=== PATIENT | male | born 1950 | race Caucasian/White ===

== ENCOUNTER → 2016-10-17 | Outpatient (CLI) | payer MEDICARE ==
--- NOTE | 2016-10-17 17:51 | MR ---
EXAMINATION TYPE: MR lumbar spine wo con DATE OF EXAM: 10/17/2016 2:03 PM COMPARISON: NONE HISTORY: Back pain CONTRAST: 0 mL intravenous MultiHance. TECHNIQUE: Multiplanar, multisequence images of the lumbar spine were acquired. FINDINGS: L5-S1: No significant disc bulge or disc herniation. No spinal canal stenosis. No foraminal stenosi s. Disc space narrowing is present. Marked facet hypertrophy is present without effect on spinal can al.. L4-L5: No significant disc bulge or disc herniation. No spinal canal stenosis. No foraminal stenosi s. There is loss of disc height. Some residual disc bulge is present. This has extension into the le ft paracentral canal and left lateral canal. Correlate with left L5 radicular symptoms. Postcontrast imaging may be useful for confirmation. Laminectomy defect on the left may be present L3-L4: Central disc herniation extending inferiorly is present. Some left paracentral disc herniation extending inferiorly is also present. Correlate with radicular symptoms. No AP spinal canal stenosis is present. No spinal canal stenosis. No foraminal stenosis. . L2-L3: No significant disc bulge or disc herniation. No spinal canal stenosis. No foraminal stenosi s. . L1-L2: No significant disc bulge or disc herniation. No spinal canal stenosis. No foraminal stenosi s. . T12-L1: No significant disc bulge or disc herniation. No spinal canal stenosis. No foraminal stenos is. . IMPRESSION: 1. 1. Central and left paracentral disc herniations at L3-4. 2. Loss of disc height with residual disc bulging greater in the left paracentral canal. Herniation m ay extend to the left lateral canal. Correlate for left L5 radicular symptoms. Given the patient's cruz rgical history, postcontrast imaging may be useful for differentiating granulation tissue from recurr ent disc herniation.
== END | disposition home or self-care (01) ==
LOC: RADMRIMAIN 13:31
PROVIDERS: ATTEND Orthopaedic Surgery Orthopaedic Surgery of the Spine
DX: M51.26 Other intervertebral disc displacement, lumbar region (principal)
CPT/HCPCS: 72148

== ENCOUNTER 2016-10-30 19:44 | Emergency (ER) | payer MEDICARE ==
[2016-10-30] MEDS ORDERED: SODIUM CHLORIDE 0.9% 1,000 ML IV STA (20:23)
[2016-10-30] MEDS ORDERED: ACETAMINOPHEN IV (For NPO) 1,000 MG in EMPTY BAG 1 BAG IVPB ONE (20:23)
[2016-10-30 20:46] LABS: Aty Lym Flag Slight; CH 30.1; HCT 47.6 % (39.0-53.0); HDW 2.85; HGB 16.2 gm/dL (13.0-17.5); MCH 29.5 pg (25.0-35.0); MCHC 34.1 g/dL (31.0-37.0); MCV 86.5 fL (80.0-100.0); Mean Platelet Volume 8.4; RDW 14.1 % (11.5-15.5); WBC 5.7 k/uL (3.8-10.6); WBC (Perox) 5.89
[2016-10-30 20:55] LABS: Calcium 9.2 mg/dL (8.4-10.2); Potassium 3.8 mmol/L (3.5-5.1); Total Bilirubin 0.6 mg/dL (0.2-1.3); Total Protein 7.8 g/dL (6.3-8.2)
--- NOTE | 2016-10-30 20:55 | ED ---
General Adult HPI - General Chief complaint: Headache Stated complaint: headache x 2 days, vomiting Time Seen by Provider: 10/30/16 20:16 Source: patient, RN notes reviewed Mode of arrival: ambulatory Limitations: no limitations - History of Present Illness Initial comments: 66-year-old male presents to the emergency Department chief complaint of cough cold runny nose like symptoms associated with headache and fever and facial pain. Patient states he's been sick for about to 3 days. Patient states has tried [id number] cold remedies he's tried Tylenol with no improvement. Patient states that he just feels ill and he is not getting any better. Patient states that he has no neck pain or stiffness with this. Patient states he has had some vomiting with this. Patient states she's been sick for about 3 days now.Patient denies any recent shortness of breath, chest pain, back pain, abdominal pain, numbness or tingling, dysuria or hematuria, constipation or diarrhea, visual changes, or any other current symptoms. - Related Data Home Medications Medication Instructions Recorded Confirmed Lansoprazole [Prevacid] 30 mg PO DAILY 05/29/14 10/30/16 Lovastatin [Mevacor] 40 mg PO DAILY 05/29/14 10/30/16 Tamsulosin HCl [Flomax] 0.4 mg PO DAILY 05/29/14 10/30/16 Triamterene-Hctz 37.5-25Mg 1 cap PO DAILY 05/29/14 10/30/16 [Dyazide 37.5-25 Capsule] Previous Rx's Medication Instructions Recorded Amoxicillin/Potassium Clav 1 tab PO Q12HR #20 tab 10/30/16 [Augmentin 875-125 Tablet] Allergies Allergy/AdvReac Type Severity Reaction Status Date / Time No Known Allergies Allergy Verified 10/30/16 20:53 Review of Systems ROS Statement: Those systems with pertinent positive or pertinent negative responses have been documented in the HPI. ROS Other: All systems not noted in ROS Statement are negative. Past Medical History Past Medical History: GERD/Reflux, Hyperlipidemia, Hypertension Additional Past Medical History / Comment(s): kidney stones, History of Any Multi-Drug Resistant Organisms: None Reported Past Surgical History: Adenoidectomy, Back Surgery, Orthopedic Surgery, Tonsillectomy Past Psychological History: No Psychological Hx Reported Smoking Status: Never smoker Past Alcohol Use History: Occasional Past Drug Use History: None Reported General Exam - General Exam Comments Initial Comments: General: The patient is awake and alert, in no distress, and does not appear acutely ill. Head: Patient IS tender over sinuses. Eye: Pupils are equal, round and reactive to light, extra-ocular movements are intact; there is normal conjunctiva bilaterally. No signs of icterus. Ears, nose, mouth and throat: There are moist mucous membranes and no oral lesions. Neck: The neck is supple, there is no tenderness. Cardiovascular: There is a regular rate and rhythm. No murmur, rub or gallop is appreciated. Respiratory: Lungs are clear to auscultation, respirations are non-labored, breath sounds are equal. No wheezes, stridor, rales, or rhonchi. Gastrointestinal: Soft, non-distended, non-tender abdomen without masses or organomegaly noted. There is no rebound or guarding present. No CVA tenderness. Bowel sounds are unremarkable. Back: There is no tenderness to palpation in the midline. There is no obvious deformity. No rashes noted. Musculoskeletal: Normal ROM, no tenderness, There is no pedal edema. There is no calf tenderness or swelling. Sensation intact. Pulses equal bilaterally 2+. Neurological: CN II-XII intact, There are no obvious motor or sensory deficits. Coordination appears grossly intact. Speech is normal. Skin: Skin is warm and dry and no rashes or lesions are noted. Psychiatric: Cooperative, appropriate mood & affect, normal judgment. Limitations: no limitations Course Vital Signs 10/30/16 20:04 Temperature 98.9 F Pulse Rate 117 H Respiratory 20 Rate Blood Pressure 120/74 O2 Sat by Pulse 93 L Oximetry Medical Decision Making - Medical Decision Making 66-year-old male presents with cough cold runny nose like symptoms. At this time the patient is positive for influenza and CT does show sinusitis. At this time we discussed doubling of her treatment Tamiflu but we will start him on antibiotics for sinusitis. We discussed return parameters and follow-up. Patient family stated he understood all questions have been answered. - Lab Data Result diagrams: 10/30/16 20:38 10/30/16 20:38 Lab Results 10/30/16 10/30/16 10/30/16 Range/Units 20:38 20:38 20:38 WBC 5.7 (3.8-10.6) k/uL RBC 5.50 (4.30-5.90) m/uL Hgb 16.2 (13.0-17.5) gm/dL Hct 47.6 (39.0-53.0) % MCV 86.5 (80.0-100.0) fL MCH 29.5 (25.0-35.0) pg MCHC 34.1 (31.0-37.0) g/dL RDW 14.1 (11.5-15.5) % Plt Count 140 L (150-450) k/uL Sodium 138 (137-145) mmol/L Potassium 3.8 (3.5-5.1) mmol/L Chloride 100 (98-107) mmol/L Carbon Dioxide 25 (22-30) mmol/L Anion Gap 13 mmol/L BUN 19 (9-20) mg/dL Creatinine 1.65 H (0.66-1.25) mg/dL Est GFR (MDRD) Af Amer 51 (>60 ml/min/1.73 sqM) Est GFR (MDRD) Non-Af 42 (>60 ml/min/1.73 sqM) Glucose 164 H (74-99) mg/dL Calcium 9.2 (8.4-10.2) mg/dL Total Bilirubin 0.6 (0.2-1.3) mg/dL AST 75 H (17-59) U/L ALT 81 H (21-72) U/L Alkaline Phosphatase 66 (38-126) U/L Total Protein 7.8 (6.3-8.2) g/dL Albumin 4.5 (3.5-5.0) g/dL Influenza Type A RNA Detected A (Not Detectd) Influenza Type B (PCR) Not Detected (Not Detectd) - Radiology Data Radiology results: report reviewed, image reviewed Disposition Clinical Impression: Influenza A, Acute sinusitis Disposition: HOME SELF-CARE Condition: Stable Instructions: Influenza (ED), Sinusitis (ED) Additional Instructions: Please use medication as discussed. Please follow up with family doctor if symptoms have not improved over the next two days. Please return to the emergency room if your symptoms increase or worsen or for any other concerns. Prescriptions: Amoxicillin/Potassium Clav [Augmentin 875-125 Tablet] 1 tab PO Q12HR #20 tab Referrals: Nohemi Dennis MD [Primary Care Provider] - 1-2 days Time of Disposition: 21:32
[2016-10-30 21:41] VITALS: BP 128/69; PULSE 86; RESP 18; TEMP 98.4
[2016-10-30 22:13] LABS: Add Differential Manual Differential
--- NOTE | 2016-10-30 22:23 | XR ---
EXAMINATION TYPE: XR chest 2V DATE OF EXAM: 10/30/2016 8:47 PM COMPARISON: NONE HISTORY: Cough and cold symptoms. TECHNIQUE: Frontal and lateral views of the chest are obtained. FINDINGS: There is no focal air space opacity, pleural effusion, or pneumothorax seen. Linear plate like left basilar atelectasis is noted. The cardiac silhouette size is within normal limits. The os seous structures are intact. IMPRESSION: Linear platelike left basilar atelectasis with no focal consolidation.
--- NOTE | 2016-10-30 22:23 | CT ---
EXAMINATION TYPE: CT brain wo con DATE OF EXAM: 10/30/2016 9:08 PM COMPARISON: NONE HISTORY: Pt states of MATUTE x2 days CT DLP: 1118.0 mGycm. Automated Exposure Control for Dose Reduction was Utilized. TECHNIQUE: CT scan of the head is performed without contrast. FINDINGS: There is no acute intracranial hemorrhage, mass effect, or midline shift identified. The ventricles and sulci are within normal limits in size. The globes are intact. Moderate mucosal thic kening is seen within the ethmoid sinuses and mild mucosal thickening/mucosal polyps within the right maxillary sinus. Scattered mucosal thickening is seen within the frontal sinus and sphenoid sinuses. Mastoid air cells are well aerated. IMPRESSION: 1. No acute intracranial hemorrhage, mass effect, or midline shift is seen. 2. Moderate paranasal sinus disease, which may contribute to the patient's headaches.
[2016-10-30 22:25] LABS: Nucleated Red Blood Cells 0 /100 WBC (0-0); Total Cells Counted 100
[2016-10-30 22:29] LABS: Large Platelets Present; Manual Review Performed
== END 2016-10-30 21:42 | disposition home or self-care (01) ==
LOC: EC 19:44
DX: J01.90 Acute sinusitis, unspecified (principal); J09.X2 Influenza due to identified novel influenza A virus with other respiratory manifestations; E78.5 Hyperlipidemia, unspecified; K21.9 Gastro-esophageal reflux disease without esophagitis; Z79.899 Other long term (current) drug therapy
CPT/HCPCS: 36415; 80053; 85025; 87502; 71020; 70450; 99284; 96374; 96361; J0131

== ENCOUNTER → 2017-05-14 | Outpatient (CLI) | payer MEDICARE ==
--- NOTE | 2017-05-14 10:29 | US ---
EXAMINATION TYPE: US abdomen complete DATE OF EXAM: 05/14/2017 COMPARISON: CT Abdomen 2013 CLINICAL HISTORY: K21.0 Gastro-esophageal reflux disease with esopha; family HX of pancreatic cancer; lower abdominal pain; renal stones with multiple lithotripsies per patient EXAM MEASUREMENTS: Liver Length: 15.7 cm Gallbladder Wall: 0.1 cm CBD: 0.4 cm Spleen: 10.4 cm Right Kidney: 12.3 x 5.5 x 4.7 cm Left Kidney: 11.9 x 4.7 x 5.2 cm Pancreas: The pancreatic tail and head are nonvisualized. No ductal dilatation is seen in the visuali zed portions. Liver: Moderate coarsened heterogenous echotexture of the hepatic parenchyma. Gallbladder: wnl Evidence for sonographic Munoz's sign: No CBD: wnl Spleen: wnl Right Kidney: wnl Left Kidney: lower pole renal cyst = 2.0 x 1.2 x 1.6cm; lower pole hyperechoic focus = 0.5 x 0.3 x 0 .1cm with shadowing representing a nonobstructing calculus. Upper IVC: wnl Abd Aorta: intimal wall thickening noted mid aorta. The liver is homogenous. The intrahepatic portion of the IVC and proximal abdominal aorta are within normal limits. There is no evidence of cholelithiasis. Common bile duct is unremarkable. The visu alized portions of the pancreas are homogenous. The spleen is unremarkable. Kidneys are symmetric a nd free of hydronephrosis. No renal lesions are seen. IMPRESSION: 1. Moderate coarsened heterogenous echotexture of the hepatic parenchyma, which most commonly corresp onds to hepatic steatosis and limits evaluation for underlying hepatic masses. 2. Left renal cyst and nonobstructing 5 mm left renal calculus. 3. Incomplete visualization of the pancreas, however there is no evidence of ductal dilatation within the visualized portions.
== END | disposition home or self-care (01) ==
LOC: RADUSWWP 09:06
PROVIDERS: ATTEND Internal Medicine Gastroenterology
DX: N20.0 Calculus of kidney (principal); N28.1 Cyst of kidney, acquired; Z85.89 Personal history of malignant neoplasm of other organs and systems
CPT/HCPCS: 76700

== ENCOUNTER → 2017-08-22 | Outpatient (CLI) | payer MEDICARE ==
--- NOTE | 2017-08-22 12:49 | XR ---
Bilateral feet HISTORY: Hammertoe, pain 3 views of each foot submitted. Degenerative changes are present at the first metatarsophalangeal joint of the left foot and intertar ana rosa joints, right first digit shows post op change. Alignment and bone mineralization are maintained. Vascular calcifications noted incidentally. No fracture or dislocation. Digits are slightly flexed. There are plantar calcaneal spurs. IMPRESSION: degenerative changes, additional findings above
== END | disposition home or self-care (01) ==
LOC: RADXRMAIN 10:41
PROVIDERS: ATTEND Podiatrist
DX: M25.872 Other specified joint disorders, left ankle and foot (principal); M25.871 Other specified joint disorders, right ankle and foot; R52 Pain, unspecified; M20.40 Other hammer toe(s) (acquired), unspecified foot

== ENCOUNTER 2018-01-29 06:18 | Emergency (ER) | payer MEDICARE ==
[2018-01-29] MEDS ORDERED: ONDANSETRON 4 MG/2 ML VIAL IVP STA (06:27)
[2018-01-29] MEDS ORDERED: SODIUM CHLORIDE 0.9% 1,000 ML IV ONE (06:27)
[2018-01-29] MEDS ORDERED: MORPHINE SULFATE 4 MG/ML SYRINGE IVP STA ×4 (06:32→09:01)
--- NOTE | 2018-01-29 06:37 | ED ---
Abdominal Pain HPI - General Source: patient Mode of arrival: wheelchair Limitations: physical limitation <Maxi North - Last Filed: 01/29/18 06:53> <Angel Welch - Last Filed: 01/29/18 08:23> - General Chief Complaint: Abdominal Pain Stated Complaint: Back and Abdominal Pain Time Seen by Provider: 01/29/18 06:22 - History of Present Illness Initial Comments: 67 years old male comes in with the right flank pain, pain is radiating towards the right groin area he does have a history of kidney stones he stating he feels like his regular kidney stones is nauseous is in severe pain. He denies any headaches no neck stiffness no chest pain does have a right sided flank pain of system is otherwise unremarkable (Maxi North) - Related Data Home Medications Medication Instructions Recorded Confirmed Lansoprazole [Prevacid] 30 mg PO DAILY 05/29/14 01/29/18 Tamsulosin HCl [Flomax] 0.4 mg PO DAILY 05/29/14 01/29/18 Atorvastatin Calcium [Lipitor] 40 mg PO HS 01/29/18 01/29/18 Cyclobenzaprine HCl 10 mg PO QAM 01/29/18 01/29/18 Lisinopril-Hctz 20-25 mg 1 tab PO DAILY 01/29/18 01/29/18 [Zestoretic 20-25] Naproxen [Naproxen] 500 mg PO BID PRN 01/29/18 01/29/18 Oxybutynin Chloride [Ditropan] 5 mg PO DAILY 01/29/18 01/29/18 Previous Rx's Medication Instructions Recorded Hydrocodone/Acetaminophen [Silver[place] 1 each PO Q4HR PRN #15 tab 01/29/18 5-325] Ketorolac [Toradol] 10 mg PO Q6HR #15 tab 01/29/18 Tamsulosin HCl [Flomax] 0.4 mg PO DAILY #10 cap 01/29/18 Allergies Allergy/AdvReac Type Severity Reaction Status Date / Time No Known Allergies Allergy Verified 01/29/18 07:28 Review of Systems ROS Other: All systems not noted in ROS Statement are negative. <Maxi North - Last Filed: 01/29/18 06:53> ROS Other: All systems not noted in ROS Statement are negative. <Angel Welch - Last Filed: 01/29/18 08:23> ROS Statement: Those systems with pertinent positive or pertinent negative responses have been documented in the HPI. Past Medical History Past Medical History: GERD/Reflux, Hyperlipidemia, Hypertension Additional Past Medical History / Comment(s): kidney stones, History of Any Multi-Drug Resistant Organisms: None Reported Past Surgical History: Adenoidectomy, Back Surgery, Orthopedic Surgery, Tonsillectomy Past Psychological History: No Psychological Hx Reported Smoking Status: Never smoker Past Alcohol Use History: Occasional Past Drug Use History: None Reported <Maxi North - Last Filed: 01/29/18 06:53> General Exam Limitations: physical limitation <Maxi North - Last Filed: 01/29/18 06:53> <Angel Welch - Last Filed: 01/29/18 08:23> - General Exam Comments Initial Comments: General: The patient is awake and in severe distress Skin: Skin is warm and dry and no rashes or lesions are noted. Eye: Pupils are equal, round and reactive to light, extra-ocular movements are intact; there is normal conjunctiva bilaterally. Ears, nose, mouth and throat: There are moist mucous membranes and no oral lesions. Neck: The neck is supple, there is no tenderness or JVD. Cardiovascular: There is a regular rate and rhythm. No murmur, rub or gallop is appreciated. Respiratory: To auscultation bilateral, no wheezing no rhonchi no distress respiratory simon noticed Gastrointestinal: Soft, non-distended, non-tender abdomen without masses or organomegaly noted. There is no rebound or guarding present. Bowel sounds are unremarkable. Back: There is no tenderness to palpation in the midline. There is no obvious deformity. Musculoskeletal: Normal ROM, no tenderness, There is no pedal edema. There is no calf tenderness or swelling. No cords were appreciated. Neurological: CN II-XII intact, Cranial nerves III through XII are intact. There are no obvious motor or sensory deficits. Coordination appears grossly intact. Speech is normal. Psychiatric: Cooperative, appropriate mood & affect, normal judgment. (Maxi North) Course <Maxi North - Last Filed: 01/29/18 06:53> <Angel Welch - Last Filed: 01/29/18 08:23> Vital Signs 01/29/18 01/29/18 06:19 07:44 Temperature 97.7 F 97.1 F L Pulse Rate 80 71 Respiratory 20 18 Rate Blood Pressure 194/97 135/80 O2 Sat by Pulse 96 94 L Oximetry Patient will be endorsed to Dr. Welch for further evaluation and management, at this point compress metabolic panel and a urinalysis is available that was reviewed, CT renal colic is pending, I suspect obstructing stone in the right ureter (Maxi North) Medical Decision Making - Lab Data Result diagrams: 01/29/18 06:20 <Maxi North - Last Filed: 01/29/18 06:53> - Lab Data Result diagrams: 01/29/18 06:20 01/29/18 06:20 <Angel Welch - Last Filed: 01/29/18 08:23> - Medical Decision Making Patient's CAT scan showed 3 mm right kidney stone. Patient was still in pain second 4 more morphine. I sent the patient home with all hydrocodone and Flomax. (Angel Welch) - Lab Data Lab Results 01/29/18 01/29/18 01/29/18 Range/Units 06:20 06:20 06:25 WBC 7.2 (3.8-10.6) k/uL RBC 5.42 (4.30-5.90) m/uL Hgb 15.7 (13.0-17.5) gm/dL Hct 45.4 (39.0-53.0) % MCV 83.7 (80.0-100.0) fL MCH 29.0 (25.0-35.0) pg MCHC 34.7 (31.0-37.0) g/dL RDW 13.7 (11.5-15.5) % Plt Count 177 (150-450) k/uL Neutrophils % (Manual) 56 % Lymphocytes % (Manual) 27 % Monocytes % (Manual) 15 % Eosinophils % (Manual) 2 % Neutrophils # (Manual) 4.03 (1.3-7.7) k/uL Lymphocytes # (Manual) 1.94 (1.0-4.8) k/uL Monocytes # (Manual) 1.08 H (0-1.0) k/uL Eosinophils # (Manual) 0.14 (0-0.7) k/uL Nucleated RBCs 0 (0-0) /100 WBC Manual Slide Review Performed Large Platelets Present Sodium 146 H (137-145) mmol/L Potassium 3.8 (3.5-5.1) mmol/L Chloride 106 (98-107) mmol/L Carbon Dioxide 24 (22-30) mmol/L Anion Gap 16 mmol/L BUN 30 H (9-20) mg/dL Creatinine 1.53 H (0.66-1.25) mg/dL Est GFR (CKD-EPI)AfAm 54 (>60 ml/min/1.73 sqM) Est GFR (CKD-EPI)NonAf 46 (>60 ml/min/1.73 sqM) Glucose 128 H (74-99) mg/dL Calcium 9.4 (8.4-10.2) mg/dL Total Bilirubin 0.8 (0.2-1.3) mg/dL AST 46 (17-59) U/L ALT 41 (21-72) U/L Alkaline Phosphatase 89 (38-126) U/L Total Protein 7.8 (6.3-8.2) g/dL Albumin 4.6 (3.5-5.0) g/dL Urine Color Yellow Urine Appearance Cloudy (Clear) Urine pH 5.0 (5.0-8.0) Ur Specific [place] 1.019 (1.001-1.035) Urine Protein 1+ H (Negative) Urine Glucose (UA) Negative (Negative) Urine Ketones Negative (Negative) Urine Blood Large H (Negative) Urine Nitrite Negative (Negative) Urine Bilirubin Negative (Negative) Urine Urobilinogen <2.0 (<2.0) mg/dL Ur Leukocyte Esterase Negative (Negative) Urine RBC >182 H (0-5) /hpf Ur Squamous Epith Cells <1 (0-4) /hpf Urine Mucus Rare H (None) /hpf Disposition <Maxi North - Last Filed: 01/29/18 06:53> Is patient prescribed a controlled substance at d/c from ED?: Yes When asked, does pt state using other controlled substances?: No Time of Disposition: 08:18 <Angel Welch - Last Filed: 01/29/18 08:23> Clinical Impression: Kidney stone on right side Disposition: HOME SELF-CARE Instructions: Kidney Stones (ED) Prescriptions: Hydrocodone/Acetaminophen [[place] 5-325] 1 each PO Q4HR PRN #15 tab PRN Reason: Pain Ketorolac [Toradol] 10 mg PO Q6HR #15 tab Tamsulosin HCl [Flomax] 0.4 mg PO DAILY #10 cap Referrals: Nohemi Dennis MD [Primary Care Provider] - 1-2 days
[2018-01-29 06:42] LABS: Albumin 4.6 g/dL (3.5-5.0); Calcium 9.4 mg/dL (8.4-10.2); Potassium 3.8 mmol/L (3.5-5.1); Total Bilirubin 0.8 mg/dL (0.2-1.3); Total Protein 7.8 g/dL (6.3-8.2)
[2018-01-29] MEDS ORDERED: KETOROLAC 30 MG/ML 1 ML VIAL IVP STA (06:44)
[2018-01-29 06:50] LABS: HCT 45.4 % (39.0-53.0); HGB 15.7 gm/dL (13.0-17.5); MCHC 34.7 g/dL (31.0-37.0); MCV 83.7 fL (80.0-100.0); Mean Platelet Volume 9.9; Platelet Count 177 k/uL (150-450); RBC 5.42 m/uL (4.30-5.90); RDW 13.7 % (11.5-15.5); WBC 7.2 k/uL (3.8-10.6)
[2018-01-29 06:51] LABS: Appearance,Urine Cloudy (Clear); Bilirubin,Urine Negative (Negative); Blood,Urine Large (Negative); Color,Urine Yellow; Glucose,Urine (UA) Negative (Negative); Ketones,Urine Negative (Negative); Leukocyte Esterase,Urine Negative (Negative); Mucus,Urine Rare /hpf; Nitrite,Urine Negative (Negative); Protein,Urine 1+ (Negative); RBC,Urine >182 /hpf (0-5); Specific Gravity,Urine 1.019 (1.001-1.035); Squamous Epithelial Cell,Urine <1 /hpf (0-4); Urobilinogen,Urine <2.0 mg/dL (<2.0)
[2018-01-29 07:07] LABS: Eosinophils # (M) 0.14 k/uL (0-0.7); Lymphocytes # (M) 1.94 k/uL (1.0-4.8); Monocytes # (M) 1.08 k/uL (0-1.0); Neutrophils # (M) 4.03 k/uL (1.3-7.7); Neutrophils % (M) 56 %; Nucleated Red Blood Cells 0 /100 WBC (0-0); Total Cells Counted 100
[2018-01-29 07:08] LABS: Large Platelets Present
--- NOTE | 2018-01-29 07:37 | CT ---
EXAMINATION TYPE: CT abdomen pelvis wo con DATE OF EXAM: 01/29/2018 HISTORY: Rt flank pain CT DLP: 1216 mGycm. Automated Exposure Control for Dose Reduction was Utilized. TECHNIQUE: CT scan of the abdomen and pelvis is performed without oral or IV contrast. COMPARISON: CT abdomen and pelvis August 10, 2014 FINDINGS: Within the limitations of a non-contrast study, the following observations are made. Lung bases: There is persistent left basilar linear scarring and/or atelectasis. LIVER/GB: Liver is heterogeneously hypodense particularly right hepatic lobe suggesting mild diffuse fatty infiltration, Hounsfield units average 39 at this level. PANCREAS: No significant abnormality is seen. SPLEEN: Somewhat tortuous splenic artery is redemonstrated, cannot exclude small aneurysm on axial im age 38. No significant change from prior. ADRENALS: No significant abnormality is seen. KIDNEYS: No left-sided renal calculi or hydronephrosis on current study. No intraluminal calculi are seen in poorly distended bladder. Scattered pelvic phleboliths are seen. There is 3 mm calculus proximal right ureter on axial image 84 and coronal image 51 causing mild righ t-sided pyelocaliectasis and proximal hydroureter and mild to moderate right-sided ill-defined perine phric fluid and fat stranding. There is additional 1 mm calculus suspected mid pole level right kidne y axial image 62. BOWEL: Small to moderate-sized hiatal hernia is redemonstrated. Normal-appearing appendix is seen fro m base of cecum. There is no suspicious small or large bowel dilatation. A few diverticula in left co tab are redemonstrated. GENITAL ORGANS: Prostate gland is enlarged in size bulging on bladder base consistent with underlying BPH. LYMPH NODES: No greater than 1cm abdominal or pelvic lymph nodes are appreciated. OSSEOUS STRUCTURES: Spine is straightened on sagittal images. There is moderate disc space narrowing L4-L5 level. There is multilevel spurring in the thoracolumbar spine. There is mild to moderate joint space loss in both hips. OTHER: No significant additional abnormality is seen. IMPRESSION: There is new 3 mm proximal right ureter calculus causing mild right-sided hydronephrosis.
[2018-01-29 07:46] VITALS: RESP 18
[2018-01-29 09:01] VITALS: BP 155/83; PULSE 70; TEMP 97
== END 2018-01-29 09:08 | disposition home or self-care (01) ==
LOC: EC 06:18
DX: N20.0 Calculus of kidney (principal); E78.5 Hyperlipidemia, unspecified; I10 Essential (primary) hypertension; K21.9 Gastro-esophageal reflux disease without esophagitis; Z79.899 Other long term (current) drug therapy; Z98.890 Other specified postprocedural states
CPT/HCPCS: 36415; 80053; 85025; 81001; 74176; 99284; 96374; 96375 ×2; 96376 ×2; 96361 ×2; J2270; J2405; J1885

== ENCOUNTER → 2018-05-24 | Outpatient (CLI) | payer MEDICARE ==
--- NOTE | 2018-05-24 15:03 | US ---
EXAMINATION TYPE: US kidneys/renal and bladder DATE OF EXAM: 05/24/2018 COMPARISON: CT CLINICAL HISTORY: N28.9 Disorder of kidney and ureter.... Multiple cystoscopes for renal stone retrie vinay per patient; left flank pain radiating to left pelvis EXAM MEASUREMENTS: Right Kidney: 11.5 x 5.2 x 4.8 cm Left Kidney: 11.9 x 5.2 x 6.1 cm Post Void Residual Volume: 65.0 mL Right Kidney: very small hyperechoic focus noted in lower pole = 0.3 x 0.2 x 0.2cm Left Kidney: lower pole cluster of cysts = 1.8 x .3 x 1.6cm Bladder: wnl; prominent prostate noted posteriorly Bilateral Jets seen: yes Normal Post Void Residual: no, as is greater than 50.0ml. IMPRESSION: 1. Nonobstructing calculus right kidney. 2. Renal cystic changes left kidney without suspicious lesion.
== END | disposition home or self-care (01) ==
LOC: RADUSWWP 13:53
PROVIDERS: ATTEND Family Medicine
DX: N20.0 Calculus of kidney (principal); N28.1 Cyst of kidney, acquired
CPT/HCPCS: 76770

== ENCOUNTER 2018-08-01 12:01 | Emergency (ER) | payer MEDICARE ==
[2018-08-01 12:05] VITALS: RESP 18
--- NOTE | 2018-08-01 13:25 | XR ---
EXAMINATION TYPE: XR hand complete RT DATE OF EXAM: 08/01/2018 COMPARISON: NONE HISTORY: Pain TECHNIQUE: Three views are submitted. FINDINGS: Joint spaces are preserved. There is a questionable deformity involving the scaphoid on the oblique v iew. IMPRESSION: 1. Question a deformity of the scaphoid on the oblique view. Recommend a dedicated wrist series with scaphoid view
--- NOTE | 2018-08-01 14:13 | XR ---
EXAMINATION TYPE: XR wrist complete RT DATE OF EXAM: 08/01/2018 COMPARISON: NONE HISTORY: Pain TECHNIQUE: Four views submitted. FINDINGS: There is a subtle deformity of the scaphoid which may be chronic. Remaining osseous structures appear intact. No definite acute fracture. IMPRESSION: 1. No definite acute fracture. There is a subtle deformity scaphoid which likely is chronic. If there is point tenderness then correlate with CT scan for confirmation in the chronicity of the deformity to exclude acute injury..
--- NOTE | 2018-08-01 14:49 | ED ---
General Adult HPI - General Chief complaint: Extremity Injury, Upper Stated complaint: hand and wrist pain Source: patient Mode of arrival: ambulatory Limitations: no limitations - History of Present Illness Initial comments: 68 y/o male presents to ED w/ pain in his right thumb. Pt states that with extension of his R thumb he has pain in his distal radius. This pain has been ongoing for approx 2 weeks. Pt states that he has had no acute injury over the last month. 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 Pt takes a daily NSAID of naproxen for his osteoarthritis of hands and other chronic pain. Pt denies other complaints. Systemic: Pt denies fatigue, myalgia, fever/chills, rash. Pt denies weakness, night sweats, weight loss. Neuro: Pt denies headache, visual disturbances, syncope or pre-syncope. HEENT: Pt denies ocular discharge or irritation, otalgia, rhinorrhea, pharyngitis or notable lymphadenopathy. Cardiopulmonary: Pt denies chest pain, SOB, heart palpitations, dyspnea on exertion. Abdominal/GI: Pt denies abdominal pain, n/v/d. : Pt denies dysuria, burning w/ urination, frequency/urgency. Denies new onset urinary or bowel incontinence. MSK: Pt denies myalgia, loss of strength or function in extremities. - Related Data Home Medications Medication Instructions Recorded Confirmed Lansoprazole [Prevacid] 30 mg PO DAILY 05/29/14 01/29/18 Tamsulosin HCl [Flomax] 0.4 mg PO DAILY 05/29/14 01/29/18 Atorvastatin Calcium [Lipitor] 40 mg PO HS 01/29/18 01/29/18 Cyclobenzaprine HCl 10 mg PO QAM 01/29/18 01/29/18 Lisinopril-Hctz 20-25 mg 1 tab PO DAILY 01/29/18 01/29/18 [Zestoretic 20-25] Naproxen 500 mg PO BID PRN 01/29/18 01/29/18 Oxybutynin Chloride [Ditropan] 5 mg PO DAILY 01/29/18 01/29/18 Previous Rx's Medication Instructions Recorded Hydrocodone/Acetaminophen [Gaffney 1 each PO Q4HR PRN #15 tab 01/29/18 5-325] Ketorolac [Toradol] 10 mg PO Q6HR #15 tab 01/29/18 Tamsulosin HCl [Flomax] 0.4 mg PO DAILY #10 cap 01/29/18 Allergies Allergy/AdvReac Type Severity Reaction Status Date / Time No Known Allergies Allergy Verified 08/01/18 12:05 Review of Systems ROS Statement: Those systems with pertinent positive or pertinent negative responses have been documented in the HPI. ROS Other: All systems not noted in ROS Statement are negative. Past Medical History Past Medical History: GERD/Reflux, Hyperlipidemia, Hypertension Additional Past Medical History / Comment(s): kidney stones, History of Any Multi-Drug Resistant Organisms: None Reported Past Surgical History: Adenoidectomy, Back Surgery, Orthopedic Surgery, Tonsillectomy Past Psychological History: No Psychological Hx Reported Smoking Status: Never smoker Past Alcohol Use History: Occasional Past Drug Use History: None Reported General Exam - General Exam Comments Initial Comments: Constitutional: NAD, AOX3, Pt has pleasant affect. HEENT: NC/AT, trachea midline, neck supple, no lymphadenopathy. Posterior pharynx non erythematous, without exudates. External ears appear normal, without discharge. Mucous membranes moist. Eyes PERRLA, EOM intact. There is no scleral icterus. No pallor noted. Cardiopulmonary: RRR, no murmurs, rubs or gallops, no JVD noted. Lungs CTAB in anterior and posterior rivera. No peripheral edema. Abdominal exam: Abdomen soft and non-distended. Abdomen non-tender to palpation in all 4 quadrants. Bowel sounds active in LLQ. No hepatosplenomegaly. Neuro: CN II-XII grossly intact. MSK: R hand and wrist nontender to palpation. No erythema, edema or signs of infection. Pain with flexion/extension of R thumb. No pain with palpation of flexor/extensor tendon. Full active ROM in all digits of R hand and R wrist. No pain with palpation or decreased active ROM in other extremities. Limitations: no limitations Course Vital Signs 08/01/18 12:02 Temperature 98.4 F Pulse Rate 83 Respiratory 18 Rate Blood Pressure 143/87 O2 Sat by Pulse 96 Oximetry Medical Decision Making - Medical Decision Making 60-year-old male who presented with right thumb pain with extension. Physical exam did not display any acute abnormalities or worrisome signs/symptoms of infection. Physical exam of right hand was nontender to palpation, non- erythematous or edematous. Patient has subjective pain with extension of right thumb. Patient does have a past medical history of bilateral osteoarthritis in both hands. Investigations were conducted including a plain film of patient's right hand, and right wrist. These plain films displayed a deformity in the patient's scaphoid, likely chronic in nature, patient has no scaphoid tenderness. Patient takes a 500mg daily naproxen, the dose will be doubled for 1 week to treat this pain/inflammation. This case with discussed at length with Dr. Welch. Patient to follow up with PCP and ortho in 1-2 days. Pt to return if symptoms worsen, redness or discharge develops. Disposition Clinical Impression: Osteoarthritis, hand Disposition: HOME SELF-CARE Condition: Good Instructions: Osteoarthritis (ED) Additional Instructions: Patient to adhere to previously discussed treatment plan and will take medication as directed. Patient to follow up with PCP in 1-2 days. Patient to return to ED if symptoms do not improve. Is patient prescribed a controlled substance at d/c from ED?: No Referrals: Nohemi Dennis MD [Primary Care Provider] - 1-2 days Davidson Jovel MD [Medical Doctor] - 1-2 days Time of Disposition: 14:50
[2018-08-01 15:15] VITALS: BP 118/83; PULSE 77; TEMP 98.1
== END 2018-08-01 15:14 | disposition home or self-care (01) ==
LOC: EC 12:01
DX: M19.041 Primary osteoarthritis, right hand (principal); M19.042 Primary osteoarthritis, left hand; E78.5 Hyperlipidemia, unspecified; I10 Essential (primary) hypertension; K21.9 Gastro-esophageal reflux disease without esophagitis; G89.29 Other chronic pain; Z79.1 Long term (current) use of non-steroidal anti-inflammatories (NSAID); Z79.899 Other long term (current) drug therapy
CPT/HCPCS: 99283

== ENCOUNTER 2019-08-08 20:13 | Observation (INO) | payer MEDICARE ==
[2019-08-08] MEDS ORDERED: SODIUM CHLORIDE 0.9% 500 ML 500 ML IV STA (20:21)
[2019-08-08 20:25] LABS: Glucose,Whole Blood 113 mg/dL (75-99)
--- NOTE | 2019-08-08 20:45 | ED ---
General Adult HPI - General Chief complaint: Chest Pain Stated complaint: Chest Pain Time Seen by Provider: 08/08/19 20:19 Source: patient, family Mode of arrival: wheelchair Limitations: no limitations - History of Present Illness Initial comments: Dictation was produced using [employer] dictation software. please excuse any grammatical, word or spelling errors. Chief Complaint: 69-year-old male past medical history diabetes, dyslipidemia and hypertension presents with left sided chest pain since yesterday. History of Present Illness: 69-year-old male who presents with left-sided chest pain since yesterday. Patient states that the pain as sharp. He states that initially the pain started in the left scapular area and today upon waking up his pain moved to his left anterior chest. States that the pain as sharp and stabbing in nature. Symptoms aren't exacerbated with deep inspiration. States that the pain is constant and sharp. No associated diaphoresis. No numbness, paresthesias to the extremities. She denies any shortness of breath. Patient denies any history of heart attacks. The ROS documented in this emergency department record has been reviewed and confirmed by me. Those systems with pertinent positive or negative responses have been documented in the HPI. All other systems are other negative and/or noncontributory. PHYSICAL EXAM: General Impression: Alert and oriented x3, mild distress secondary to pain HEENT: Normocephalic atraumatic, extra-ocular movements intact, pupils equal and reactive to light bilaterally, mucous membranes moist. Cardiovascular: Heart regular rate and rhythm, S1&S2 audible, no murmurs, rubs or gallops Chest: Lungs clear to auscultation bilaterally, no rhonchi, no wheeze, no rales Abdomen: Bowel sounds present, abdomen soft, non-tender, non-distended, no o rganomegaly Musculoskeletal: Pulses present and equal in all extremities, no peripheral edema Motor: no focal deficits noted Neurological: CN II-XII grossly intact, no focal motor or sensory deficits noted Skin: Intact with no visualized rashes Psych: Normal affect and mood ED course: 69-year-old male presents with chief complaint of left sided chest pain. Upon arrival are within acceptable limits. His blood pressure is however elevated at 180/105. Patient is mostly well-appearing with mild distress. Clinical presentation is consistent with atypical chest pain with typical features. EKG shows right bundle branch block. No signs of infarction or ischemia at this time.Repeat EKG shows no dynamic changes. EKG shows ventricular rate of 66, normal sinus rhythm,. Interval 172, care is 134, QTc 434. Laboratory evaluation obtained. CBC, coag panel unremarkable. D-dimer shows 0.69 level. Metabolic panel is unremarkable. Troponin is slightly bumped at 0.017 however still within normal range. Urinalysis negative. Chest x-rays obtained. Showing no acute processes. CT angios the chest was obtained given that patient elevated d-dimer. No signs of PE or aortic dissection. Images were reviewed with Dr. Massey. Patient given nitroglycerin. He started on heparin because he is continued to have pain. Patient given nitro paste. Discussed patient case with Dr. Cornelius who is aware of patient and is willing to accept patient care. She presented aspirin. Started on heparin for concerns of unstable angina. Nitro paste applied. EKG interpretation: Ventricular rate 84, normal sinus rhythm,. 150, Q is 1:30, QTc 451. No SD prolongation, no QTC prolongation, no ST or T-wave changes noted. No old EKG for comparison. Overall, this EKG is unremarkable - Related Data Home Medications Medication Instructions Recorded Confirmed Lansoprazole [Prevacid] 30 mg PO BID 05/29/14 08/08/19 Atorvastatin Calcium [Lipitor] 40 mg PO HS 01/29/18 08/08/19 Cyclobenzaprine HCl 10 mg PO QAM 01/29/18 08/08/19 Lisinopril-Hctz 20-25 mg 1 tab PO DAILY 01/29/18 08/08/19 [Zestoretic 20-25] Naproxen 500 mg PO BID PRN 01/29/18 08/08/19 Oxybutynin Chloride [Ditropan] 5 mg PO HS 01/29/18 08/08/19 Sucralfate [Carafate] 1 gm PO ACHS 08/08/19 08/08/19 metFORMIN HCL [Glucophage Xr] 500 mg PO DAILY 08/08/19 08/08/19 Previous Rx's Medication Instructions Recorded Tamsulosin HCl [Flomax] 0.4 mg PO DAILY #10 cap 01/29/18 Allergies Allergy/AdvReac Type Severity Reaction Status Date / Time No Known Allergies Allergy Verified 08/08/19 22:02 Review of Systems ROS Statement: Those systems with pertinent positive or pertinent negative responses have been documented in the HPI. ROS Other: All systems not noted in ROS Statement are negative. Past Medical History Past Medical History: Diabetes Mellitus, GERD/Reflux, Hyperlipidemia, Hypertension Additional Past Medical History / Comment(s): kidney stones, History of Any Multi-Drug Resistant Organisms: None Reported Past Surgical History: Adenoidectomy, Back Surgery, Orthopedic Surgery, Tonsillectomy Past Psychological History: No Psychological Hx Reported Smoking Status: Never smoker Past Alcohol Use History: Occasional Past Drug Use History: None Reported General Exam Limitations: no limitations Course Vital Signs 08/08/19 08/08/19 08/08/19 20:15 22:16 23:00 Temperature 99.8 F H Pulse Rate 91 77 75 Respiratory 20 18 13 Rate Blood Pressure 180/105 172/88 160/85 O2 Sat by Pulse 94 L 95 94 L Oximetry 08/08/19 08/09/19 23:30 00:00 Temperature Pulse Rate 74 76 Respiratory 14 12 Rate Blood Pressure 144/79 O2 Sat by Pulse 94 L 94 L Oximetry Medical Decision Making - Lab Data Result diagrams: 08/08/19 20:41 08/08/19 20:41 Lab Results 08/08/19 08/08/19 08/08/19 Range/Units 20:24 20:41 20:41 WBC 7.0 (3.8-10.6) k/uL RBC 5.62 (4.30-5.90) m/uL Hgb 15.9 (13.0-17.5) gm/dL Hct 48.6 (39.0-53.0) % MCV 86.5 (80.0-100.0) fL MCH 28.4 (25.0-35.0) pg MCHC 32.8 (31.0-37.0) g/dL RDW 13.6 (11.5-15.5) % Plt Count 177 (150-450) k/uL Neutrophils % 57 % Lymphocytes % 26 % Monocytes % 9 % Eosinophils % 4 % Basophils % 1 % Neutrophils # 4.0 (1.3-7.7) k/uL Lymphocytes # 1.8 (1.0-4.8) k/uL Monocytes # 0.6 (0-1.0) k/uL Eosinophils # 0.3 (0-0.7) k/uL Basophils # 0.1 (0-0.2) k/uL PT (9.0-12.0) sec INR (<1.2) APTT (22.0-30.0) sec D-Dimer (<0.60) mg/L FEU Sodium 142 (137-145) mmol/L Potassium 4.0 (3.5-5.1) mmol/L Chloride 105 (98-107) mmol/L Carbon Dioxide 27 (22-30) mmol/L Anion Gap 10 mmol/L BUN 18 (9-20) mg/dL Creatinine 1.28 H (0.66-1.25) mg/dL Est GFR (CKD-EPI)AfAm 66 (>60 ml/min/1.73 sqM) Est GFR (CKD-EPI)NonAf 57 (>60 ml/min/1.73 sqM) Glucose 121 H (74-99) mg/dL POC Glucose (mg/dL) 113 H (75-99) mg/dL POC 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 Jomar Ross Calcium 9.5 (8.4-10.2) mg/dL Magnesium 1.9 (1.6-2.3) mg/dL Total Bilirubin 0.5 (0.2-1.3) mg/dL AST 38 (17-59) U/L ALT 38 (21-72) U/L Alkaline Phosphatase 69 (38-126) U/L Troponin I (0.000-0.034) ng/mL Total Protein 7.8 (6.3-8.2) g/dL Albumin 4.6 (3.5-5.0) g/dL Urine Color Urine Appearance (Clear) Urine pH (5.0-8.0) Ur Specific [place] (1.001-1.035) Urine Protein (Negative) Urine Glucose (UA) (Negative) Urine Ketones (Negative) Urine Blood (Negative) Urine Nitrite (Negative) Urine Bilirubin (Negative) Urine Urobilinogen (<2.0) mg/dL Ur Leukocyte Esterase (Negative) 08/08/19 08/08/19 08/08/19 Range/Units 20:41 20:41 22:15 WBC (3.8-10.6) k/uL RBC (4.30-5.90) m/uL Hgb (13.0-17.5) gm/dL Hct (39.0-53.0) % MCV (80.0-100.0) fL MCH (25.0-35.0) pg MCHC (31.0-37.0) g/dL RDW (11.5-15.5) % Plt Count (150-450) k/uL Neutrophils % % Lymphocytes % % Monocytes % % Eosinophils % % Basophils % % Neutrophils # (1.3-7.7) k/uL Lymphocytes # (1.0-4.8) k/uL Monocytes # (0-1.0) k/uL Eosinophils # (0-0.7) k/uL Basophils # (0-0.2) k/uL PT 10.0 (9.0-12.0) sec INR 0.9 (<1.2) APTT 23.6 (22.0-30.0) sec D-Dimer 0.69 H (<0.60) mg/L FEU Sodium (137-145) mmol/L Potassium (3.5-5.1) mmol/L Chloride (98-107) mmol/L Carbon Dioxide (22-30) mmol/L Anion Gap mmol/L BUN (9-20) mg/dL Creatinine (0.66-1.25) mg/dL Est GFR (CKD-EPI)AfAm (>60 ml/min/1.73 sqM) Est GFR (CKD-EPI)NonAf (>60 ml/min/1.73 sqM) Glucose (74-99) mg/dL POC Glucose (mg/dL) (75-99) mg/dL 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 Calcium (8.4-10.2) mg/dL Magnesium (1.6-2.3) mg/dL Total Bilirubin (0.2-1.3) mg/dL AST (17-59) U/L ALT (21-72) U/L Alkaline Phosphatase (38-126) U/L Troponin I 0.017 (0.000-0.034) ng/mL Total Protein (6.3-8.2) g/dL Albumin (3.5-5.0) g/dL Urine Color Yellow Urine Appearance Clear (Clear) Urine pH 5.0 (5.0-8.0) Ur Specific [place] 1.016 (1.001-1.035) Urine Protein Negative (Negative) Urine Glucose (UA) Negative (Negative) Urine Ketones Negative (Negative) Urine Blood Negative (Negative) Urine Nitrite Negative (Negative) Urine Bilirubin Negative (Negative) Urine Urobilinogen <2.0 (<2.0) mg/dL Ur Leukocyte Esterase Negative (Negative) Disposition Clinical Impression: Chest pain Disposition: ADMITTED IP TO THIS HOSP Condition: Fair Referrals: Nohemi Dennis MD [Primary Care Provider] - 1-2 days Decision Time: 00:23
--- NOTE | 2019-08-08 21:11 | XR ---
EXAMINATION TYPE: XR chest 2V DATE OF EXAM: 08/08/2019 COMPARISON: 10/30/2016 HISTORY: Increasing chest pain since last night TECHNIQUE: Frontal and lateral views of the chest are obtained. FINDINGS: There is no focal air space opacity, pleural effusion, or pneumothorax seen. Chronic paren chymal scarring or chronic atelectasis of the left lung base is subsegmental. The cardiac silhouette size is within normal limits. The osseous structures are intact. Mild multilevel degenerative garcia ges of the spine. IMPRESSION: No acute cardiopulmonary process. Chronic scarring or chronic atelectasis of the left leanne ng base.
[2019-08-08 22:16] LABS: Basophils # (A) 0.1 k/uL (0-0.2); Basophils % (A) 1 %; Eosinophils # (A) 0.3 k/uL (0-0.7); Eosinophils % (A) 4 %; HCT 48.6 % (39.0-53.0); HGB 15.9 gm/dL (13.0-17.5); Lymphocytes # (A) 1.8 k/uL (1.0-4.8); Lymphocytes % (A) 26 %; MCH 28.4 pg (25.0-35.0); MCHC 32.8 g/dL (31.0-37.0); MCV 86.5 fL (80.0-100.0); Mean Platelet Volume 8.6; Monocytes # (A) 0.6 k/uL (0-1.0); Monocytes % (A) 9 %; Neutrophils % (A) 57 %; Platelet Count 177 k/uL (150-450); RBC 5.62 m/uL (4.30-5.90); RDW 13.6 % (11.5-15.5)
[2019-08-08 22:22] LABS: Appearance,Urine Clear (Clear); Bilirubin,Urine Negative (Negative); Blood,Urine Negative (Negative); Color,Urine Yellow; Glucose,Urine (UA) Negative (Negative); Ketones,Urine Negative (Negative); Leukocyte Esterase,Urine Negative (Negative); Nitrite,Urine Negative (Negative); Protein,Urine Negative (Negative); Specific Gravity,Urine 1.016 (1.001-1.035); Urobilinogen,Urine <2.0 mg/dL (<2.0)
[2019-08-08 22:29] LABS: INR 0.9 (<1.2); Partial Thromboplastin Time 23.6 sec (22.0-30.0)
[2019-08-08 22:31] LABS: Albumin 4.6 g/dL (3.5-5.0); Calcium 9.5 mg/dL (8.4-10.2); Magnesium 1.9 mg/dL (1.6-2.3); Total Bilirubin 0.5 mg/dL (0.2-1.3); Total Protein 7.8 g/dL (6.3-8.2)
[2019-08-08 22:53] LABS: D-Dimer 0.69 mg/L FEU (<0.60)
--- NOTE | 2019-08-09 00:03 | CT ---
EXAMINATION TYPE: CT angio chest DATE OF EXAM: 08/08/2019 11:32 PM COMPARISON: HISTORY: pain CT DLP: 545.70 mGycm Automated exposure control for dose reduction was used. CONTRAST: CTA scan of the thorax is performed with IV Contrast, patient injected with 100 mL of Isovue 370, pul monary embolism protocol. There are 3-D post processed images.. FINDINGS: There is mild subsegmental atelectasis at the lung bases. There is no mediastinal adenopathy. Thoraci c aorta is intact. There are no hilar masses. There is normal contrast opacification of the pulmonary arteries. There are no filling defects. Ascending aorta measures 3.8 cm. There is mild hiatal hernia . There is no evidence of a pulmonary mass. There is no pleural effusion. The bony thorax is intact. Th ere is no compression fracture. IMPRESSION: NO EVIDENCE OF PULMONARY EMBOLISM. SMALL HIATAL HERNIA. MILD SCARRING OR SUBSEGMENTAL ATELECTASIS LEFT LUNG BASE.
[2019-08-09] MEDS ORDERED: HEPARIN SODIUM,PORCINE 5,000 UNIT/ML 1 ML VIAL IV ONE (00:17)
[2019-08-09] MEDS ORDERED: HEPARIN SODIUM,PORCINE 5,000 UNIT/ML 1 ML VIAL IV PRN (00:17)
[2019-08-09] MEDS ORDERED: HYDROcodone/APAP 5-325MG 1 EACH TAB PO STA (00:23)
[2019-08-09] MEDS: NITROGLYCERIN OINT 1 INCH/GM PACKET TOPICAL SCH ×2 (00:29→06:24)
[2019-08-09] MEDS: NITROGLYCERIN SL TABS 0.4 MG TAB SUBLINGUAL PRN ×4 (00:29→04:23)
[2019-08-09] MEDS ORDERED: HEPARIN SOD,PORK IN 0.45% NACL 25,000 UNIT in 0.45% NACL 1 250ML.BAG IV SCH (00:30)
[2019-08-09 06:15] LABS: Glucose,Whole Blood 146 mg/dL (75-99)
[2019-08-09] MEDS: INSULIN ASPART (NovoLOG) 100 UNIT/ML VIAL SQ SCH ×4 (06:24→21:48)
[2019-08-09] MEDS ORDERED: IBUPROFEN 400 MG TAB PO STA (08:35)
[2019-08-09] MEDS ORDERED: LISINOPRIL-HCTZ 20-25 MG 1 EACH TAB PO SCH (09:00)
[2019-08-09] MEDS ORDERED: ALPRAZolam 0.5 MG TAB PO PRN (10:23)
[2019-08-09] MEDS ORDERED: SODIUM CHLORIDE 0.9% 1,000 ML in EMPTY BAG 1 BAG IV ONE (10:23)
[2019-08-09] MEDS ORDERED: ALPRAZolam 0.25 MG TAB PO PRN (10:23)
--- NOTE | 2019-08-09 10:27 | P.CRDCN ---
History of Present Illness History of present illness: HISTORY OF PRESENTING ILLNESS This is a pleasant 69-year-old male past medical history significant for hypertension, dyslipidemia, diabetes mellitus and gastroesophageal reflux disease. He presented with chest pain. He does not follow in the office with a analysis intern. We have been asked to see him in consultation for chest pain. He is seen and examined sitting up in bed. He states yesterday after raking and blowing his leaves in the yard he developed pain in the left scapular area that radiated through to the midsternal region. The pain is described as a sharp di scomfort that radiates through to his back intermittently. This is not associated with shortness of breath, dizziness, nausea, vomiting or diaphoresis. The discomfort has been ongoing and intermittent through the night with no specific aggravating or alleviating factors. DIAGNOSTICS EKG reveals sinus mechanism heart rate of 84 with a right bundle branch block. Chest xray negative for any acute cardiopulmonary process. CTA negative for pulmonary embolism. Laboratory reviewed, CBC unremarkable, d-dimer 0.69, sodium 142, potassium 4.0, creatinine 1.28 with a GFR 57, cardiac enzymes negative 3. Current cardiac medications include lisinopril/HCTZ 20/25 mg daily, atorvastatin 40 mg daily. REVIEW OF SYSTEMS At the time of my exam: CONSTITUTIONAL: Denies fever or chills. CARDIOVASCULAR: Complains of intermittent chest discomfort. Denies shortness of breath, orthopnea, PND or palpitations. RESPIRATORY: Denies cough. GASTROINTESTINAL: Denies abdominal pain, diarrhea, constipation, nausea or vomiting. MUSCULOSKELETAL: Denies myalgias. NEUROLOGIC: Denies numbness, tingling or weakness. ENDOCRINE: Denies fatigue, weight change, polydipsia or polyurina. GENITOURINARY: Denies burning, hematuria or urgency with micturation. HEMATOLOGIC: Denies history of anemia or bleeding. PHYSICAL EXAMINATION Blood pressure 145/85 heart rate 74 afebrile and maintaining oxygen saturaiton on room air. CONSTITUTIONAL: No apparent distress. HEENT: Head is normocephalic. Pupils are equal, round. Sclerae anicteric. Mucous membranes of the mouth are moist. No JVD. No carotid bruit. CHEST EXAMINATION: Lungs are clear to auscultation. No chest wall tenderness is noted on palpation or with deep breathing. HEART EXAMINATION: Regular rate and rhythm. S1, S2 heard. No murmurs, gallops or rub. ABDOMEN: Soft, nontender. Positive bowel sounds. EXTREMITIES: 2+ peripheral pulses, no lower extremity edema and no calf tenderness. NEUROLOGIC EXAMINATION: Patient is awake, alert and oriented x3. ASSESSMENT Precordial chest pain suggestive of unstable angina. An acute coronary event has been ruled out. Hypertension Dyslipidemia Diabetes mellitus Chronic kidney disease, GFR 57 PLAN Obtain 2-D echocardiogram and Doppler study to assess cardiac structure and function. Continue heparin infusion. Initiated on aspirin 81 mg daily. Continue lisinopril and atorvastatin as previously ordered. Discontinue hydrochlorothiazide. Hydrate the patient and repeat renal function in the morning. Recommend proceeding with cardiac catheterization to assess for underlying coronary artery disease. I have discussed the risks, benefits and alternative therapies for the above-mentioned procedure and for both sedation/analgesia as well as necessary blood product administration, if indicated, as they pertain to this patient. The patient has indicated understanding and acceptance of the risks and procedures discussed. Further recommendations to follow. Thank you kindly for this consultation. Nurse Practitioner note has been reviewed, I agree with a documented findings and plan of care. Patient was seen and examined. Past Medical History Past Medical History: Diabetes Mellitus, GERD/Reflux, Hyperlipidemia, Hypertension Additional Past Medical History / Comment(s): kidney stones, History of Any Multi-Drug Resistant Organisms: None Reported Past Surgical History: Adenoidectomy, Back Surgery, Orthopedic Surgery, Tonsillectomy Past Psychological History: No Psychological Hx Reported Smoking Status: Never smoker Past Alcohol Use History: Occasional Past Drug Use History: None Reported Medications and Allergies Home Medications Medication Instructions Recorded Confirmed Type Lansoprazole [Prevacid] 30 mg PO BID 05/29/14 08/08/19 History Atorvastatin Calcium [Lipitor] 40 mg PO HS 01/29/18 08/08/19 History Cyclobenzaprine HCl 10 mg PO QAM 01/29/18 08/08/19 History Lisinopril-Hctz 20-25 mg 1 tab PO DAILY 01/29/18 08/08/19 History [Zestoretic 20-25] Naproxen 500 mg PO BID PRN 01/29/18 08/08/19 History Oxybutynin Chloride [Ditropan] 5 mg PO HS 01/29/18 08/08/19 History Tamsulosin HCl [Flomax] 0.4 mg PO DAILY #10 cap 01/29/18 08/08/19 Rx Sucralfate [Carafate] 1 gm PO ACHS 08/08/19 08/08/19 History metFORMIN HCL [Glucophage Xr] 500 mg PO DAILY 08/08/19 08/08/19 History Allergies Allergy/AdvReac Type Severity Reaction Status Date / Time No Known Allergies Allergy Verified 08/08/19 22:02 Physical Exam Vitals: Vital Signs Temp Pulse Pulse Resp BP BP Pulse Ox 08/09/19 08:20 97.7 F 74 16 145/85 97 08/09/19 04:00 97.8 F 78 18 143/83 96 08/09/19 01:06 98.9 F 79 18 160/86 94 L 08/09/19 00:38 98.3 F 80 18 139/85 95 08/09/19 00:00 76 12 94 L 08/08/19 23:30 74 14 144/79 94 L 08/08/19 23:00 75 13 160/85 94 L 08/08/19 22:16 77 18 172/88 95 08/08/19 20:15 99.8 F H 91 20 180/105 94 L Intake and Output 08/08/19 08/09/19 08/09/19 22:59 06:59 14:59 Output Total 301 Balance -301 Output: Urine 301 Other: Voiding Method Toilet # Voids 1 Weight 99.79 kg 99 kg Results 08/08/19 20:41 08/08/19 20:41 Cardiac Enzymes 08/08/19 08/08/19 08/09/19 Range/Units 20:41 20:41 02:51 AST 38 (17-59) U/L Troponin I 0.017 0.017 (0.000-0.034) ng/mL 08/09/19 Range/Units 06:14 AST (17-59) U/L Troponin I 0.014 (0.000-0.034) ng/mL Coagulation 08/08/19 08/09/19 Range/Units 20:41 06:14 PT 10.0 (9.0-12.0) sec APTT 23.6 50.3 H (22.0-30.0) sec CBC 08/08/19 Range/Units 20:41 WBC 7.0 (3.8-10.6) k/uL RBC 5.62 (4.30-5.90) m/uL Hgb 15.9 (13.0-17.5) gm/dL Hct 48.6 (39.0-53.0) % Plt Count 177 (150-450) k/uL Comprehensive Metabolic Panel 08/08/19 Range/Units 20:41 Sodium 142 (137-145) mmol/L Potassium 4.0 (3.5-5.1) mmol/L Chloride 105 (98-107) mmol/L Carbon Dioxide 27 (22-30) mmol/L BUN 18 (9-20) mg/dL Creatinine 1.28 H (0.66-1.25) mg/dL Glucose 121 H (74-99) mg/dL Calcium 9.5 (8.4-10.2) mg/dL AST 38 (17-59) U/L ALT 38 (21-72) U/L Alkaline Phosphatase 69 (38-126) U/L Total Protein 7.8 (6.3-8.2) g/dL Albumin 4.6 (3.5-5.0) g/dL Current Medications Generic Name Dose Route Start Last Admin Trade Name Freq PRN Reason Stop Dose Admin Aspirin 325 mg 08/10/19 09:00 Aspirin PO DAILY [facility] Atorvastatin Calcium 40 mg 08/09/19 21:00 Lipitor PO HS [facility] Heparin Sodium (Porcine) 0 unit 08/09/19 00:17 Heparin IV PER PROTOCOL PRN Low PTT Protocol Heparin Sodium/Sodium Chloride 250 mls @ 9.979 mls/hr 08/09/19 00:30 08/09/19 00:34 25,000 unit/ Sodium Chloride IV 10 units/kg/hr .Q24H [id number] 9.979 mls/hr Administration Protocol 10 UNITS/KG/HR Insulin Aspart 0 unit 08/09/19 07:30 08/09/19 06:24 Novolog SQ 1 unit ACHS [facility] Administration Protocol Nitroglycerin 0.4 mg 08/09/19 00:18 08/09/19 04:23 Nitrostat SUBLINGUAL 0.4 mg Q5M PRN Administration Chest Pain Nitroglycerin 1 inch 08/09/19 00:30 08/09/19 06:24 Nitro-Bid Oint TOPICAL 1 inch Q6HR [facility] Administration Intake and Output 08/08/19 08/09/19 08/09/19 22:59 06:59 14:59 Output Total 301 Balance -301 Output: Urine 301 Other: Voiding Method Toilet # Voids 1 Weight 99.79 kg 99 kg 08/08/19 20:41 08/08/19 20:41
[2019-08-09 12:04] LABS: Glucose,Whole Blood 178 mg/dL (75-99)
[2019-08-09] MEDS: HEPARIN SOD,PORK IN 0.45% NACL 25,000 UNIT in 0.45% NACL 1 250ML.BAG IV SCH (12:39)
[2019-08-09] MEDS: LISINOPRIL 20 MG TAB PO SCH (12:56)
--- NOTE | 2019-08-09 13:26 | P.HPIM ---
History of Present Illness H&P Date: 08/09/19 Jones Cherry, is 69-year-old male patient of Dr. Dennis who presented to [facility] emergency room with a chief complaint of chest pain patient describes a pressure sensation in the middle of his chest that moved to the left side of the chest and then he started having severe stabbing pain in the left side of his chest and he decided to come to emergency room, patient denies any previous history of myocardial infarction or congestive heart failure, he states that he had a stress test many years ago that was within normal limits, he denies ever having cardiac catheterization. In the emergency room patient was evaluated by Dr. Reddy, his EKG revealed normal sinus rhythm with right bundle branch block, troponin level showed minimal elevation at 0.017. D-dimer was elevated at 0.[address] angiogram of the chest that was negative. He was admitted to telemetry floor and cardiology consultation was requested. Patient has a known history of hypertension, well-controlled on medications, he has known history of hyperlipidemia, and he was recently diagnosed with diabetes mellitus and was started on metformin. Patient also has evidence of mild renal insufficiency with elevated creatinine of 1.28, patient is not aware of any history of kidney disease. 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 On review of systems: Patient is still complaining of some pressure in the left side of his chest, he stated that the strong stabbing pain has resolved, there is no fever or chills no headache or dizziness no shortness of breath no cough no nausea or vomiting no abdominal pain no diarrhea no burning was urination no frequency or urgency no hematuria Past Medical History Past Medical History: Diabetes Mellitus, GERD/Reflux, Hyperlipidemia, Hypertension Additional Past Medical History / Comment(s): kidney stones, History of Any Multi-Drug Resistant Organisms: None Reported Past Surgical History: Adenoidectomy, Back Surgery, Orthopedic Surgery, Tonsillectomy Past Psychological History: No Psychological Hx Reported Smoking Status: Never smoker Past Alcohol Use History: Occasional Past Drug Use History: None Reported Medications and Allergies Home Medications Medication Instructions Recorded Confirmed Type Lansoprazole [Prevacid] 30 mg PO BID 05/29/14 08/08/19 History Atorvastatin Calcium [Lipitor] 40 mg PO HS 01/29/18 08/08/19 History Cyclobenzaprine HCl 10 mg PO QAM 01/29/18 08/08/19 History Lisinopril-Hctz 20-25 mg 1 tab PO DAILY 01/29/18 08/08/19 History [Zestoretic 20-25] Naproxen 500 mg PO BID PRN 01/29/18 08/08/19 History Oxybutynin Chloride [Ditropan] 5 mg PO HS 01/29/18 08/08/19 History Tamsulosin HCl [Flomax] 0.4 mg PO DAILY #10 cap 01/29/18 08/08/19 Rx Sucralfate [Carafate] 1 gm PO ACHS 08/08/19 08/08/19 History metFORMIN HCL [Glucophage Xr] 500 mg PO DAILY 08/08/19 08/08/19 History Allergies Allergy/AdvReac Type Severity Reaction Status Date / Time No Known Allergies Allergy Verified 08/08/19 22:02 Physical Exam Vitals: Vital Signs Temp Pulse Pulse Resp BP BP Pulse Ox 08/09/19 11:00 80 16 153/86 95 08/09/19 08:20 97.7 F 74 16 145/85 97 08/09/19 04:00 97.8 F 78 18 143/83 96 08/09/19 01:06 98.9 F 79 18 160/86 94 L 08/09/19 00:38 98.3 F 80 18 139/85 95 08/09/19 00:00 76 12 94 L 08/08/19 23:30 74 14 144/79 94 L 08/08/19 23:00 75 13 160/85 94 L 08/08/19 22:16 77 18 172/88 95 08/08/19 20:15 99.8 F H 91 20 180/105 94 L Intake and Output 08/08/19 08/09/19 08/09/19 22:59 06:59 14:59 Output Total 301 Balance -301 Output: Urine 301 Other: Voiding Method Toilet Toilet # Voids 1 Weight 99.79 kg 99 kg In general patient is alert and oriented 3 in no apparent distress HEENT head normocephalic and atraumatic Neck is supple no JVD no goiter no lymphadenopathy Chest exam reveals a few scattered crackles no wheezing Cardiac exam reveals regular heart sounds S1 and S2 no gallops no murmurs Abdomen is soft nontender no organomegaly with normal bowel sounds Extremity exam reveals no edema no cyanosis or clubbing Neurological examination reveals no gross focal deficits Results CBC & Chem 7: 08/08/19 20:41 08/08/19 20:41 Labs: Abnormal Lab Results - Last 24 Hours (Table) 08/08/19 08/08/19 08/08/19 Range/Units 20:24 20:41 20:41 APTT (22.0-30.0) sec D-Dimer 0.69 H (<0.60) mg/L FEU Creatinine 1.28 H (0.66-1.25) mg/dL Glucose 121 H (74-99) mg/dL POC Glucose (mg/dL) 113 H (75-99) mg/dL 08/09/19 08/09/19 08/09/19 Range/Units 06:12 06:14 12:03 APTT 50.3 H (22.0-30.0) sec D-Dimer (<0.60) mg/L FEU Creatinine (0.66-1.25) mg/dL Glucose (74-99) mg/dL POC Glucose (mg/dL) 146 H 178 H (75-99) mg/dL Thrombosis Risk Factor Assmnt - Choose All That Apply Each Factor Represents 1 point: Obesity (BMI >25) Each Risk Factor Represents 2 Points: Age 61-74 years Thrombosis Risk Factor Assessment Total Risk Factor Score: 3 Thrombosis Risk Factor Assessment Level: Moderate Risk Assessment and Plan Plan: #1 chest pain, without any evidence of EKG changes and only slight elevation in troponin level that may not be clinically significant. Patient is admitted to telemetry floor, he is maintained on IV heparin cardiology consultation requested. #2 underlying history of hypertension at this time hydrochlorothiazide was discontinued due to elevated creatinine, will monitor kidney function closely and monitor blood pressure control. #3 underlying history of hyperlipidemia maintained on Lipitor #4 underlying history of diabetes mellitus recently diagnosed patient was started on metformin recently, at this time we are holding metformin due to the use of contrast material, will cover was insulin sliding scale if needed. #5 slight elevation in d-dimer was negative CT angiogram of the chest. At this time will continue with current medications Cardiology consult requested possible cardiac catheterization in the next 1-2 days
[2019-08-09] MEDS ORDERED: LACTULOSE 20 GM/30 ML CUP PO PRN (13:59)
[2019-08-09] MEDS ORDERED: ONDANSETRON 4 MG/2 ML VIAL IVP PRN (13:59)
[2019-08-09] MEDS: TAMSULOSIN 0.4 MG CAP.ER.24H PO SCH (14:12)
[2019-08-09] MEDS: ACETAMINOPHEN TAB 500 MG TAB PO PRN (14:12)
[2019-08-09] MEDS: CYCLOBENZAPRINE 10 MG TAB PO SCH (14:12)
--- NOTE | 2019-08-09 14:42 | ECHOF ---
Referral Reason:cp MEASUREMENTS -------- HEIGHT: 180.3 cm WEIGHT: 98.9 kg BP: RVIDd: 3.4 cm (< 3.3) IVSd: 1.3 cm (0.6 - 1.1) LVIDd: 4.1 cm (3.9 - 5.3) LVPWd: 1.5 cm (0.6 - 1.1) IVSs: 1.9 cm LVIDs: 1.8 cm LVPWs: 1.8 cm LAESV Index (A-L): 25.50 ml/m Ao Diam: 3.4 cm (2.0 - 3.7) AV Cusp: 2.2 cm (1.5 - 2.6) LA Diam: 3.4 cm (2.7 - 3.8) MV EXCURSION: 11.453 mm (> 18.000) MV EF SLOPE: 69 mm/s (70 - 150) EPSS: 0.9 cm MV E Kimani: 0.67 m/s MV DecT: 241 ms MV A Kimani: 0.83 m/s MV E/A Ratio: 0.81 RAP: 5.00 mmHg RVSP: 15.73 mmHg FINDINGS -------- Sinus rhythm. This was a technically adequate study. The left ventricular size is normal. There is moderate concentric left ventricular hypertrophy. O verall left ventricular systolic function is normal with, an EF between 55 - 60 %. The diastolic fi lling pattern is normal for the age of the patient 7.78. The right ventricle is normal in size. , and the LA measures 3.4cm. The right atrial size is normal. The aortic valve is trileaflet and appears structurally normal. The mitral valve is normal. There is trace mitral regurgitation. The tricuspid valve appears structurally normal. Trace tricuspid regurgitation present. Right roya tricular systolic pressure is normal at < 35 mmHg. There is no pulmonic regurgitation present. The aortic root size is normal. Normal inferior vena cava with normal inspiratory collapse consistent with estimated right atrial pre ssure of 5 mmHg. There is no pericardial effusion. CONCLUSIONS -------- 1. Sinus rhythm. 2. This was a technically adequate study. 3. The left ventricular size is normal. 4. There is moderate concentric left ventricular hypertrophy. 5. Overall left ventricular systolic function is normal with, an EF between 55 - 60 %. 6. The diastolic filling pattern is normal for the age of the patient 7.78 7. The right ventricle is normal in size. 8. , and the LA measures 3.4cm. 9. The right atrial size is normal. 10. The aortic valve is trileaflet and appears structurally normal. 11. The mitral valve is normal. 12. There is trace mitral regurgitation. 13. The tricuspid valve appears structurally normal. 14. Trace tricuspid regurgitation present. 15. Right ventricular systolic pressure is normal at < 35 mmHg. 16. There is no pulmonic regurgitation present. 17. The aortic root size is normal. 18. Normal inferior vena cava with normal inspiratory collapse consistent with estimated right atrial pressure of 5 mmHg. 19. There is no pericardial effusion. FISH TENDER: Ange Headley RDCS
[2019-08-09 17:01] LABS: Glucose,Whole Blood 164 mg/dL (75-99)
[2019-08-09] MEDS: PANTOPRAZOLE 40 MG TABLET PO SCH (17:49)
[2019-08-09] MEDS: SUCRALFATE 1 GM TAB PO SCH ×2 (17:49→21:53)
[2019-08-09 20:31] LABS: Glucose,Whole Blood 88 mg/dL (75-99)
[2019-08-09] MEDS: MORPHINE SULFATE 2 MG/ML SYRINGE IVP PRN (21:54)
[2019-08-09] MEDS: ATORVASTATIN 40 MG TAB PO SCH (21:54)
[2019-08-09] MEDS: OXYBUTYNIN CHLORIDE 5 MG TAB PO SCH (21:54)
[2019-08-10] MEDS: ASPIRIN 81 MG PO SCH (05:16)
[2019-08-10 05:17] LABS: Glucose,Whole Blood 126 mg/dL (75-99)
[2019-08-10] MEDS: PANTOPRAZOLE 40 MG TABLET PO SCH ×2 (05:17→16:34)
[2019-08-10] MEDS: LISINOPRIL 20 MG TAB PO SCH (05:17)
[2019-08-10] MEDS: CYCLOBENZAPRINE 10 MG TAB PO SCH (05:17)
[2019-08-10] MEDS: MORPHINE SULFATE 2 MG/ML SYRINGE IVP PRN (05:17)
[2019-08-10] MEDS: SUCRALFATE 1 GM TAB PO SCH ×4 (05:17→20:37)
[2019-08-10] MEDS: INSULIN ASPART (NovoLOG) 100 UNIT/ML VIAL SQ SCH ×4 (05:24→20:37)
[2019-08-10] MEDS ORDERED: ASPIRIN 81 MG PO ONE (06:00)
[2019-08-10 06:34] LABS: Basophils % (A) 1 %; Eosinophils # (A) 0.2 k/uL (0-0.7); Eosinophils % (A) 5 %; HCT 41.5 % (39.0-53.0); HGB 14.1 gm/dL (13.0-17.5); Lymphocytes # (A) 1.5 k/uL (1.0-4.8); Lymphocytes % (A) 29 %; MCH 29.5 pg (25.0-35.0); MCV 86.8 fL (80.0-100.0); Mean Platelet Volume 7.5; Monocytes # (A) 0.5 k/uL (0-1.0); Monocytes % (A) 9 %; Neutrophils # (A) 2.7 k/uL (1.3-7.7); Neutrophils % (A) 53 %; Platelet Count 137 k/uL (150-450); RBC 4.78 m/uL (4.30-5.90); RDW 13.5 % (11.5-15.5); WBC 5.2 k/uL (3.8-10.6)
[2019-08-10 06:37] LABS: Albumin 3.9 g/dL (3.5-5.0); Calcium 9.1 mg/dL (8.4-10.2); Potassium 4.2 mmol/L (3.5-5.1); Total Bilirubin 0.4 mg/dL (0.2-1.3); Total Protein 6.7 g/dL (6.3-8.2)
[2019-08-10] MEDS ORDERED: ASPIRIN 325 MG TAB PO SCH (09:00)
[2019-08-10] MEDS: HEPARIN SOD,PORK IN 0.45% NACL 25,000 UNIT in 0.45% NACL 1 250ML.BAG IV SCH (10:32)
[2019-08-10 11:44] LABS: Glucose,Whole Blood 97 mg/dL (75-99)
[2019-08-10] MEDS ORDERED: IV FLUID CONTINUATION 1,000 ML IV ONE (13:20)
[2019-08-10] MEDS ORDERED: LIDOCAINE 1% INJ 10MG/ML (20 ML MDV) ONE (13:33)
[2019-08-10] MEDS ORDERED: fentaNYL (PF) 50 MCG/ML 2 ML AMP ONE (13:34)
[2019-08-10] MEDS: TAMSULOSIN 0.4 MG CAP.ER.24H PO SCH (13:41)
[2019-08-10] MEDS ORDERED: MIDAZOLAM 2 MG/2 ML VIAL IV ONE ×2 (13:47)
[2019-08-10] MEDS ORDERED: fentaNYL (PF) 50 MCG/ML 2 ML AMP IV ONE (13:47)
[2019-08-10] MEDS ORDERED: LIDOCAINE 1% INJ 10MG/ML (20 ML MDV) SQ ONE (13:49)
[2019-08-10] MEDS ORDERED: IOPAMIDOL-370 125ML BTL INJ ONE (14:02)
[2019-08-10] MEDS ORDERED: RX INFO: IV CONTRAST WAS GIVEN 1 EACH MISC MISCELLANE PRN (14:07)
--- NOTE | 2019-08-10 14:44 | P.PN ---
Subjective Progress Note Date: 08/10/19 Jones Cherry, is 69-year-old male patient of Dr. Dennis who presented to [facility] emergency room with a chief complaint of chest pain patient describes a pressure sensation in the middle of his chest that moved to the left side of the chest and then he started having severe stabbing pain in the left side of his chest and he decided to come to emergency room, patient denies any previous history of myocardial infarction or congestive heart failure, he states that he had a stress test many years ago that was within normal limits, he denies ever having cardiac catheterization. In the emergency room patient was evaluated by Dr. Reddy, his EKG revealed normal sinus rhythm with right bundle branch block, troponin level showed minimal elevation at 0.017. D-dimer was elevated at 0.[address] angiogram of the chest that was negative. He was admitted to telemetry floor and cardiology consultation was requested. On 08/10/2019 patient was seen and examined on the telemetry floor he is alert and oriented 3 in no apparent distress he underwent cardiac catheterization today with Dr. Silverio, there was no significant coronary artery disease per oral report. Patient has abnormal kidney function with elevated creatinine which is 1.32 today up from 1.28 yesterday and that was before cardiac catheterization. At this time will continue to monitor on IV fluid Will recheck kidney function in a.m. tomorrow. Objective - Vital Signs Vital signs: Vital Signs Temp 97.8 F 08/10/19 07:45 Pulse 67 08/10/19 14:25 Resp 16 08/10/19 14:25 BP 145/73 08/10/19 14:25 Pulse Ox 93 L 08/10/19 14:25 Intake & Output 08/09/19 08/10/19 08/10/19 18:59 06:59 18:59 Intake Total 722.648 200 Output Total 900 Balance -177.352 200 Weight 98.5 kg Intake: IV 200 Intake, IV Titration 182.648 Amount Heparin Sod,Pork in 0.45% 182.648 NaCl 25,000 unit In 0.45 % NaCl 1 250ml.bag @ 10.1 UNITS/KG/HR 9.999 mls/hr IV .Q24H KATIUSKA Rx#: [id number] Oral 540 Output: Urine 900 Other: Voiding Method Toilet Toilet Toilet # Voids 2 1 1 - Exam In general patient is alert and oriented 3 in no apparent distress HEENT head normocephalic and atraumatic Neck is supple no JVD no goiter no lymphadenopathy Chest exam reveals a few scattered crackles no wheezing Cardiac exam reveals regular heart sounds S1 and S2 no gallops no murmurs Abdomen is soft nontender no organomegaly with normal bowel sounds Extremity exam reveals no edema no cyanosis or clubbing Neurological examination reveals no gross focal deficits - Labs CBC & Chem 7: 08/10/19 05:49 08/10/19 05:49 Labs: Abnormal Lab Results - Last 24 Hours (Table) 08/09/19 08/10/19 08/10/19 Range/Units 17:00 05:16 05:49 Plt Count (150-450) k/uL Creatinine 1.32 H (0.66-1.25) mg/dL Glucose 133 H (74-99) mg/dL POC Glucose (mg/dL) 164 H 126 H (75-99) mg/dL HDL Cholesterol 32 L (40-60) mg/dL 08/10/19 Range/Units 05:49 Plt Count 137 L (150-450) k/uL Creatinine (0.66-1.25) mg/dL Glucose (74-99) mg/dL POC Glucose (mg/dL) (75-99) mg/dL HDL Cholesterol (40-60) mg/dL Assessment and Plan Plan: #1 chest pain, without any evidence of EKG changes and only slight elevation in troponin level that may not be clinically significant. Patient is admitted to telemetry floor, he is maintained on IV heparin cardiology consultation requested. Patient underwent cardiac catheterization today oral report indicate normal coronary arteries. #2 underlying history of hypertension at this time hydrochlorothiazide was discontinued due to elevated creatinine, will monitor kidney function closely and monitor blood pressure control. #3 underlying history of hyperlipidemia maintained on Lipitor #4 underlying history of diabetes mellitus recently diagnosed patient was started on metformin recently, at this time we are holding metformin due to the use of contrast material, will cover was insulin sliding scale if needed. #5 slight elevation in d-dimer was negative CT angiogram of the chest. #6 CKD creatinine elevated today more than yesterday even before cardiac catheterization was done will continue patient on IV hydration will recheck kidney function in a.m. At this time will continue with current medications Possible discharge to home tomorrow if kidney function is stable
--- NOTE | 2019-08-10 15:15 | CC ---
CARDIAC CATHETERIZATION REPORT INDICATION: Unstable angina. PROCEDURE NOTE: After obtaining informed consent, left heart catheterization, coronary angiogram are performed via the right femoral artery using standard Daniela catheters. Patient tolerated the procedure well without any obvious immediate complications. A femoral angiogram was performed and Angio-Seal was deployed for hemostasis. Patient received moderate conscious sedation. Total sedation time was 18 minutes. FINDINGS: HEMODYNAMICS: Left ventricular end-diastolic pressure is 14-16 mm. There is no significant gradient across the aortic valve. LEFT VENTRICULOGRAM: Left ventriculogram is not performed. ANGIOGRAPHIC DATA: LEFT MAIN CORONARY ARTERY: Left main coronary artery is a normal-sized vessel and is free of stenosis. Divides into left anterior descending coronary artery and circumflex coronary artery. LEFT ANTERIOR DESCENDING CORONARY ARTERY: LAD and its branches, circumflex coronary artery and its branches are free of significant stenosis. RIGHT CORONARY ARTERY: Right coronary artery is a large dominant vessel that shows some mild atherosclerotic plaque in the proximal part. CONCLUSIONS: Mild nonobstructive coronary artery disease. PLAN: I reviewed angiographic data with the patient and told him that his chest discomfort is probably noncardiac in origin and his management is going to be in the form of risk factor modification and optimal medical therapy. His creatinine is 1.3 and we will hydrate him post catheterization. MMODL / IJN: [id number] /
--- NOTE | 2019-08-10 15:15 | LTR ---
DATE OF SERVICE: 08/10/2019 Dear Venita: I performed cardiac catheterization on Jones Cherry and a detailed catheterization note is enclosed for your records. In brief, the cardiac catheterization revealed mild nonobstructive coronary artery disease involving the right coronary artery and the long- term management is going to be in the form of risk factor modification, optimal medical therapy. Thank you for giving us the privilege to participate in the care of this pleasant lady. Sincerely, MMMIRA / BRYANN: [id number] /
[2019-08-10] MEDS: SODIUM CHLORIDE 0.9% 1,000 ML IV SCH (16:21)
[2019-08-10 16:25] LABS: Glucose,Whole Blood 127 mg/dL (75-99)
[2019-08-10 20:30] LABS: Glucose,Whole Blood 140 mg/dL (75-99)
[2019-08-10] MEDS: OXYBUTYNIN CHLORIDE 5 MG TAB PO SCH (20:37)
[2019-08-10] MEDS: ATORVASTATIN 40 MG TAB PO SCH (20:37)
[2019-08-10] MEDS: ACETAMINOPHEN TAB 500 MG TAB PO PRN (20:37)
[2019-08-11 01:37] VITALS: RESP 18
[2019-08-11] MEDS: ACETAMINOPHEN TAB 500 MG TAB PO PRN (04:05)
[2019-08-11] MEDS: SODIUM CHLORIDE 0.9% 1,000 ML IV SCH (04:07)
[2019-08-11] MEDS: MORPHINE SULFATE 2 MG/ML SYRINGE IVP PRN (05:46)
[2019-08-11 06:33] LABS: Glucose,Whole Blood 113 mg/dL (75-99)
[2019-08-11] MEDS: INSULIN ASPART (NovoLOG) 100 UNIT/ML VIAL SQ SCH ×2 (06:33→12:45)
[2019-08-11 06:39] LABS: Basophils % (A) 1 %; Eosinophils # (A) 0.3 k/uL (0-0.7); Eosinophils % (A) 5 %; HCT 42.7 % (39.0-53.0); HGB 14.3 gm/dL (13.0-17.5); Lymphocytes # (A) 1.3 k/uL (1.0-4.8); Lymphocytes % (A) 25 %; MCH 29.4 pg (25.0-35.0); MCHC 33.4 g/dL (31.0-37.0); Mean Platelet Volume 7.9; Monocytes # (A) 0.4 k/uL (0-1.0); Monocytes % (A) 7 %; Neutrophils # (A) 3.1 k/uL (1.3-7.7); Neutrophils % (A) 59 %; Platelet Count 147 k/uL (150-450); RBC 4.86 m/uL (4.30-5.90); RDW 13.5 % (11.5-15.5); WBC 5.3 k/uL (3.8-10.6)
[2019-08-11] MEDS: SUCRALFATE 1 GM TAB PO SCH ×2 (06:40→12:44)
[2019-08-11] MEDS: PANTOPRAZOLE 40 MG TABLET PO SCH (06:40)
[2019-08-11 06:48] LABS: Albumin 3.8 g/dL (3.5-5.0); Calcium 8.9 mg/dL (8.4-10.2); Potassium 4.1 mmol/L (3.5-5.1); Total Bilirubin 0.5 mg/dL (0.2-1.3); Total Protein 6.7 g/dL (6.3-8.2)
[2019-08-11 09:38] LABS: Hemoglobin A1C 6.3 % (4.0-6.0)
[2019-08-11] MEDS: LISINOPRIL 20 MG TAB PO SCH (10:26)
[2019-08-11] MEDS: ASPIRIN 81 MG PO SCH (10:26)
[2019-08-11] MEDS: CYCLOBENZAPRINE 10 MG TAB PO SCH (10:26)
[2019-08-11] MEDS: TAMSULOSIN 0.4 MG CAP.ER.24H PO SCH (10:26)
--- NOTE | 2019-08-11 11:06 | CDI ---
Documentation Clarification Form Date: 08/12/2019 10:48:36 AM From: Krista Gross RN CCDS Admit Date: 08/09/2019 12:20:00 AM Patient Name: Jones Cherry Visit Number: [id number] Discharge Date: ATTENTION: The Clinical Documentation Specialists (CDI) and [facility] Coding Staff appreciate your assistance in clarifying documentation. Please respond to the clarification below the line at the bottom and electronically sign. The CDI & [facility] Coding staff will review the response and follow-up if needed. Please note: Queries are made part of the Legal Health Record. If you have any questions, please contact the author of this message via ITS. Dr. Laurel Alexandra CKD creatinine elevated today more than yesterday even before cardiac catheterization was done Is documented in your progress note 08/10/2019 History/Risk Factors: 69-year-old male presents to the ED with left sided chest pain since the day before coming into the ED. Medical history DM; HTN, CKD Clinical Indicators: Current 08/08/19 BUN 18 CR 1.28 GFR: 66 08/10/19 Bun 16 CR 1.32 GFR 64 08/11/19 BUN 16 CR 1.122 GFR 70 Baseline BUN CR GFR unknown Treatment: 08/08 0.9ns ivfl bolus 500cc; 08/09 0.9ns 75cchr In order to capture the severity of condition, please clarify if the condition signifies: * CIRILO on CKD Stage * CKD Stage 1 (GFR > 90) * CKD Stage 2 (GFR 60-89) * CKD Stage 3 (GFR 30-59) * CKD Stage 4 (GFR 15-29) * CKD Stage 5 (GFR <15) * Other, please specify * Unable to determine (Last Revision: December 2017) Acute on chronic Kidney disease stage 2 MTDD
[2019-08-11 11:51] LABS: Glucose,Whole Blood 115 mg/dL (75-99)
--- NOTE | 2019-08-11 11:56 | P.PN ---
Subjective Progress Note Date: 08/11/19 Principal diagnosis: Chest pain This is a pleasant 69-year-old gentleman with diabetes, hypertension, and dyslipidemia who presented to the hospital with chest discomfort concerning for unstable angina. Because of that heart catheterization was advised. It did reveal mild nonobstructive coronary artery disease. The procedure was performed from the right groin. The echo showed normal LV function with mild valvular abnormalities. On follow-up with the patient today, he continues to have back pain but no chest pain. No shortness of breath. No dizziness or lightheadedness. He would like to be discharged home. The right groin is soft and nontender was very small hematoma less than 1 cm. Objective - Vital Signs Vital signs: Vital Signs Temp 97.7 F 08/11/19 04:00 Pulse 71 08/11/19 04:00 Resp 18 08/11/19 04:00 BP 178/100 08/11/19 04:00 Pulse Ox 97 08/11/19 04:00 Intake & Output 08/10/19 08/11/19 08/11/19 18:59 06:59 18:59 Intake Total 700 240 676 Output Total 400 Balance 700 -160 676 Weight 99.8 kg Intake: IV 200 Oral 500 240 676 Output: Urine 400 Other: Voiding Method Toilet Toilet # Voids 1 2 - Constitutional General appearance: Present: no acute distress - Respiratory Respiratory: bilateral: CTA - Cardiovascular Rhythm: regular Heart sounds: normal: S1, S2 - Labs CBC & Chem 7: 08/11/19 05:49 08/11/19 05:49 Labs: Abnormal Lab Results - Last 24 Hours (Table) 08/10/19 08/10/19 08/10/19 Range/Units 05:49 16:24 20:28 Plt Count (150-450) k/uL Glucose (74-99) mg/dL POC Glucose (mg/dL) 127 H 140 H (75-99) mg/dL Hemoglobin A1c 6.3 H (4.0-6.0) % 08/11/19 08/11/19 08/11/19 Range/Units 05:49 05:49 06:22 Plt Count 147 L (150-450) k/uL Glucose 114 H (74-99) mg/dL POC Glucose (mg/dL) 113 H (75-99) mg/dL Hemoglobin A1c (4.0-6.0) % 08/11/19 Range/Units 11:50 Plt Count (150-450) k/uL Glucose (74-99) mg/dL POC Glucose (mg/dL) 115 H (75-99) mg/dL Hemoglobin A1c (4.0-6.0) % Assessment and Plan Assessment: Assessment #1 chest discomfort which has improved #2 mild CAD based on recent heart catheterization #3 multiple comorbid conditions Plan #1 continue the current medical regimen #2 the patient can be discharged home
[2019-08-11 12:59] VITALS: TEMP 97.9
[2019-08-11 13:03] VITALS: BP 157/84; PULSE 80
--- NOTE | 2019-08-11 13:36 | P.DS ---
<Chio Nguyễn P - Last Filed: 08/11/19 13:31> Providers Expected date of discharge: 08/11/19 Hospital Course: Discharge diagnosis #1 chest pain, without any evidence of EKG changes and only slight elevation in troponin level that may not be clinically significant. Patient is admitted to telemetry floor, he is maintained on IV heparin cardiology consultation requested. Status post cardiac catheterization showing mild nonobstructive coronary artery disease. Patient has been cleared for discharge from cardiology standpoint #2 underlying history of hypertension at this time hydrochlorothiazide was discontinued due to elevated creatinine, will monitor kidney function closely and monitor blood pressure control. Will resume home dose of medication. Bun and creatinine now within normal limits #3 underlying history of hyperlipidemia maintained on Lipitor #4 underlying history of diabetes mellitus recently diagnosed patient was started on metformin recently, at this time we are holding metformin due to the use of contrast material, will cover was insulin sliding scale if needed. Patient to hold metformin until is 08/13/2019 #5 slight elevation in d-dimer was negative CT angiogram of the chest. #6 CKD creatinine elevated today more than yesterday even before cardiac catheterization was done will continue patient on IV hydration will recheck kidney function in a.m. creatinine 1.22 and bun 16 Hospital course Jones Cherry, is 69-year-old male patient of Dr. Dennis who presented to [facility] emergency room with a chief complaint of chest pain patient describes a pressure sensation in the middle of his chest that moved to the left side of the chest and then he started having severe stabbing pain in the left side of his chest and he decided to come to emergency room, patient denies any previous history of myocardial infarction or congestive heart failure, he states that he had a stress test many years ago that was within normal limits, he denies ever having cardiac catheterization. In the emergency room patient was evaluated by Dr. Reddy, his EKG revealed normal sinus rhythm with right bundle branch block, troponin level showed minimal elevation at 0.017. D-dimer was elevated at 0.[address] angiogram of the chest that was negative. He was admitted to telemetry floor and cardiology consultation was requested. On 08/10/2019 patient was seen and examined on the telemetry floor he is alert and oriented 3 in no apparent distress he underwent cardiac catheterization today with Dr. Jean Claude, there was no significant coronary artery disease per oral report. Patient has abnormal kidney function with elevated creatinine which is 1.32 today up from 1.28 yesterday and that was before cardiac catheterization. At this time will continue to monitor on IV fluid Will recheck kidney function in a.m. tomorrow. On 08/11/2019 patient's alert and oriented times 3. Patient still having some mild chest discomfort patient thinks this is could be related to his back pain. Patient underwent cardiac catheterization showing mild nonobstructing coronary artery disease cardiology has cleared patient for discharge. Patient's creatinine in about have normalized. Patient will be resumed on home blood pressure medication. Metformin to be held until 08/13/2019. Patient denies shortness of breath. Patient denies nausea vomiting or diarrhea. Patient denies any urinary burning or frequency. I performed an examination of the patient and discussed their management with the Nurse Practitioner. I have reviewed the Nurse Practitioner's notes and agree with the documented findings and plan of care Patient Condition at Discharge: Stable Plan - Discharge Summary Discharge Rx Participant: No New Discharge Prescriptions: New Aspirin 81 mg PO DAILY 30 Days #30 chew Continue Lansoprazole [Prevacid] 30 mg PO BID Lisinopril-Hctz 20-25 mg [Zestoretic 20-25] 1 tab PO DAILY Oxybutynin Chloride [Ditropan] 5 mg PO HS Cyclobenzaprine HCl 10 mg PO QAM Atorvastatin Calcium [Lipitor] 40 mg PO HS Tamsulosin HCl [Flomax] 0.4 mg PO DAILY #10 cap Sucralfate [Carafate] 1 gm PO ACHS metFORMIN HCL [Glucophage Xr] 500 mg PO DAILY #0 Discontinued Naproxen 500 mg PO BID PRN PRN Reason: Pain Discharge Medication List Lansoprazole [Prevacid] 30 mg PO BID 05/29/14 [History] Atorvastatin Calcium [Lipitor] 40 mg PO HS 01/29/18 [History] Cyclobenzaprine HCl 10 mg PO QAM 01/29/18 [History] Lisinopril-Hctz 20-25 mg [Zestoretic 20-25] 1 tab PO DAILY 01/29/18 [History] Oxybutynin Chloride [Ditropan] 5 mg PO HS 01/29/18 [History] Tamsulosin HCl [Flomax] 0.4 mg PO DAILY #10 cap 01/29/18 [Rx] Sucralfate [Carafate] 1 gm PO ACHS 08/08/19 [History] Aspirin 81 mg PO DAILY 30 Days #30 chew 08/11/19 [Rx] metFORMIN HCL [Glucophage Xr] 500 mg PO DAILY #0 08/11/19 [Rx] Follow up Appointment(s)/Referral(s): Cate Roach NPC [Nurse Practitioner] - 08/18/19 1:30 pm (Sunday) Peter Styles MD [STAFF PHYSICIAN] - 08/21/19 2:30 pm () Patient Instructions/Handouts: *Surgery [facility] - After Heart Catheterization - Press Operator Instructions, Heart Healthy Diet (DC) Activity/Diet/Wound Care/Special Instructions: Activity as tolerated Diet heart healthy Patient to hold metformin until 08/13/2019 Discharge Disposition: HOME SELF-CARE <Laurel Alexandra - Last Filed: 08/14/19 09:57> Providers Date of admission: 08/09/19 00:20 Attending physician: Laurel Alexandra Consults: 08/09/19 00:18 Consult Physician Urgent Consulting Provider: Peter Styles Consult Reason/Comments: nstemi Do you want consulting provider notified?: Yes Primary care physician: Nohemi Dennis [place] [facility] Course: Kidney enzymes have improved, patient cleared for d/c per cardiology
== END 2019-08-11 15:09 | disposition home or self-care (01) ==
LOC: EC 20:13 → INTOOBSV 08-09 00:20 → 3SCARD 08-09 00:20 → UNDODISIN 08-11 15:09
PROVIDERS: ADMIT Internal Medicine; ATTEND Internal Medicine
DX: R07.9 Chest pain, unspecified (principal); N17.9 Acute kidney failure, unspecified; E11.22 Type 2 diabetes mellitus with diabetic chronic kidney disease; E78.5 Hyperlipidemia, unspecified; I12.9 Hypertensive chronic kidney disease with stage 1 through stage 4 chronic kidney disease, or unspecified chronic kidney disease; I45.10 Unspecified right bundle-branch block; N18.2 Chronic kidney disease, stage 2 (mild); Z79.84 Long term (current) use of oral hypoglycemic drugs; Z79.899 Other long term (current) drug therapy; Z87.442 Personal history of urinary calculi; R79.89 Other specified abnormal findings of blood chemistry
CPT/HCPCS: 96376; 96361; 96365; 99285; 36415; 93005; 93306; 93458; 85379; 80061; 80053 ×3; 83735; 84484 ×2; 85025 ×3; 85610; 85730 ×3; 81003; 83036; 71046; 71275; G0378 ×3; C1760; C1894; C1769; J2250; J1644 ×3; J2405; J2001; J3010; J2270 ×3; Q9967 ×2

== ENCOUNTER 2020-04-23 01:51 | Emergency (ER) | payer MEDICARE ==
[2020-04-23 01:55] VITALS: RESP 18; TEMP 97.8
[2020-04-23] MEDS ORDERED: MORPHINE SULFATE 4 MG/ML SYRINGE IV STA (02:35)
--- NOTE | 2020-04-23 02:41 | ED ---
Abdominal Pain HPI - General Chief Complaint: Abdominal Pain Stated Complaint: Abd pain Time Seen by Provider: 04/23/20 02:09 Source: patient Mode of arrival: ambulatory Limitations: no limitations - History of Present Illness Initial Comments: This patient is 70-year-old man presenting to be evaluated for lower abdominal pain. The patient states that he has had this for 3 out of the past 5 nights. Symptoms started on Sunday night with bilateral lower abdominal pains. He states the pain was moderate to severe, cramping, and lasted for probably about 5 hours. He had multiple episodes of loose bowel movements associated. The symptoms resolved and he was feeling better but he did have a recurrence on Sunday night and then again tonight. Patient has not noted fever or chills. No nausea or vomiting. No change in urination. He has not had any chest symptoms nor does the pain go distal there is no scrotal or testicular swelling or pain. No leg symptoms. MD Complaint: abdominal pain -: days(s) Location: LLQ, RLQ Radiation: none Migration to: no migration Severity: severe Quality: cramping, burning Consistency: intermittent Improves With: nothing Worsens With: nothing Associated Symptoms: diarrhea - Related Data Home Medications Medication Instructions Recorded Confirmed Lansoprazole [Prevacid] 30 mg PO BID 05/29/14 08/08/19 Atorvastatin Calcium [Lipitor] 40 mg PO HS 01/29/18 08/08/19 Cyclobenzaprine HCl 10 mg PO QAM 01/29/18 08/08/19 Lisinopril-Hctz 20-25 mg 1 tab PO DAILY 01/29/18 08/08/19 [Zestoretic 20-25] Oxybutynin Chloride [Ditropan] 5 mg PO HS 01/29/18 08/08/19 Sucralfate [Carafate] 1 gm PO ACHS 08/08/19 08/08/19 Previous Rx's Medication Instructions Recorded Tamsulosin HCl [Flomax] 0.4 mg PO DAILY #10 cap 01/29/18 Aspirin 81 mg PO DAILY 30 Days #30 chew 08/11/19 metFORMIN HCL [Glucophage Xr] 500 mg PO DAILY #0 08/11/19 Ciprofloxacin HCl [Cipro] 500 mg PO Q12HR #14 tablet 04/23/20 Dicyclomine [Bentyl] 20 mg PO QID #15 tablet 04/23/20 Ondansetron Odt [Zofran ODT] 4 mg PO Q8HR PRN #10 tab 04/23/20 Allergies Allergy/AdvReac Type Severity Reaction Status Date / Time No Known Allergies Allergy Verified 04/23/20 01:55 Review of Systems ROS Statement: Those systems with pertinent positive or pertinent negative responses have been documented in the HPI. ROS Other: All systems not noted in ROS Statement are negative. Constitutional: Denies: fever, chills Respiratory: Denies: cough, dyspnea Cardiovascular: Denies: chest pain, palpitations, edema, syncope Gastrointestinal: Reports: abdominal pain, diarrhea. Denies: nausea, vomiting, constipation, melena, hematochezia Genitourinary: Denies: dysuria, hematuria Musculoskeletal: Denies: back pain Skin: Denies: rash Neurological: Denies: headache, weakness, numbness Past Medical History Past Medical History: Diabetes Mellitus, GERD/Reflux, Hyperlipidemia, Hypertension Additional Past Medical History / Comment(s): kidney stones, History of Any Multi-Drug Resistant Organisms: None Reported Past Surgical History: Adenoidectomy, Back Surgery, Orthopedic Surgery, To nsillectomy Past Psychological History: No Psychological Hx Reported Past Alcohol Use History: Occasional Past Drug Use History: None Reported General Exam Limitations: no limitations General appearance: alert, in no apparent distress Head exam: Present: atraumatic Eye exam: Present: normal appearance. Absent: scleral icterus, conjunctival injection Neck exam: Present: normal inspection Respiratory exam: Present: normal lung sounds bilaterally. Absent: respiratory distress, wheezes, rales, rhonchi, stridor Cardiovascular Exam: Present: regular rate, normal rhythm, normal heart sounds. Absent: systolic murmur, diastolic murmur, rubs, gallop GI/Abdominal exam: Present: soft, normal bowel sounds. Absent: distended, tenderness, guarding, rebound, rigid, mass, pulsatile mass, hernia Extremities exam: Present: normal inspection, normal capillary refill. Absent: pedal edema, calf tenderness Back exam: Present: normal inspection. Absent: CVA tenderness (R), CVA tenderness (L) Neurological exam: Present: alert Skin exam: Present: warm, dry, intact, normal color. Absent: rash Course Vital Signs 04/23/20 04/23/20 04/23/20 01:51 03:53 05:50 Temperature 97.8 F Pulse Rate 81 62 71 Respiratory 18 18 18 Rate Blood Pressure 191/112 132/90 145/88 O2 Sat by Pulse 94 L 96 96 Oximetry Medical Decision Making - Medical Decision Making This patient is a 70-year-old man presenting with lower abdominal pain and diarrhea which started approximate 5 days ago. The patient is feeling much better and would like to go home. Workup is not revealing the exact etiology and I did discuss the importance of follow-up and further care to ensure that this started something more serious. The patient also agrees to return should his symptoms recur or if there is worsening in anyway. Patient is prescribed symptomatic medication as well as ciprofloxacin which she should start if he s hould start having any blood - Lab Data Result diagrams: 04/23/20 02:42 04/23/20 02:42 Lab Results 04/23/20 04/23/20 04/23/20 Range/Units 02:42 02:42 02:47 WBC 7.9 (3.8-10.6) k/uL RBC 5.25 (4.30-5.90) m/uL Hgb 15.9 (13.0-17.5) gm/dL Hct 46.9 (39.0-53.0) % MCV 89.3 (80.0-100.0) fL MCH 30.3 (25.0-35.0) pg MCHC 33.9 (31.0-37.0) g/dL RDW 13.9 (11.5-15.5) % Plt Count 151 (150-450) k/uL Neutrophils % 59 % Lymphocytes % 28 % Monocytes % 6 % Eosinophils % 3 % Basophils % 1 % Neutrophils # 4.6 (1.3-7.7) k/uL Lymphocytes # 2.2 (1.0-4.8) k/uL Monocytes # 0.5 (0-1.0) k/uL Eosinophils # 0.3 (0-0.7) k/uL Basophils # 0.0 (0-0.2) k/uL Sodium 138 (137-145) mmol/L Potassium 3.8 (3.5-5.1) mmol/L Chloride 105 (98-107) mmol/L Carbon Dioxide 23 (22-30) mmol/L Anion Gap 10 mmol/L BUN 25 H (9-20) mg/dL Creatinine 1.34 H (0.66-1.25) mg/dL Est GFR (CKD-EPI)AfAm 62 (>60 ml/min/1.73 sqM) Est GFR (CKD-EPI)NonAf 54 (>60 ml/min/1.73 sqM) Glucose 111 H (74-99) mg/dL Calcium 9.0 (8.4-10.2) mg/dL Total Bilirubin 0.5 (0.2-1.3) mg/dL AST 32 (17-59) U/L ALT 24 (4-49) U/L Alkaline Phosphatase 66 (38-126) U/L Total Protein 7.1 (6.3-8.2) g/dL Albumin 4.3 (3.5-5.0) g/dL Amylase 48 (30-110) U/L Lipase 667 H (23-300) U/L Urine Color Yellow Urine Appearance Clear (Clear) Urine pH 5.0 (5.0-8.0) Ur Specific [place] 1.028 (1.001-1.035) Urine Protein Trace H (Negative) Urine Glucose (UA) Negative (Negative) Urine Ketones Negative (Negative) Urine Blood Negative (Negative) Urine Nitrite Negative (Negative) Urine Bilirubin Negative (Negative) Urine Urobilinogen <2.0 (<2.0) mg/dL Ur Leukocyte Esterase Negative (Negative) Disposition Clinical Impression: Abdominal pain, Diarrhea Disposition: HOME SELF-CARE Condition: Good Instructions (If sedation given, give patient instructions): Abdominal Pain (ED) Prescriptions: Dicyclomine [Bentyl] 20 mg PO QID #15 tablet Ciprofloxacin HCl [Cipro] 500 mg PO Q12HR #14 tablet Ondansetron Odt [Zofran ODT] 4 mg PO Q8HR PRN #10 tab PRN Reason: Nausea Is patient prescribed a controlled substance at d/c from ED?: No Referrals: Nohemi Dennis MD [Primary Care Provider] - 1-2 days
[2020-04-23 03:03] LABS: Appearance,Urine Clear (Clear); Bilirubin,Urine Negative (Negative); Blood,Urine Negative (Negative); Color,Urine Yellow; Glucose,Urine (UA) Negative (Negative); Ketones,Urine Negative (Negative); Leukocyte Esterase,Urine Negative (Negative); Nitrite,Urine Negative (Negative); Protein,Urine Trace (Negative); Specific Gravity,Urine 1.028 (1.001-1.035); Urobilinogen,Urine <2.0 mg/dL (<2.0)
[2020-04-23 03:11] LABS: Albumin 4.3 g/dL (3.5-5.0); Potassium 3.8 mmol/L (3.5-5.1); Total Bilirubin 0.5 mg/dL (0.2-1.3); Total Protein 7.1 g/dL (6.3-8.2)
[2020-04-23 03:14] LABS: Basophils % (A) 1 %; Eosinophils # (A) 0.3 k/uL (0-0.7); Eosinophils % (A) 3 %; HCT 46.9 % (39.0-53.0); HGB 15.9 gm/dL (13.0-17.5); Lymphocytes # (A) 2.2 k/uL (1.0-4.8); Lymphocytes % (A) 28 %; MCH 30.3 pg (25.0-35.0); MCHC 33.9 g/dL (31.0-37.0); MCV 89.3 fL (80.0-100.0); Mean Platelet Volume 9.9; Monocytes # (A) 0.5 k/uL (0-1.0); Monocytes % (A) 6 %; Neutrophils # (A) 4.6 k/uL (1.3-7.7); Neutrophils % (A) 59 %; Platelet Count 151 k/uL (150-450); RBC 5.25 m/uL (4.30-5.90); RDW 13.9 % (11.5-15.5); WBC 7.9 k/uL (3.8-10.6)
--- NOTE | 2020-04-23 03:15 | CT ---
EXAMINATION TYPE: CT abdomen pelvis wo con DATE OF EXAM: 04/23/2020 COMPARISON: 01/29/2018 HISTORY: Lower abdominal pain Right flank pain CT DLP: 940.8 mGycm Automated exposure control for dose reduction was used. Lung bases are clear of consolidation. There is mild subsegmental atelectasis at the lung bases poste riorly. There is no pleural effusion. Heart size is normal. There is mild hiatal hernia. Liver spleen pancreas gallbladder appear intact. Bile ducts are not dila tenzin. There is no adrenal mass. There is 2 cm cortical cyst lateral left kidney. There is no hydronephrosis . Ureters are not dilated. There is no retroperitoneal adenopathy. There is no evidence of ureteral c alculus. Bladder distends smoothly. There is enlarged prostate that measures 5.7 cm. There is no ingu inal hernia. This possible 1 mm calcifications in the right kidney. Appendix appears normal. There is no mesenteric edema. There are a few sigmoid diverticula. There is no sign of diverticulitis. There is no evidence of bowel obstruction. There is no ascites or free air . There are spondylotic changes in the lower lumbar spine. The bony pelvis appears intact. Hip joints are intact. There is L4-5 disc space narrowing. There is no compression fracture. IMPRESSION: There is some scarring and atelectasis at the posterior lung bases not significantly different than o ld exam. Possible nonobstructing 1 mm right renal calculi. Normal appendix. Hiatal hernia unchanged. Left mitali l cyst unchanged.
[2020-04-23] MEDS ORDERED: ONDANSETRON 4 MG/2 ML VIAL IVP STA (05:44)
[2020-04-23 05:54] VITALS: BP 145/88; PULSE 71
== END 2020-04-23 06:43 | disposition home or self-care (01) ==
LOC: EC 01:51
DX: R10.31 Right lower quadrant pain (principal); R10.32 Left lower quadrant pain; R19.7 Diarrhea, unspecified; K21.9 Gastro-esophageal reflux disease without esophagitis; E78.5 Hyperlipidemia, unspecified; I10 Essential (primary) hypertension; Z87.442 Personal history of urinary calculi; Z79.899 Other long term (current) drug therapy
CPT/HCPCS: 36415; 80053; 82150; 83690; 85025; 81003; 74176; 99284; 96374; 96375; J2270; J2405

== ENCOUNTER → 2020-05-18 | Outpatient (CLI) | payer MEDICARE | END | disposition home or self-care (01) | LOC: LABWHC1 09:12 | PROVIDERS: ATTEND Internal Medicine Gastroenterology | DX: K57.30 Diverticulosis of large intestine without perforation or abscess without bleeding (principal) | CPT/HCPCS: 36415; 83690 ==

== ENCOUNTER → 2020-11-19 | Outpatient (CLI) | payer MEDICARE ==
--- NOTE | 2020-11-19 16:03 | US ---
EXAMINATION TYPE: US kidneys/renal and bladder DATE OF EXAM: 11/19/2020 COMPARISON: CLINICAL HISTORY: N28.9 DISORDER OF KIDNEYS. Left flank pain EXAM MEASUREMENTS: Right Kidney: 12.0 x 4.5 x 4.8 cm Left Kidney: 11.4 x 5.0 x 5.1 cm Right Kidney: No hydronephrosis or masses seen Left Kidney: lateral mid simple appearing cystic lesion = 1.9 x 2.0 x 2.1 cm Bladder: distended, anechoic Bilateral Jets not seen IMPRESSION: 1. Left renal cyst
== END | disposition home or self-care (01) ==
LOC: RADUSWWP 15:19
PROVIDERS: ATTEND Family Medicine
DX: N28.1 Cyst of kidney, acquired (principal)
CPT/HCPCS: 76770

== ENCOUNTER → 2020-11-19 | Outpatient (CLI) | payer MEDICARE ==
[2020-11-19 14:36] LABS: Appearance,Urine Clear (Clear); Bacteria,Urine Rare /hpf; Bilirubin,Urine Negative (Negative); Blood,Urine Trace (Negative); Color,Urine Yellow; Glucose,Urine (UA) Negative (Negative); Ketones,Urine Negative (Negative); Leukocyte Esterase,Urine Negative (Negative); Mucus,Urine Rare /hpf; Nitrite,Urine Negative (Negative); Protein,Urine Negative (Negative); RBC,Urine <1 /hpf (0-5); Specific Gravity,Urine 1.021 (1.001-1.035); Urobilinogen,Urine <2.0 mg/dL (<2.0); WBC,Urine <1 /hpf (0-5)
[2020-11-19 19:28] LABS: HCT 43.8 % (39.6-50.0); HGB 14.7 g/dL (13.0-17.0); MCH 30.1 pg (27.0-32.0); MCHC 33.6 g/dL (32.0-37.0); MCV 89.8 fL (80.0-97.0); Mean Platelet Volume 12.5 fL (9.5-12.2); Platelet Count 185 X 10*3/uL (140-440); RBC 4.88 X 10*6/uL (4.40-5.60); RDW 13.7 % (11.5-14.5); WBC 6.15 X 10*3/uL (4.50-10.00)
[2020-11-19 20:04] LABS: African American GFR (CKD) 53.9 (60.0-200.0); Albumin 4.7 g/dL (3.80-4.90); Albumin/Globulin Ratio 2.35 (1.60-3.17); Anion Gap 10.4 mmol/L (4.00-12.00); BUN/Creat Ratio 21.33 Ratio (12.00-20.00); Calcium 9.3 mg/dL (8.7-10.3); Carbon Dioxide 24.6 mmol/L (21.6-31.8); Non-African American GFR(CKD) 46.5 (60.0-200.0); Phosphorus 2.7 mg/dL (2.4-5.1); Total Bilirubin 0.4 mg/dL (0.2-1.2); Total Protein 6.7 g/dL (6.2-8.2)
[2020-11-19 21:24] LABS: Total Volume 24 Hour,Urine 1350 mL
== END | disposition home or self-care (01) ==
LOC: LABWHC1 13:43
PROVIDERS: ATTEND Nurse Practitioner
DX: N28.9 Disorder of kidney and ureter, unspecified (principal); E11.9 Type 2 diabetes mellitus without complications
CPT/HCPCS: 36415; 80053; 81001; 81050; 84100; 84156; 85027

== ENCOUNTER 2020-12-08 20:38 | Emergency (ER) | payer MEDICARE ==
[2020-12-08 20:51] VITALS: BP 154/88; PULSE 97; RESP 18; TEMP 98.7
--- NOTE | 2020-12-08 21:56 | XR ---
EXAMINATION TYPE: XR chest 2V DATE OF EXAM: 12/08/2020 COMPARISON: NONE HISTORY: TECHNIQUE: Frontal and lateral views of the chest are obtained. FINDINGS: There is no focal air space opacity, pleural effusion, or pneumothorax seen. The cardiac silhouette size is within normal limits. The osseous structures are intact. IMPRESSION: No acute cardiopulmonary process.
[2020-12-08] MEDS ORDERED: cefTRIAXone 1,000 MG VIAL (IM USE) IM STA (22:10)
--- NOTE | 2020-12-08 22:13 | ED ---
URI HPI - General Chief Complaint: Upper Respiratory Infection Stated Complaint: Cough Time Seen by Provider: 12/08/20 21:12 Source: patient, RN notes reviewed Mode of arrival: ambulatory Limitations: no limitations - History of Present Illness Initial Comments: 70-year-old male presents emergency Department with chief complaint of cough congestion. Patient states started last couple days. Patient denies any fevers or chills no chest painshortness of breath. Patient states he has mild runny nose. Patient denies any prior cardiac disease. Patient has no abdominal pain no sick contacts no leg pain. Patient states he just has a slight rattle in his chest and he was worried. - Related Data Home Medications Medication Instructions Recorded Confirmed Lansoprazole [Prevacid] 30 mg PO BID 05/29/14 08/08/19 Atorvastatin Calcium [Lipitor] 40 mg PO HS 01/29/18 08/08/19 Cyclobenzaprine HCl 10 mg PO QAM 01/29/18 08/08/19 Lisinopril-Hctz 20-25 mg 1 tab PO DAILY 01/29/18 08/08/19 [Zestoretic 20-25] Oxybutynin Chloride [Ditropan] 5 mg PO HS 01/29/18 08/08/19 Sucralfate [Carafate] 1 gm PO ACHS 08/08/19 08/08/19 Previous Rx's Medication Instructions Recorded Tamsulosin HCl [Flomax] 0.4 mg PO DAILY #10 cap 01/29/18 Aspirin 81 mg PO DAILY 30 Days #30 chew 08/11/19 metFORMIN HCL [Glucophage Xr] 500 mg PO DAILY #0 08/11/19 Ciprofloxacin HCl [Cipro] 500 mg PO Q12HR #14 tablet 04/23/20 Dicyclomine [Bentyl] 20 mg PO QID #15 tablet 04/23/20 Ondansetron Odt [Zofran ODT] 4 mg PO Q8HR PRN #10 tab 04/23/20 Azithromycin [Zithromax Z-pack (6 0 mg PO DIRECTED #1 pack 12/08/20 tabs)] Allergies Allergy/AdvReac Type Severity Reaction Status Date / Time No Known Allergies Allergy Verified 12/08/20 20:51 Review of Systems ROS Statement: Those systems with pertinent positive or pertinent negative responses have been documented in the HPI. ROS Other: All systems not noted in ROS Statement are negative. Past Medical History Past Medical History: Diabetes Mellitus, GERD/Reflux, Hyperlipidemia, Hypertension Additional Past Medical History / Comment(s): kidney stones, History of Any Multi-Drug Resistant Organisms: None Reported Past Surgical History: Adenoidectomy, Back Surgery, Orthopedic Surgery, Tonsillectomy Past Psychological History: No Psychological Hx Reported Past Alcohol Use History: Occasional Past Drug Use History: None Reported General Exam Limitations: no limitations General appearance: alert, in no apparent distress Head exam: Present: atraumatic, normocephalic, normal inspection Eye exam: Present: normal appearance, PERRL, EOMI. Absent: scleral icterus, conjunctival injection, periorbital swelling ENT exam: Present: normal exam, normal oropharynx, mucous membranes moist Neck exam: Present: normal inspection, full ROM. Absent: tenderness, meningismus, lymphadenopathy Respiratory exam: Present: rhonchi (faint). Absent: respiratory distress, wheezes, rales, stridor Cardiovascular Exam: Present: regular rate, normal rhythm, normal heart sounds. Absent: systolic murmur, diastolic murmur, rubs, gallop, clicks Course Vital Signs 12/08/20 20:48 Temperature 98.7 F Pulse Rate 97 Respiratory 18 Rate Blood Pressure 154/88 O2 Sat by Pulse 93 L Oximetry Medical Decision Making - Medical Decision Making 70-year-old male presented for cough congestion patient has no current shortness of breath no exertional symptoms no chest pain. Patient states that he history of pneumonia x-ray does not show any significant findings Covid is negative. Patient discharged with antiemetics return parameters were discussed. - Lab Data Lab Results 12/08/20 Range/Units 21:33 Coronavirus (PCR) Not Detected (Not Detectd) Disposition Clinical Impression: Acute upper respiratory infection Disposition: HOME SELF-CARE Condition: Stable Instructions (If sedation given, give patient instructions): Upper Respiratory Infection (ED) Additional Instructions: Please return to the Emergency Department if symptoms worsen or any other concerns. Prescriptions: Azithromycin [Zithromax Z-pack (6 tabs)] 0 mg PO DIRECTED #1 pack Is patient prescribed a controlled substance at d/c from ED?: No Referrals: Nohemi Dennis MD [Primary Care Provider] - 1-2 days Time of Disposition: 22:12
== END 2020-12-08 22:26 | disposition home or self-care (01) ==
LOC: EC 20:38
DX: J06.9 Acute upper respiratory infection, unspecified (principal); Z79.899 Other long term (current) drug therapy; E11.9 Type 2 diabetes mellitus without complications; K21.9 Gastro-esophageal reflux disease without esophagitis; E78.5 Hyperlipidemia, unspecified; I10 Essential (primary) hypertension; Z87.442 Personal history of urinary calculi; Z90.49 Acquired absence of other specified parts of digestive tract; Z87.01 Personal history of pneumonia (recurrent); Z20.822 Contact with and (suspected) exposure to COVID-19
CPT/HCPCS: 87635; 71046; J0696; 96372; 99283

== ENCOUNTER 2021-12-22 16:48 | Emergency (ER) | payer MEDICARE ==
[2021-12-22 17:52] VITALS: TEMP 97.9
[2021-12-22 18:14] LABS: Partial Thromboplastin Time 22.9 sec (22.0-30.0); Prothrombin Time 10.9 sec (9.0-12.0)
[2021-12-22 18:17] LABS: Albumin 4.1 g/dL (3.5-5.0); Calcium 8.8 mg/dL (8.4-10.2); Potassium 3.5 mmol/L (3.5-5.1); Total Bilirubin 0.6 mg/dL (0.2-1.3); Total Protein 7.1 g/dL (6.3-8.2)
--- NOTE | 2021-12-22 18:20 | ED ---
General Adult HPI - General Chief complaint: Neuro Symptoms/Deficit Stated complaint: L arm numbness,Dizziness Time Seen by Provider: 12/22/21 17:03 Source: patient, RN notes reviewed, old records reviewed Mode of arrival: wheelchair Limitations: no limitations - History of Present Illness Initial comments: 71-year-old male presenting for evaluation of left arm numbness and tingling. No associated weakness. Patient also states he had some dizziness. The symptoms began at approximately 11 AM today. He states that he has had some intermittent left arm numbness and tingling over the past one week or so but this has not been constant. He denies headache. Denies chest pain. Denies lower extremity symptoms. - Related Data Home Medications Medication Instructions Recorded Confirmed Lansoprazole [Prevacid] 30 mg PO DAILY 05/29/14 12/22/21 Atorvastatin Calcium [Lipitor] 40 mg PO DAILY 01/29/18 12/22/21 Oxybutynin Chloride [Ditropan] 5 mg PO BID 01/29/18 12/22/21 Acetaminophen [Tylenol] 500 mg PO Q4-6H PRN 12/22/21 12/22/21 Lisinopril [Zestril] 10 mg PO DAILY 12/22/21 12/22/21 glipiZIDE [Glucotrol] 5 mg PO BID 12/22/21 12/22/21 traMADol HCL 50 mg PO Q6H PRN 12/22/21 12/22/21 Previous Rx's Medication Instructions Recorded Tamsulosin HCl [Flomax] 0.4 mg PO DAILY #10 cap 01/29/18 Allergies Allergy/AdvReac Type Severity Reaction Status Date / Time No Known Allergies Allergy Verified 12/22/21 18:37 Review of Systems ROS Statement: Those systems with pertinent positive or pertinent negative responses have been documented in the HPI. ROS Other: All systems not noted in ROS Statement are negative. Past Medical History Past Medical History: Diabetes Mellitus, GERD/Reflux, Hyperlipidemia, Hypertension Additional Past Medical History / Comment(s): kidney stones, History of Any Multi-Drug Resistant Organisms: None Reported Past Surgical History: Adenoidectomy, Back Surgery, Orthopedic Surgery, Tonsillectomy Past Psychological History: No Psychological Hx Reported Smoking Status: Never smoker Past Alcohol Use History: Occasional Past Drug Use History: None Reported General Exam Limitations: no limitations General appearance: alert, in no apparent distress Head exam: Present: atraumatic, normocephalic Eye exam: Present: normal appearance, PERRL ENT exam: Present: normal exam Neck exam: Present: normal inspection Respiratory exam: Present: normal lung sounds bilaterally. Absent: respiratory distress, wheezes Cardiovascular Exam: Present: regular rate, normal rhythm GI/Abdominal exam: Present: soft. Absent: distended, tenderness, guarding Extremities exam: Present: normal inspection, normal capillary refill. Absent: pedal edema Neurological exam: Present: alert, oriented X3, CN II-XII intact, motor sensory deficit (Numbness and tingling to the left upper extremity, normal strength, no ataxia) Psychiatric exam: Present: normal affect, normal mood Skin exam: Present: warm, dry, intact. Absent: cyanosis, diaphoretic Course Vital Signs 12/22/21 12/22/21 12/22/21 16:57 17:19 17:50 Temperature 99.1 F 98.3 F 97.9 F Pulse Rate 98 129 H 92 Respiratory 20 12 12 Rate Blood Pressure 147/65 125/82 136/99 O2 Sat by Pulse 92 L 98 94 L Oximetry EKG Findings - EKG Comments: EKG Findings:: EKG: Sinus tachycardia, slightly widened QRS axis suspicious for intraventricular conduction delay, no ST segment elevation rate of 101, RI interval 156, QRS duration 155, QTC 421 Medical Decision Making - Medical Decision Making 71-year-old male with left upper arm paresthesia. There is no weakness no ataxia, no other focal findings. Patient had MRI of the cervical spine is currently awaiting evaluation with orthopedic spine which is in 3 days. I suspect this is radicular in nature. He has no other stroke features. Head CT and cervical spine are negative for any acute findings. He has a normal CBC, normal CMP. He is given the option of admission for further evaluation versus home with strict return parameters. Patient agrees to discharge home with very specific return parameters including any weakness of the limbs, severe headache, any speech abnormalities. Patient will return immediately to the emergency department. Otherwise she will follow-up with spinal surgery Dr. Parrish on Sunday which is 3 days from now. - Lab Data Result diagrams: 12/22/21 17:48 12/22/21 17:48 Lab Results 03/24/22 03/24/22 03/24/22 Range/Units 17:48 17:48 17:48 WBC 9.5 (3.8-10.6) k/uL RBC 5.31 (4.30-5.90) m/uL Hgb 15.3 (13.0-17.5) gm/dL Hct 47.1 (39.0-53.0) % MCV 88.8 (80.0-100.0) fL MCH 28.8 (25.0-35.0) pg MCHC 32.4 (31.0-37.0) g/dL RDW 13.2 (11.5-15.5) % Plt Count 157 (150-450) k/uL MPV 9.4 Neutrophils % 63 % Lymphocytes % 25 % Monocytes % 8 % Eosinophils % 1 % Basophils % 1 % Neutrophils # 6.0 (1.3-7.7) k/uL Lymphocytes # 2.3 (1.0-4.8) k/uL Monocytes # 0.8 (0-1.0) k/uL Eosinophils # 0.1 (0-0.7) k/uL Basophils # 0.1 (0-0.2) k/uL PT 10.9 (9.0-12.0) sec INR 1.0 (<1.2) APTT 22.9 (22.0-30.0) sec Sodium 138 (137-145) mmol/L Potassium 3.5 (3.5-5.1) mmol/L Chloride 105 (98-107) mmol/L Carbon Dioxide 23 (22-30) mmol/L Anion Gap 10 mmol/L BUN 24 H (9-20) mg/dL Creatinine 1.33 H (0.66-1.25) mg/dL Est GFR (CKD-EPI)AfAm 62 (>60 ml/min/1.73 sqM) Est GFR (CKD-EPI)NonAf 54 (>60 ml/min/1.73 sqM) Glucose 115 H (74-99) mg/dL Calcium 8.8 (8.4-10.2) mg/dL Total Bilirubin 0.6 (0.2-1.3) mg/dL AST 31 (17-59) U/L ALT 27 (4-49) U/L Alkaline Phosphatase 60 (38-126) U/L Troponin I (0.000-0.034) ng/mL Total Protein 7.1 (6.3-8.2) g/dL Albumin 4.1 (3.5-5.0) g/dL 12/22/21 Range/Units 17:48 WBC (3.8-10.6) k/uL RBC (4.30-5.90) m/uL Hgb (13.0-17.5) gm/dL Hct (39.0-53.0) % MCV (80.0-100.0) fL MCH (25.0-35.0) pg MCHC (31.0-37.0) g/dL RDW (11.5-15.5) % Plt Count (150-450) k/uL MPV Neutrophils % % Lymphocytes % % Monocytes % % Eosinophils % % Basophils % % Neutrophils # (1.3-7.7) k/uL Lymphocytes # (1.0-4.8) k/uL Monocytes # (0-1.0) k/uL Eosinophils # (0-0.7) k/uL Basophils # (0-0.2) k/uL PT (9.0-12.0) sec INR (<1.2) APTT (22.0-30.0) sec Sodium (137-145) mmol/L Potassium (3.5-5.1) mmol/L Chloride (98-107) mmol/L Carbon Dioxide (22-30) mmol/L Anion Gap mmol/L BUN (9-20) mg/dL Creatinine (0.66-1.25) mg/dL Est GFR (CKD-EPI)AfAm (>60 ml/min/1.73 sqM) Est GFR (CKD-EPI)NonAf (>60 ml/min/1.73 sqM) Glucose (74-99) mg/dL Calcium (8.4-10.2) mg/dL Total Bilirubin (0.2-1.3) mg/dL AST (17-59) U/L ALT (4-49) U/L Alkaline Phosphatase (38-126) U/L Troponin I 0.017 (0.000-0.034) ng/mL Total Protein (6.3-8.2) g/dL Albumin (3.5-5.0) g/dL Disposition Clinical Impression: Paresthesia Disposition: HOME SELF-CARE Condition: Good Instructions (If sedation given, give patient instructions): Paresthesia (ED) Is patient prescribed a controlled substance at d/c from ED?: No Referrals: Nohemi Dennis MD [Primary Care Provider] - 1-2 days Jerel Parrish DO [Doctor of Osteopathic Medicine] - 1-2 days Time of Disposition: 19:54
[2021-12-22 18:22] LABS: Basophils # (A) 0.1 k/uL (0-0.2); Basophils % (A) 1 %; Eosinophils # (A) 0.1 k/uL (0-0.7); Eosinophils % (A) 1 %; HCT 47.1 % (39.0-53.0); HGB 15.3 gm/dL (13.0-17.5); Lymphocytes # (A) 2.3 k/uL (1.0-4.8); Lymphocytes % (A) 25 %; MCH 28.8 pg (25.0-35.0); MCHC 32.4 g/dL (31.0-37.0); MCV 88.8 fL (80.0-100.0); Mean Platelet Volume 9.4; Monocytes # (A) 0.8 k/uL (0-1.0); Monocytes % (A) 8 %; Neutrophils % (A) 63 %; Platelet Count 157 k/uL (150-450); RBC 5.31 m/uL (4.30-5.90); RDW 13.2 % (11.5-15.5); WBC 9.5 k/uL (3.8-10.6)
--- NOTE | 2021-12-22 19:04 | CT ---
EXAMINATION TYPE: CT brain cspine wo con DATE OF EXAM: 12/22/2021 COMPARISON: 10/30/16 HISTORY: Left arm numbness. CT DLP: 1657 mGycm. Automated Exposure Control for Dose Reduction was Utilized. TECHNIQUE: CT scan of the head and cervical spine are performed without contrast. FINDINGS: There is no acute intracranial hemorrhage, mass effect, or midline shift identified. The ventricles and sulci are within normal limits in size. The globes are intact and the visualized sin uses are clear. Cervical spine is visualized in its entirety from C1 through upper thoracic levels and demonstrates s atisfactory alignment without evidence of acute fracture or dislocation. Prevertebral soft tissue ap pears within normal limits. Advanced cervical spondylosis changes. The C1-C2 articulation is unremar kable. IMPRESSION: 1. There is no acute fracture or dislocation evident in the cervical spine. 2. No acute intracranial hemorrhage, mass effect, or midline shift is seen.
[2021-12-22 20:19] VITALS: BP 136/88; PULSE 81; RESP 16
== END 2021-12-22 20:27 | disposition home or self-care (01) ==
LOC: EC 16:48
DX: R20.2 Paresthesia of skin (principal); R42 Dizziness and giddiness; E11.9 Type 2 diabetes mellitus without complications; I10 Essential (primary) hypertension; K21.9 Gastro-esophageal reflux disease without esophagitis; E78.5 Hyperlipidemia, unspecified; Z79.899 Other long term (current) drug therapy; Z79.84 Long term (current) use of oral hypoglycemic drugs
CPT/HCPCS: 36415; 70450; 72125; 80053; 84484; 85025; 85610; 85730; 93005; 99284

== ENCOUNTER → 2022-01-11 | Outpatient (CLI) | payer MEDICARE ==
--- NOTE | 2022-01-11 14:45 | P.CON ---
Consult Note - . Consult date: 01/11/22 Assessment/Plan:: HISTORY OF PRESENT ILLNESS: 71 yr old male as a referral from Dr. Parrish presents today with chronic and severe cervical pain secondary to disc bulges, DDD and facet arthropathy for evaluation. Pt states he has been having cervical pain for 1 year, 4/10 in intensity, base of the neck/ shoulders with radiation of pain to the posterior shoulders with LUE tingling/ numbness. Pain is provoked with extension and lifting. Pain is relieved with medications (Tramadol & Tylenol from Dr Parrish), topicals, injections in the past, ice, heat, physical therapy though he had to stop due to mounting medical bills making it unaffordable, chiropractic treatments once a week to once every 3 months currently, home exercise regimen, massage therapy 4-5 yrs ago, repositioning and rest. Past Medical History: Diabetes Mellitus, GERD/Reflux, Hyperlipidemia, Hypertension, BPH Past Surgical History: Adenoidectomy, Back Surgery, Orthopedic Surgery, Tonsillectomy, Nephrolithiasis Social History: Occasional ETOH use. No tobacco use. No illicit drug use. Family History: Non contributory All: NKDA Meds: See list REVIEW OF ORGAN SYSTEMS: CONSTITUTIONAL: No fevers or chills. No recent weight loss. HEENT: No visual acuity loss, eye pain, difficulties with hearing. No nosebleeds. No difficulty swallowing. RESPIRATORY: Denies any troubles with breathing or dyspnea on exertion. CARDIOVASCULAR: Denies any chest pain, palpitations, or recent heart attacks. GASTROINTESTINAL: Denies fatty food intolerance. Has change in bowel habits and gas bloat. GENITOURINARY: Denies any blood in urine. Has increased urinary frequency. NEUROLOGICAL: + numbness and tingling along the distal extremities. No seizure disorders or headaches. MUSCULOSKELETAL: + back pain SKIN: No skin cancer. No rash. PSYCHIATRIC: Denies current depression or suicidal thoughts. ENDOCRINE: Denies current thyroid disorders. Denies any blood sugar glucose intolerance. HEME/LYMPHATIC: Denies any lumps and bumps around the neck. History of deep venous thrombosis. ALLERGY/IMMUNOLOGY: No immunoglobulin therapy. No immune deficiencies. BREAST: Denies current breast lumps, pain or nipple discharge. Physical Examinations : Constitutional : Cooperative , not in acute distress . HEENT: Neck supple. No Lymphadenopathy. Normal thyroid size . Eyes no ptosis , no icterus, no photophobia . Hearing intact. Normal oropharynx. No Thrush. Respiratory : Chest clear to auscultations bilaterally. No wheezing. No rhonchi. Cardiovascular : Regular rate and rhythm , S1 / S2. No S3 . No S4. Gastrointestinal : Abdomen soft. No tenderness. Bowel sounds x 4. No organomegaly . Genitourinary : Deferred. Neurologic : Cranial nerve II to XII intact. No focal neurological deficits. Psychiatric : alert & oriented x 3. Matching mood & appropriate affect. Judgment & insight intact. Lymphatic No Lymphadenopathy. Musculoskeletal : Cervical Spine Motor strength in the deltoid and biceps: Normal right side. Normal Left side Motor strength biceps and the wrist extensors: Normal right side . Normal left side Motor strength in the triceps muscle: Normal right side. Normal left side Deep tendon reflexes: Normal at the biceps. Normal at Brachioradialis. Normal at triceps Vertebral body tenderness to palpation over C4, C5 Cervical facet loading test: positive bilaterally Spurling test: positive bilaterally Neck distraction test: positive bilaterally Mai sign: positive bilaterally Lumbar spine Motor strength lower extremities ,thigh and legs 5/5 Right side , 5/5 Left side Deep tendon reflexes : Normal Knee Jerk. Normal Ankle Jerk Vertebral body tenderness over Lumbar facet Loading Test: positive Right / positive Left Range of motion of the lumbar spine Flexion 30 degrees, extension 10 degrees Straight Leg Raise test: Left/ Right positive at degree Fang test: positive right / positive left. Severe tenderness over the Sacroiliac joint on the Right / Left sides Gaenslen test: positive bilaterally Seated flexion test: positive bilaterally. Imaging: CT scan without contrast of cervical spine from 12/22/21 reviewed. MRI without contrast of the cervical spine from 12/18/21 reviewed. Assessment/ Plan : Cervical spondylosis, DH, DDD, spinal stenosis and facet arthropathy Recommendation of ZELDA C4-C5. May need a series of injections, up to 3 within a 6 mo period, to obtain optimal pain relief. Risks, benefits of procedure discussed and patient verbalized understanding. Denies aspirin or anti- coagulant use. Admits to medical history of diabetes. Protocol on discontinuation/ continuation of medications marilyn procedure discussed. All questions answered. Filled medication of [place] 5/325mg 1 tab PO Q6h prn pain #10 (ten) for approximately 3 days. No refills. I have spent greater than 50 minutes on patient care today. Dr Mai was available by phone for the evaluation of this patient. The time was used to review the medical records including relevant urine studies and Prescription history (MAPs), review of the available imaging, evaluation and examination of the patient, coordination of care with the medical staff and if applicable ref erring physicians, as well as creation of the medical record PQRS Measure Charge Sheet PQRS Narrative: Smoking Status Never smoker Pain Intensity [Lower Back] 3 Scale Used Numeric (1 - 10) Hx Alcohol Use (MH) Yes Home Medications: Ambulatory Orders Lansoprazole [Prevacid] 30 mg PO DAILY 05/29/14 Atorvastatin Calcium [Lipitor] 40 mg PO DAILY 01/29/18 Oxybutynin Chloride [Ditropan] 5 mg PO BID 01/29/18 Tamsulosin HCl [Flomax] 0.4 mg PO DAILY #10 cap 01/29/18 Acetaminophen [Tylenol] 500 mg PO Q4-6H PRN 12/22/21 Lisinopril [Zestril] 10 mg PO DAILY 12/22/21 glipiZIDE [Glucotrol] 5 mg PO BID 12/22/21 traMADol HCL 50 mg PO Q6H PRN 12/22/21
[2022-01-11 15:03] VITALS: BP 176/95; PULSE 99; RESP 18; TEMP 98.5
== END | disposition home or self-care (01) ==
LOC: PNWHC3 14:04
PROVIDERS: ATTEND Specialist
DX: M47.892 Other spondylosis, cervical region (principal); M50.30 Other cervical disc degeneration, unspecified cervical region
CPT/HCPCS: 99211

== ENCOUNTER 2022-02-16 07:57 | Day surgery (SDC) | payer MEDICARE ==
[2022-02-14 16:15] VITALS: BMI 29.8
[2022-02-16] MEDS ORDERED: LACTATED RINGERS 1,000 ML IV SCH (08:11)
[2022-02-16] MEDS ORDERED: LIDOCAINE 1% (10MG/ML) FOR IV START INTRADERMA PRN (08:11)
[2022-02-16 08:23] VITALS: TEMP 97.6
[2022-02-16] MEDS ORDERED: LACTATED RINGERS 1,000 ML IV ONE ×2 (08:25)
[2022-02-16 08:26] LABS: Glucose,Whole Blood 131 mg/dL (75-99)
[2022-02-16] MEDS ORDERED: fentaNYL (PF) 50 MCG/ML 2 ML AMP ONE (08:52)
[2022-02-16] MEDS ORDERED: IOPAMIDOL M200 10 ML VIAL ONE (08:52)
[2022-02-16] MEDS ORDERED: MIDAZOLAM 2 MG/2 ML VIAL ONE (08:52)
[2022-02-16] MEDS ORDERED: DEXAMETHASONE SOD PHOSPHATE 10 MG/ML 1 ML VIAL ONE (08:52)
--- NOTE | 2022-02-16 09:16 | P.PCN ---
Date of Procedure: 02/16/22 Procedure(s) Performed: . PROCEDURE 1. Cervical epidural steroid injection under fluoroscopic guidance, C4-5 (fluoroscopy images available in the radiology department ) 2. Cervical epidurogram. PREOPERATIVE DIAGNOSIS: 1- Cervical herniated Disc Diseases 2- Cervical radiculopathy., 3-cervical spondylosis with cervical Facet arthropathy without myelopathy POSTOPERATIVE DIAGNOSIS: : 1- Cervical herniated Disc Diseases , 2- Cervical radiculopathy. 3-,cervical spondylosis with cervical Facet arthropathy without myelopathy ANESTHESIA: Local anesthesia with lidocaine 1 % , and moderate sedation, with Versed 2 mg and Fentanyl 100 mcg. EBL 0 PROCEDURE INDICATION: The patient with neck pain and radiculitis unresponsive to conservative treatment consents for procedure. PROCEDURE DESCRIPTION / TECHNIQUE: The patient was seen and identified in the preoperative area. Risks, benefits, complications, including but not limited to infections ,bleeding , allergic reactions to the medications ,and not complete pain releife, and alternatives were discussed with the patient, the patient ag roshni to proceed with the procedure and signed the consent. Patient was taken to the OR and time out was completed. The patient was placed in the prone position on the procedure table. A pillow was placed under the patients chest to increase the cervical interlaminar space. The cervical area was prepped and draped in the usual sterile fashion. Vital signs were closely monitored during the procedure. Conscious sedation was used during the procedure to decrease patients anxiety. Using anterior-posterior fluoroscopy, the C4-5 interlaminar space was identified and the skin over this site was marked and then infiltrated with 1% lidocaine subcutaneously. Subsequently, a 18-gauge 3-1/2-inch Tuohy epidural needle was inserted and advanced toward the epidural space by means of the ``hanging-drop technique and guided by AP and lateral fluoroscopy. The correct needle position in the epidural space was verified with the injection of 2 mL of the water soluble contrast dye [id number]-200 and observing an excellent epidurogram with the epidural spread of the dye, after negative aspiration for blood and CSF and in the absence of paresthesias. then, mixture containing 15 mg Dexamethasone and 2 ml of preservative-free normal saline injected and a washout of epidurogram was seen. Needle was withdrawn intact, skin was cleansed, and bandages were applied. Complications= none. Disposition= patient was placed in supine position and transferred to the recovery room area in stable condition and there was no evidence of upper or lower extremity motor or sensory deficit after the procedure patient was discharged from recovery room after discharge criteria met and home discharge instructions was given by the staff and patient will follow with the pain clinic in 2-4 weeks
[2022-02-16] MEDS ORDERED: IV FLUID CONTINUATION 600 ML IV ONE (09:21)
[2022-02-16 09:25] VITALS: RESP 20
--- NOTE | 2022-02-16 09:26 | FL ---
EXAMINATION TYPE: FL guided pain mgmt statistic DATE OF EXAM: 02/16/2022 HISTORY: Fluoroscopy time 13 seconds of fluoroscopy provided. IMPRESSION: 1. Fluoroscopy time.
[2022-02-16 09:36] VITALS: BP 138/76; PULSE 79
== END 2022-02-16 09:48 | disposition home or self-care (01) ==
LOC: ORPAIN 07:57
PROVIDERS: ATTEND Specialist
DX: M47.22 Other spondylosis with radiculopathy, cervical region (principal); M50.10 Cervical disc disorder with radiculopathy, unspecified cervical region
CPT/HCPCS: 62321; J2250; J1100; J3010; Q9966; 99152

== ENCOUNTER → 2022-03-08 | Outpatient (CLI) | payer MEDICARE ==
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
[2022-03-08 12:19] VITALS: BP 178/91; PULSE 90; RESP 18; TEMP 98.2
== END | disposition home or self-care (01) ==
LOC: PNWHC3 11:20
PROVIDERS: ATTEND Specialist
DX: M50.30 Other cervical disc degeneration, unspecified cervical region (principal); M47.892 Other spondylosis, cervical region; M46.92 Unspecified inflammatory spondylopathy, cervical region
CPT/HCPCS: 99211

== ENCOUNTER 2022-04-11 07:50 | Day surgery (SDC) | payer MEDICARE ==
[2022-04-07 08:45] VITALS: BMI 29.8
[~2022-04-11 07:50] MED LIST: LACTATED RINGERS 1,000 ML IV SCH
[2022-04-11 08:16] VITALS: TEMP 97.1
[2022-04-11 08:22] LABS: Glucose,Whole Blood 107 mg/dL (70-110)
[2022-04-11] MEDS ORDERED: fentaNYL (PF) 50 MCG/ML 2 ML AMP ONE (08:27)
[2022-04-11] MEDS ORDERED: MIDAZOLAM 2 MG/2 ML VIAL ONE (08:27)
[2022-04-11] MEDS ORDERED: IOPAMIDOL M200 10 ML VIAL ONE (08:27)
[2022-04-11] MEDS ORDERED: DEXAMETHASONE SOD PHOSPHATE 10 MG/ML 1 ML VIAL ONE (08:27)
--- NOTE | 2022-04-11 08:36 | P.PCN ---
Date of Procedure: 04/11/22 Surgeon: Mauricio Monterroso Pathology: none sent Condition: stable Disposition: PACU Description of Procedure: PROCEDURE 1. Cervical epidural steroid injection under fluoroscopic guidance, C7-T1 level in the left paramedian approach. 2. Cervical epidurogram. : PREOPERATIVE DIAGNOSIS: Cervical radiculopathy, cervical spondylosis without myelopathy POSTOPERATIVE DIAGNOSIS: : Same as above ANESTHESIA: Local anesthesia with 1% lidocaine and IV moderate conscious sedation with Versed and Fentanyl . EBL 0 PROCEDURE INDICATION: The patient with neck pain and radiculopathy unresponsive to conservative treatment consents for procedure. PROCEDURE DESCRIPTION / TECHNIQUE: The patient was seen and identified in the preoperative area. Risks, benefits, complications, including but not limited to infections ,bleeding , allergic reactions to the medications ,and not complete pain relief, and alternatives were discussed with the patient, the patient agreed to proceed with the procedure and signed the consent. Patient was taken to the OR and time out was completed. The patient was placed in the prone position on the procedure table. A pillow was placed under the patients chest to increase the flexion of the cervical spine . The cervical area was prepped and draped in the usual sterile fashion. Vital signs were closely monitored during the procedure. Conscious sedation was used during the procedure to decrease patients anxiety. Using anterior-posterior fluoroscopy, the C7-T1 interlaminar space was identified and the skin over this site was marked and then infiltrated with 1% lidocaine subcutaneously. Subsequently, a 20-gauge 3-1/2-inch Tuohy epidural needle was inserted and advanced toward the epidural space by means of loss of resistance to air technique and guided by AP and lateral fluoroscopy. The needle tip contacted the lamina of T1 vertebra first, then it was walked off bone and into the epidural space using the loss of to air and fluoroscopic guidance to identify the epidural space. The correct needle position in the epidural space was verified with the injection of 1 mL of the water soluble contrast dye Isovue and observing an excellent epidurogram with the epidural spread of the dye, after negative aspiration for blood and CSF and in the absence of paresthesias. Again after negative aspiration, a 2 ml mixture containing 10 mg of Decadron and 1 ml of preservative free Normal Saline solution was injected and a washout of epidurogram was seen. Needle was withdrawn intact, skin was cleansed, and bandages were applied. A copy of the needle placement picture was saved to the fluoroscopy machine.
[2022-04-11] MEDS ORDERED: IV FLUID CONTINUATION 850 ML IV ONE (08:41)
[2022-04-11 08:48] VITALS: PULSE 72
[2022-04-11 08:55] VITALS: BP 152/87; RESP 20
--- NOTE | 2022-04-11 09:27 | FL ---
Fluoroscopy HISTORY: Pain 5 seconds fluoroscopy time supplied to the referring clinician. 1 intraoperative C-arm images docume nt the procedure. See dictated report from anesthesia.
== END 2022-04-11 09:12 | disposition home or self-care (01) ==
LOC: ORPAIN 07:50
PROVIDERS: ATTEND Anesthesiology
DX: M47.22 Other spondylosis with radiculopathy, cervical region (principal); I10 Essential (primary) hypertension; E11.9 Type 2 diabetes mellitus without complications
CPT/HCPCS: 62321; J2250; J1100; J3010; Q9966

== ENCOUNTER → 2022-05-03 | Outpatient (CLI) | payer MEDICARE ==
[2022-05-03 11:52] VITALS: BP 167/97; PULSE 80; RESP 18; TEMP 98.5
--- NOTE | 2022-05-03 13:36 | P.PAINPG ---
PQRS Measure Charge Sheet Comment: A 72 yr old male with a history of severe and chronic neck and low back pain secondary to cervical & lumbar degenerative disc diseases, lumbar retrolisthesis, lumbar spondylosis, lumbar disc bulges, lumbar spinal stenosis with facet arthropathy presents today for evaluation of ZELDA C4-C5 and evaluation of LBP. Pt states he experienced 90% pain relief x 3 weeks s/p procedure. Pain level is 6/10 in intensity, localized in lower lumbar spine, constant, sore achy in character, R>L, without radiation of pain. Pain is provoked by bending. Pain is alleviated with PT in 2019, chiropractic treatments monthly, heat, ice, medications (Tylenol, [place]), topicals, home stretches, use of a massage gun, laying supine w LEs elevated, repositioning and rest. Interventional pain procedures completed include CESIs x 2 Patient is currently on [place] prn, Tylenol Patient denies any side effects of the medication(s), denies excessive drowsiness or sleepiness, denies suicidal ideation and reports that the current pain medication is helping to control the pain and improve activities of daily living. Patient denies any motor or sensory deficits. Patient denies any fever or night sweats, denies any change in the bowel movements or urination. Physical Examination: -Constitutional: Cooperative. Not in acute distress . - Neurologic: Cranial nerve II to XII intact. No focal neurological deficits. - Psychatric: Alert & oriented x 3. Matching mood & appropriate affect. Judgment and insight intact. - Musculoskeletal: Cervical spine: Muscle bulk/ tone/ strength in the bilateral upper extremities normal Vertebral body tenderness to palpation over Spurling test positive Distraction test positive Facet loading test positive Thoracic spine Muscle bulk / tone/ strength in the bilateral paraspinal muscles normal Vertebral body tender to palpation over Facet loading test positive Lumbar spine: Motor bulk/ tone/ strength lower extremities , thigh and legs : 5/5 Deep tendon reflexes : Normal Knee Jerk. Normal Ankle Jerk . Vertebral body tenderness to palpation over L4, L5 Lumbar Facet Loading Test positive Straight Leg Raise: positive at 30 degrees right side/ left side Gaenslen's Test positive Sacral spine : Severe tenderness over the Sacroiliac joint: right side / left side Range of motion: Flexion of the lumbar spine <60 degrees Range of motion: Extension of the lumbar spine <20 degrees Gaenslen's Test positive Yaya's Test positive Fang test: positive right side / left side Thigh Thrust Test Sacral Thrust Test Imaging: MRI of the lumbar spine from 01/05/22 reviewed Assessment and plan: Chronic low back pain secondary to lumbar degenerative disc disease , lumbar spondylosis with facet arthropathy without myelopathy Recommendation of BREANNAI L4-L5. May need a series of injections for optimal pain relief. He has received 2 ESIs in 2021. Risks, benefits of procedure discussed and pt verbalized understanding. Denies anticoagulant use or medical history of diabetes. All patient questions answered MAPS reviewed and it was appropriate. I have spent less than 30 minutes on patient care today. Dr Mai was available by phone for the evaluation of this patient. The time was used to review the medical records including relevant urine studies and Prescription history (MAPs), review of the available imaging, evaluation and examination of the patient, coordination of care with the medical staff and if applicable referring physicians, as well as creation of the medical record PQRS Narrative: Smoking Status Never smoker Hx Alcohol Use (MH) Yes Home Medications: Ambulatory Orders Lansoprazole [Prevacid] 30 mg PO DAILY 05/29/14 Atorvastatin Calcium [Lipitor] 40 mg PO DAILY 01/29/18 Oxybutynin Chloride [Ditropan] 5 mg PO BID 01/29/18 Tamsulosin HCl [Flomax] 0.4 mg PO DAILY #10 cap 01/29/18 Acetaminophen [Tylenol] 500 mg PO Q4-6H PRN 12/22/21 glipiZIDE [Glucotrol] 5 mg PO BID 12/22/21 lisinopriL [Zestril] 10 mg PO DAILY 12/22/21 traMADol HCL 50 mg PO Q6H PRN 12/22/21 HYDROcodone/APAP 5-325MG [[place] 5-325] 1 tab PO Q6HR PRN 3 Days #10 tab 01/11/22 Controlled Substance Measures - Controlled Substance Measures Is patient prescribed a controlled substance at discharge?: No
== END ==
LOC: PNWHC3 11:21
PROVIDERS: ATTEND Specialist
DX: M51.36 Other intervertebral disc degeneration, lumbar region (principal); M47.816 Spondylosis without myelopathy or radiculopathy, lumbar region; G89.29 Other chronic pain
CPT/HCPCS: 99211

== ENCOUNTER → 2022-06-06 | Day surgery (SDC) | payer MEDICARE ==
[~2022-06-06] MED LIST changes: +IOPAMIDOL M200 10 ML VIAL ONE; +LACTATED RINGERS 1,000 ML IV ONE; +MIDAZOLAM 2 MG/2 ML VIAL ONE; +fentaNYL (PF) 50 MCG/ML 2 ML AMP ONE; +methylPREDNISolone ACETATE 40 MG/ML 1 ML VIAL ONE
[2022-06-06 12:06] VITALS: BP 154/84; PULSE 83; RESP 16; TEMP 97.3
[2022-06-06 12:16] LABS: Glucose,Whole Blood 103 mg/dL (70-110)
--- NOTE | 2022-06-06 22:46 | P.PCN ---
Date of Procedure: 06/06/22 Description of Procedure: Procedure: 1 L4-L5 Epidural steroid injection under fluoroscopic guidance , 2. Lumbar epidurogram PREOPERATIVE DIAGNOSIS: Lumbar degenerative disc disease, and Lumbar radiculopathy. POSTOPERATIVE DIAGNOSIS: Lumbar degenerative disc disease, and Lumbar rad iculopathy. SURGEON: Husam Shah ANESTHESIA: Local with 1% lidocaine, and IV sedation: Versed 1 mg and fentanyl 50 mcg. Sedation supervision start time: 1345 Sedation supervision end time: 1354 EBL: None. Specimen removed: None Fluoroscopic image: saved to electronic medical records PROCEDURE INDICATION: The patient had history of Lumbar degenerative disc dise ase and Lumbar radiculopathy. Failed to conservative therapy. Presented for epidural steroid injection. PROCEDURE DESCRIPTION: The patient was seen and identified in the preoperative area. Risks, benefits, complications, and alternatives were discussed with the patient. The patient agreed to proceed with the procedure and signed the consent. IV was started, and vital signs were stable. Patient was taken to the procedure area, and time out was completed. The patient was placed in the prone position on procedure table and a pillow was placed under the abdomen to reduce lumbar lordosis. The lumbosacral area was prepped and draped in the usual sterile fashion. Critical pause was taken. Vital signs were closely monitored during the procedure. Using anterior-posterior fluoroscopy, the L4-L5 interlaminar space was identified, and skin and deeper tissues were localized with 1% lidocaine. Using anterior-posterior fluoroscopy, lateral fluoroscopy, and [id number] technique, a 20 gauge 3.5 Tuohy epidural needle entered the epidural space. After negative aspiration of CSF and blood with no paresthesias, 2 ml of [id number] contrast dye was injected and an excellent epidurogram was seen. Again after negative aspiration of CSF and blood with no paresthesias, 6mL of block solution was injected into the epidural space. Block solution contained 10 mg of dexamethasone, and 5 mL of preservative-free normal saline. Needle was withdrawn intact, skin was cleansed, and bandages were applied. COMPLICATIONS: None. DISPOSITION / PLANS: The patient was placed in a supine position and transferred to the recovery area in a stable condition for observation. Patient was discharged from the recovery room after meeting discharge criteria. Home discharge instructions given to the patient by the staff. The patient was reexamined prior to discharge. The patient will schedule a follow up in the clinic in 4 weeks.
--- NOTE | 2022-06-08 13:03 | FL ---
Fluoroscopy HISTORY: Pain 5 seconds fluoroscopy time supplied to the referring clinician. 4 intraoperative C-arm images docume nt the procedure. See dictated report from anesthesia.
== END ==
LOC: ORPAIN 11:40
DX: M51.16 Intervertebral disc disorders with radiculopathy, lumbar region (principal); N40.0 Benign prostatic hyperplasia without lower urinary tract symptoms; E11.9 Type 2 diabetes mellitus without complications; I10 Essential (primary) hypertension; E78.00 Pure hypercholesterolemia, unspecified; K21.9 Gastro-esophageal reflux disease without esophagitis
CPT/HCPCS: 62323; J2250; J1030; J3010; Q9966; 99152

== ENCOUNTER → 2022-06-29 | Outpatient (CLI) | payer MEDICARE ==
[2022-06-29 11:23] VITALS: BP 163/99; PULSE 80; RESP 18; TEMP 98.1
--- NOTE | 2022-06-29 13:40 | P.PAINPG ---
PQRS Measure Charge Sheet Comment: A 72 yr old male with a history of severe and chronic low back pain secondary to lumbar degenerative disc diseases and lumbar spondylosis with facet arthropathy without myelopathy presents today for evaluation s/p ALVARO L4-L5. Pt states he experienced 70% pain relief x 3 wks s/p procedure. Pain level is curre ntly at 7/10 in intensity, constant, localized in lower umbar spine, achy/ sore in character w shooting towards the BLEs. Pain is provoked by bending/twisting/lifting. Pain is alleviated with PT "a few years ago", use of massage gun, massage therapy once/twice a month, heat, ice, medications ([place] prn, Tylenol OTC), topicals, repositioning and rest. Interventional pain procedures completed include ALVARO L4-L5 x1 Patient is currently on [place] prn, Tylenol OTC Patient denies any side effects of the medication(s), denies excessive drowsiness or sleepiness, denies suicidal ideation and reports that the current pain medication is helping to control the pain and improve activities of daily living. Patient denies any motor or sensory deficits. Patient denies any fever or night sweats, denies any change in the bowel movements or urination. Physical Examination: -Constitutional: Cooperative. Not in acute distress . - Neurologic: Cranial nerve II to XII intact. No focal neurological deficits. - Psychatric: Alert & oriented x 3. Matching mood & appropriate affect. Judgment and insight intact. - Musculoskeletal: Cervical spine: Muscle bulk/ tone/ strength in the bilateral upper extremities normal Vertebral body tenderness to palpation over Spurling test positive Distraction test positive Facet loading test positive Thoracic spine Muscle bulk / tone/ strength in the bilateral paraspinal muscles normal Vertebral body tender to palpation over Facet loading test positive Lumbar spine: Motor bulk/ tone/ strength lower extremities , thigh and legs : 5/5 Deep tendon reflexes : Normal Knee Jerk. Normal Ankle Jerk . Vertebral body tenderness to palpation over BL Paraspinal TTP over L2-S1 Lumbar Facet Loading Test positive Straight Leg Raise: positive at 30 degrees right side/ left side Gaenslen's Test positive Sacral spine : Severe tenderness over the Sacroiliac joint: right side / left side Range of motion: Flexion of the lumbar spine <60 degrees Range of motion: Extension of the lumbar spine <20 degrees Gaenslen's Test positive Yaya's Test positive Fang test: positive right side / left side Thigh Thrust Test Sacral Thrust Test Assessment and plan: Chronic low back pain secondary to lumbar degenerative disc disease , lumbar spondylosis with facet arthropathy without myelopathy Recommendation of BL TPIs of L2-S1. May need a series of injections, up to every 2-3 mo, for optimal relief. Risks, benefits of procedure discussed and pt verbalized understanding. Denies anticoagulant use or medical history of diabetes. Chronic and current use of high-risk medication (Opioids). The patient was counseled about risk of opioid use, psychological risk associated with opioids and was orally counseled to not overuse , divert or sell medications. Pt is to store medication in a safe location. The patient is counseled against driving while using narcotic medications and also not to use alcohol or any illicit recreational drugs. Patient verbalized understanding that the lack of compliance will result in failure to renew narcotic prescription(s) as well as possible discharge from the clinic Diagnoses, prognosis and treatment options including but not limited to physical therapy, surgical interventions, interventional therapies and medication management including narcotics and adjuvant medication were discussed. All patient questions answered MAPS reviewed and it was appropriate. Prescription refill for [place] 5/325mg #15 NR I have spent less than 30 minutes on patient care today. Dr Mai was available by phone for the evaluation of this patient. The time was used to review the medical records including relevant urine studies and Prescription history (MAPs), review of the available imaging, evaluation and examination of the patient, coordination of care with the medical staff and if applicable referring physicians, as well as creation of the medical record - Pain Location Bilateral Lower Back Non-Pharmacological Interventions: Heat, Ice, Position/Reposition Pharmacological Interventions: Epidural, Medication, PRN Medication, Scheduled Medication, Topical Medication PQRS Narrative: Smoking Status Never smoker Hx Alcohol Use (MH) Yes Home Medications: Ambulatory Orders Lansoprazole [Prevacid] 30 mg PO DAILY 05/29/14 Atorvastatin Calcium [Lipitor] 40 mg PO DAILY 01/29/18 Oxybutynin Chloride [Ditropan] 5 mg PO BID 01/29/18 Tamsulosin HCl [Flomax] 0.4 mg PO DAILY #10 cap 01/29/18 Acetaminophen [Tylenol] 500 mg PO Q4-6H PRN 12/22/21 glipiZIDE [Glucotrol] 5 mg PO BID 12/22/21 lisinopriL [Zestril] 10 mg PO DAILY 12/22/21 traMADol HCL 50 mg PO Q6H PRN 12/22/21 HYDROcodone/APAP 5-325MG [[place] 5-325] 1 tab PO Q6HR PRN 3 Days #10 tab 01/11/22 Controlled Substance Measures - Controlled Substance Measures Is patient prescribed a controlled substance at discharge?: Yes When asked, does pt state using other controlled substances?: No If Rx opioid, was Start Talking consent form obtained?: Yes If opioid is for acute pain is fill amount 7 days or less?: Yes Was information provided regarding opioid addiction?: Yes
== END ==
LOC: PNWHC3 10:55
PROVIDERS: ATTEND Specialist
DX: M47.816 Spondylosis without myelopathy or radiculopathy, lumbar region (principal); M51.36 Other intervertebral disc degeneration, lumbar region; G89.29 Other chronic pain; Z79.891 Long term (current) use of opiate analgesic
CPT/HCPCS: 99211

== ENCOUNTER 2022-08-03 09:54 | Day surgery (SDC) | payer MEDICARE ==
[2022-08-02 08:34] VITALS: BMI 31.1
[~2022-08-03 09:54] MED LIST changes: -IOPAMIDOL M200 10 ML VIAL ONE; -LACTATED RINGERS 1,000 ML IV ONE; +LIDOCAINE 1% (10MG/ML) FOR IV START INTRADERMA PRN; -MIDAZOLAM 2 MG/2 ML VIAL ONE; -fentaNYL (PF) 50 MCG/ML 2 ML AMP ONE; -methylPREDNISolone ACETATE 40 MG/ML 1 ML VIAL ONE
[2022-08-03] MEDS ORDERED: LACTATED RINGERS 1,000 ML IV ONE ×2 (10:23→11:12)
[2022-08-03 10:35] VITALS: TEMP 97.3
[2022-08-03 10:38] LABS: Glucose,Whole Blood 123 mg/dL (70-110)
--- NOTE | 2022-08-03 11:10 | P.PCN ---
Date of Procedure: 08/03/22 Procedure(s) Performed: Procedure= trigger point injection lumbar paraspinal muscles, 4 on the left side lumbar paraspinal muscles ,and 3 on the right side lumbar paraspinal muscles Preoperative diagnosis= 1-myofascial pain syndrome lumbar area 2-lumbar degenerative disc disease 3-lumbar facet arthropathy Postoperative diagnosis=Same as preop Diagnosis . Complication = none Condition= stable Anesthesia= moderate sedation with intravenous Versed 2 mg . Sedation start time: 11:03 Sedation end time : 11:07 Indication for the procedure= patient complaining of low back pain , examination was positive for multiple trigger point in the lumbar paraspinal muscles bilaterally and patient diagnosed with myofascial pain syndrome and he trigger point injections injection. Description of the procedure= procedure risk and benefits discussed with the patient, including but not limited, risk of infection and bleeding, and ALLERGIC reaction to the medication and not complete pain relief and patient agreed with the preceding patient taken to the operating room, placed in prone position or standard monitors applied to the patient then after induction of anesthesia back prepped with chlorhexidine 3 times , then after that each of the trigger point that was identified in the preop holding area ,4 on the left side lumbar paraspinal muscles from L2 to S1, and 3 on the right side lumbar paraspinal muscles, each one of them injected with the 2 mL of the neck shows of ropivacaine 0.5% and 40 mg of Depo-Medrol, 14 mL of the mixture was used ,2 ml of the mixture used ,at each trigger point ,using 25-gauge needle, injections done after negative aspiration ,there was no paresthesia during the injection, patient tolerated the procedure well without any complications.
[2022-08-03] MEDS ORDERED: IV FLUID CONTINUATION 800 ML IV ONE (11:12)
[2022-08-03 11:14] VITALS: RESP 18
[2022-08-03 11:38] VITALS: BP 145/73; PULSE 78
== END 2022-08-03 11:45 | disposition home or self-care (01) ==
LOC: ORPAIN 09:54
PROVIDERS: ATTEND Specialist
DX: M79.18 Myalgia, other site (principal); M47.817 Spondylosis without myelopathy or radiculopathy, lumbosacral region; M51.36 Other intervertebral disc degeneration, lumbar region
CPT/HCPCS: 20553

== ENCOUNTER → 2022-08-23 | Outpatient (CLI) | payer MEDICARE ==
[2022-08-23 11:31] VITALS: BP 149/88; PULSE 95; RESP 16; TEMP 98
--- NOTE | 2022-08-23 11:50 | P.PN ---
Subjective Progress Note Date: 08/23/22 A 72 yr old male with a history of severe and chronic low back pain secondary to lumbar degenerative disc diseases and lumbar spondylosis with facet arthropathy without myelopathy , recently we have done trigger point injections lumbar paraspinal area , patient gets excellent pain relief for a few days and he reported that his Pain came back , previously we have done ALVARO L4-L5. Pain level is currently at 7/10 in intensity, constant, localized in lower umbar spine, achy/ sore in character w shooting towards the BLEs. Pain is provoked by bending/twisting/lifting. Pain is alleviated with PT "a few years ago", use of massage gun, massage therapy once/twice a month, heat, ice, medications ([place] prn, Tylenol OTC), topicals, repositioning and rest. Interventional pain procedures completed include ALVARO L4-L5 x1, trigger point injections lumbar paraspinal muscles Patient is currently on [place] prn, Tylenol OTC Patient denies any side effects of the medication(s), denies excessive drowsiness or sleepiness, denies suicidal ideation and reports that the current pain medication is helping to control the pain and improve activities of daily living. Patient denies any motor or sensory deficits. Patient denies any fever or night sweats, denies any change in the bowel movements or urination. Physical Examination: -Constitutional: Cooperative. Not in acute distress . - Neurologic: Cranial nerve II to XII intact. No focal neurological deficits. - Psychatric: Alert & oriented x 3. Matching mood & appropriate affect. Judgment and insight intact. - Musculoskeletal: Cervical spine: Muscle bulk/ tone/ strength in the bilateral upper extremities normal Vertebral body tenderness to palpation over Spurling test positive Distraction test positive Facet loading test positive Thoracic spine Muscle bulk / tone/ strength in the bilateral paraspinal muscles normal Vertebral body tender to palpation over Facet loading test positive Lumbar spine: Motor bulk/ tone/ strength lower extremities , thigh and legs : 5/5 Deep tendon reflexes : Normal Knee Jerk. Normal Ankle Jerk . Vertebral body tenderness to palpation over BL Paraspinal TTP over L2-S1 Lumbar Facet Loading Test positive Straight Leg Raise: positive at 30 degrees right side/ left side Gaenslen's Test positive Sacral spine : Severe tenderness over the Sacroiliac joint: right side / left side Range of motion: Flexion of the lumbar spine <60 degrees Range of motion: Extension of the lumbar spine <20 degrees Gaenslen's Test positive Yaya's Test positive Fang test: positive right side / left side Thigh Thrust Test Sacral Thrust Test Assessment and plan: Chronic low back pain secondary to lumbar degenerative disc disease , lumbar spondylosis with facet arthropathy without myelopathy Myofascial pain syndrome lumbar paraspinal muscles he benefit from muscle relaxant Zanaflex 2 mg every 8 hours when necessary dispense 60 Patient will follow up in the pain clinic in 4 weeks Controlled Substance Measures - Controlled Substance Measures Is patient prescribed a controlled substance at discharge?: no When asked, does pt state using other controlled substances?: No Objective - Vital Signs Vital signs: Vital Signs Temp 98 F 08/23/22 11:26 Pulse 95 08/23/22 11:26 Resp 16 08/23/22 11:26 BP 149/88 08/23/22 11:26 Pulse Ox 92 L 08/23/22 11:26 FiO2 Intake & Output 08/22/22 08/23/22 08/23/22 18:59 06:59 18:59 Weight 102.058 kg
== END | disposition home or self-care (01) ==
LOC: PNWHC3 11:14
PROVIDERS: ATTEND Specialist
DX: M51.36 Other intervertebral disc degeneration, lumbar region (principal); M47.896 Other spondylosis, lumbar region; M46.96 Unspecified inflammatory spondylopathy, lumbar region
CPT/HCPCS: 99211

== ENCOUNTER 2023-04-04 07:42 | Emergency (ER) | payer MEDICARE ==
[2023-04-04] MEDS ORDERED: SODIUM CHLORIDE 0.9% 1,000 ML IV STA (07:52)
--- NOTE | 2023-04-04 07:59 | ED ---
General Adult HPI - General Stated complaint: Nausea Time Seen by Provider: 04/04/23 07:43 Source: patient, EMS, RN notes reviewed Mode of arrival: EMS Limitations: no limitations - History of Present Illness Initial comments: Patient is a 73 year old male presenting to the ER via EMS with a chief complaint of dizziness. Patient states he woke up this morning feeling very dizzy like the room was spinning. He walked to the bathroom and states he was running into the zelaya due to his dizziness. Patient states he has had diarrhea the past couple of days. Denies and nausea or vomiting. Patient received Zofran via EMS which has helped his nausea. Patient denies headache, chest pain, shortness of breath, abdominal pain, or peripheral edema. Patient reports he last took his medications last night. - Related Data Home Medications Medication Instructions Recorded Confirmed Lansoprazole [Prevacid] 30 mg PO DAILY 05/29/14 08/23/22 Atorvastatin Calcium [Lipitor] 40 mg PO DAILY 01/29/18 08/23/22 oxyBUTYnin chloride [Ditropan] 5 mg PO BID 01/29/18 08/23/22 Acetaminophen [Tylenol] 500 mg PO Q4-6H PRN 12/22/21 08/23/22 glipiZIDE [Glucotrol] 5 mg PO BID 12/22/21 08/23/22 lisinopriL [Zestril] 10 mg PO DAILY 12/22/21 08/23/22 traMADol HCL 50 mg PO Q6H PRN 12/22/21 08/23/22 Previous Rx's Medication Instructions Recorded Tamsulosin HCl [Flomax] 0.4 mg PO DAILY #10 cap 01/29/18 HYDROcodone/APAP 5-325MG [[place] 1 tab PO Q4HR PRN 3 Days #15 tab 06/29/22 5-325] tiZANidine [Zanaflex] 2 mg PO Q8HR PRN 30 Days #60 tablet 08/23/22 Meclizine [Antivert] 25 mg PO TID PRN #15 tab 04/04/23 Allergies Allergy/AdvReac Type Severity Reaction Status Date / Time No Known Allergies Allergy Verified 08/23/22 11:31 Review of Systems ROS Statement: Those systems with pertinent positive or pertinent negative responses have been documented in the HPI. ROS Other: All systems not noted in ROS Statement are negative. Past Medical History Past Medical History: Diabetes Mellitus, GERD/Reflux, Hyperlipidemia, Hypertension, Osteoarthritis (OA) Additional Past Medical History / Comment(s): Hx kidney stones. Chronic lower back and neck pain. Numbness in left arm X2-3 months. History of Any Multi-Drug Resistant Organisms: None Reported Past Surgical History: Adenoidectomy, Back Surgery, Orthopedic Surgery, Tonsillectomy Additional Past Surgical History / Comment(s): Back Surgery X4, bilateral shoulder surgery, pain clinic procedure. Past Anesthesia/Blood Transfusion Reactions: No Reported Reaction, Motion Sickness Past Psychological History: No Psychological Hx Reported Smoking Status: Never smoker Past Alcohol Use History: Rare Past Drug Use History: None Reported - Past Family History Father Family Medical History: Cancer General Exam Limitations: no limitations General appearance: alert, in no apparent distress Respiratory exam: Present: normal lung sounds bilaterally. Absent: respiratory distress, wheezes, rales, rhonchi, stridor Cardiovascular Exam: Present: regular rate, normal rhythm, normal heart sounds. Absent: systolic murmur, diastolic murmur, rubs, gallop, clicks GI/Abdominal exam: Present: soft, normal bowel sounds. Absent: distended, tenderness, guarding, rebound, rigid Neurological exam: Present: alert, oriented X3, CN II-XII intact Psychiatric exam: Present: normal affect, normal mood Skin exam: Present: warm, dry, intact, normal color. Absent: rash Course Vital Signs 04/04/23 04/04/23 04/04/23 07:44 07:55 08:00 Temperature 96.8 F L Pulse Rate 75 Pulse Rate [ 77 68 Pulse Oximetery ] Respiratory 18 Rate Blood Pressure 138/109 Blood Pressure 146/87 [Sitting] Blood Pressure [Standing] Blood Pressure 161/88 [Supine] O2 Sat by Pulse 94 L Oximetry 04/04/23 04/04/23 08:05 10:20 Temperature Pulse Rate 70 Pulse Rate [ 80 Pulse Oximetery ] Respiratory 18 Rate Blood Pressure 152/86 Blood Pressure [Sitting] Blood Pressure 155/83 [Standing] Blood Pressure [Supine] O2 Sat by Pulse 95 Oximetry EKG Findings - EKG Comments: EKG Findings:: EKG performed at 8:11 sinus rhythm rate of 67. pr175 QRS 146 QT/QTC 434/449 - EKG Results: EKG: interpreted by [facility] Medical Decision Making - Medical Decision Making Was pt. sent in by a medical professional or institution (, PA, SETTLEMENT AGENT, urgent c are, hospital, or half-way...) When possible be specific @ -No Did you speak to anyone other than the patient for history (EMS, parent, family, police, friend...)? What history was obtained from this source @ -No Did you review nursing and triage notes (agree or disagree)? Why? @ -I reviewed and agree with nursing and triage notes Were old charts reviewed (outside hosp., previous admission, EMS record, old EKG, old radiological studies, urgent care reports/EKG's, half-way records)? Report findings @ -No old charts were reviewed Differential Diagnosis (chest pain, altered mental status, abdominal pain women, abdominal pain men, vaginal bleeding, weakness, fever, dyspnea, syncope, headache, dizziness, GI bleed, back pain, seizure, CVA, palpatations, mental health, musculoskeletal)? @ -Differential Dizziness: Benign paroxysmal positional Vertigo, Menieres disease, otitis media, acoustic neuroma, vertebrobasilar insufficiency, cerebellar stroke, encephalitis, hypovolemic, arrhythmia, coronary artery syndrome, anemia, this is not meant to be an all-inclusive list EKG interpreted by me (3pts min.). @ -As above X-rays interpreted by me (1pt min.). @ -None done CT interpreted by me (1pt min.). @ -None done U/S interpreted by me (1pt. min.). @ -None done What testing was considered but not performed or refused? (CT, X-rays, U/S, la bs)? Why? @ -None What meds were considered but not given or refused? Why? @ -None Did you discuss the management of the patient with other professionals (professionals i.e. , PA, SETTLEMENT AGENT, lab, RT, psych nurse, hospice social worker, rubber boots and shoes repairer, teacher, restoration officer, shoe parts caser)? Give summary @ -No Was smoking cessation discussed for >3mins.? @ -No Was critical care preformed (if so, how long)? @ -No Were there social determinants of health that impacted care today? How? (Homelessness, low income, unemployed, alcoholism, drug addiction, transportation, low edu. Level, literacy, decrease access to med. care, group home, rehab)? @ -No Was there de-escalation of care discussed even if they declined (Discuss DNR or withdrawal of care, Hospice)? DNR status @ -No What co-morbidities impacted this encounter? (DM, HTN, Smoking, COPD, CAD, Cancer, CVA, ARF, Chemo, Hep., AIDS, mental health diagnosis, sleep apnea, morbid obesity)? @ -None Was patient admitted / discharged? Hospital course, mention meds given and route, prescriptions, significant lab abnormalities, going to OR and other pertinent info. @ -Discharge patient was improved upon arrival in Zofran. Patient did have. Labs, troponin time to negative. Patient did have mild return of dizziness was given 2 Zofran, Antivert we discharged on Antivert and close follow-up. Patient has no logical deficits. Undiagnosed new problem with uncertain prognosis? @ -No Drug Therapy requiring intensive monitoring for toxicity (Heparin, Nitro, Insulin, Cardizem)? @ -No Were any procedures done? @ -No Diagnosis/symptom? @ -Vertigo, Acute, or Chronic, or Acute on Chronic? @ -Acute Uncomplicated (without systemic symptoms) or Complicated (systemic symptoms)? @ -Uncomplicated Side effects of treatment? @ -No Exacerbation, Progression, or Severe Exacerbation? @ -No Poses a threat to life or bodily function? How? (Chest pain, [place], [place], pneumonia, PE, COPD, DKA, ARF, appy, cholecystitis, CVA, Diverticulitis, Homicidal, Suicidal, threat to staff... and all critical care pts) @ -No Diabetes, hypertension, hyperlipidemia - Lab Data Result diagrams: 04/04/23 07:58 04/04/23 07:58 Lab Results 04/04/23 04/04/23 04/04/23 Range/Units 07:58 07:58 07:58 WBC 5.3 (3.8-10.6) k/uL RBC 4.88 (4.30-5.90) m/uL Hgb 14.1 (13.0-17.5) gm/dL Hct 42.9 (39.0-53.0) % MCV 87.8 (80.0-100.0) fL MCH 28.9 (25.0-35.0) pg MCHC 32.9 (31.0-37.0) g/dL RDW 14.0 (11.5-15.5) % Plt Count 131 L (150-450) k/uL MPV 9.5 Neutrophils % 62 % Lymphocytes % 23 % Monocytes % 8 % Eosinophils % 3 % Basophils % 0 % Neutrophils # 3.3 (1.3-7.7) k/uL Lymphocytes # 1.2 (1.0-4.8) k/uL Monocytes # 0.4 (0-1.0) k/uL Eosinophils # 0.2 (0-0.7) k/uL Basophils # 0.0 (0-0.2) k/uL Sodium 141 (137-145) mmol/L Potassium 3.9 (3.5-5.1) mmol/L Chloride 110 H (98-107) mmol/L Carbon Dioxide 24 (22-30) mmol/L Anion Gap 7 mmol/L BUN 21 H (9-20) mg/dL Creatinine 1.21 (0.66-1.25) mg/dL Est GFR (CKD-EPI)AfAm 69 (>60 ml/min/1.73 sqM) Est GFR (CKD-EPI)NonAf 59 (>60 ml/min/1.73 sqM) Glucose 142 H (74-99) mg/dL Plasma Lactic Acid Joshua 1.0 (0.7-2.0) mmol/L Calcium 8.4 (8.4-10.2) mg/dL Total Bilirubin 0.5 (0.2-1.3) mg/dL AST 38 (17-59) U/L ALT 27 (4-49) U/L Alkaline Phosphatase 72 (38-126) U/L Troponin I (0.000-0.034) ng/mL Total Protein 6.4 (6.3-8.2) g/dL Albumin 3.7 (3.5-5.0) g/dL Urine Color Urine Appearance (Clear) Urine pH (5.0-8.0) Ur Specific [place] (1.001-1.035) Urine Protein (Negative) Urine Glucose (UA) (Negative) Urine Ketones (Negative) Urine Blood (Negative) Urine Nitrite (Negative) Urine Bilirubin (Negative) Urine Urobilinogen (<2.0) mg/dL Ur Leukocyte Esterase (Negative) 04/04/23 04/04/23 04/04/23 Range/Units 07:58 07:58 10:03 WBC (3.8-10.6) k/uL RBC (4.30-5.90) m/uL Hgb (13.0-17.5) gm/dL Hct (39.0-53.0) % MCV (80.0-100.0) fL MCH (25.0-35.0) pg MCHC (31.0-37.0) g/dL RDW (11.5-15.5) % Plt Count (150-450) k/uL MPV Neutrophils % % Lymphocytes % % Monocytes % % Eosinophils % % Basophils % % Neutrophils # (1.3-7.7) k/uL Lymphocytes # (1.0-4.8) k/uL Monocytes # (0-1.0) k/uL Eosinophils # (0-0.7) k/uL Basophils # (0-0.2) k/uL Sodium (137-145) mmol/L Potassium (3.5-5.1) mmol/L Chloride (98-107) mmol/L Carbon Dioxide (22-30) mmol/L Anion Gap mmol/L BUN (9-20) mg/dL Creatinine (0.66-1.25) mg/dL Est GFR (CKD-EPI)AfAm (>60 ml/min/1.73 sqM) Est GFR (CKD-EPI)NonAf (>60 ml/min/1.73 sqM) Glucose (74-99) mg/dL Plasma Lactic Acid Joshua (0.7-2.0) mmol/L Calcium (8.4-10.2) mg/dL Total Bilirubin (0.2-1.3) mg/dL AST (17-59) U/L ALT (4-49) U/L Alkaline Phosphatase (38-126) U/L Troponin I 0.028 0.025 (0.000-0.034) ng/mL Total Protein (6.3-8.2) g/dL Albumin (3.5-5.0) g/dL Urine Color Light Yellow Urine Appearance Clear (Clear) Urine pH 6.0 (5.0-8.0) Ur Specific [place] 1.014 (1.001-1.035) Urine Protein Negative (Negative) Urine Glucose (UA) Negative (Negative) Urine Ketones Negative (Negative) Urine Blood Negative (Negative) Urine Nitrite Negative (Negative) Urine Bilirubin Negative (Negative) Urine Urobilinogen <2.0 (<2.0) mg/dL Ur Leukocyte Esterase Negative (Negative) Disposition Clinical Impression: Vertigo Disposition: HOME SELF-CARE Condition: Stable Instructions (If sedation given, give patient instructions): Dizziness (ED) Additional Instructions: Please return to the Emergency Department if symptoms worsen or any other concerns. Prescriptions: Meclizine [Antivert] 25 mg PO TID PRN #15 tab PRN Reason: Vertigo Is patient prescribed a controlled substance at d/c from ED?: No Referrals: Nohemi Dennis MD [Primary Care Provider] - 1-2 days Time of Disposition: 10:53
[2023-04-04 08:24] LABS: Basophils % (A) 0 %; Eosinophils # (A) 0.2 k/uL (0-0.7); Eosinophils % (A) 3 %; HCT 42.9 % (39.0-53.0); HGB 14.1 gm/dL (13.0-17.5); Lymphocytes # (A) 1.2 k/uL (1.0-4.8); Lymphocytes % (A) 23 %; MCH 28.9 pg (25.0-35.0); MCHC 32.9 g/dL (31.0-37.0); MCV 87.8 fL (80.0-100.0); Mean Platelet Volume 9.5; Monocytes # (A) 0.4 k/uL (0-1.0); Monocytes % (A) 8 %; Neutrophils # (A) 3.3 k/uL (1.3-7.7); Neutrophils % (A) 62 %; Platelet Count 131 k/uL (150-450); RBC 4.88 m/uL (4.30-5.90); WBC 5.3 k/uL (3.8-10.6)
[2023-04-04 08:30] LABS: ALT 27 U/L (4-49); AST 38 U/L (17-59); African American GFR (CKD) 69 (>60 ml/min/1.73 sqM); Albumin 3.7 g/dL (3.5-5.0); Alkaline Phosphatase 72 U/L (38-126); Anion Gap 7 mmol/L; Blood Urea Nitrogen 21 mg/dL (9-20); Calcium 8.4 mg/dL (8.4-10.2); Carbon Dioxide 24 mmol/L (22-30); Chloride 110 mmol/L (98-107); Glucose 142 mg/dL (74-99); Non-African American GFR(CKD) 59 (>60 ml/min/1.73 sqM); Potassium 3.9 mmol/L (3.5-5.1); Sodium 141 mmol/L (137-145); Total Bilirubin 0.5 mg/dL (0.2-1.3); Total Protein 6.4 g/dL (6.3-8.2)
[2023-04-04 09:11] LABS: Appearance,Urine Clear (Clear); Bilirubin,Urine Negative (Negative); Blood,Urine Negative (Negative); Color,Urine Light Yellow; Glucose,Urine (UA) Negative (Negative); Ketones,Urine Negative (Negative); Leukocyte Esterase,Urine Negative (Negative); Nitrite,Urine Negative (Negative); Protein,Urine Negative (Negative); Specific Gravity,Urine 1.014 (1.001-1.035); Urobilinogen,Urine <2.0 mg/dL (<2.0)
[2023-04-04] MEDS ORDERED: MECLIZINE 12.5 MG TAB PO STA (10:48)
[2023-04-04] MEDS ORDERED: ONDANSETRON 4 MG/2 ML VIAL IVP STA (10:48)
[2023-04-04 11:29] VITALS: RESP 18
[2023-04-04 12:05] VITALS: BP 150/85; PULSE 60; TEMP 97.2
== END 2023-04-04 12:01 | disposition home or self-care (01) ==
LOC: EC 07:42
DX: R42 Dizziness and giddiness (principal); E11.9 Type 2 diabetes mellitus without complications; E78.5 Hyperlipidemia, unspecified; I10 Essential (primary) hypertension; K21.9 Gastro-esophageal reflux disease without esophagitis; M19.90 Unspecified osteoarthritis, unspecified site; Z79.84 Long term (current) use of oral hypoglycemic drugs; Z79.899 Other long term (current) drug therapy
CPT/HCPCS: 36415; 93005; 80053; 83605; 84484; 85025; 81003; 99284; 96374; 96361; J2405

== ENCOUNTER 2023-05-08 18:20 | Emergency (ER) | payer MEDICARE ==
--- NOTE | 2023-05-08 19:20 | ED ---
General Adult HPI - General Chief complaint: Fall Stated complaint: Fall,4-5Feet,No Thinners Time Seen by Provider: 05/08/23 18:42 Source: patient Mode of arrival: ambulatory Limitations: no limitations - History of Present Illness Initial comments: Dictation was produced using [employer] dictation software. please excuse any grammatical, word or spelling errors. Chief Complaint: 73-year-old male presents with right lower extremity pain neck pain after fall yesterday History of Present Illness: 73-year-old male he fell approximate 4-5 feet. He had some floors none to his mobile home. When he walked into the house he tripped and fell into a ditch for the floor was missing. Patient reports that the incident occurred yesterday afternoon. Complains of some neck tightness posteriorly. Patient has no difficulty ambulating. has a abrasion to his right knee and right foot. He has history of surgery to the right foot The ROS documented in this emergency department record has been reviewed and confirmed by me. Those systems with pertinent positive or negative responses have been documented in the HPI. All other systems are other negative and/or noncontributory. - Related Data Home Medications Medication Instructions Recorded Confirmed Lansoprazole [Prevacid] 30 mg PO DAILY 05/29/14 04/04/23 Atorvastatin Calcium [Lipitor] 40 mg PO HS 01/29/18 04/04/23 oxyBUTYnin chloride [Ditropan] 5 mg PO BID 01/29/18 04/04/23 glipiZIDE [Glucotrol] 5 mg PO BID 12/22/21 04/04/23 Fluticasone Propionate [Flonase 1 - 2 spray EA NOSTRIL DAILY PRN 04/04/23 04/04/23 Allergy Relief] Magnesium Oxide [Magnesium] 500 mg PO DAILY 04/04/23 04/04/23 Tamsulosin HCl [Flomax] 0.8 mg PO HS 04/04/23 04/04/23 lisinopriL [Zestril] 20 mg PO DAILY 04/04/23 04/04/23 tiZANidine [Zanaflex] 2 mg PO Q8HR PRN 04/04/23 04/04/23 Previous Rx's Medication Instructions Recorded Meclizine [Antivert] 25 mg PO TID PRN #15 tab 04/04/23 Allergies Allergy/AdvReac Type Severity Reaction Status Date / Time No Known Allergies Allergy Verified 05/08/23 18:27 Review of Systems ROS Statement: Those systems with pertinent positive or pertinent negative responses have been documented in the HPI. ROS Other: All systems not noted in ROS Statement are negative. Past Medical History Past Medical History: Diabetes Mellitus, GERD/Reflux, Hyperlipidemia, Hypertension, Osteoarthritis (OA) Additional Past Medical History / Comment(s): Hx kidney stones. Chronic lower back and neck pain. Numbness in left arm X2-3 months. History of Any Multi-Drug Resistant Organisms: None Reported Past Surgical History: Adenoidectomy, Back Surgery, Orthopedic Surgery, Tonsillectomy Additional Past Surgical History / Comment(s): Back Surgery X4, bilateral shoulder surgery, pain clinic procedure. Past Anesthesia/Blood Transfusion Reactions: No Reported Reaction, Motion Sickness Past Psychological History: No Psychological Hx Reported Smoking Status: Never smoker Past Alcohol Use History: Rare Past Drug Use History: None Reported - Past Family History Father Family Medical History: Cancer General Exam - General Exam Comments Initial Comments: PHYSICAL EXAM: General Impression: Alert and oriented x3, not in acute distress HEENT: Normocephalic atraumatic, extra-ocular movements intact, pupils equal and reactive to light bilaterally, mucous membranes moist. Cardiovascular: Heart regular rate and rhythm Chest: Able to complete full sentences, no retractions, no tachypnea Abdomen: abdomen soft, non-tender, non-distended, no organomegaly Musculoskeletal: Pulses present and equal in all extremities, no peripheral edema Motor: no focal deficits noted Neurological: CN II-XII grossly intact, no focal motor or sensory deficits noted Skin: Abrasion to the anterior right knee Psych: Normal affect and mood Limitations: no limitations Course Vital Signs 05/08/23 18:22 Temperature 98.7 F Pulse Rate 95 Respiratory 18 Rate Blood Pressure 157/82 O2 Sat by Pulse 94 L Oximetry Medical Decision Making - Medical Decision Making Was pt. sent in by a medical professional or institution (, PA, HADOOP ENGINEER, urgent care, hospital, or custodial...) When possible be specific @ -No Did you speak to anyone other than the patient for history (EMS, parent, family, police, friend...)? What history was obtained from this source @ -No Did you review nursing and triage notes (agree or disagree)? Why? @ -I reviewed and agree with nursing and triage notes Were old charts reviewed (outside hosp., previous admission, EMS record, old EKG, old radiological studies, urgent care reports/EKG's, custodial records)? Report findings @ -No old charts were reviewed Differential Diagnosis (chest pain, altered mental status, abdominal pain women, abdominal pain men, vaginal bleeding, musculoskeletal, weakness, fever, dyspnea, syncope, headache, dizziness, GI bleed, back pain, seizure, CVA, palpatations, mental health)? @ -not applicable EKG interpreted by me (3pts min.). @ -None done X-rays interpreted by me (1pt min.). @ -Foot and knee x-ray shows no acute processes. There does appear to be osteoporotic changes on x-ray of the knee. CT interpreted by me (1pt min.). @ -Computed tomography scan of head and C-spine shows no acute processes. U/S interpreted by me (1pt. min.). @ -None done What testing was considered but not performed or refused? (CT, X-rays, U/S, labs)? Why? @ -None What meds were considered but not given or refused? Why? @ -None Did you discuss the management of the patient with other professionals (professionals i.e. , PA, HADOOP ENGINEER, lab, RT, psych nurse, social worker psychiatric, pot annealer, teacher, money position officer, family independence case manager)? Give summary @ -No Was smoking cessation discussed for >3mins.? @ -No Was critical care preformed (if so, how long)? @ -No Were there social determinants of health that impacted care today? How? (Homelessness, low income, unemployed, alcoholism, drug addiction, transportation, low edu. Level, literacy, decrease access to med. care, custodial, rehab)? @ -No Was there de-escalation of care discussed even if they declined (Discuss DNR or withdrawal of care, Hospice)? DNR status @ -No What co-morbidities impacted this encounter? (DM, HTN, Smoking, COPD, CAD, C ancer, CVA, ARF, Chemo, Hep., AIDS, mental health diagnosis, sleep apnea, morbid obesity)? @ -None Was patient admitted / discharged? Hospital course, mention meds given and route, prescriptions, significant lab abnormalities, going to OR and other pertinent info. @ -73-year-old male presents emergency Department with knee pain and neck pain after fall. Vital signs stable. Physical examination is benign. Imaging studies negative. Patient discharged. Undiagnosed new problem with uncertain prognosis? @ -No Drug Therapy requiring intensive monitoring for toxicity (Heparin, Nitro, Insulin, Cardizem)? @ -No Were any procedures done? @ -No Diagnosis/symptom? Acute, or Chronic, or Acute on Chronic? Uncomplicated (without systemic symptoms) or Complicated (systemic symptoms)? @ -1. cervial strain, 2. Knee and foot strain Side effects of treatment? @ -No Exacerbation, Progression, or Severe Exacerbation? @ -No Poses a threat to life or bodily function? How? (Chest pain, [place], [place], pneumonia, PE, COPD, DKA, ARF, appy, cholecystitis, CVA, Diverticulitis, Homicidal, Suicidal, threat to staff... and all critical care pts) @ -No Disposition Clinical Impression: Neck strain, Knee strain, Right foot strain Disposition: HOME SELF-CARE Condition: Good Instructions (If sedation given, give patient instructions): Fall Prevention for Older Adults (ED) Is patient prescribed a controlled substance at d/c from ED?: No Referrals: Nohemi Dennis MD [Primary Care Provider] - 1-2 days Time of Disposition: 19:56
--- NOTE | 2023-05-08 19:49 | CT ---
EXAMINATION TYPE: CT brain cspine wo con CT DLP: 1543.5 mGycm, Automated exposure control for dose reduction was used. DATE OF EXAM: 05/08/2023 7:24 PM COMPARISON: None. CLINICAL INDICATION:Male, 73 years old with history of fall; PAIN AFTER FALL YESTERDAY TECHNIQUE: Brain: Multiple axial CT images of the brain were obtained without IV contrast. Cspine: Axial CT images from the skull base to the inferior aspect of T2 we obtained without intraven ous contrast. Coronal and sagittal reformatted images were also reviewed. FINDINGS: Brain: Extra-axial spaces: No abnormal extra-axial fluid collections. Ventricular system: Dilatation in proportion to cerebral atrophy. Cerebral parenchyma: Cerebral atrophy. No acute intraparenchymal hemorrhage or mass effect. The dutton -white junction is well differentiated. Scattered hypoattenuating areas are seen within the white mat ter. Cerebellum: Unremarkable. Mass effect: No evidence of midline shift. Intracranial vasculature: Atherosclerotic calcifications of the intracranial vessels. Soft tissues: Normal. Calvarium/osseous structures: No depressed skull fracture. Paranasal sinuses and mastoid air cells: Mild scattered mucosal thickening and or secretions. Visualized orbits: Orbital contents are intact. Cervical spine: Fracture: None. Osseous structures: Multilevel degenerative disc disease changes with endplate spurring and disc oste ophyte complex's. Vertebral alignment: Within normal limits. Spinal canal/Neural Foramina: Disc osteophyte complexes at C4-C7 with at least mild spinal canal sten osis. No evidence for significant neural foraminal stenosis. Neck soft tissues: Prevertebral soft tissues are within normal limits. Other: The airway is patent. The lung apices are clear. Bilateral subluxed temporomandibular joints. Calcification of the nuchal ligament. IMPRESSION: 1. No acute intracranial process. 2. Nonspecific white matter changes, likely secondary to chronic small vessel ischemic disease. 3. No evidence of cervical spine fracture. 4. Moderate multilevel degenerative disc disease.
--- NOTE | 2023-05-08 19:50 | XR ---
EXAMINATION TYPE: XR foot complete RT DATE OF EXAM: 05/08/2023 7:24 PM INDICATION: Patient age:Male; 73 years old; Reason for study: fall; [facility]. COMPARISON: None TECHNIQUE: The right foot was examined in the AP, oblique, and lateral projections. FINDINGS: Postsurgical changes at the first digit metatarsophalangeal joint. Hardware appears intact. No evidence for osseous erosion or evidence for loosening. No evidence of any acute osseous pathology. No evidence of soft tissue swelling. Remainder of the ravin int spaces are preserved. Atherosclerosis of the arterial vasculature. Accessory ossicle near the cub oid. Calcaneal plantar spurring. IMPRESSION: 1. No evidence of acute fracture. 2. Postsurgical changes with hardware intact.
--- NOTE | 2023-05-08 19:51 | XR ---
EXAMINATION TYPE: XR knee complete RT DATE OF EXAM: 05/08/2023 7:24 PM INDICATION: Patient age:Male; 73 years old; Reason for study: fall; [facility]. COMPARISON: None. TECHNIQUE: The Right knee(s) was examined in Frontal, lateral and oblique projections. FINDINGS: No evidence of any acute osseous pathology, soft tissue swelling, or joint effusion is no tenzin. Calcification of the menisci. Tricompartmental osteophyte formation involving the femoral condyles, tibial plateau and patella. Mi ld joint space narrowing. IMPRESSION: 1. No acute osseous pathology. 2. Mild to moderate tricompartmental osteoarthritic changes. 3. Chondrocalcinosis.
[2023-05-08 20:20] VITALS: BP 158/85; PULSE 70; RESP 16; TEMP 98.4
== END 2023-05-08 20:09 | disposition home or self-care (01) ==
LOC: EC 18:20
DX: S16.1XXA Strain of muscle, fascia and tendon at neck level, initial encounter (principal); S96.911A Strain of unspecified muscle and tendon at ankle and foot level, right foot, initial encounter; S83.91XA Sprain of unspecified site of right knee, initial encounter; I10 Essential (primary) hypertension; E11.9 Type 2 diabetes mellitus without complications; E78.5 Hyperlipidemia, unspecified; K21.9 Gastro-esophageal reflux disease without esophagitis; Z79.84 Long term (current) use of oral hypoglycemic drugs; Z79.899 Other long term (current) drug therapy; W01.0XXA Fall on same level from slipping, tripping and stumbling without subsequent striking against object, initial encounter
CPT/HCPCS: 70450; 72125; 99284

== ENCOUNTER 2023-09-06 19:57 | Inpatient (IN) | payer MEDICARE ==
[2023-09-06 20:28] LABS: Basophils % (A) 1 %; Eosinophils # (A) 0.2 k/uL (0-0.7); Eosinophils % (A) 3 %; HCT 44.8 % (39.0-53.0); HGB 15.3 gm/dL (13.0-17.5); Lymphocytes # (A) 1.5 k/uL (1.0-4.8); Lymphocytes % (A) 28 %; MCH 30.3 pg (25.0-35.0); MCHC 34.2 g/dL (31.0-37.0); MCV 88.7 fL (80.0-100.0); Mean Platelet Volume 8.8; Monocytes # (A) 0.4 k/uL (0-1.0); Monocytes % (A) 7 %; Neutrophils # (A) 3.2 k/uL (1.3-7.7); Neutrophils % (A) 59 %; Platelet Count 146 k/uL (150-450); RBC 5.05 m/uL (4.30-5.90); RDW 13.7 % (11.5-15.5); WBC 5.3 k/uL (3.8-10.6)
--- NOTE | 2023-09-06 20:36 | XR ---
EXAMINATION: XR chest 2V: 09/06/2023 8:19 PM CLINICAL INDICATION: Chest Pain TECHNIQUE: Departmental protocol COMPARISON: 12/08/2020 FINDINGS: The lungs are clear. The pleural spaces are negative. The cardiac silhouette is not enlarged. The remainder of the mediastinal silhouette is unremarkable. The skeletal structures and soft tissues are negative for acute findings. IMPRESSION: No acute radiographic process.
[2023-09-06 20:41] LABS: Partial Thromboplastin Time 24.5 sec (22.0-30.0); Prothrombin Time 10.8 sec (10.0-12.5)
[2023-09-06 20:46] LABS: ALT 26 U/L (4-49); AST 34 U/L (17-59); African American GFR (CKD) 66 (>60 ml/min/1.73 sqM); Albumin 4.2 g/dL (3.5-5.0); Alkaline Phosphatase 70 U/L (38-126); Anion Gap 10 mmol/L; Blood Urea Nitrogen 20 mg/dL (9-20); Calcium 8.9 mg/dL (8.4-10.2); Carbon Dioxide 25 mmol/L (22-30); Chloride 106 mmol/L (98-107); Glucose 159 mg/dL (74-99); Non-African American GFR(CKD) 57 (>60 ml/min/1.73 sqM); Potassium 3.9 mmol/L (3.5-5.1); Sodium 141 mmol/L (137-145); Total Bilirubin 0.5 mg/dL (0.2-1.3); Total Protein 7.2 g/dL (6.3-8.2)
[2023-09-06] MEDS ORDERED: ASPIRIN 81 MG PO STA (22:04)
[2023-09-06] MEDS ORDERED: HEPARIN SODIUM 1,000 UN/ML (10ML VL) IV PRN (22:05)
[2023-09-06] MEDS ORDERED: HEPARIN SODIUM 1,000 UN/ML (10ML VL) IV ONE (22:05)
--- NOTE | 2023-09-06 22:06 | ED ---
Chest Pain HPI - General Chief Complaint: Chest Pain Stated Complaint: Chest Pain Time Seen by Provider: 09/06/23 21:00 Source: patient Mode of arrival: ambulatory Limitations: no limitations - History of Present Illness Initial Comments: 73-year-old male with past history of hypertension, hyperlipidemia, diabetes who presents to the emergency department reporting chest pain. States the chest pain started an hour prior to hospital arrival. States that the pain is worse when he sits up and moves around and is better with rest. He denies history of cardiac disease. No associated shortness of breath. No pleuritic pain. No numbness, tingling or weakness in his extremities. He did not take anything for the pain at home before coming in. Denies any nausea. No lower extremity swelling. No other alleviating, precipitating factors - Related Data Home Medications Medication Instructions Recorded Confirmed Lansoprazole [Prevacid] 30 mg PO HS 05/29/14 09/06/23 Atorvastatin Calcium [Lipitor] 40 mg PO HS 01/29/18 09/06/23 oxyBUTYnin chloride [Ditropan] 5 mg PO BID 01/29/18 09/06/23 glipiZIDE [Glucotrol] 5 mg PO BID 12/22/21 09/06/23 Tamsulosin HCl [Flomax] 0.4 mg PO BID 04/04/23 09/06/23 lisinopriL [Zestril] 20 mg PO HS 04/04/23 09/06/23 Glucosam/Kirill-Msm1/C/Lonnie/Bosw 1 tab PO BID 09/06/23 09/06/23 [Glucosamine-Chondroitin Tablet] traMADol HCL 50 mg PO Q6H PRN 09/06/23 09/06/23 Allergies Allergy/AdvReac Type Severity Reaction Status Date / Time No Known Allergies Allergy Verified 09/06/23 22:43 Review of Systems ROS Statement: Those systems with pertinent positive or pertinent negative responses have been documented in the HPI. ROS Other: All systems not noted in ROS Statement are negative. Past Medical History Past Medical History: Diabetes Mellitus, GERD/Reflux, Hyperlipidemia, Hypertension, Osteoarthritis (OA) Additional Past Medical History / Comment(s): Hx kidney stones. Chronic lower back and neck pain. Numbness in left arm X2-3 months. History of Any Multi-Drug Resistant Organisms: None Reported Past Surgical History: Adenoidectomy, Back Surgery, Orthopedic Surgery, Tonsillectomy Additional Past Surgical History / Comment(s): Back Surgery X4, bilateral shoulder surgery, pain clinic procedure. Past Anesthesia/Blood Transfusion Reactions: No Reported Reaction, Motion Sickness Past Psychological History: No Psychological Hx Reported Smoking Status: Never smoker Past Alcohol Use History: Rare Past Drug Use History: None Reported - Past Family History Father Family Medical History: Cancer General Exam Limitations: no limitations General appearance: alert, in no apparent distress Head exam: Present: atraumatic, normocephalic, normal inspection Eye exam: Present: normal appearance, PERRL, EOMI. Absent: scleral icterus, conjunctival injection, periorbital swelling ENT exam: Present: normal exam, mucous membranes moist Neck exam: Present: normal inspection. Absent: tenderness, meningismus, lymphadenopathy Respiratory exam: Present: normal lung sounds bilaterally. Absent: respiratory distress, wheezes, rales, rhonchi, stridor Cardiovascular Exam: Present: regular rate, normal rhythm, normal heart sounds. Absent: systolic murmur, diastolic murmur, rubs, gallop, clicks GI/Abdominal exam: Present: soft, normal bowel sounds. Absent: distended, tenderness, guarding, rebound, rigid Extremities exam: Present: normal inspection, full ROM, normal capillary refill. Absent: tenderness, pedal edema, joint swelling, calf tenderness Back exam: Present: normal inspection Neurological exam: Present: alert, oriented X3, CN II-XII intact Psychiatric exam: Present: normal affect, normal mood Skin exam: Present: warm, dry, intact, normal color. Absent: rash Course Vital Signs 09/06/23 09/06/23 19:58 22:00 Temperature 98.4 F Pulse Rate 80 69 Respiratory 18 18 Rate Blood Pressure 167/95 174/115 O2 Sat by Pulse 95 98 Oximetry Chest Pain MDM - MDM Was pt. sent in by a medical professional or institution (, PA, SAFETY AND SKILL BASED PAY MANAGER, urgent care, hospital, or senior living...) When possible be specific @ -No Did you speak to anyone other than the patient for history (EMS, parent, family, police, friend...)? What history was obtained from this source @ -No Did you review nursing and triage notes (agree or disagree)? Why? @ -I reviewed and agree with nursing and triage notes Were old charts reviewed (outside hosp., previous admission, EMS record, old EKG, old radiological studies, urgent care reports/EKG's, senior living records)? Report findings @ -I reviewed patient's heart cath from 2019 Differential Diagnosis (chest pain, altered mental status, abdominal pain women, abdominal pain men, vaginal bleeding, weakness, fever, dyspnea, syncope, headache, dizziness, GI bleed, back pain, seizure, CVA, palpatations, mental health, musculoskeletal)? @ -Differential Chest Pain: Stable Angina, Unstable Angina, STEMI, NSTEMI Aortic Dissection, Pneumothorax, Musculoskeletal, Esophageal Spasm GERD, Cholecystitis, Pancreatitis, Zoster, this is not meant to be an all-inclusive list. EKG interpreted by me (3pts min.). @ -Yes and demonstrates sinus rhythm with a rate of 73. PA of 168. QRS 152. QTC of 432. Right bundle branch block. No acute ST segment elevations X-rays interpreted by me (1pt min.). @ -Yes and demonstrates no acute process CT interpreted by me (1pt min.). @ -None done U/S interpreted by me (1pt. min.). @ -None done What testing was considered but not performed or refused? (CT, X-rays, U/S, labs)? Why? @ -None What meds were considered but not given or refused? Why? @ -None Did you discuss the management of the patient with other professionals (professionals i.e. , PA, SAFETY AND SKILL BASED PAY MANAGER, lab, RT, psych nurse, director social service, crystal calibrator, teacher, information officer, child support case officer)? Give summary @ -Spoke with Dr. Alexandra who agreed to admit the patient Was smoking cessation discussed for >3mins.? @ -No Was critical care preformed (if so, how long)? @ -Yes, 35 minutes for management of heparin drip Were there social determinants of health that impacted care today? How? (Homelessness, low income, unemployed, alcoholism, drug addiction, transportation, low edu. Level, literacy, decrease access to med. care, custodial, rehab)? @ -No Was there de-escalation of care discussed even if they declined (Discuss DNR or withdrawal of care, Hospice)? DNR status @ -No What co-morbidities impacted this encounter? (DM, HTN, Smoking, COPD, CAD, Cancer, CVA, ARF, Chemo, Hep., AIDS, mental health diagnosis, sleep apnea, morbid obesity)? @ -Hypertension, hyperlipidemia, diabetes Was patient admitted / discharged? Hospital course, mention meds given and route, prescriptions, significant lab abnormalities, going to OR and other pertinent info. @ -Admitted. Upon arrival patient was placed in room 3. through history and physical exam is performed. IV was established. Laboratory studies are conducted. 12-lead EKG was obtained. Laboratory studies are reviewed. Patient does have an elevated troponin. He is given an aspirin and started on a heparin drip as he has tried medications. spoke with dr. alexandra who will admit the patient. we will trend his troponins and consult cardiology. patient remained in stable condition awaiting a bed on the floor Undiagnosed new problem with uncertain prognosis? @ -yes Drug Therapy requiring intensive monitoring for toxicity (Heparin, Nitro, Insulin, Cardizem)? @ -No Were any procedures done? @ -No Diagnosis/symptom? @ -Acute chest pain, NSTEMI Acute, or Chronic, or Acute on Chronic? @ -Acute Uncomplicated (without systemic symptoms) or Complicated (systemic symptoms)? @ -Complicated Side effects of treatment? @ -No Exacerbation, Progression, or Severe Exacerbation? @ -No Poses a threat to life or bodily function? How? (Chest pain, USA, CT, pneumonia, PE, COPD, DKA, ARF, appy, cholecystitis, CVA, Diverticulitis, Homicidal, Suicidal, threat to staff... and all critical care pts) @ -yes Patient elevated troponin Disposition Clinical Impression: Chest pain, NSTEMI (non-ST elevated myocardial infarction) Disposition: ADMITTED IP TO THIS HOSP Condition: Stable Is patient prescribed a controlled substance at d/c from ED?: No Time of Disposition: 22:06 Decision to Admit Reason: Admit from EC Decision Date: 09/06/23 Decision Time: 22:07
[2023-09-06] MEDS ORDERED: NALOXONE 0.4 MG/ML 1 ML VIAL IV PRN (22:07)
[2023-09-06] MEDS ORDERED: HEPARIN SOD,PORK IN 0.45% NACL 25,000 UNIT in 0.45% NACL 1 250ML.BAG IV SCH (22:15)
[2023-09-06] MEDS ORDERED: lisinopriL 20 MG TAB PO STA (23:36)
[2023-09-07 04:52] LABS: Basophils # (A) 0.1 k/uL (0-0.2); Basophils % (A) 1 %; Eosinophils # (A) 0.2 k/uL (0-0.7); Eosinophils % (A) 4 %; HCT 44.5 % (39.0-53.0); HGB 14.7 gm/dL (13.0-17.5); Lymphocytes # (A) 1.8 k/uL (1.0-4.8); Lymphocytes % (A) 36 %; MCH 29.4 pg (25.0-35.0); MCV 88.9 fL (80.0-100.0); Mean Platelet Volume 9.1; Monocytes # (A) 0.4 k/uL (0-1.0); Monocytes % (A) 8 %; Neutrophils # (A) 2.5 k/uL (1.3-7.7); Neutrophils % (A) 49 %; Platelet Count 139 k/uL (150-450); RDW 13.9 % (11.5-15.5); WBC 5.1 k/uL (3.8-10.6)
[2023-09-07 05:03] LABS: African American GFR (CKD) 70 (>60 ml/min/1.73 sqM); Anion Gap 10 mmol/L; Blood Urea Nitrogen 18 mg/dL (9-20); Calcium 8.9 mg/dL (8.4-10.2); Carbon Dioxide 23 mmol/L (22-30); Chloride 107 mmol/L (98-107); Glucose 106 mg/dL (74-99); Non-African American GFR(CKD) 60 (>60 ml/min/1.73 sqM); Sodium 140 mmol/L (137-145)
[2023-09-07 05:17] LABS: Partial Thromboplastin Time 43.1 sec (22.0-30.0); Prothrombin Time 11.3 sec (10.0-12.5)
[2023-09-07 09:01] LABS: INR 1.1 (<1.2); Partial Thromboplastin Time 40.8 sec (22.0-30.0); Prothrombin Time 11.5 sec (10.0-12.5)
[2023-09-07] MEDS ORDERED: ATORVASTATIN 80 MG TAB PO STA (09:27)
[2023-09-07] MEDS ORDERED: ALPRAZolam 0.25 MG TAB PO PRN (09:27)
[2023-09-07] MEDS ORDERED: ASPIRIN 325 MG TAB PO STA (09:27)
[2023-09-07] MEDS ORDERED: ALPRAZolam 0.5 MG TAB PO PRN (09:27)
[2023-09-07] MEDS ORDERED: NITROGLYCERIN SL TABS 0.4 MG TAB SUBLINGUAL PRN (09:27)
--- NOTE | 2023-09-07 09:32 | P.CRDCN ---
History of Present Illness Consult date: 09/07/23 History of present illness: History of Present Illness: The patient is a 73-year-old male with known history of hypertension, hyperlipidemia and diabetes who presented with symptoms of chest discomfort occurring at rest and radiating to the left arm that started last night. He came into the emergency room, had no significant EKG changes but had mild troponin elevation. He has no arm discomfort this morning. He has mild chest discomfort. His activity is limited because of his back discomfort but he has no exertional chest discomfort, dyspnea or dizziness. He denies any PND, orthopnea or peripheral edema. He has underwent cardiac catheterization in August 2019 and was found to have mild obstructive disease. Medications: Zestril 20 mg daily, Glucotrol 5 mg twice a day, Lipitor 40 mg daily, Flomax, Prevacid Review of Systems: Respiratory: No history of asthma, bronchitis or recent cough. GI: No nausea or vomiting . No history of peptic ulcer disease. No recent GI bleed. : No hematuria or dysuria. Nervous System: No stroke or seizure. Physical Examination: 73-year-old male, alert oriented no apparent distress,Blood pressure 152/90, Heart rate 80 Head: Normocephalic. Eyes: Sclerae nonicteric. Neck: Good carotid upstroke, no bruit, no jugular venous distention. Lungs: Clear to auscultation. Heart: Regular rate and rhythm, S1-S2, no S3, no rub. No murmur. Abdomen: Soft nontender, positive bowel sounds no organomegaly. Extremities: No edema, intact distal pulses. Labs: Hemoglobin 14.7, BUN 18, creatinine 1.19. Troponin 0.038, 0.044, 0.042. Chest x-ray with no acute infiltrate EKG: Sinus mechanism with right bundle branch block and left axis deviation, the right bundle branch block was noted in the past Impression: 1. Chest discomfort, radiating to the arm with troponin elevation consistent with non-STEMI, he had mild obstructive disease in 2019 2. History of hypertension 3. History of hyperlipidemia 4. History of diabetes Plan: 1. Continue IV heparin 2. Obtain an echocardiogram with Doppler 3. Have recommended to proceed with coronary angiography, risks and the complications were discussed with the patient, he is in full agreement and understanding 4. Depending on the results of the testing further recommendations will be made 5. Thank you for this consult we will follow with you. Past Medical History Past Medical History: Diabetes Mellitus, GERD/Reflux, Hyperlipidemia, Hypertension, Osteoarthritis (OA) Additional Past Medical History / Comment(s): Hx kidney stones. Chronic lower back and neck pain. Numbness in left arm X2-3 months. History of Any Multi-Drug Resistant Organisms: None Reported Past Surgical History: Adenoidectomy, Back Surgery, Orthopedic Surgery, Tonsillectomy Additional Past Surgical History / Comment(s): Back Surgery X4, bilateral shoulder surgery, pain clinic procedure. Past Anesthesia/Blood Transfusion Reactions: No Reported Reaction, Motion Sickness Past Psychological History: No Psychological Hx Reported Smoking Status: Never smoker Past Alcohol Use History: Rare Past Drug Use History: None Reported - Past Family History Father Family Medical History: Cancer Medications and Allergies Home Medications Medication Instructions Recorded Confirmed Type Lansoprazole [Prevacid] 30 mg PO HS 05/29/14 09/06/23 History Atorvastatin Calcium [Lipitor] 40 mg PO HS 01/29/18 09/06/23 History oxyBUTYnin chloride [Ditropan] 5 mg PO BID 01/29/18 09/06/23 History glipiZIDE [Glucotrol] 5 mg PO BID 12/22/21 09/06/23 History Tamsulosin HCl [Flomax] 0.4 mg PO BID 04/04/23 09/06/23 History lisinopriL [Zestril] 20 mg PO HS 04/04/23 09/06/23 History Glucosam/Kirill-Msm1/C/Lonnie/Bosw 1 tab PO BID 09/06/23 09/06/23 History [Glucosamine-Chondroitin Tablet] traMADol HCL 50 mg PO Q6H PRN 09/06/23 09/06/23 History Allergies Allergy/AdvReac Type Severity Reaction Status Date / Time No Known Allergies Allergy Verified 09/06/23 22:43 Physical Exam Vitals: Vital Signs Temp Pulse Resp BP Pulse Ox 09/07/23 07:50 86 20 152/90 98 09/07/23 04:00 64 18 144/86 95 09/07/23 01:00 71 18 160/95 99 09/06/23 22:00 69 18 174/115 98 09/06/23 19:58 98.4 F 80 18 167/95 95 Intake and Output 1209/07/23 09/07/23 22:59 06:59 14:59 Intake Total 108.605 Balance 108.605 Intake: Intake, IV Titration 108.605 Amount Heparin Sod,Pork in 0.45% 108.605 NaCl 25,000 unit In 0.45 % NaCl 1 250ml.bag @ 10 UNITS/KG/HR 9.979 mls/hr IV .Q24H [facility] Rx#: [id number] Other: Weight 99.79 kg Results 09/07/23 04:26 09/07/23 04:26 Cardiac Enzymes 09/06/23 09/06/23 09/07/23 Range/Units 20:02 20:02 01:45 AST 34 (17-59) U/L Troponin I 0.038 H* 0.044 H* (0.000-0.034) ng/mL 09/07/23 Range/Units 04:26 AST (17-59) U/L Troponin I 0.042 H* (0.000-0.034) ng/mL Coagulation 09/06/23 09/07/23 09/07/23 Range/Units 20:02 04:26 08:30 PT 10.8 11.3 11.5 (10.0-12.5) sec APTT 24.5 43.1 H 40.8 H (22.0-30.0) sec CBC 09/06/23 09/07/23 Range/Units 20:02 04:26 WBC 5.3 5.1 (3.8-10.6) k/uL RBC 5.05 5.00 (4.30-5.90) m/uL Hgb 15.3 14.7 (13.0-17.5) gm/dL Hct 44.8 44.5 (39.0-53.0) % Plt Count 146 L 139 L (150-450) k/uL Comprehensive Metabolic Panel 09/06/23 09/07/23 Range/Units 20:02 04:26 Sodium 141 140 (137-145) mmol/L Potassium 3.9 4.0 (3.5-5.1) mmol/L Chloride 106 107 (98-107) mmol/L Carbon Dioxide 25 23 (22-30) mmol/L BUN 20 18 (9-20) mg/dL Creatinine 1.25 1.19 (0.66-1.25) mg/dL Glucose 159 H 106 H (74-99) mg/dL Calcium 8.9 8.9 (8.4-10.2) mg/dL AST 34 (17-59) U/L ALT 26 (4-49) U/L Alkaline Phosphatase 70 (38-126) U/L Total Protein 7.2 (6.3-8.2) g/dL Albumin 4.2 (3.5-5.0) g/dL Current Medications Generic Name Dose Route Start Last Admin Trade Name Freq PRN Reason Stop Dose Admin Atorvastatin Calcium 40 mg 09/07/23 21:00 Atorvastatin 40 Mg Tab PO HS [facility] Glipizide 5 mg 09/07/23 21:00 Glipizide 5 Mg Tab PO BID [facility] Heparin Sodium (Porcine) 0 unit 09/06/23 22:05 09/07/23 09:27 Heparin Sodium 1,000 Un/Ml (10ml Vl) IV 2,494.75 unit PER PROTOCOL PRN Administration Low PTT Protocol Heparin Sodium/Sodium Chloride 250 mls @ 9.979 mls/hr 09/06/23 22:15 09/07/23 09:25 25,000 unit/ Sodium Chloride IV 12 units/kg/hr .Q24H [facility] 11.975 mls/hr Titration Protocol 10 UNITS/KG/HR Lisinopril 20 mg 09/07/23 21:00 Lisinopril 20 Mg Tab PO HS [facility] Naloxone HCl 0.2 mg 09/06/23 22:07 Naloxone 0.4 Mg/Ml 1 Ml Vial IV Q2M PRN Opioid Reversal Intake and Output 09/06/23 09/07/23 09/07/23 22:59 06:59 14:59 Intake Total 108.605 Balance 108.605 Intake: Intake, IV Titration 108.605 Amount Heparin Sod,Pork in 0.45% 108.605 NaCl 25,000 unit In 0.45 % NaCl 1 250ml.bag @ 10 UNITS/KG/HR 9.979 mls/hr IV .Q24H [facility] Rx#: [id number] Other: Weight 99.79 kg 09/07/23 04:26 09/07/23 04:26
[2023-09-07] MEDS ORDERED: DEXTROSE 50% SYRINGE 50 ML IVP PRN ×2 (10:00)
--- NOTE | 2023-09-07 10:01 | P.HPIM ---
History of Present Illness H&P Date: 09/07/23 Chief Complaint: Chest pain This is a 73-year-old male patient of Dr. Dennis who presented with complaints of chest pain. Patient reports he had an episode of sharp chest pain with left arm numbness occurred when he was trying to get up from chair. Patient denies any recent illness. Patient denies associated shortness of breath nausea vomiting or diaphoresis. Patient has past medical history of diabetes mellitus, GERD, hyperlipidemia, hypertension, osteoarthritis and chronic back pain. Completed showing no acute radiographic process. Lab work revealing troponin 0 .038, 0.044 and 0.042. Patient was started on heparin drip. Cardiology services consulted. Current vital signs temp 98.4, heart rate 89, respiratory rate 20, blood pressure 152/90 with a pulse ox 98% on room air. 2-D echo ordered. At this time patient is lying comfortably in bed patient denies chest pain or shortness of breath. Patient denies nausea vomiting or diarrhea. Patient denies any urinary burning or frequency per cardiology cardiac catheterization to be completed today patient remains on heparin drip Review of Systems Please refer to HPI otherwise unremarkable Past Medical History Past Medical History: Diabetes Mellitus, GERD/Reflux, Hyperlipidemia, Hypertension, Osteoarthritis (OA) Additional Past Medical History / Comment(s): Hx kidney stones. Chronic lower back and neck pain. Numbness in left arm X2-3 months. History of Any Multi-Drug Resistant Organisms: None Reported Past Surgical History: Adenoidectomy, Back Surgery, Orthopedic Surgery, Tonsillectomy Additional Past Surgical History / Comment(s): Back Surgery X4, bilateral shoulder surgery, pain clinic procedure. Past Anesthesia/Blood Transfusion Reactions: No Reported Reaction, Motion Sickness Past Psychological History: No Psychological Hx Reported Smoking Status: Never smoker Past Alcohol Use History: Rare Past Drug Use History: None Reported - Past Family History Father Family Medical History: Cancer Medications and Allergies Home Medications Medication Instructions Recorded Confirmed Type Lansoprazole [Prevacid] 30 mg PO HS 05/29/14 09/06/23 History Atorvastatin Calcium [Lipitor] 40 mg PO HS 01/29/18 09/06/23 History oxyBUTYnin chloride [Ditropan] 5 mg PO BID 01/29/18 09/06/23 History glipiZIDE [Glucotrol] 5 mg PO BID 12/22/21 09/06/23 History Tamsulosin HCl [Flomax] 0.4 mg PO BID 04/04/23 09/06/23 History lisinopriL [Zestril] 20 mg PO HS 04/04/23 09/06/23 History Glucosam/Kirill-Msm1/C/Lonnie/Bosw 1 tab PO BID 09/06/23 09/06/23 History [Glucosamine-Chondroitin Tablet] traMADol HCL 50 mg PO Q6H PRN 09/06/23 09/06/23 History Allergies Allergy/AdvReac Type Severity Reaction Status Date / Time No Known Allergies Allergy Verified 09/06/23 22:43 Physical Exam Vitals: Vital Signs Temp Pulse Resp BP Pulse Ox 09/07/23 09:00 89 20 162/90 98 09/07/23 07:50 86 20 152/90 98 09/07/23 04:00 64 18 144/86 95 09/07/23 01:00 71 18 160/95 99 09/06/23 22:00 69 18 174/115 98 09/06/23 19:58 98.4 F 80 18 167/95 95 Intake and Output 09/06/23 09/07/23 09/07/23 22:59 06:59 14:59 Intake Total 108.605 Balance 108.605 Intake: Intake, IV Titration 108.605 Amount Heparin Sod,Pork in 0.45% 108.605 NaCl 25,000 unit In 0.45 % NaCl 1 250ml.bag @ 10 UNITS/KG/HR 9.979 mls/hr IV .Q24H [facility] Rx#: [id number] Other: Weight 99.79 kg Head normocephalic Neck supple Lungs clear to auscultation bilaterally no wheezing or crackles Heart regular rate and rhythm S1-S2, no rub or gallop Abdomen is soft nontender nondistended positive bowel sounds no hep atosplenomegaly Extremities no edema Neuro alert and orientated to 3 Results CBC & Chem 7: 09/07/23 04:26 09/07/23 04:26 Labs: Abnormal Lab Results - Last 24 Hours (Table) 09/06/23 09/06/23 09/06/23 Range/Units 20:02 20:02 20:02 Plt Count 146 L (150-450) k/uL APTT (22.0-30.0) sec Glucose 159 H (74-99) mg/dL Troponin I 0.038 H* (0.000-0.034) ng/mL 09/07/23 09/07/23 09/07/23 Range/Units 01:45 04:26 04:26 Plt Count 139 L (150-450) k/uL APTT 43.1 H (22.0-30.0) sec Glucose (74-99) mg/dL Troponin I 0.044 H* (0.000-0.034) ng/mL 09/07/23 09/07/23 09/07/23 Range/Units 04:26 04:26 08:30 Plt Count (150-450) k/uL APTT 40.8 H (22.0-30.0) sec Glucose 106 H (74-99) mg/dL Troponin I 0.042 H* (0.000-0.034) ng/mL Assessment and Plan Assessment: 1. Chest pain secondary to non-STEMI 2. History of diabetes mellitus 3. History of GERD 4. History of essential hypertension 5. History of hyperlipidemia Patient started on heparin drip Cardiology service is consulted 2-D echo ordered Cardiac catheterization scheduled today 09/07/2023 Home medications resumed repeat labs ordered Time with Patient: Greater than 30 (Greater than 60% of the total time spent in counseling and coordination of care)
[2023-09-07] MEDS: INSULIN ASPART (NovoLOG) 100 UNIT/ML VIAL SQ SCH ×3 (11:36→21:05)
[2023-09-07] MEDS ORDERED: VERAPAMIL 2.5 MG/ML 2 ML AMP ONE (13:48)
[2023-09-07] MEDS ORDERED: IV FLUID CONTINUATION 950 ML IV ONE (14:00)
[2023-09-07] MEDS ORDERED: HEPARIN SODIUM 1,000 UN/ML (10ML VL) ONE (14:03)
[2023-09-07] MEDS ORDERED: fentaNYL (PF) 50 MCG/ML 2 ML AMP ONE (14:03)
[2023-09-07] MEDS ORDERED: fentaNYL (PF) 50 MCG/ML 2 ML AMP IVP ONE (14:10)
[2023-09-07] MEDS ORDERED: LIDOCAINE 2% (PF) 20 MG/ML 5 ML VIAL SQ ONE (14:13)
[2023-09-07] MEDS ORDERED: VERAPAMIL SYRINGE (5 MG/10 ML) INTRAARTER ONE (14:15)
[2023-09-07] MEDS ORDERED: HEPARIN SODIUM 1,000 UN/ML (10ML VL) IVP ONE (14:18)
[2023-09-07] MEDS ORDERED: RX INFO: IV CONTRAST WAS GIVEN 1 EACH MISC MISCELLANE PRN (14:35)
--- NOTE | 2023-09-07 14:41 | P.CARDCATH ---
Date of Procedure: 09/07/23 Description of Procedure: Cardiac Catheterization: The patient is a 73-year-old male with a known history of hypertension, hyperlipidemia and diabetes and mild CAD by cardiac catheterization in 1999 1018 who presented with symptoms of chest discomfort, radiating to the left arm with mild troponin elevation and no EKG changes. Recommendations were made regarding cardiac catheterization, the risks and the complications were discussed with the patient who is in full understanding and agreement. Procedure Description: Patient was brought to labor mediator in fasting semi-sedated state after receiving Fentanyl and Benadryl achieiving moderate conscious sedated state. Using Xylocaine Anesthesia and modified Seldinger technique, a 6-[place] sheath was introduced in the right radial artery . Subsequently, selective coronary angiography was performed using a 5-[place] 3.5 bend Daniela catheter. Multiple views of the coronary artery including hemiaxial views were obtained. The 6-[place] pigtail catheter was used to cross the aortic valve and LVEDP was calculated. Following that, catheter and sheath were re moved. Hemostasis was obtained with deployment of vascular band . There was no immediate complication. Patient was returned to room in stable condition. Of note, the patient received a total of 5000 units of intravenous heparin as well as intra-arterial verapamil. Findings: Left main: This is a large-size vessel bifurcating into left circumflex and LAD, left main has no obstructive disease LAD: This is a large size vessel reaching to the apex with a wrap around the apex segment giving rise to 3 diagonal branch the LAD after the takeoff of the second diagonal has a 10-20% plaque with no high-grade stenosis Left circumflex: This is a large nondominant vessel giving rise to a large obtuse marginal branch. The left circumflex and its branches have no obstructive disease RCA: This is a large dominant vessel bifurcating distally to PDA and PLV. The right coronary artery after the takeoff of the acute marginal branch has a 20- 30% plaque with no evidence of high-grade stenosis Left Ventriculogram: Not performed Hemodynamics: There was no gradient across the aortic valve , LVEDP was 14-16 mmHg Conclusion: 1. Mild obstructive disease in the LAD and RCA with no progression compared to 2019 2. No evidence of obstructive disease in the circumflex 3. Right dominance 4. Normal LVEDP Recommendations: Have recommended to continue medical therapy, the patient may have had vasospast ic disease or ruptured plaque. We'll continue on maximizing medical therapy. The findings and the recommendations were discussed with the patient and the family and they were in full understanding and agreement. Duration of sedation is 14 minutes.
[2023-09-07] MEDS ORDERED: SODIUM CHLORIDE 0.9% 1,000 ML IV SCH (14:45)
[2023-09-07 15:43] LABS: Partial Thromboplastin Time 69.5 sec (22.0-30.0); Prothrombin Time 11.2 sec (10.0-12.5)
[2023-09-07 16:33] LABS: Glucose,Whole Blood 134 mg/dL (70-110)
[2023-09-07] MEDS: glipiZIDE 5 MG TAB PO SCH (16:35)
[2023-09-07] MEDS: ISOSORBIDE MONONITRATE ER 30 MG TAB.ER.24H PO SCH (16:36)
--- NOTE | 2023-09-07 18:15 | CA ---
Transthoracic Echo Report Name: Jones Cherry Age: 73 Gender: M : 1950 Exam Date: 09/07/2023 13:12 Exam Location: [facility] Ht (in): 72 Wt (lb): 220 Ordering Physician: Jesse Martinez MD ([id number]) Attending/Referring Phys: Sexton Helper Nikhil Brewer Procedure CPT: Indications: GA Cardiac Hx: Technical Quality: Technically difficult study Contrast 1: Definity Total Dose (mL): 2 Contrast 2: Total Dose (mL): MEASUREMENTS (Male / Female) Normal Values 2D ECHO LV Diastolic Diameter PLAX 4.3 cm 4.2 - 5.9 / 3.9 - 5.3 cm LV Systolic Diameter PLAX 3.1 cm IVS Diastolic Thickness 1.4 cm 0.6 - 1.0 / 0.6 - 0.9 cm LVPW Diastolic Thickness 1.3 cm 0.6 - 1.0 / 0.6 - 0.9 cm LV Relative Wall Thickness 0.6 RV Internal Dim ED PLAX 3.4 cm LVOT Diameter 2.2 cm Aortic Root Diameter 3.2 cm LV Diastolic Volume MOD BP 57.3 cm??? 67 - 155 / 56 - 104 cm??? LV Systolic Volume MOD BP 32.7 cm??? 22 - 58 / 19 - 49 cm??? LV Ejection Fraction MOD BP 42.9 % >= 55 % LV Cardiac Index MOD BP 680.9 cm???/min???m??? LV Diastolic Volume MOD 4C 67.8 cm??? LV Systolic Volume MOD 4C 38.3 cm??? LV Ejection Fraction MOD 4C 43.6 % LV Cardiac Index MOD 4C 819.4 cm???/min???m??? LV Diastolic Length 4C 7.5 cm LV Systolic Length 4C 6.7 cm LV Diastolic Volume MOD 2C 47.4 cm??? LV Systolic Volume MOD 2C 27.8 cm??? LV Ejection Fraction MOD 2C 41.3 % LV Cardiac Index MOD 2C 542.9 cm???/min???m??? LV Diastolic Length 2C 7.3 cm LV Systolic Length 2C 6.6 cm LA Volume 53.7 cm??? 18 - 58 / 22 - 52 cm??? LA Volume Index 23.6 cm???/m??? 16 - 28 cm???/m??? DOPPLER AV Peak Velocity 109.9 cm/s AV Peak Gradient 4.8 mmHg LVOT Peak Velocity 80.8 cm/s LVOT Peak Gradient 2.6 mmHg LVOT Velocity Time Integral 16.9 cm LVOT Stroke Volume 66.2 cm??? LVOT Stroke Volume Index 29.9 ml/m??? LVOT Cardiac Index 1835.1 cm???/min???m??? AV Area Cont Eq pk 2.9 cm??? MV Peak Velocity 78.0 cm/s MV Peak Gradient 2.4 mmHg MV Mean Velocity 44.3 cm/s MV Mean Gradient 0.9 mmHg MV Velocity Time Integral 29.1 cm MR Peak Velocity 359.2 cm/s MR Peak Gradient 51.6 mmHg Mitral E Point Velocity 62.3 cm/s Mitral A Point Velocity 74.6 cm/s Mitral E to A Ratio 0.8 MV Deceleration Time 272.1 ms TR Peak Velocity 86.1 cm/s TR Peak Gradient 3.0 mmHg Right Ventricular Systolic Press 8.0 mmHg PV Peak Velocity 105.1 cm/s PV Peak Gradient 4.4 mmHg FINDINGS Left Ventricle Mildly increased septal wall thickness. Mildly impaired LV function with EF between 40-45% Right Ventricle Normal right ventricular size. Right Atrium Normal right atrial size. Left Atrium Normal left atrial size. LA volume index= 24ml/m2 Mitral Valve Structurally normal mitral valve. Mild MR. Aortic Valve Aortic valve not well visualized. No aortic regurgitation. No aortic stenosis. Tricuspid Valve Structurally normal tricuspid valve. Trace TR. Pulmonic Valve Pulmonic valve not well visualized. No pulmonic regurgitation. Pericardium Normal pericardium. Aorta Normal size aortic root. CONCLUSIONS Mildly impaired LV function with EF between 40-45% Previewed by: Dr. Derrick Fink MD (Electronically Signed) Final Date: 07 September 2023 18:15
[2023-09-07] MEDS: oxyBUTYnin chloride 5 MG TAB PO SCH (20:09)
[2023-09-07] MEDS: CALCIUM CARBONATE 500 MG CHEWABLE PO PRN (20:09)
[2023-09-07] MEDS: TAMSULOSIN 0.4 MG CAP.ER.24H PO SCH (20:10)
[2023-09-07] MEDS ORDERED: PANTOPRAZOLE 40 MG TABLET PO SCH (21:00)
[2023-09-07] MEDS ORDERED: lisinopriL 20 MG TAB PO SCH (21:00)
[2023-09-07] MEDS ORDERED: MELATONIN 5 MG TABLET PO SCH (21:00)
[2023-09-07] MEDS ORDERED: ATORVASTATIN 40 MG TAB PO SCH (21:00)
[2023-09-07 21:09] LABS: Glucose,Whole Blood 68 mg/dL (70-110)
[2023-09-07 21:21] LABS: Glucose,Whole Blood 69 mg/dL (70-110)
[2023-09-07 22:26] VITALS: RESP 16; TEMP 98.1
[2023-09-08 03:11] LABS: Glucose,Whole Blood 98 mg/dL (70-110)
[2023-09-08] MEDS: CALCIUM CARBONATE 500 MG CHEWABLE PO PRN (03:21)
[2023-09-08 06:12] LABS: Glucose,Whole Blood 101 mg/dL (70-110)
[2023-09-08] MEDS: INSULIN ASPART (NovoLOG) 100 UNIT/ML VIAL SQ SCH ×2 (06:13→12:34)
[2023-09-08] MEDS: glipiZIDE 5 MG TAB PO SCH (06:22)
[2023-09-08] MEDS ORDERED: HEPARIN SODIUM,PORCINE 10,000 UNIT in SODIUM CHLORIDE 0.9% 1,000 ML IRRIGATION PRN (07:00)
[2023-09-08] MEDS ORDERED: HEPARIN SODIUM,PORCINE (1 ML) 2,500 UNIT in SODIUM CHLORIDE 0.9% 250 ML IRRIGATION PRN (07:00)
[2023-09-08] MEDS: TAMSULOSIN 0.4 MG CAP.ER.24H PO SCH (08:38)
[2023-09-08] MEDS: oxyBUTYnin chloride 5 MG TAB PO SCH (08:38)
[2023-09-08] MEDS: ISOSORBIDE MONONITRATE ER 30 MG TAB.ER.24H PO SCH (08:38)
[2023-09-08] MEDS ORDERED: ASPIRIN 81 MG PO SCH (09:00)
[2023-09-08 09:13] LABS: Basophils % (A) 1 %; Eosinophils # (A) 0.2 k/uL (0-0.7); Eosinophils % (A) 4 %; HCT 43.6 % (39.0-53.0); HGB 14.3 gm/dL (13.0-17.5); Lymphocytes # (A) 1.3 k/uL (1.0-4.8); Lymphocytes % (A) 24 %; MCH 29.5 pg (25.0-35.0); MCHC 32.8 g/dL (31.0-37.0); Mean Platelet Volume 9.5; Monocytes # (A) 0.4 k/uL (0-1.0); Monocytes % (A) 8 %; Neutrophils # (A) 3.3 k/uL (1.3-7.7); Neutrophils % (A) 61 %; Platelet Count 151 k/uL (150-450); RBC 4.85 m/uL (4.30-5.90); WBC 5.4 k/uL (3.8-10.6)
[2023-09-08 09:40] LABS: ALT 24 U/L (4-49); AST 28 U/L (17-59); African American GFR (CKD) 63 (>60 ml/min/1.73 sqM); Albumin 3.7 g/dL (3.5-5.0); Alkaline Phosphatase 68 U/L (38-126); Anion Gap 10 mmol/L; Blood Urea Nitrogen 20 mg/dL (9-20); Calcium 8.8 mg/dL (8.4-10.2); Carbon Dioxide 23 mmol/L (22-30); Chloride 106 mmol/L (98-107); Glucose 235 mg/dL (74-99); Non-African American GFR(CKD) 55 (>60 ml/min/1.73 sqM); Sodium 139 mmol/L (137-145); Total Bilirubin 0.6 mg/dL (0.2-1.3); Total Protein 6.3 g/dL (6.3-8.2)
--- NOTE | 2023-09-08 11:00 | P.DS ---
Providers Date of admission: 09/06/23 22:22 Expected date of discharge: 09/08/23 Attending physician: Laurel Alexandra Consults: 09/06/23 22:17 Consult Physician Urgent Consulting Provider: [facility] Consult Reason/Comments: acute chest pain, nstemi Do you want consulting provider notified?: Yes Primary care physician: Nohemi Dennis Hospital Course: Discharge diagnosis 1. Chest pain secondary to non-STEMI 2. History of diabetes mellitus 3. History of GERD 4. History of essential hypertension 5. History of hyperlipidemia Hospital course This is a 73-year-old male patient of Dr. Dennis who presented with complaints of chest pain. Patient reports he had an episode of sharp chest pain with left arm numbness occurred when he was trying to get up from chair. Patient denies any recent illness. Patient denies associated shortness of breath nausea vomiting or diaphoresis. Patient has past medical history of diabetes mellitus, GERD, hyperlipidemia, hypertension, osteoarthritis and chronic back pain. Completed showing no acute radiographic process. Lab work revealing troponin 0.038, 0.044 and 0.042. Patient was started on heparin drip. Cardiology services consulted. Current vital signs temp 98.4, heart rate 89, respiratory rate 20, blood pressure 152/90 with a pulse ox 98% on room air. 2-D echo ordered. At this time patient is lying comfortably in bed patient denies chest pain or shortness of breath. Patient denies nausea vomiting or diarrhea. Patient denies any urinary burning or frequency per cardiology cardiac catheterization to be completed today patient remains on heparin drip On 09/08/2023 patient is alert and oriented 3. Patient underwent cardiac catheterization yesterday showing mild obstructive disease in the LAD and RCA with no progression compared to 2019 for conditions continue medical therapy. 2-D echo completed showing an EF of 40-45%. Patient denies chest pain or shortness breath. Patient denies nausea vomiting or diarrhea. Patient denies any urinary burning or frequency. Patient has been cleared for discharge from cardiology standpoint. Patient Condition at Discharge: Stable Plan - Discharge Summary Discharge Rx Participant: Yes New Discharge Prescriptions: No Action Lansoprazole [Prevacid] 30 mg PO HS oxyBUTYnin chloride [Ditropan] 5 mg PO BID Atorvastatin Calcium [Lipitor] 40 mg PO HS lisinopriL [Zestril] 20 mg PO HS glipiZIDE [Glucotrol] 5 mg PO BID Tamsulosin HCl [Flomax] 0.4 mg PO BID traMADol HCL 50 mg PO Q6H PRN PRN Reason: Pain Glucosam/Kirill-Msm1/C/Lonnie/Bosw [Glucosamine-Chondroitin Tablet] 1 tab PO BID Discharge Medication List Lansoprazole [Prevacid] 30 mg PO HS 05/29/14 [History] Atorvastatin Calcium [Lipitor] 40 mg PO HS 01/29/18 [History] oxyBUTYnin chloride [Ditropan] 5 mg PO BID 01/29/18 [History] glipiZIDE [Glucotrol] 5 mg PO BID 12/22/21 [History] Tamsulosin HCl [Flomax] 0.4 mg PO BID 04/04/23 [History] lisinopriL [Zestril] 20 mg PO HS 04/04/23 [History] Glucosam/Kirill-Msm1/C/Lonnie/Bosw [Glucosamine-Chondroitin Tablet] 1 tab PO BID 09/06/23 [History] traMADol HCL 50 mg PO Q6H PRN 09/06/23 [History] Follow up Appointment(s)/Referral(s): Nohemi Dennis MD [Primary Care Provider] - 1-2 days
--- NOTE | 2023-09-08 11:01 | P.PN ---
Subjective Progress Note Date: 09/08/23 PROGRESS NOTE The patient is a 73-year-old male with a history of hypertension, diabetes and hyperlipidemia and mild CAD who presented with chest discomfort and mild troponin elevation. He underwent cardiac catheterization and was found to have mild obstructive disease no progression. His echocardiogram showed an ejection fraction of 40-45%. He has been ambulating without difficulty. Hemodynamically he is stable. Medications: Aspirin, Lipitor 40 mg daily, glipizide, isosorbide mononitrate 30 mg daily, lisinopril 20 mg daily. PHYSICAL EXAMINATION: Blood pressure 156/90 heart rate 70 LUNGS: Clear to auscultation HEART: Regular rate and rhythm, S1, S2. No S3. Systolic ejection murmur ABDOMEN: Soft, nontender, no organomegaly EXTREMETIES: No edema, right radial pulse intact LAB: BUN 20, creatinine 1.29 IMPRESSION: 1. Non-STEMI with no evidence of significant obstructive disease 2. Mild to moderate cardiomyopathy 3. Hypertension 4. Diabetes PLAN: 1. Add beta skip 2. Increase physical activity 3. Probable discharge home today 4. And follow-up as an outpatient Objective - Vital Signs Vital signs: Vital Signs Temp 98.1 F 09/07/23 20:00 Pulse 74 09/08/23 10:21 Resp 16 09/08/23 10:21 BP 156/91 09/08/23 08:35 Pulse Ox 95 09/08/23 08:35 FiO2 Intake & Output 09/07/23 09/08/23 09/08/23 18:59 06:59 18:59 Intake Total 251.643 9336 Balance 535.525 1790 Weight 99.79 kg Intake: Intake, IV Titration 108.605 Amount Heparin Sod,Pork in 0.45% 108.605 NaCl 25,000 unit In 0.45 % NaCl 1 250ml.bag @ 10 UNITS/KG/HR 9.979 mls/hr IV .Q24H KATIUSKA Rx#: [id number] Oral 118 1080 Other: Voiding Method Toilet Toilet - Labs CBC & Chem 7: 09/08/23 08:31 09/08/23 08:31 Labs: Abnormal Lab Results - Last 24 Hours (Table) 09/07/23 09/07/23 09/07/23 Range/Units 15:18 15:18 16:26 APTT 69.5 H (22.0-30.0) sec Creatinine (0.66-1.25) mg/dL Glucose (74-99) mg/dL POC Glucose (mg/dL) 134 H (70-110) mg/dL Hemoglobin A1c 6.3 H (<=6.0) % 09/07/23 09/07/23 09/08/23 Range/Units 21:04 21:19 08:31 APTT (22.0-30.0) sec Creatinine 1.29 H (0.66-1.25) mg/dL Glucose 235 H (74-99) mg/dL POC Glucose (mg/dL) 68 L 69 L (70-110) mg/dL Hemoglobin A1c (<=6.0) %
[2023-09-08] MEDS ORDERED: METOPROLOL SUCCINATE (ER) 25 MG TAB.ER.24H PO SCH (11:15)
[2023-09-08 11:49] LABS: Glucose,Whole Blood 155 mg/dL (70-110)
[2023-09-08 12:05] VITALS: BP 111/63; PULSE 67
== END 2023-09-08 14:11 | disposition home or self-care (01) | DRG 281 ==
LOC: EC 19:57 → 3SCARD 22:22
PROVIDERS: ADMIT Internal Medicine; ATTEND Internal Medicine
PROC: B2111ZZ Fluoroscopy of Multiple Coronary Arteries using Low Osmolar Contrast (ICD-10-PCS; principal; 2023-09-07 11:00)
PROC: 4A023N7 Measurement of Cardiac Sampling and Pressure, Left Heart, Percutaneous Approach (ICD-10-PCS; principal; 2023-09-07 11:00)
DX: I21.4 Non-ST elevation (NSTEMI) myocardial infarction (principal); I42.9 Cardiomyopathy, unspecified; E78.5 Hyperlipidemia, unspecified; I10 Essential (primary) hypertension; G89.29 Other chronic pain; M54.9 Dorsalgia, unspecified; I25.10 Atherosclerotic heart disease of native coronary artery without angina pectoris; I45.10 Unspecified right bundle-branch block; K21.9 Gastro-esophageal reflux disease without esophagitis; Z79.84 Long term (current) use of oral hypoglycemic drugs; Z79.899 Other long term (current) drug therapy; Z87.442 Personal history of urinary calculi
CPT/HCPCS: 36415; 71046; 80048; 80053; 83036; 83735; 84484; 85025; 85610; 85730; 93005; 93306; 93458; 96365; 96366; 99291

== ENCOUNTER 2023-09-24 11:59 | Emergency (ER) | payer MEDICARE ==
[2023-09-24 12:18] VITALS: TEMP 98
[2023-09-24] MEDS ORDERED: ONDANSETRON 4 MG/2 ML VIAL IVP STA (12:46)
[2023-09-24] MEDS ORDERED: KETOROLAC 15 MG/ML 1 ML VIAL IVP STA (12:46)
[2023-09-24] MEDS ORDERED: SODIUM CHLORIDE 0.9% 500 ML 500 ML IV STA (12:46)
--- NOTE | 2023-09-24 12:59 | ED ---
General Adult HPI - General Chief complaint: Abdominal Pain Stated complaint: LEFT FLANK PAIN Time Seen by Provider: 09/24/23 12:15 Source: patient, RN notes reviewed, old records reviewed Mode of arrival: wheelchair Limitations: no limitations - History of Present Illness Initial comments: This is a 73-year-old male who presents emergency Department complaining of sudden onset of left flank pain. Patient states he has had kidney stones in the past and this does feel somewhat similar. Patient denies any dysuria or hematuria. Patient states the pain is in the left CVA area and around the flank. Patient denies any fevers or chills. Patient states he is nauseated but has not vomited. Patient denies any diarrhea. Patient denies any other symp toms at this time. - Related Data Home Medications Medication Instructions Recorded Confirmed Lansoprazole [Prevacid] 30 mg PO HS 05/29/14 09/06/23 Atorvastatin Calcium [Lipitor] 40 mg PO HS 01/29/18 09/06/23 oxyBUTYnin chloride [Ditropan] 5 mg PO BID 01/29/18 09/06/23 glipiZIDE [Glucotrol] 5 mg PO BID 12/22/21 09/06/23 Tamsulosin HCl [Flomax] 0.4 mg PO BID 04/04/23 09/06/23 lisinopriL [Zestril] 20 mg PO HS 04/04/23 09/06/23 Glucosam/Kirill-Msm1/C/Lonnie/Bosw 1 tab PO BID 09/06/23 09/06/23 [Glucosamine-Chondroitin Tablet] traMADol HCL 50 mg PO Q6H PRN 09/06/23 09/06/23 Previous Rx's Medication Instructions Recorded Aspirin 81 mg PO DAILY 30 Days #30 tab 09/08/23 Isosorbide Mononitrate ER [Imdur] 30 mg PO DAILY 30 Days #30 tab 09/08/23 Metoprolol Succinate (ER) [Toprol 25 mg PO DAILY 30 Days #30 tab 09/08/23 XL] Ketorolac [Toradol] 10 mg PO Q6HR #15 tab 09/24/23 Allergies Allergy/AdvReac Type Severity Reaction Status Date / Time No Known Allergies Allergy Verified 09/24/23 12:14 Review of Systems ROS Statement: Those systems with pertinent positive or pertinent negative responses have been documented in the HPI. ROS Other: All systems not noted in ROS Statement are negative. Past Medical History Past Medical History: Diabetes Mellitus, GERD/Reflux, Hyperlipidemia, Hypertension, Osteoarthritis (OA) Additional Past Medical History / Comment(s): Hx kidney stones. Chronic lower back and neck pain. Numbness in left arm X2-3 months. History of Any Multi-Drug Resistant Organisms: None Reported Past Surgical History: Adenoidectomy, Back Surgery, Orthopedic Surgery, T onsillectomy Additional Past Surgical History / Comment(s): Back Surgery X4, bilateral shoulder surgery, pain clinic procedure. Past Anesthesia/Blood Transfusion Reactions: No Reported Reaction, Motion Sickness Past Psychological History: No Psychological Hx Reported Smoking Status: Never smoker Past Alcohol Use History: Rare Past Drug Use History: None Reported - Past Family History Father Family Medical History: Cancer General Exam - General Exam Comments Initial Comments: GENERAL: Patient is well-developed and well-nourished. Patient is nontoxic and well- hydrated and is in moderate distress. ENT: Neck is soft and supple. No significant lymphadenopathy is noted. Oropharynx is clear. Moist mucous membranes. Neck has full range of motion without eliciting any pain. EYES: The sclera were anicteric and conjunctiva were pink and moist. Extraocular movements were intact and pupils were equal round and reactive to light. Eyelids were unremarkable. PULMONARY: Unlabored respirations. Good breath sounds bilaterally. No audible rales rhonchi or wheezing was noted. CARDIOVASCULAR: There is a regular rate and rhythm without any murmurs gallops or rubs. ABDOMEN: Mild left flank pain. SKIN: Skin is clear with no lesions or rashes and otherwise unremarkable. NEUROLOGIC: Patient is alert and oriented x3. Cranial nerves II through XII are grossly intact. Motor and sensory are also intact. Normal speech, volume and content. Symmetrical smile. MUSCULOSKELETAL: Normal extremities with adequate strength and full range of motion. LYMPHATICS: No significant lymphadenopathy is noted PSYCHIATRIC: Normal psychiatric evaluation. Limitations: no limitations Course Vital Signs 09/24/23 12:12 Temperature 98.0 F Pulse Rate 83 Respiratory 16 Rate Blood Pressure 175/102 O2 Sat by Pulse 95 Oximetry Medical Decision Making - Medical Decision Making Was pt. sent in by a medical professional or institution (, PA, BAND MASTER, urgent care, hospital, or [facility]...) When possible be specific @ -No Did you speak to anyone other than the patient for history (EMS, parent, family, police, friend...)? What history was obtained from this source @ -No Did you review nursing and triage notes (agree or disagree)? Why? @ -I reviewed and agree with nursing and triage notes Were old charts reviewed (outside hosp., previous admission, EMS record, old EKG, old radiological studies, urgent care reports/EKG's, [facility] records)? Report findings @ -Review prior charts and prior labwork on this patient Differential Diagnosis (chest pain, altered mental status, abdominal pain women, abdominal pain men, vaginal bleeding, weakness, fever, dyspnea, syncope, headache, dizziness, GI bleed, back pain, seizure, CVA, palpatations, mental health, musculoskeletal)? @ -Differential Abdominal Pain Men: Appendicitis, cholecystitis, diverticulosis, ischemic bowel, pancreatitis, hepatitis, UTI, gastroenteritis, AAA, incarcerated hernia, bowel obstruction, constipation, inflammatory bowel, hepatitis, peptic ulcer disease, splenic infarction, perforated viscus, testicular torsion, this is not meant to be an all-inclusive list EKG interpreted by me (3pts min.). @ -As above X-rays interpreted by me (1pt min.). @ -None done CT interpreted by me (1pt min.). @ -CT of the abdomen pelvis show a 4 mm stone in the proximal ureter on the left U/S interpreted by me (1pt. min.). @ -None done What testing was considered but not performed or refused? (CT, X-rays, U/S, labs)? Why? @ -None What meds were considered but not given or refused? Why? @ -None Did you discuss the management of the patient with other professionals (pr ofessionals i.e. , PA, BAND MASTER, lab, RT, psych nurse, clinical social worker, building supervisor, teacher, child support case officer, gearcase assembler)? Give summary @ -Back into reevaluate the patient after received some fluids Toradol and Zofran and he was doing considerably better. Patient does have a kidney stone and he'll be discharged on Toradol and given a few Tylenol with codeine to alleviate the pain Was smoking cessation discussed for >3mins.? @ -No Was critical care preformed (if so, how long)? @ -No Were there social determinants of health that impacted care today? How? (Homelessness, low income, unemployed, alcoholism, drug addiction, transportation, low edu. Level, literacy, decrease access to med. care, fpc, rehab)? @ -No Was there de-escalation of care discussed even if they declined (Discuss DNR or withdrawal of care, Hospice)? DNR status @ -No What co-morbidities impacted this encounter? (DM, HTN, Smoking, COPD, CAD, Cancer, CVA, ARF, Chemo, Hep., AIDS, mental health diagnosis, sleep apnea, morbid obesity)? @ -None Was patient admitted / discharged? Hospital course, mention meds given and route, prescriptions, significant lab abnormalities, going to OR and other pertinent info. @ -Patient was given Toradol and Zofran and IV fluids Undiagnosed new problem with uncertain prognosis? @ -No Drug Therapy requiring intensive monitoring for toxicity (Heparin, Nitro, Insulin, Cardizem)? @ -No Were any procedures done? @ -No Diagnosis/symptom? @ -Kidney stone Acute, or Chronic, or Acute on Chronic? @ -Acute Uncomplicated (without systemic symptoms) or Complicated (systemic symptoms)? @ -Uncomplicated Side effects of treatment? @ -No Exacerbation, Progression, or Severe Exacerbation? @ -No Poses a threat to life or bodily function? How? (Chest pain, USA, LA, pneumonia, PE, COPD, DKA, ARF, appy, cholecystitis, CVA, Diverticulitis, Homicidal, Suicidal, threat to staff... and all critical care pts) @ -No - Lab Data Result diagrams: 09/24/23 13:20 09/24/23 13:20 Lab Results 09/24/23 09/24/23 Range/Units 13:20 13:20 WBC 6.8 (3.8-10.6) k/uL RBC 5.01 (4.30-5.90) m/uL Hgb 15.1 (13.0-17.5) gm/dL Hct 44.6 (39.0-53.0) % MCV 89.0 (80.0-100.0) fL MCH 30.2 (25.0-35.0) pg MCHC 33.9 (31.0-37.0) g/dL RDW 13.8 (11.5-15.5) % Plt Count 145 L (150-450) k/uL MPV 9.5 Neutrophils % 75 % Lymphocytes % 15 % Monocytes % 7 % Eosinophils % 1 % Basophils % 1 % Neutrophils # 5.1 (1.3-7.7) k/uL Lymphocytes # 1.0 (1.0-4.8) k/uL Monocytes # 0.5 (0-1.0) k/uL Eosinophils # 0.1 (0-0.7) k/uL Basophils # 0.0 (0-0.2) k/uL Sodium 140 (137-145) mmol/L Potassium 4.6 (3.5-5.1) mmol/L Chloride 108 H (98-107) mmol/L Carbon Dioxide 21 L (22-30) mmol/L Anion Gap 11 mmol/L BUN 19 (9-20) mg/dL Creatinine 1.42 H (0.66-1.25) mg/dL Est GFR (CKD-EPI)AfAm 57 (>60 ml/min/1.73 sqM) Est GFR (CKD-EPI)NonAf 49 (>60 ml/min/1.73 sqM) Glucose 124 H (74-99) mg/dL Calcium 9.1 (8.4-10.2) mg/dL Total Bilirubin 0.6 (0.2-1.3) mg/dL AST 35 (17-59) U/L ALT 24 (4-49) U/L Alkaline Phosphatase 65 (38-126) U/L Total Protein 7.2 (6.3-8.2) g/dL Albumin 4.3 (3.5-5.0) g/dL Amylase 48 (30-110) U/L Lipase 116 (23-300) U/L Disposition Clinical Impression: Kidney stone Disposition: HOME SELF-CARE Condition: Good Instructions (If sedation given, give patient instructions): Kidney Stones (ED) Prescriptions: Ketorolac [Toradol] 10 mg PO Q6HR #15 tab Is patient prescribed a controlled substance at d/c from ED?: No Referrals: Nohemi Dennis MD [Primary Care Provider] - 1-2 days Time of Disposition: 15:25
[2023-09-24 13:44] LABS: Basophils % (A) 1 %; Eosinophils # (A) 0.1 k/uL (0-0.7); Eosinophils % (A) 1 %; HCT 44.6 % (39.0-53.0); HGB 15.1 gm/dL (13.0-17.5); Lymphocytes % (A) 15 %; MCH 30.2 pg (25.0-35.0); MCHC 33.9 g/dL (31.0-37.0); Mean Platelet Volume 9.5; Monocytes # (A) 0.5 k/uL (0-1.0); Monocytes % (A) 7 %; Neutrophils # (A) 5.1 k/uL (1.3-7.7); Neutrophils % (A) 75 %; Platelet Count 145 k/uL (150-450); RBC 5.01 m/uL (4.30-5.90); RDW 13.8 % (11.5-15.5); WBC 6.8 k/uL (3.8-10.6)
[2023-09-24 13:57] LABS: ALT 24 U/L (4-49); AST 35 U/L (17-59); African American GFR (CKD) 57 (>60 ml/min/1.73 sqM); Albumin 4.3 g/dL (3.5-5.0); Alkaline Phosphatase 65 U/L (38-126); Amylase 48 U/L (30-110); Anion Gap 11 mmol/L; Blood Urea Nitrogen 19 mg/dL (9-20); Calcium 9.1 mg/dL (8.4-10.2); Carbon Dioxide 21 mmol/L (22-30); Chloride 108 mmol/L (98-107); Glucose 124 mg/dL (74-99); Lipase 116 U/L (23-300); Non-African American GFR(CKD) 49 (>60 ml/min/1.73 sqM); Potassium 4.6 mmol/L (3.5-5.1); Sodium 140 mmol/L (137-145); Total Bilirubin 0.6 mg/dL (0.2-1.3); Total Protein 7.2 g/dL (6.3-8.2)
--- NOTE | 2023-09-24 14:12 | XR ---
EXAMINATION TYPE: XR KUB DATE OF EXAM: 09/24/2023 Comparison: 11/11/2014 Clinical History: 73-year-old male abdominal pain Findings: Strandy atelectasis left base. Lung bases otherwise clear. No evidence for free intraperitoneal air. No dilated small bowel or air-fluid levels. Mild stool within the right side of the colon. Right-sided pelvic phleboliths. Impression: No evidence for free air or bowel obstruction. Mild stool within the right side of the abdomen.
--- NOTE | 2023-09-24 15:10 | CT ---
EXAMINATION TYPE: CT abdomen pelvis wo con DATE OF EXAM: 09/24/2023 COMPARISON: 04/23/2020 HISTORY: 73-year-old male LT side abdominal pain CT DLP: 847.5 mGycm. Automated exposure control for dose reduction was used. TECHNIQUE: Contiguous axial scanning of the abdomen and pelvis without IV contrast. Coronal and sagit js reconstructions performed. FINDINGS: Heart normal size without pericardial effusion. Strandy atelectasis or scarring at the lower lungs. Moderate-sized hiatal hernia with a third of the stomach in the lower chest. 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 Mild fusiform ectasia infrarenal abdominal aort a 2.6 cm with some crescentic atherosclerotic plaque. Ectatic right common iliac artery at 1.8 cm. Noncontrast appearance of the liver, gallbladder, adrenal glands, spleen, and pancreas within normal limits. Punctate 1 mm nonobstructive right renal calculus. Underlying left renal cortical cysts measuring up to 3.1 cm. There is left-sided perinephric edema an d a punctate 2 mm nonobstructive renal calculus. However, there is also mild to moderate left-sided h ydronephrosis with a small 4 mm stone at the upper left ureter. No dilated small bowel, free fluid, or free air. No mesenteric or retroperitoneal lymphadenopathy. Normal appendix. Mild stool burden. Left-sided colonic diverticulosis without pericolic inflammatory change. Bladder is urine distended. Prostate gland is enlarged measuring 6.6 cm wide. Multiple pelvic phlebol ith. No abnormal fluid collection in the pelvis or pelvic lymphadenopathy. 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 Sedation the lower thoracic spine. IMPRESSION: 1. A 4 mm stone in the upper left ureter with elms-sm-erdkticz obstructive uropathy. The prominent l eft-sided perinephric edema is likely reactive to the obstruction. 2. An additional punctate 1 to 2 mm nonobstructive stone within each kidney. 3. Moderate-sized hiatal hernia and left-sided colonic diverticulosis. 4. Prominent prostatomegaly at 6.6 cm wide. Correlate with PSA values and patient's symptoms.
[2023-09-24] MEDS ORDERED: ACET/COD 300 MG/30 MG STARTER PACK 6 TAB BTL PO STA (15:26)
[2023-09-24 15:33] LABS: Appearance,Urine Clear (Clear); Bilirubin,Urine Negative (Negative); Blood,Urine Large (Negative); Color,Urine Light Yellow; Glucose,Urine (UA) Negative (Negative); Ketones,Urine Negative (Negative); Leukocyte Esterase,Urine Negative (Negative); Mucus,Urine Rare /hpf; Nitrite,Urine Negative (Negative); Protein,Urine Trace (Negative); RBC,Urine >182 /hpf (0-5); Specific Gravity,Urine 1.016 (1.001-1.035); Urobilinogen,Urine <2.0 mg/dL (<2.0); WBC,Urine 1 /hpf (0-5)
[2023-09-24 15:49] VITALS: BP 135/79; PULSE 86; RESP 17
== END 2023-09-24 15:46 | disposition home or self-care (01) ==
LOC: EC 11:59
DX: N13.2 Hydronephrosis with renal and ureteral calculous obstruction (principal); E11.9 Type 2 diabetes mellitus without complications; I10 Essential (primary) hypertension; E78.5 Hyperlipidemia, unspecified; K21.9 Gastro-esophageal reflux disease without esophagitis; Z79.84 Long term (current) use of oral hypoglycemic drugs; Z79.899 Other long term (current) drug therapy
CPT/HCPCS: 36415; 80053; 82150; 83690; 85025; 81001; 74018; 74176; 99285; 96374; 96375; J2405; J1885

== ENCOUNTER 2023-09-24 22:05 | Emergency (ER) | payer MEDICARE ==
[2023-09-24 22:48] VITALS: TEMP 98
--- NOTE | 2023-09-24 23:03 | ED ---
General Adult HPI - General Source: patient, RN notes reviewed Mode of arrival: EMS Limitations: no limitations <Luz Reid - Last Filed: 09/24/23 23:01> - General Source: patient, RN notes reviewed Mode of arrival: EMS Limitations: no limitations <Haily Lazcano - Last Filed: 09/25/23 03:55> - General Chief complaint: Abdominal Pain Stated complaint: kidney stone Time Seen by Provider: 09/24/23 23:00 - History of Present Illness Initial comments: 73 year old male presents to the emergency department for chief complaint of left flank pain. He states that he was evaluated today and was told he has a 4mm kidney stone. He states that he was feeling well hospital and be discharged. He was discharged home with Tylenol 3. He states that he take this at home with no relief. He states that his pain is very severe. He is unable to cigar packer and picker his medication from the pharmacy is here closed today. (Luz Reid) This is a 73-year-old male who presents to the emergency department for left flank pain. Patient was evaluated here earlier today and diagnosed with a 4 mm kidney stone. His symptoms were well controlled in the emergency department and he was discharged home with significant improvement in symptoms. He was given a starter pack for Tylenol #3, however he states that this has not been effective for his pain. He was also given a prescription for Toradol, however the pharmacy is closed due to the holiday and he was unable to pick this up. He was given Toradol by EMS in route, which he states was beneficial. He has had kidney stones in the past, but has been unable to pass them on his own. Denies any urinary symptoms. He does report associated nausea. He is requesting pain medication to get him through the night until he is able to see urology in the morning. He does have a prescription for tramadol for his back pain, but does not take this every day. He has not taken this for the kidney stone, as he was unsure if that was okay to do. (Haily Lazcano) - Related Data Home Medications Medication Instructions Recorded Confirmed Lansoprazole [Prevacid] 30 mg PO HS 05/29/14 09/06/23 Atorvastatin Calcium [Lipitor] 40 mg PO HS 01/29/18 09/06/23 oxyBUTYnin chloride [Ditropan] 5 mg PO BID 01/29/18 09/06/23 glipiZIDE [Glucotrol] 5 mg PO BID 12/22/21 09/06/23 Tamsulosin HCl [Flomax] 0.4 mg PO BID 04/04/23 09/06/23 lisinopriL [Zestril] 20 mg PO HS 04/04/23 09/06/23 Glucosam/Kirill-Msm1/C/Lonnie/Bosw 1 tab PO BID 09/06/23 09/06/23 [Glucosamine-Chondroitin Tablet] traMADol HCL 50 mg PO Q6H PRN 09/06/23 09/06/23 Previous Rx's Medication Instructions Recorded Aspirin 81 mg PO DAILY 30 Days #30 tab 09/08/23 Isosorbide Mononitrate ER [Imdur] 30 mg PO DAILY 30 Days #30 tab 09/08/23 Metoprolol Succinate (ER) [Toprol 25 mg PO DAILY 30 Days #30 tab 09/08/23 XL] Ketorolac [Toradol] 10 mg PO Q6HR #15 tab 09/24/23 Ondansetron Odt [Zofran Odt] 4 mg PO Q8HR PRN #15 tab 09/25/23 Allergies Allergy/AdvReac Type Severity Reaction Status Date / Time No Known Allergies Allergy Verified 09/24/23 12:14 Review of Systems ROS Other: All systems not noted in ROS Statement are negative. <Luz Reid - Last Filed: 09/24/23 23:01> ROS Other: All systems not noted in ROS Statement are negative. <Haily Lazcano - Last Filed: 09/25/23 03:55> ROS Statement: Those systems with pertinent positive or pertinent negative responses have been documented in the HPI. Past Medical History Past Medical History: Diabetes Mellitus, GERD/Reflux, Hyperlipidemia, Hypertension, Osteoarthritis (OA) Additional Past Medical History / Comment(s): Hx kidney stones. Chronic lower back and neck pain. Numbness in left arm X2-3 months. History of Any Multi-Drug Resistant Organisms: None Reported Past Surgical History: Adenoidectomy, Back Surgery, Orthopedic Surgery, Tonsill ectomy Additional Past Surgical History / Comment(s): Back Surgery X4, bilateral shoulder surgery, pain clinic procedure. Past Anesthesia/Blood Transfusion Reactions: No Reported Reaction, Motion Sickness Past Psychological History: No Psychological Hx Reported Smoking Status: Never smoker Past Alcohol Use History: Rare Past Drug Use History: None Reported - Past Family History Father Family Medical History: Cancer <Luz Reid - Last Filed: 09/24/23 23:01> General Exam Limitations: no limitations <Luz Reid - Last Filed: 09/24/23 23:01> Limitations: no limitations General appearance: alert, in no apparent distress Head exam: Present: atraumatic, normocephalic, normal inspection Respiratory exam: Present: normal lung sounds bilaterally. Absent: respiratory distress, wheezes, rales, rhonchi, stridor Cardiovascular Exam: Present: regular rate, normal rhythm, normal heart sounds. Absent: systolic murmur, diastolic murmur, rubs, gallop, clicks Back exam: Present: CVA tenderness (L). Absent: CVA tenderness (R) Neurological exam: Present: alert, oriented X3, CN II-XII intact Psychiatric exam: Present: normal affect, normal mood Skin exam: Present: warm, dry, intact, normal color. Absent: rash <Haily Lazcano - Last Filed: 09/25/23 03:55> - General Exam Comments Initial Comments: Visual Physical Exam Vital signs reviewed General: Well-appearing, nontoxic, no acute distress. Head: Normocephalic, atraumatic Eyes: PERRLA, EOMI ENT: Airway patent Chest: Nonlabored breathing Skin: No visual rash, normal skin tone Neuro: Alert and oriented 3 Musculoskeletal: No gross abnormalities (Luz Reid) Course Vital Signs 09/24/23 09/25/23 22:30 03:24 Temperature 98 F Pulse Rate 76 60 Respiratory 18 16 Rate Blood Pressure 167/94 176/85 O2 Sat by Pulse 93 L 95 Oximetry Medical Decision Making <Luz Reid - Last Filed: 09/24/23 23:01> - Radiology Data Radiology results: report reviewed, image reviewed <Haily Lazcano - Last Filed: 09/25/23 03:55> - Medical Decision Making Quick note preformed by Luz Reid PA-C (Luz Reid) This is a 73-year-old male who presents to the emergency department for left flank pain related to a kidney stone. Was pt. sent in by a medical professional or institution? @ -No Did you speak to anyone other than the patient for history? @ -No Did you review nursing and triage notes? @ -Yes, and I agree, it is accurate with regards to the patient's symptoms. Were old charts reviewed? @ -CT scan of the abdomen and pelvis obtained earlier today demonstrating a 4 mm stone in the left upper ureter with mild to moderate obstructive uropathy. There is also prominent left-sided perinephric edema secondary to obstruction. Differential Diagnosis? @ -Differential Flank Pain: UTI, pyelonephritis, kidney stone, musculoskeletal, pancreatitis, cholecystitis, this is not meant to be an all-inclusive list. EKG interpreted by me (3pts min.)? @ -Not obtained X-rays interpreted by me (1pt min.)? @ -Not obtained CT interpreted by me (1pt min.)? @ -Not obtained U/S interpreted by me (1pt. min.)? @ -Not obtained What testing was considered but not performed? (CT, X-rays, U/S, labs)? Why? @ -None What meds were considered but not given? Why? @ -None Did you discuss the management of the patient with other professionals? @ -No Did you reconcile home meds? @ -No Was smoking cessation discussed for >3mins.? @ -No Was critical care preformed (if so, how long)? @ -No Were there social determinants of health that impacted care today? How? (Homelessness, low income, unemployed, alcoholism, drug addiction, transportation, low edu. Level, literacy, decrease access to med. care, [facility], rehab)? @ -No Was there de-escalation of care discussed even if they declined? (Discuss DNR or withdrawal of care, Hospice)? @ -No What co-morbidities impacted this encounter? (DM, HTN, Smoking, COPD, CAD, Cancer, CVA, Hep., AIDS, mental health diagnosis, sleep apnea, morbid obesity)? @ -Kidney stones Was patient admitted / discharged? @ -Discharged. Urinalysis demonstrates blood without evidence of infection. His symptoms were well controlled in the emergency department and he requested discharge home, as he had only wanted medication management for tonight until he could get his prescription for Toradol in the morning. He was given Yampa to go home with as well as a dose of Zofran. Prescription for Zofran provided as well. Advised to cigar packer and picker the Toradol from the pharmacy in the morning and we also discussed that he can take the tramadol he is prescribed for management of the kidney stones as well. He will contact urology in the morning for a follow up appointment. Undiagnosed new problem with uncertain prognosis? @ -None Drug Therapy requiring intensive monitoring for toxicity (Heparin, Nitro, Insulin, Cardizem)? @ -None Were any procedures done? @ -None Diagnosis/symptom? @ -Left ureteral calculus Acute, or Chronic, or Acute on Chronic? @ -Acute Uncomplicated (without systemic symptoms) or Complicated (systemic symptoms)? @ -Uncomplicated Side effects of treatment? @ -None Exacerbation, Progression, or Severe Exacerbation] @ -Not applicable Poses a threat to life or bodily function? @ -No Return precautions reviewed in depth, the patient is instructed to return to the emergency department with any new, worsening, or concerning symptoms. Patient verbalized understanding. This case was discussed in detail with the attending ED physician, Dr. Banks. Presentation, findings, and treatment plan discussed in detail as well. (Haily Lazcano) - Lab Data Lab Results 09/24/23 Range/Units 23:13 Urine Color Colorless Urine Appearance Clear (Clear) Urine pH 7.0 (5.0-8.0) Ur Specific [place] 1.012 (1.001-1.035) Urine Protein Trace H (Negative) Urine Glucose (UA) Negative (Negative) Urine Ketones Negative (Negative) Urine Blood Trace H (Negative) Urine Nitrite Negative (Negative) Urine Bilirubin Negative (Negative) Urine Urobilinogen <2.0 (<2.0) mg/dL Ur Leukocyte Esterase Negative (Negative) Urine RBC 4 (0-5) /hpf Urine WBC <1 (0-5) /hpf Urine Mucus Rare H (None) /hpf Disposition <Luz Reid - Last Filed: 09/24/23 23:01> Is patient prescribed a controlled substance at d/c from ED?: No <Haily Lazcano - Last Filed: 09/25/23 03:55> Clinical Impression: Left ureteral calculus Disposition: HOME SELF-CARE Condition: Stable Instructions (If sedation given, give patient instructions): Ureteral Stones (ED) Additional Instructions: Return to the emergency department with any new, worsening, or concerning symptoms. You can take the Yampa provided here if your symptoms return. You can also try taking the tramadol you have at home for symptomatic management. Make sure that you cigar packer and picker the Toradol that was prescribed in the morning as well. Take the Zofran up to every 8 hours as needed for nausea and vomiting. Contact urology first thing in the morning for a follow-up appointment. Prescriptions: Ondansetron Odt [Zofran Odt] 4 mg PO Q8HR PRN #15 tab PRN Reason: Nausea And Vomiting Referrals: Nohemi Dennis MD [Primary Care Provider] - 1-2 days
[2023-09-25 00:18] LABS: Appearance,Urine Clear (Clear); Bilirubin,Urine Negative (Negative); Blood,Urine Trace (Negative); Color,Urine Colorless; Glucose,Urine (UA) Negative (Negative); Ketones,Urine Negative (Negative); Leukocyte Esterase,Urine Negative (Negative); Mucus,Urine Rare /hpf; Nitrite,Urine Negative (Negative); Protein,Urine Trace (Negative); RBC,Urine 4 /hpf (0-5); Specific Gravity,Urine 1.012 (1.001-1.035); Urobilinogen,Urine <2.0 mg/dL (<2.0); WBC,Urine <1 /hpf (0-5)
[2023-09-25] MEDS ORDERED: MORPHINE SULFATE 4 MG/ML SYRINGE IVP STA (01:15)
[2023-09-25] MEDS ORDERED: ONDANSETRON 4 MG/2 ML VIAL IVP STA (01:15)
[2023-09-25] MEDS ORDERED: KETOROLAC 15 MG/ML 1 ML VIAL IVP STA (01:15)
[2023-09-25] MEDS ORDERED: SODIUM CHLORIDE 0.9% 1,000 ML IV STA (01:15)
[2023-09-25] MEDS ORDERED: HYDROcodone/APAP 10-325MG 1 EACH TAB PO ONE (03:00)
[2023-09-25] MEDS ORDERED: ONDANSETRON 4 MG ODT STARTER PACK 2 TAB BTL PO STA (03:00)
[2023-09-25] MEDS ORDERED: MORPHINE SULFATE 2 MG/ML SYRINGE IVP STA (03:00)
[2023-09-25] MEDS ORDERED: ONDANSETRON ODT 4 MG TAB PO STA (03:15)
[2023-09-25 03:41] VITALS: BP 176/85; PULSE 60; RESP 16
== END 2023-09-25 03:38 | disposition home or self-care (01) ==
LOC: EC 22:05
DX: N20.1 Calculus of ureter (principal); E11.9 Type 2 diabetes mellitus without complications; I10 Essential (primary) hypertension; E78.5 Hyperlipidemia, unspecified; K21.9 Gastro-esophageal reflux disease without esophagitis; Z79.84 Long term (current) use of oral hypoglycemic drugs; Z79.899 Other long term (current) drug therapy
CPT/HCPCS: 81001; 99285; 96374; 96375 ×2; 96376; 96361; J2270 ×2; J2405; J1885

== ENCOUNTER → 2023-11-07 | Outpatient (CLI) | payer MEDICARE ==
--- NOTE | 2023-11-07 11:12 | US ---
EXAMINATION TYPE: US kidneys/renal and bladder DATE OF EXAM: 11/07/2023 COMPARISON: CT 09/24/2023 CLINICAL INDICATION: Male, 73 years old with history of N13.2 HYDRONEPHROSIS; Patient states that he has a history of stones that he has since passed. No other pain or symptoms. EXAM MEASUREMENTS: Right Kidney: 12.0 x 5.0 x 5.3 cm Left Kidney: 11.9 x 4.7 x 4.2 cm Slightly limited due to overlying bowel gas Right Kidney: No hydronephrosis or masses seen Left Kidney: There is a 2.1 x 2.2 x 2.3 cm anechoic structure seen inferior/medially. There is also a 1.5 x 0.7cm anechoic, tubular area seen within the collecting system favored to represent a peripelv ic renal cysts. Bladder: wnl Bilateral Jets seen: Yes There is no evidence for hydronephrosis at this point in time. No nephrolithiasis is seen. No amara s are identified. The urinary bladder is anechoic. Bilateral ureteral jets are seen IMPRESSION: 1. Resolution of prior left hydronephrosis seen on 09/24/2023 CT. 2. Left renal cyst.
== END | disposition home or self-care (01) ==
LOC: RADUSWWP 10:13
PROVIDERS: ATTEND Urology
DX: N13.2 Hydronephrosis with renal and ureteral calculous obstruction (principal); N28.1 Cyst of kidney, acquired
CPT/HCPCS: 76770

== ENCOUNTER → 2023-11-07 | Outpatient (CLI) | payer MEDICARE ==
[2023-11-07 16:01] LABS: BUN/Creat Ratio 20.07 Ratio (12.00-20.00); Blood Urea Nitrogen 30.1 mg/dL (9.0-27.0); Calcium 9.4 mg/dL (8.7-10.3); Carbon Dioxide 24.8 mmol/L (21.6-31.8); Chloride 102 mmol/L (96-109); Glucose 120 mg/dL (70-110); Sodium 138 mmol/L (135-145)
== END | disposition home or self-care (01) ==
LOC: LABWHC1 10:48
PROVIDERS: ATTEND Internal Medicine Interventional Cardiology
DX: I10 Essential (primary) hypertension (principal)
CPT/HCPCS: 36415; 80048

== ENCOUNTER → 2024-06-26 | Outpatient (CLI) | payer MEDICARE ==
[2024-06-26 15:36] LABS: ALT 32 U/L (10-49); AST 36 U/L (14-35); Albumin 4.3 g/dL (3.8-4.9); Albumin/Globulin Ratio 1.72 Ratio (1.60-3.17); Alkaline Phosphatase 67 U/L (41-126); BUN/Creat Ratio 16.46 Ratio (12.00-20.00); Blood Urea Nitrogen 21.4 mg/dL (9.0-27.0); Calcium 9.1 mg/dL (8.7-10.3); Carbon Dioxide 26.5 mmol/L (21.6-31.8); Chloride 104 mmol/L (96-109); Chol/HDL Ratio 4.24 Ratio; Globulin 2.5 g/dL (1.6-3.3); Glucose 135 mg/dL (70-110); LDL Cholesterol,Calculated 75.8 mg/dL (0.0-131.0); Potassium 3.9 mmol/L (3.5-5.5); Sodium 142 mmol/L (135-145); Total Bilirubin 0.5 mg/dL (0.3-1.2); Total Protein 6.8 g/dL (6.2-8.2)
== END | disposition home or self-care (01) ==
LOC: LABWHC1 09:46
PROVIDERS: ATTEND Nurse Practitioner Adult Health
DX: E78.2 Mixed hyperlipidemia (principal); I10 Essential (primary) hypertension
CPT/HCPCS: 36415; 80053; 80061

== ENCOUNTER 2024-11-21 18:02 | Observation (INO) | payer MEDICARE ==
--- NOTE | 2024-11-21 19:52 | ED ---
Back Pain [facility] - General Chief Complaint: Back Pain/Injury Stated Complaint: back pain Time Seen by Provider: 11/21/24 19:49 Source: patient, RN notes reviewed Limitations: no limitations - History of Present Illness Initial Comments: 74-year-old male presenting for low back pain x 3 weeks. Describes a sharp pain in the bilateral flanks that is worse with movement and improved with rest. States it is making ambulating difficult due to the pain. Denies injury or trauma. States he does have chronic back pain however this feels different. He also endorses abdominal bloating over the past 2 weeks as well and frequent bowel movements over the past few days. States his pants are no longer fitting him due to his distended abdomen. Denies fever, nausea, vomiting, abdominal pain, urinary symptoms, hematuria, diarrhea, chest pain, shortness of breath, leg swelling. Denies loss of bowel or bladder control. Denies weakness, numbness, tingling in the bilateral lower extremities. Denies blood thinners. He has a history of type 2 diabetes, hypertension, and previous [place] last year. - Related Data Home Medications Medication Instructions Recorded Confirmed Lansoprazole [Prevacid] 30 mg PO HS 05/29/14 09/06/23 Atorvastatin Calcium [Lipitor] 40 mg PO HS 01/29/18 09/06/23 oxyBUTYnin chloride [Ditropan] 5 mg PO BID 01/29/18 09/06/23 glipiZIDE [Glucotrol] 5 mg PO BID 12/22/21 09/06/23 Tamsulosin HCl [Flomax] 0.4 mg PO BID 04/04/23 09/06/23 lisinopriL [Zestril] 20 mg PO HS 04/04/23 09/06/23 Glucosam/Kirill-Msm1/C/Lonnie/Bosw 1 tab PO BID 09/06/23 09/06/23 [Glucosamine-Chondroitin Tablet] traMADol HCL 50 mg PO Q6H PRN 09/06/23 09/06/23 Previous Rx's Medication Instructions Recorded Aspirin 81 mg PO DAILY 30 Days #30 tab 09/08/23 Isosorbide Mononitrate ER [Imdur] 30 mg PO DAILY 30 Days #30 tab 09/08/23 Metoprolol Succinate (ER) [Toprol 25 mg PO DAILY 30 Days #30 tab 09/08/23 XL] Ketorolac [Toradol] 10 mg PO Q6HR #15 tab 09/24/23 Ondansetron Odt [Zofran Odt] 4 mg PO Q8HR PRN #15 tab 09/25/23 Allergies Allergy/AdvReac Type Severity Reaction Status Date / Time No Known Allergies Allergy Verified 11/21/24 18:06 Review of Systems ROS Statement: Those systems with pertinent positive or pertinent negative responses have been documented in the HPI. ROS Other: All systems not noted in ROS Statement are negative. Past Medical History Past Medical History: Diabetes Mellitus, GERD/Reflux, Hyperlipidemia, Hypertension, Osteoarthritis (OA) Additional Past Medical History / Comment(s): Hx kidney stones. Chronic lower back and neck pain. Numbness in left arm X2-3 months. History of Any Multi-Drug Resistant Organisms: None Reported Past Surgical History: Adenoidectomy, Back Surgery, Orthopedic Surgery, Tonsillectomy Additional Past Surgical History / Comment(s): Back Surgery X4, bilateral shoulder surgery, pain clinic procedure. Past Anesthesia/Blood Transfusion Reactions: No Reported Reaction, Motion Sickness Past Psychological History: No Psychological Hx Reported Smoking Status: Never smoker Past Alcohol Use History: Rare Past Drug Use History: None Reported - Past Family History Father Family Medical History: Cancer General Exam Limitations: no limitations General appearance: alert, in no apparent distress Head exam: Present: atraumatic, normocephalic, normal inspection Eye exam: Present: normal appearance, PERRL, EOMI. Absent: scleral icterus, conjunctival injection, periorbital swelling Respiratory exam: Present: normal lung sounds bilaterally. Absent: respiratory distress, wheezes, rales, rhonchi, stridor Cardiovascular Exam: Present: regular rate, normal rhythm, normal heart sounds. Absent: systolic murmur, diastolic murmur, rubs, gallop, clicks GI/Abdominal exam: Present: soft, distended, normal bowel sounds. Absent: tenderness, guarding, rebound, rigid Extremities exam: Present: normal inspection, full ROM, normal capillary refill. Absent: tenderness, pedal edema, joint swelling, calf tenderness Back exam: Present: normal inspection, full ROM, tenderness (Diffuse paraspinal reproducible tenderness in lumbar portion of spine), paraspinal tenderness, other (Full strength and range of motion of bilateral hips. No saddle anesthesia. Full sensation and DP pulses bilaterally). Absent: CVA tenderness (R), CVA tenderness (L), rash noted Neurological exam: Present: alert, oriented X3 Psychiatric exam: Present: normal affect, normal mood Skin exam: Present: warm, dry, intact, normal color. Absent: rash Course Vital Signs 11/21/24 11/21/24 11/21/24 18:03 20:13 20:23 Temperature 98.2 F Pulse Rate 78 62 69 Respiratory 18 19 19 Rate Blood Pressure 205/93 179/91 152/77 O2 Sat by Pulse 95 95 94 L Oximetry 11/21/24 11/21/24 11/21/24 21:05 21:07 21:20 Temperature Pulse Rate 74 76 68 Respiratory 19 20 19 Rate Blood Pressure 167/81 167/81 156/76 O2 Sat by Pulse 95 93 L 94 L Oximetry 11/22/24 11/22/24 11/22/24 00:00 01:00 02:00 Temperature Pulse Rate 66 65 67 Respiratory 20 17 16 Rate Blood Pressure 181/98 179/92 155/86 O2 Sat by Pulse 95 96 96 Oximetry Medical Decision Making - Medical Decision Making Was pt. sent in by a medical professional or institution (, PA, MARKETING UNDERWRITER, urgent care, hospital, or chcf...) When possible be specific @ -No Did you speak to anyone other than the patient for history (EMS, parent, family, police, friend...)? What history was obtained from this source @ -No Did you review nursing and triage notes (agree or disagree)? Why? @ -I reviewed and agree with nursing and triage notes Were old charts reviewed (outside hosp., previous admission, EMS record, old EKG, old radiological studies, urgent care reports/EKG's, ch[facility] records)? Report findings @ -No old charts were reviewed Differential Diagnosis (chest pain, altered mental status, abdominal pain women, abdominal pain men, vaginal bleeding, weakness, fever, dyspnea, syncope, headache, dizziness, GI bleed, back pain, seizure, CVA, palpatations, mental health, musculoskeletal)? @ -Differential Back Pain: Strain, zoster, cauda equina syndrome, epidural abscess, vertebral osteomyelitis, discitis, fracture, subluxation, disc herniation, DJD, spinal stenosis, dissection, AAA, pancreatitis, peptic ulcer disease, pyelonephritis, kidney stone, this is not meant to be an all-inclusive list. EKG interpreted by me (3pts min.). @ -As above X-rays interpreted by me (1pt min.). @ -KUB reveals no acute process, lumbar spine x-ray reveals degenerative disc changes throughout the lumbar spine and minimal superior endplate changes at L1 CT interpreted by me (1pt min.). @ -CT abdomen pelvis reveals mural thrombus formation of infrarenal abdominal aorta, ectasia of proximal right common iliac artery which also exhibits mural thrombus formation U/S interpreted by me (1pt. min.). @ -None done What testing was considered but not performed or refused? (CT, X-rays, U/S, labs)? Why? @ -None What meds were considered but not given or refused? Why? @ -None Did you discuss the management of the patient with other professionals (professionals i.e. , PA, MARKETING UNDERWRITER, lab, RT, psych nurse, social work msw, digitizer, teacher, environmental technical officer, case assembler)? Give summary @ -No Was smoking cessation discussed for >3mins.? @ -No Was critical care preformed (if so, how long)? @ -No Were there social determinants of health that impacted care today? How? (Homelessness, low income, unemployed, alcoholism, drug addiction, transportation, low edu. Level, literacy, decrease access to med. care, senior care, rehab)? @ -No Was there de-escalation of care discussed even if they declined (Discuss DNR or withdrawal of care, Hospice)? DNR status @ -No What co-morbidities impacted this encounter? (DM, HTN, Smoking, COPD, CAD, Cancer, CVA, ARF, Chemo, Hep., AIDS, mental health diagnosis, sleep apnea, morbid obesity)? @ -None Was patient admitted / discharged? Hospital course, mention meds given and route, prescriptions, significant lab abnormalities, going to OR and other pertinent info. @ -Admitted. This is a 74-year-old male presenting for low back pain x 3 weeks with abdominal bloating. Patient is hypertensive at 205/93. Denies chest pain or shortness of breath. Physical examination remarkable for distended abdomen. Patient was provided with dose of hydralazine and subsequent blood pressures were 179/91 and 152/77 during time in the ER. Lab work remarkable for troponin 0.036 however this value is comparable to baseline. Due to hypertension, low back pain, and abdominal bloating, CT abdomen pelvis obtained which reveals mural thrombus formation of infrarenal abdominal aorta, ectasia of proximal right common iliac artery which also exhibits mural thrombus formation. Results discussed with patient. Patient was started on high-dose heparin and admitted to the hospital with consultation to vascular. Case was discussed in detail with the ED attending Dr. Healy. Undiagnosed new problem with uncertain prognosis? @ -No Drug Therapy requiring intensive monitoring for toxicity (Heparin, Nitro, Insulin, Cardizem)? @ -No Were any procedures done? @ -No Diagnosis/symptom? @ -Thrombus of abdominal aorta Acute, or Chronic, or Acute on Chronic? @ -Acute Uncomplicated (without systemic symptoms) or Complicated (systemic symptoms)? @ -Uncomplicated Side effects of treatment? @ -No Exacerbation, Progression, or Severe Exacerbation? @ -No Poses a threat to life or bodily function? How? (Chest pain, [place], [place], pneumonia, PE, COPD, DKA, ARF, appy, cholecystitis, CVA, Diverticulitis, Homicidal, S uicidal, threat to staff... and all critical care pts) @ -Possibly - Lab Data Result diagrams: 11/21/24 20:13 11/21/24 20:13 Lab Results 11/21/24 11/21/24 11/21/24 Range/Units 20:13 20:13 20:13 WBC 8.6 (3.8-10.6) k/uL RBC 5.40 (4.30-5.90) m/uL Hgb 15.9 (13.0-17.5) gm/dL Hct 48.6 (39.0-53.0) % MCV 89.9 (80.0-100.0) fL MCH 29.3 (25.0-35.0) pg MCHC 32.6 (31.0-37.0) g/dL RDW 13.7 (11.5-15.5) % Plt Count 146 L (150-450) k/uL MPV 8.8 Neutrophils % 74 % Lymphocytes % 15 % Monocytes % 7 % Eosinophils % 1 % Basophils % 0 % Neutrophils # 6.4 (1.3-7.7) k/uL Lymphocytes # 1.3 (1.0-4.8) k/uL Monocytes # 0.6 (0-1.0) k/uL Eosinophils # 0.1 (0-0.7) k/uL Basophils # 0.0 (0-0.2) k/uL Sodium 140 (137-145) mmol/L Potassium (3.5-5.1) mmol/L Chloride 104 (98-107) mmol/L Carbon Dioxide 26 (22-30) mmol/L Anion Gap 10 mmol/L BUN 20 (9-20) mg/dL Creatinine 1.12 (0.66-1.25) mg/dL Est GFR (CKD-EPI)AfAm 75 (>60 ml/min/1.73 sqM) Est GFR (CKD-EPI)NonAf 65 (>60 ml/min/1.73 sqM) Glucose 105 H (74-99) mg/dL Calcium 9.1 (8.4-10.2) mg/dL Total Bilirubin 1.1 (0.2-1.3) mg/dL AST 58 (17-59) U/L ALT 37 (4-49) U/L Alkaline Phosphatase 74 (38-126) U/L Troponin I 0.036 H* (0.000-0.034) ng/mL NT-Pro-B Natriuret Pep pg/mL Total Protein 7.9 (6.3-8.2) g/dL Albumin 4.8 (3.5-5.0) g/dL Amylase (30-110) U/L Lipase (23-300) U/L Urine Color Urine Appearance (Clear) Urine pH (5.0-8.0) Ur Specific [place] (1.001-1.035) Urine Protein (Negative) Urine Glucose (UA) (Negative) Urine Ketones (Negative) Urine Blood (Negative) Urine Nitrite (Negative) Urine Bilirubin (Negative) Urine Urobilinogen (<2.0) mg/dL Ur Leukocyte Esterase (Negative) 11/21/24 11/21/24 11/21/24 Range/Units 21:27 23:42 23:42 WBC (3.8-10.6) k/uL RBC (4.30-5.90) m/uL Hgb (13.0-17.5) gm/dL Hct (39.0-53.0) % MCV (80.0-100.0) fL MCH (25.0-35.0) pg MCHC (31.0-37.0) g/dL RDW (11.5-15.5) % Plt Count (150-450) k/uL MPV Neutrophils % % Lymphocytes % % Monocytes % % Eosinophils % % Basophils % % Neutrophils # (1.3-7.7) k/uL Lymphocytes # (1.0-4.8) k/uL Monocytes # (0-1.0) k/uL Eosinophils # (0-0.7) k/uL Basophils # (0-0.2) k/uL Sodium (137-145) mmol/L Potassium (3.5-5.1) mmol/L Chloride (98-107) mmol/L Carbon Dioxide (22-30) mmol/L Anion Gap mmol/L BUN (9-20) mg/dL Creatinine (0.66-1.25) mg/dL Est GFR (CKD-EPI)AfAm (>60 ml/min/1.73 sqM) Est GFR (CKD-EPI)NonAf (>60 ml/min/1.73 sqM) Glucose (74-99) mg/dL Calcium (8.4-10.2) mg/dL Total Bilirubin (0.2-1.3) mg/dL AST (17-59) U/L ALT (4-49) U/L Alkaline Phosphatase (38-126) U/L Troponin I 0.046 H* (0.000-0.034) ng/mL NT-Pro-B Natriuret Pep 542 pg/mL Total Protein (6.3-8.2) g/dL Albumin (3.5-5.0) g/dL Amylase 48 (30-110) U/L Lipase 176 (23-300) U/L Urine Color Light Yellow Urine Appearance Clear (Clear) Urine pH 5.0 (5.0-8.0) Ur Specific [place] 1.015 (1.001-1.035) Urine Protein Trace H (Negative) Urine Glucose (UA) Negative (Negative) Urine Ketones Negative (Negative) Urine Blood Negative (Negative) Urine Nitrite Negative (Negative) Urine Bilirubin Negative (Negative) Urine Urobilinogen <2.0 (<2.0) mg/dL Ur Leukocyte Esterase Negative (Negative) - EKG Data -: EKG Interpreted by Me EKG Comments: EKG reveals normal sinus rhythm with right bundle roberto block. Ventricular rate 63 bpm, KS interval 184, QRS duration 140, QT/QTc 443/450 Disposition Clinical Impression: Thrombosis of abdominal aorta Disposition: ADMITTED IP TO THIS HOSP Time of Disposition: 00:36
[2024-11-21] MEDS: hydrALAZINE HCL 20 MG/ML 1 ML VIAL IVP STA (20:11)
[2024-11-21] MEDS: KETOROLAC 15 MG/ML 1 ML VIAL IVP STA ×2 (20:12→23:51)
[2024-11-21 20:26] LABS: Basophils % (A) 0 %; Eosinophils # (A) 0.1 k/uL (0-0.7); Eosinophils % (A) 1 %; HCT 48.6 % (39.0-53.0); HGB 15.9 gm/dL (13.0-17.5); Lymphocytes # (A) 1.3 k/uL (1.0-4.8); Lymphocytes % (A) 15 %; MCH 29.3 pg (25.0-35.0); MCHC 32.6 g/dL (31.0-37.0); MCV 89.9 fL (80.0-100.0); Mean Platelet Volume 8.8; Monocytes # (A) 0.6 k/uL (0-1.0); Monocytes % (A) 7 %; Neutrophils # (A) 6.4 k/uL (1.3-7.7); Neutrophils % (A) 74 %; Platelet Count 146 k/uL (150-450); RDW 13.7 % (11.5-15.5); WBC 8.6 k/uL (3.8-10.6)
--- NOTE | 2024-11-21 20:36 | XR ---
EXAMINATION TYPE: XR KUB DATE OF EXAM: 11/21/2024 8:32 PM COMPARISON: None. CLINICAL INDICATION: Male, 74 years old with history of abdominal bloating, TECHNIQUE: XR KUB view(s) obtained. FINDINGS: There is a normal colonic bowel gas pattern. No free air is evident. No differential air-fluid levels are evident. No mass effect is evident Psoas margins are normal. No organomegaly is present. IMPRESSION: 1. Unremarkable Abdomen [facility], , 11/21/2024 8:34 PM
--- NOTE | 2024-11-21 20:39 | XR ---
EXAMINATION TYPE: XR lumbar spine 2 or 3V DATE OF EXAM: 11/21/2024 8:32 PM COMPARISON: None. CLINICAL INDICATION: Male, 74 years old with history of low back pain x 3 weeks, pain TECHNIQUE: 3 view(s) obtained. FINDINGS: There are 5 lumbar-type vertebral bodies. T12 may be transitional with rudimentary ribs diffuse degen erative disc changes are present L4-5 and L5-S1. Posterior disc space narrowing is present L3-4 L2-3. Minimal superior endplate changes present at L1. This may be present on the comparison CT of 023. IMPRESSION: 1. Degenerative disc changes through the lumbar spine. 2. Some minimal chronic superior endplate change at L1. [facility], , 11/21/2024 8:37 PM
[2024-11-21 20:49] LABS: ALT 37 U/L (4-49); African American GFR (CKD) 75 (>60 ml/min/1.73 sqM); Anion Gap 10 mmol/L; Blood Urea Nitrogen 20 mg/dL (9-20); Calcium 9.1 mg/dL (8.4-10.2); Carbon Dioxide 26 mmol/L (22-30); Chloride 104 mmol/L (98-107); Glucose 105 mg/dL (74-99); Non-African American GFR(CKD) 65 (>60 ml/min/1.73 sqM); Sodium 140 mmol/L (137-145); Total Bilirubin 1.1 mg/dL (0.2-1.3)
[2024-11-21 21:02] LABS: AST 58 U/L (17-59); Albumin 4.8 g/dL (3.5-5.0); Alkaline Phosphatase 74 U/L (38-126); Total Protein 7.9 g/dL (6.3-8.2)
[2024-11-21 21:54] LABS: Appearance,Urine Clear (Clear); Bilirubin,Urine Negative (Negative); Blood,Urine Negative (Negative); Color,Urine Light Yellow; Glucose,Urine (UA) Negative (Negative); Ketones,Urine Negative (Negative); Leukocyte Esterase,Urine Negative (Negative); Nitrite,Urine Negative (Negative); Protein,Urine Trace (Negative); Specific Gravity,Urine 1.015 (1.001-1.035); Urobilinogen,Urine <2.0 mg/dL (<2.0)
--- NOTE | 2024-11-21 23:55 | CT ---
EXAM: CT Abdomen and Pelvis With Intravenous Contrast CLINICAL HISTORY: ITS.REASON CT Reason: abdominal bloating TECHNIQUE: Axial computed tomography images of the abdomen and pelvis with intravenous contrast. CTDI is 35.3 mGy and DLP is 1780.3 mGy-cm. This CT exam was performed using one or more of the following dose reduction techniques: automated exposure control, adjustment of the mA and/or kV according to patient size, and/or use of iterative reconstruction technique. COMPARISON: KUB study of 11/21/2024. FINDINGS: Lung bases: Scarring and subsegmental atelectasis noted near the lung bases. Heart: There is cardiomegaly. Mediastinum: Moderate hiatal hernia and possible distal esophagitis. ABDOMEN: Liver: Fatty liver. Gallbladder and bile ducts: See below. Pancreas: See below. Spleen: Spleen enhances uniformly. Adrenals: The adrenal glands, the head, body, tail of the pancreas and the gallbladder are unremarkable. Kidneys and ureters: Nonspecific stranding about the perinephric spaces. Persistent lobation of the kidneys. No hydronephrosis. Stomach and bowel: Moderate quantity of ingested material in the stomach. Moderate quantity of stool throughout the colon. Diverticulosis without diverticulitis. No obstruction. PELVIS: Appendix: Appendix is seen on coronal image 48 and is unremarkable. Bladder: Unremarkable. No mass. Reproductive: Prostate gland measures 5.4 x 6.6 cm is and is enlarged heterogeneous. ABDOMEN and PELVIS: Intraperitoneal space: Unremarkable. No free air. No significant fluid collection. Bones/joints: Moderate to severe degenerative disc disease of the thoracic lumbar spine. No acute fracture. No dislocation. No spondylolysis. Soft tissues: Ischiorectal fat is clean. Vasculature: There is mural thrombus formation of the infrarenal abdominal aorta which is mildly ectatic. Ectasia of the proximal right common iliac artery which also exhibits mural thrombus formation. Portal vein is patent. Atherosclerotic disease of the abdominal aorta extending to the common iliac arteries. Good flow within the internal/external iliac arteries extending to the common femoral arteries. No abdominal aortic aneurysm. Lymph nodes: Unremarkable. No enlarged lymph nodes. Other findings: Multilevel vacuum disks are noted. IMPRESSION: 1. There is cardiomegaly. 2. COPD. 3. Moderate hiatal hernia and possible distal esophagitis. 4. Fatty liver. 5. No gallstones. 6. Nonspecific stranding about the perinephric spaces without renal calculus or hydronephrosis. 7. The appendix is unremarkable. 8. No bowel obstruction. 9. Diverticulosis without diverticulitis. 10. Enlarged heterogeneous prostate gland which requires clinical correlation.
[2024-11-22 00:18] LABS: Amylase 48 U/L (30-110); Lipase 176 U/L (23-300)
[2024-11-22] MEDS ORDERED: HEPARIN SODIUM 1,000 UN/ML (10ML VL) IV PRN (00:28)
[2024-11-22 00:29] LABS: NT-Pro-B-Type Natriuretic Pept 542 pg/mL
[2024-11-22] MEDS ORDERED: NALOXONE 0.4 MG/ML 1 ML VIAL IV PRN (00:31)
[2024-11-22] MEDS ORDERED: ACETAMINOPHEN TAB 325 MG TAB PO PRN (00:31)
[2024-11-22] MEDS ORDERED: HYDROmorphone 1 MG/ML 1 ML SYRINGE IVP PRN (00:31)
[2024-11-22] MEDS ORDERED: ONDANSETRON 4 MG/2 ML VIAL IVP PRN (00:31)
[2024-11-22] MEDS: HEPARIN SODIUM 1,000 UN/ML (10ML VL) IV ONE (01:04)
[2024-11-22] MEDS: HEPARIN SOD,PORK IN 0.45% NACL 25,000 UNIT in 0.45% NACL 1 250ML.BAG IV SCH (01:05)
[2024-11-22 06:21] LABS: Glucose,Whole Blood 108 mg/dL (70-110)
[2024-11-22] MEDS: HYDROcodone/APAP 5-325MG 1 EACH TAB PO PRN (08:10)
[2024-11-22 08:19] LABS: HCT 45.1 % (39.0-53.0); HGB 14.8 gm/dL (13.0-17.5); MCH 29.9 pg (25.0-35.0); MCHC 32.8 g/dL (31.0-37.0); MCV 91.1 fL (80.0-100.0); Mean Platelet Volume 9.9; Platelet Count 131 k/uL (150-450); RBC 4.95 m/uL (4.30-5.90); WBC 7.3 k/uL (3.8-10.6)
--- NOTE | 2024-11-22 11:02 | P.GSCN ---
History of Present Illness Consult date: 11/22/24 History of present illness: Patient is a 74-year-old male who has had increasing lower abdominal pain and bloating for the past few weeks. He states that his bowels have been more frequent and due to this swelling in his abdomen he has had pants and no longer fit which is what caused him to actually come in. He denies any unilateral weakness although does occasionally get tingling in the bilateral lower extremities. Past Medical History Past Medical History: Diabetes Mellitus, GERD/Reflux, Hyperlipidemia, Hypertension, Osteoarthritis (OA) Additional Past Medical History / Comment(s): Hx kidney stones. Chronic lower back and neck pain. Numbness in left arm X2-3 months. History of Any Multi-Drug Resistant Organisms: None Reported Past Surgical History: Adenoidectomy, Back Surgery, Orthopedic Surgery, Tonsillectomy Additional Past Surgical History / Comment(s): Back Surgery X4, bilateral shoulder surgery, pain clinic procedure. Past Anesthesia/Blood Transfusion Reactions: No Reported Reaction, Motion Sickness Past Psychological History: No Psychological Hx Reported Smoking Status: Former smoker Past Alcohol Use History: Rare Past Drug Use History: None Reported - Past Family History Father Family Medical History: Cancer Medications and Allergies Home Medications Medication Instructions Recorded Confirmed Type Lansoprazole [Prevacid] 30 mg PO HS 05/29/14 09/06/23 History Atorvastatin Calcium [Lipitor] 40 mg PO HS 01/29/18 09/06/23 History oxyBUTYnin chloride [Ditropan] 5 mg PO BID 01/29/18 09/06/23 History glipiZIDE [Glucotrol] 5 mg PO BID 12/22/21 09/06/23 History Tamsulosin HCl [Flomax] 0.4 mg PO BID 04/04/23 09/06/23 History lisinopriL [Zestril] 20 mg PO HS 04/04/23 09/06/23 History Glucosam/Kirill-Msm1/C/Lonnie/Bosw 1 tab PO BID 09/06/23 09/06/23 History [Glucosamine-Chondroitin Tablet] traMADol HCL 50 mg PO Q6H PRN 09/06/23 09/06/23 History Aspirin 81 mg PO DAILY 30 Days #30 tab 09/08/23 Rx Isosorbide Mononitrate ER [Imdur] 30 mg PO DAILY 30 Days #30 tab 09/08/23 Rx Metoprolol Succinate (ER) [Toprol 25 mg PO DAILY 30 Days #30 tab 09/08/23 Rx XL] Ketorolac [Toradol] 10 mg PO Q6HR #15 tab 09/24/23 Rx Ondansetron Odt [Zofran Odt] 4 mg PO Q8HR PRN #15 tab 09/25/23 Rx Allergies Allergy/AdvReac Type Severity Reaction Status Date / Time No Known Allergies Allergy Verified 11/22/24 03:06 Surgical - Exam Vital Signs Temp Pulse Resp BP Pulse Ox 98.2 F 78 18 205/93 95 11/21/24 18:03 11/21/24 18:03 11/21/24 18:03 11/21/24 18:03 11/21/24 18:03 Constitutional: No acute distress, pleasant Eyes: Anicteric sclerae, moist conjunctiva, no lid-lag HENMT: Normocephalic / Atraumatic Oropharynx clear Neck: Supple, full range of motion, nontender, no masses Lungs: Normal respiratory effort, no accessory muscle use Cardiovascular: Heart regular in rate and rhythm Abdominal: Soft, Nontender, distended Skin: Normal temperature, tone, texture, turgor. No rashes Extremities: No digital cyanosis No clubbing. Vascular: Palpable dorsalis pedis and posterior tibial pulses bilaterally Psychiatric: AOx3 Neuro: Cranial nerves II-XII grossly intact Results - Labs 11/22/24 05:27 11/21/24 20:13 Abnormal Lab Results - Last 24 Hours (Table) 11/21/24 11/21/24 11/21/24 Range/Units 20:13 20:13 20:13 Plt Count 146 L (150-450) k/uL APTT (22.0-30.0) sec Glucose 105 H (74-99) mg/dL Troponin I 0.036 H* (0.000-0.034) ng/mL Urine Protein (Negative) 11/21/24 11/21/24 11/22/24 Range/Units 21:27 23:42 05:27 Plt Count (150-450) k/uL APTT >200.0 H* (22.0-30.0) sec Glucose (74-99) mg/dL Troponin I 0.046 H* (0.000-0.034) ng/mL Urine Protein Trace H (Negative) 11/22/24 Range/Units 05:27 Plt Count 131 L (150-450) k/uL APTT (22.0-30.0) sec Glucose (74-99) mg/dL Troponin I (0.000-0.034) ng/mL Urine Protein (Negative) Diabetes panel 11/21/24 Range/Units 20:13 Sodium 140 (137-145) mmol/L Potassium (3.5-5.1) mmol/L Chloride 104 (98-107) mmol/L Carbon Dioxide 26 (22-30) mmol/L BUN 20 (9-20) mg/dL Creatinine 1.12 (0.66-1.25) mg/dL Glucose 105 H (74-99) mg/dL Calcium 9.1 (8.4-10.2) mg/dL AST 58 (17-59) U/L ALT 37 (4-49) U/L Alkaline Phosphatase 74 (38-126) U/L Total Protein 7.9 (6.3-8.2) g/dL Albumin 4.8 (3.5-5.0) g/dL Calcium panel 11/21/24 Range/Units 20:13 Calcium 9.1 (8.4-10.2) mg/dL Albumin 4.8 (3.5-5.0) g/dL Pituitary panel 11/21/24 Range/Units 20:13 Sodium 140 (137-145) mmol/L Potassium (3.5-5.1) mmol/L Chloride 104 (98-107) mmol/L Carbon Dioxide 26 (22-30) mmol/L BUN 20 (9-20) mg/dL Creatinine 1.12 (0.66-1.25) mg/dL Glucose 105 H (74-99) mg/dL Calcium 9.1 (8.4-10.2) mg/dL Adrenal panel 11/21/24 Range/Units 20:13 Sodium 140 (137-145) mmol/L Potassium (3.5-5.1) mmol/L Chloride 104 (98-107) mmol/L Carbon Dioxide 26 (22-30) mmol/L BUN 20 (9-20) mg/dL Creatinine 1.12 (0.66-1.25) mg/dL Glucose 105 H (74-99) mg/dL Calcium 9.1 (8.4-10.2) mg/dL Total Bilirubin 1.1 (0.2-1.3) mg/dL AST 58 (17-59) U/L ALT 37 (4-49) U/L Alkaline Phosphatase 74 (38-126) U/L Total Protein 7.9 (6.3-8.2) g/dL Albumin 4.8 (3.5-5.0) g/dL Assessment and Plan Assessment: Ectasia of the abdominal aorta Evidence of mural thrombus Complaints of increased abdominal girth Increased bowel movements. Plan: I personally reviewed the imaging. There does appear to be mild ectasia of the distal abdominal aorta at the infrarenal position as well as some degree in the right iliac. Along with this there is some mildly associated mural thrombus. At this point this is asymptomatic and does not need blood thinners. He maintains palpable pedal pulses therefore no signs of distal embolic issues. This is not the cause of his abdominal complaints. This is discussed with the patient and primary will follow-up outpatient to follow along for his abdominal ectasia and other vascular screening imaging. The patient seemingly understands and is willing to proceed
[2024-11-22 11:10] LABS: Glucose,Whole Blood 123 mg/dL (70-110)
[2024-11-22] MEDS ORDERED: traMADol 50 MG TAB PO PRN (11:33)
[2024-11-22] MEDS: METOPROLOL SUCCINATE (ER) 50 MG TAB.ER.24H PO SCH (11:40)
[2024-11-22] MEDS: lisinopriL 10 MG TAB PO SCH (11:40)
[2024-11-22] MEDS: ASPIRIN 81 MG PO SCH (11:40)
[2024-11-22] MEDS: hydroCHLOROthiazide 25 MG TAB PO SCH (11:40)
[2024-11-22] MEDS: lisinopriL 10 MG TAB PO STA (12:10)
--- NOTE | 2024-11-22 12:46 | P.CRDCN ---
History of Present Illness History of present illness: HISTORY OF PRESENT ILLNESS: This is a 74-year-old male with a past medical history significant for hypertension, hyperlipidemia, and diabetes. Patient follows in the office with Dr. Martinez. We have been asked to see the patient in consultation for elevated troponins. Patient examined at the bedside. Patient states over the past couple weeks he has been having pain in his lower back more specifically on the side/flank region. He states he has a history of back pain and initially just contributed it to that. He states over the past few days he has been having lower abdominal pain as well. He reports increased abdominal distention and bloating and states he was unable to fit into his pants recently due to this. He reports nausea with no vomiting. He denies any shortness of breath. He denies any chest pain or pressure. Patient's blood pressures were found to be elevated in the hospital with a systolic ranging between [id number]. The patient does state he has been taking his blood pressures at home and states the numbers vary but he is unable to give any specifics as to what blood pressure readings he is getting at home. DIAGNOSTICS: - EKG reveals sinus mechanism with right bundle branch block. No signs of acute ischemia. - Laboratory data: WBC 7.3. Hemoglobin 14.8. Platelet count 131. Sodium 140. Potassium nonreportable due to hemolyzed specimen. BUN 20. Creatinine 1.12. Troponin 0.036. 0.046. proBNP 542 - Current home cardiac medications include lisinopril 10 mg daily, hydrochlorothiazide 25 mg daily, metoprolol succinate 50 mg daily, Imdur 30 mg daily, Lipitor 40 mg daily, aspirin 81 mg daily - Most recent echocardiogram obtained in the office in October 2024 revealed ejection fraction 45 to 50%, moderate left ventricular hypertrophy, moderate MR, mild TR - Cardiac catheterization history: August 2023 revealing mild nonobstructive disease in the LAD and RCA with no progression compared to 2019 No obstructive disease in the circumflex. Right dominant system. Normal LVEDP. REVIEW OF SYSTEMS: At the time of my exam: CONSTITUTIONAL: Denies fever or chills. HEENT: Denies blurred vision, vision changes, or eye pain. Denies hemoptysis CARDIOVASCULAR: Denies chest pain. Denies orthopnea. Denies PND. Denies palpitations RESPIRATORY: Denies shortness of breath. GASTROINTESTINAL: Denies abdominal pain. Denies nausea or vomiting. HEMATOLOGIC: Denies bleeding disorders. GENITOURINARY: Denies any blood in urine. SKIN: Denies pruitis. Denies rash. PHYSICAL EXAM: VITAL SIGNS: Reviewed. GENERAL: Well-developed in no acute distress. HEENT: Head is normocephalic. Pupils are equal, round. Sclerae anicteric. Mucous membranes of the mouth are moist. Neck supple. No JVD or thyromegaly LUNGS: Respirations even and unlabored. Lungs essentially clear to auscultation bilaterally. HEART: Regular rate and rhythm. S1 and S2 heard. Systolic murmur noted. ABDOMEN: Soft. Distended. Nontender. EXTREMITIES: Normal range of motion. No clubbing or cyanosis. Peripheral pulses intact. No lower extremity edema NEUROLOGIC: Awake and alert. Oriented x 3. 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 Hypertensive urgency Minimally elevated troponins, possibility of chronically elevated troponins, no evidence of acute coronary syndrome, may be secondary to hypertensive urgency Mild nonobstructive CAD per cath 08/2023 Moderate left ventricular hypertrophy Moderate mitral regurgitation Hyperlipidemia Diabetes PLAN: An acute coronary event has been ruled out No need to repeat echocardiogram as this was performed in the office in October 2024 Resume home cardiac medications Increase lisinopril to 20 mg daily for optimal blood pressure control No plans for stress testing or cardiac catheterization from a cardiac standpoint Further recommendations pending patient course Nurse practitioner note has been reviewed by physician. Signing provider agrees with the documented findings, assessment, and plan of care documented by [employer] as a scribe. Past Medical History Past Medical History: Diabetes Mellitus, GERD/Reflux, Hyperlipidemia, Hypertension, Osteoarthritis (OA) Additional Past Medical History / Comment(s): Hx kidney stones. Chronic lower back and neck pain. Numbness in left arm X2-3 months. History of Any Multi-Drug Resistant Organisms: None Reported Past Surgical History: Adenoidectomy, Back Surgery, Orthopedic Surgery, Tonsi llectomy Additional Past Surgical History / Comment(s): Back Surgery X4, bilateral shoulder surgery, pain clinic procedure. Past Anesthesia/Blood Transfusion Reactions: No Reported Reaction, Motion Sickness Past Psychological History: No Psychological Hx Reported Smoking Status: Former smoker Past Alcohol Use History: Rare Past Drug Use History: None Reported - Past Family History Father Family Medical History: Cancer Medications and Allergies Home Medications Medication Instructions Recorded Confirmed Type Lansoprazole [Prevacid] 30 mg PO HS 05/29/14 11/22/24 History Atorvastatin Calcium [Lipitor] 40 mg PO DAILY 01/29/18 11/22/24 History oxyBUTYnin chloride [Ditropan] 5 mg PO BID 01/29/18 11/22/24 History glipiZIDE [Glucotrol] 5 mg PO BID 12/22/21 11/22/24 History Tamsulosin HCl [Flomax] 0.8 mg PO HS 04/04/23 11/22/24 History traMADol HCL 50 mg PO Q6H PRN 09/06/23 11/22/24 History Aspirin 81 mg PO DAILY 30 Days #30 tab 09/08/23 11/22/24 Rx Isosorbide Mononitrate ER [Imdur] 30 mg PO DAILY 30 Days #30 tab 09/08/23 11/22/24 Rx Metoprolol Succinate (ER) [Toprol 50 mg PO DAILY 11/22/24 11/22/24 History Xl] hydroCHLOROthiazide [Hydrodiuril] 25 mg PO DAILY 11/22/24 11/22/24 History lisinopriL [Zestril] 10 mg PO DAILY 11/22/24 11/22/24 History Allergies Allergy/AdvReac Type Severity Reaction Status Date / Time No Known Allergies Allergy Verified 11/22/24 11:21 Physical Exam Vitals: Vital Signs Temp Pulse Pulse Resp BP BP Pulse Ox 11/22/24 11:04 97.7 F 80 17 185/92 96 11/22/24 08:05 98.3 F 81 17 168/89 93 L 11/22/24 03:54 98.0 F 82 18 162/77 98 11/22/24 03:00 75 19 141/95 97 11/22/24 02:00 67 16 155/86 96 11/22/24 01:00 65 17 179/92 96 11/22/24 00:00 66 20 181/98 95 11/21/24 21:20 68 19 156/76 94 L 11/21/24 21:07 76 20 167/81 93 L 11/21/24 21:05 74 19 167/81 95 11/21/24 20:23 69 19 152/77 94 L 11/21/24 20:13 62 19 179/91 95 11/21/24 18:03 98.2 F 78 18 205/93 95 Intake and Output 11/21/24 11/22/24 11/22/24 22:59 06:59 14:59 Intake Total 376.213 Balance 376.213 Intake: Intake, IV Titration 136.213 Amount Heparin Sod,Pork in 0.45% 136.213 NaCl 25,000 unit In 0.45 % NaCl 1 250ml.bag @ 18 UNITS/KG/HR 17.962 mls/hr IV .[id number] [facility] Rx#: [id number] Oral 240 Other: Voiding Method Toilet Urinal # Voids 1 Weight 99.79 kg 99.79 kg Results 11/22/24 05:27 11/21/24 20:13 Cardiac Enzymes 11/21/24 11/21/24 11/21/24 Range/Units 20:13 20:13 23:42 AST 58 (17-59) U/L Troponin I 0.036 H* 0.046 H* (0.000-0.034) ng/mL Coagulation 11/22/24 Range/Units 05:27 APTT >200.0 H* (22.0-30.0) sec CBC 11/21/24 11/22/24 Range/Units 20:13 05:27 WBC 8.6 7.3 (3.8-10.6) k/uL RBC 5.40 4.95 (4.30-5.90) m/uL Hgb 15.9 14.8 (13.0-17.5) gm/dL Hct 48.6 45.1 (39.0-53.0) % Plt Count 146 L 131 L (150-450) k/uL Comprehensive Metabolic Panel 11/21/24 Range/Units 20:13 Sodium 140 (137-145) mmol/L Potassium (3.5-5.1) mmol/L Chloride 104 (98-107) mmol/L Carbon Dioxide 26 (22-30) mmol/L BUN 20 (9-20) mg/dL Creatinine 1.12 (0.66-1.25) mg/dL Glucose 105 H (74-99) mg/dL Calcium 9.1 (8.4-10.2) mg/dL AST 58 (17-59) U/L ALT 37 (4-49) U/L Alkaline Phosphatase 74 (38-126) U/L Total Protein 7.9 (6.3-8.2) g/dL Albumin 4.8 (3.5-5.0) g/dL Current Medications Generic Name Dose Route Start Last Admin Trade Name Freq PRN Reason Stop Dose Admin Acetaminophen 650 mg 11/22/24 00:31 Acetaminophen Tab 325 Mg Tab PO Q6HR PRN Mild Pain or Fever > 100.5 Hydrocodone Bitart/Acetaminophen 1 each 11/22/24 00:31 11/22/24 08:10 Hydrocodone/Apap 5-325mg 1 Each Tab PO 1 each Q4HR PRN Administration Moderate Pain (Scale 4 to 6) Aspirin 81 mg 11/22/24 11:45 11/22/24 11:40 Aspirin 81 Mg PO 81 mg DAILY KATIUSKA Administration Atorvastatin Calcium 40 mg 11/23/24 09:00 Atorvastatin 40 Mg Tab PO DAILY [facility] Glipizide 5 mg 11/22/24 17:30 Glipizide 5 Mg Tab PO AC-BID [facility] Hydrochlorothiazide 25 mg 11/22/24 11:45 11/22/24 11:40 Hydrochlorothiazide 25 Mg Tab PO 25 mg DAILY [facility] Administration Hydromorphone HCl 1 mg 11/22/24 00:31 Hydromorphone 1 Mg/Ml 1 Ml Syringe IVP Q3HR PRN Severe Pain (Scale 7 to 10) Isosorbide Mononitrate 30 mg 11/23/24 09:00 Isosorbide Mononitrate Er 30 Mg Tab.Er.24h PO DAILY [facility] Lisinopril 10 mg 11/22/24 11:45 11/22/24 11:40 Lisinopril 10 Mg Tab PO 10 mg DAILY [facility] Administration Metoprolol Succinate 50 mg 11/22/24 11:45 11/22/24 11:40 Metoprolol Succinate (Er) 50 Mg Tab.Er.24h PO 50 mg DAILY KATIUSKA Administration Naloxone HCl 0.2 mg 11/22/24 00:31 Naloxone 0.4 Mg/Ml 1 Ml Vial IV Q2M PRN Opioid Reversal Ondansetron HCl 4 mg 11/22/24 00:31 Ondansetron 4 Mg/2 Ml Vial IVP Q8HR PRN Nausea And Vomiting Oxybutynin Chloride 5 mg 11/22/24 21:00 Oxybutynin Chloride 5 Mg Tab PO BID [facility] Pantoprazole Sodium 40 mg 11/22/24 21:00 Pantoprazole 40 Mg Tablet PO HS [facility] Tamsulosin HCl 0.8 mg 11/22/24 21:00 Tamsulosin 0.4 Mg Cap.Er.24h PO HS [facility] Tramadol HCl 50 mg 11/22/24 11:33 Tramadol 50 Mg Tab PO Q6H PRN Pain Intake and Output 11/21/24 11/22/24 11/22/24 22:59 06:59 14:59 Intake Total 376.213 Balance 376.213 Intake: Intake, IV Titration 136.213 Amount Heparin Sod,Pork in 0.45% 136.213 NaCl 25,000 unit In 0.45 % NaCl 1 250ml.bag @ 18 UNITS/KG/HR 17.962 mls/hr IV .[id number] [facility] Rx#: [id number] Oral 240 Other: Voiding Method Toilet Urinal # Voids 1 Weight 99.79 kg 99.79 kg 11/22/24 05:27 11/21/24 20:13
--- NOTE | 2024-11-22 15:13 | P.HPIM ---
History of Present Illness H&P Date: 11/22/24 Jones Cherry, is a 74-year-old male who presented to [facility] emergency room with a chief complaint of low back pain and abdominal pain He was evaluated in the emergency room vital examination on presentation revealed a temperature of 98.2 pulse 78 respiration 18 blood pressure 205/93 pulse ox 95% on room air Laboratory data revealed a white blood count of 8.6 hemoglobin 15.9 platelet count 146 troponin level 0.046 Testing in the emergency room revealed CT scan of the abdomen and pelvis revealed evidence of cardiomegaly, COPD, hiatal hernia, perinephric space stranding, enlarged prostate, there was also evidence of mural thrombus formation of the infrarenal abdominal aorta which is mildly ectatic. Patient was started on IV heparin in the emergency room, he was admitted to medical floor, consultation for cardiology and vascular surgery were initiated. Past Medical History Past Medical History: Diabetes Mellitus, GERD/Reflux, Hyperlipidemia, Hypertension, Osteoarthritis (OA) Additional Past Medical History / Comment(s): Hx kidney stones. Chronic lower back and neck pain. Numbness in left arm X2-3 months. History of Any Multi-Drug Resistant Organisms: None Reported Past Surgical History: Adenoidectomy, Back Surgery, Orthopedic Surgery, Tonsi llectomy Additional Past Surgical History / Comment(s): Back Surgery X4, bilateral shoulder surgery, pain clinic procedure. Past Anesthesia/Blood Transfusion Reactions: No Reported Reaction, Motion Sickness Past Psychological History: No Psychological Hx Reported Smoking Status: Former smoker Past Alcohol Use History: Rare Past Drug Use History: None Reported - Past Family History Father Family Medical History: Cancer Medications and Allergies Home Medications Medication Instructions Recorded Confirmed Type Lansoprazole [Prevacid] 30 mg PO HS 05/29/14 11/22/24 History Atorvastatin Calcium [Lipitor] 40 mg PO DAILY 01/29/18 11/22/24 History oxyBUTYnin chloride [Ditropan] 5 mg PO BID 01/29/18 11/22/24 History glipiZIDE [Glucotrol] 5 mg PO BID 12/22/21 11/22/24 History Tamsulosin HCl [Flomax] 0.8 mg PO HS 04/04/23 11/22/24 History traMADol HCL 50 mg PO Q6H PRN 09/06/23 11/22/24 History Aspirin 81 mg PO DAILY 30 Days #30 tab 09/08/23 11/22/24 Rx Isosorbide Mononitrate ER [Imdur] 30 mg PO DAILY 30 Days #30 tab 09/08/23 11/22/24 Rx Metoprolol Succinate (ER) [Toprol 50 mg PO DAILY 11/22/24 11/22/24 History Xl] hydroCHLOROthiazide [Hydrodiuril] 25 mg PO DAILY 11/22/24 11/22/24 History lisinopriL [Zestril] 10 mg PO DAILY 11/22/24 11/22/24 History Allergies Allergy/AdvReac Type Severity Reaction Status Date / Time No Known Allergies Allergy Verified 11/22/24 11:21 Physical Exam Vitals: Vital Signs Temp Pulse Pulse Resp BP BP Pulse Ox 11/22/24 11:04 97.7 F 80 17 185/92 96 11/22/24 08:05 98.3 F 81 17 168/89 93 L 11/22/24 03:54 98.0 F 82 18 162/77 98 11/22/24 03:00 75 19 141/95 97 11/22/24 02:00 67 16 155/86 96 11/22/24 01:00 65 17 179/92 96 11/22/24 00:00 66 20 181/98 95 11/21/24 21:20 68 19 156/76 94 L 11/21/24 21:07 76 20 167/81 93 L 11/21/24 21:05 74 19 167/81 95 11/21/24 20:23 69 19 152/77 94 L 11/21/24 20:13 62 19 179/91 95 11/21/24 18:03 98.2 F 78 18 205/93 95 Intake and Output 11/21/24 11/22/24 11/22/24 22:59 06:59 14:59 Intake Total 376.213 Balance 376.213 Intake: Intake, IV Titration 136.213 Amount Heparin Sod,Pork in 0.45% 136.213 NaCl 25,000 unit In 0.45 % NaCl 1 250ml.bag @ 18 UNITS/KG/HR 17.962 mls/hr IV .[id number] [facility] Rx#: [id number] Oral 240 Other: Voiding Method Toilet Urinal # Voids 1 Weight 99.79 kg 99.79 kg In general patient is alert and oriented x 3 in no distress HEENT head normocephalic and atraumatic Neck is supple no JVD no goiter no lymphadenopathy no carotid bruit Chest examination is clear to auscultation no crackles no wheezing Cardiac exam reveals regular heart sounds S1 and S2 no gallops no murmurs Abdomen is soft nontender no organomegaly with normal bowel sounds Extremity exam reveals no edema no cyanosis or clubbing Neurological examination reveals no gross focal deficits Results CBC & Chem 7: 11/22/24 05:27 11/21/24 20:13 Labs: Abnormal Lab Results - Last 24 Hours (Table) 11/21/24 11/21/24 11/21/24 Range/Units 20:13 20:13 20:13 Plt Count 146 L (150-450) k/uL APTT (22.0-30.0) sec Glucose 105 H (74-99) mg/dL POC Glucose (mg/dL) (70-110) mg/dL Troponin I 0.036 H* (0.000-0.034) ng/mL Urine Protein (Negative) 11/21/24 11/21/24 11/22/24 Range/Units 21:27 23:42 05:27 Plt Count (150-450) k/uL APTT >200.0 H* (22.0-30.0) sec Glucose (74-99) mg/dL POC Glucose (mg/dL) (70-110) mg/dL Troponin I 0.046 H* (0.000-0.034) ng/mL Urine Protein Trace H (Negative) 11/22/24 11/22/24 Range/Units 05:27 11:07 Plt Count 131 L (150-450) k/uL APTT (22.0-30.0) sec Glucose (74-99) mg/dL POC Glucose (mg/dL) 123 H (70-110) mg/dL Troponin I (0.000-0.034) ng/mL Urine Protein (Negative) Thrombosis Risk Factor Assmnt - Choose All That Apply Any of the Below Risk Factors Present?: No Other Risk Factors: No Other congenital or acquired thrombophilia - If yes, enter type in comment: No Thrombosis Risk Factor Assessment Level: Very Low Risk Assessment and Plan Plan: Infrarenal abdominal aortic aneurysm thrombus Abdominal pain Low back pain Elevated troponin level Cardiomegaly Underlying history of COPD Underlying history of coronary artery disease Underlying history of hypertension Underlying history of hyperlipidemia Underlying history of [id number] diabetes mellitus At this time patient was seen and examined Home medications reviewed and reordered Consultation for vascular surgery cardiology and general surgery were requested Patient will be kept on clear liquid diet Will follow closely
[2024-11-22 16:13] LABS: Glucose,Whole Blood 183 mg/dL (70-110)
[2024-11-22] MEDS: glipiZIDE 5 MG TAB PO SCH (16:23)
[2024-11-22] MEDS: LACTULOSE 20 GM/30 ML CUP PO SCH (16:23)
[2024-11-22] MEDS: MELATONIN 3 MG TABLET PO SCH (20:19)
[2024-11-22] MEDS: TAMSULOSIN 0.4 MG CAP.ER.24H PO SCH (20:19)
[2024-11-22] MEDS: oxyBUTYnin chloride 5 MG TAB PO SCH (20:19)
[2024-11-22] MEDS: PANTOPRAZOLE 40 MG TABLET PO SCH (20:19)
[2024-11-22 20:41] LABS: Glucose,Whole Blood 70 mg/dL (70-110)
[2024-11-23 06:24] LABS: Glucose,Whole Blood 92 mg/dL (70-110)
[2024-11-23] MEDS: ISOSORBIDE MONONITRATE ER 30 MG TAB.ER.24H PO SCH (09:04)
[2024-11-23] MEDS: ATORVASTATIN 40 MG TAB PO SCH (09:04)
[2024-11-23] MEDS: lisinopriL 20 MG TAB PO SCH (09:04)
--- NOTE | 2024-11-23 09:40 | P.GSCN ---
History of Present Illness Consult date: 11/23/24 Reason for Consult: Abdominal pain, distention History of present illness: 74-year-old male comes to the hospital with complaints of lower back pain bilaterally and abdominal bloating. Patient has some abdominal discomforts as well. Mild nausea at times. No weight change. Says he has a hard time buttoning his pants because of his increased girth. No leg swelling. Was found to have a thrombus of the aorta and was seen by vascular surgery. No further management planned currently other than Plavix. He was on a heparin drip. That was stopped. Has been having fairly normal bowel movements. Some satiety issues. Review of Systems The patient denies any acute changes in vision or hearing, no dysphagia or odynophagia, no chest pain or shortness of breath, no dysuria or hematuria, no headache, no runny nose, no rectal bleeding or melena, no unexplained weight loss Past Medical History Past Medical History: Diabetes Mellitus, GERD/Reflux, Hyperlipidemia, Hypert ension, Osteoarthritis (OA) Additional Past Medical History / Comment(s): Hx kidney stones. Chronic lower back and neck pain. Numbness in left arm X2-3 months. History of Any Multi-Drug Resistant Organisms: None Reported Past Surgical History: Adenoidectomy, Back Surgery, Orthopedic Surgery, Tonsillectomy Additional Past Surgical History / Comment(s): Back Surgery X4, bilateral shoulder surgery, pain clinic procedure. Past Anesthesia/Blood Transfusion Reactions: No Reported Reaction, Motion Sickness Past Psychological History: No Psychological Hx Reported Smoking Status: Former smoker Past Alcohol Use History: Rare Past Drug Use History: None Reported - Past Family History Father Family Medical History: Cancer Medications and Allergies Home Medications Medication Instructions Recorded Confirmed Type Lansoprazole [Prevacid] 30 mg PO HS 05/29/14 11/22/24 History Atorvastatin Calcium [Lipitor] 40 mg PO DAILY 01/29/18 11/22/24 History oxyBUTYnin chloride [Ditropan] 5 mg PO BID 01/29/18 11/22/24 History glipiZIDE [Glucotrol] 5 mg PO BID 12/22/21 11/22/24 History Tamsulosin HCl [Flomax] 0.8 mg PO HS 04/04/23 11/22/24 History traMADol HCL 50 mg PO Q6H PRN 09/06/23 11/22/24 History Aspirin 81 mg PO DAILY 30 Days #30 tab 09/08/23 11/22/24 Rx Isosorbide Mononitrate ER [Imdur] 30 mg PO DAILY 30 Days #30 tab 09/08/23 11/22/24 Rx Metoprolol Succinate (ER) [Toprol 50 mg PO DAILY 11/22/24 11/22/24 History Xl] hydroCHLOROthiazide [Hydrodiuril] 25 mg PO DAILY 11/22/24 11/22/24 History lisinopriL [Zestril] 10 mg PO DAILY 11/22/24 11/22/24 History Allergies Allergy/AdvReac Type Severity Reaction Status Date / Time No Known Allergies Allergy Verified 11/22/24 11:21 Surgical - Exam Vital Signs Temp Pulse Resp BP Pulse Ox 98.2 F 78 18 205/93 95 11/21/24 18:03 11/21/24 18:03 11/21/24 18:03 11/21/24 18:03 11/21/24 18:03 Physical exam: General: Well-developed, well-nourished HEENT: Normocephalic, sclerae nonicteric Abdomen: Nontender, mild distention Extremities: No edema Neuro: Alert and oriented Results - Labs 11/22/24 05:27 11/21/24 20:13 Abnormal Lab Results - Last 24 Hours (Table) 11/22/24 11/22/24 Range/Units 11:07 16:12 POC Glucose (mg/dL) 123 H 183 H (70-110) mg/dL Assessment and Plan (1) Abdominal pain Narrative/Plan: 74-year-old male with complaints of abdominal pain and some back pain as well. Etiology unclear. He had a CAT scan that was reviewed. The stomach is somewhat distended with a hiatal hernia present. The proximal duodenum is also somewhat distended down to the junction between the second and third portion of the duodenum where it appears to become more normal-sized and on 1 view there is a questionable filling defect in the lumen of the duodenum. Given that finding and the patient's complaints of bloating recommend upper endoscopy. This will be scheduled for tomorrow however this could be performed as an outpatient if needed. Current Visit: Yes Status: Acute Code(s): R10.9 - UNSPECIFIED ABDOMINAL PAIN SNOMED Code(s): 44493697
--- NOTE | 2024-11-23 10:08 | P.PN ---
Subjective Progress Note Date: 11/23/24 Jones Cherry, is a 74-year-old male who presented to [facility] emergency room with a chief complaint of low back pain and abdominal pain He was evaluated in the emergency room vital examination on presentation revealed a temperature of 98.2 pulse 78 respiration 18 blood pressure 205/93 pulse ox 95% on room air Laboratory data revealed a white blood count of 8.6 hemoglobin 15.9 platelet count 146 troponin level 0.046 Testing in the emergency room revealed CT scan of the abdomen and pelvis revealed evidence of cardiomegaly, COPD, hiatal hernia, perinephric space stranding, enlarged prostate, there was also evidence of mural thrombus formation of the infrarenal abdominal aorta which is mildly ectatic. Patient was started on IV heparin in the emergency room, he was admitted to medical floor, consultation for cardiology and vascular surgery were initiated. On 11/23/2024 patient was seen and examined on the medical floor he is alert and oriented x 3 in no apparent distress, he is still complaining of abdominal pain and abdominal distention, and complaining of low back pain and bilateral flank pain, otherwise he denies any complaints there is no fever or chills no headache or dizziness no chest pain no shortness of breath no cough no nausea or vomiting no diarrhea and no urinary symptoms. At this time patient is scheduled for EGD with Dr. Pires tomorrow, he is scheduled for abdomen ultrasound, continue with current medications will follow in a.m.. Objective - Vital Signs Vital signs: Vital Signs Temp 97.6 F 11/23/24 08:57 Pulse 71 11/23/24 08:57 Resp 17 11/23/24 08:57 BP 181/89 11/23/24 08:57 Pulse Ox 96 11/23/24 08:57 FiO2 Intake & Output 11/22/24 11/23/24 11/23/24 18:59 06:59 18:59 Intake Total 826.213 20 10 Balance 826.213 20 10 Weight 102 kg Intake: IV 10 20 10 Invasive Line 1 10 20 10 Intake, IV Titration 136.213 Amount Heparin Sod,Pork in 0.45% 136.213 NaCl 25,000 unit In 0.45 % NaCl 1 250ml.bag @ 18 UNITS/KG/HR 17.962 mls/hr IV .[id number] [facility] Rx#: [id number] Oral 680 Other: Voiding Method Toilet Toilet Urinal Urinal # Voids 2 - Exam In general patient is alert and oriented x 3 in no distress HEENT head normocephalic and atraumatic Neck is supple no JVD no goiter no lymphadenopathy no carotid bruit Chest examination is clear to auscultation no crackles no wheezing Cardiac exam reveals regular heart sounds S1 and S2 no gallops no murmurs Abdomen is soft nontender no organomegaly with normal bowel sounds Extremity exam reveals no edema no cyanosis or clubbing Neurological examination reveals no gross focal deficits - Labs CBC & Chem 7: 11/22/24 05:27 11/21/24 20:13 Labs: Abnormal Lab Results - Last 24 Hours (Table) 11/22/24 11/22/24 Range/Units 11:07 16:12 POC Glucose (mg/dL) 123 H 183 H (70-110) mg/dL Assessment and Plan Plan: Infrarenal abdominal aortic aneurysm thrombus Abdominal pain Low back pain Elevated troponin level Cardiomegaly Underlying history of COPD Underlying history of coronary artery disease Underlying history of hypertension Underlying history of hyperlipidemia Underlying history of [id number] diabetes mellitus At this time patient was seen and examined Home medications reviewed and reordered Consultation for vascular surgery cardiology and general surgery were requested Patient will be kept on clear liquid diet Will follow closely
[2024-11-23 12:01] LABS: Glucose,Whole Blood 124 mg/dL (70-110)
--- NOTE | 2024-11-23 12:22 | P.PN ---
Subjective HISTORY OF PRESENT ILLNESS: This is a 74-year-old male with a past medical history significant for hypertension, hyperlipidemia, and diabetes. Patient follows in the office with Dr. Martinez. We have been asked to see the patient in consultation for elevated troponins. Patient examined at the bedside. Patient states over the past couple weeks he has been having pain in his lower back more specifically on the side/flank region. He states he has a history of back pain and initially just contributed it to that. He states over the past few days he has been having lower abdominal pain as well. He reports increased abdominal distention and b loating and states he was unable to fit into his pants recently due to this. He reports nausea with no vomiting. He denies any shortness of breath. He denies any chest pain or pressure. Patient's blood pressures were found to be elevated in the hospital with a systolic ranging between 112879. The patient does state he has been taking his blood pressures at home and states the numbers vary but he is unable to give any specifics as to what blood pressure readings he is getting at home. DIAGNOSTICS: - EKG reveals sinus mechanism with right bundle branch block. No signs of acute ischemia. - Laboratory data: WBC 7.3. Hemoglobin 14.8. Platelet count 131. Sodium 140. Potassium nonreportable due to hemolyzed specimen. BUN 20. Creatinine 1.12. Troponin 0.036. 0.046. proBNP 542 - Current home cardiac medications include lisinopril 10 mg daily, hydrochlorothiazide 25 mg daily, metoprolol succinate 50 mg daily, Imdur 30 mg daily, Lipitor 40 mg daily, aspirin 81 mg daily - Most recent echocardiogram obtained in the office in October 2024 revealed ejection fraction 45 to 50%, moderate left ventricular hypertrophy, moderate MR, mild TR - Cardiac catheterization history: August 2023 revealing mild nonobstructive disease in the LAD and RCA with no progression compared to 2019 No obstructive disease in the circumflex. Right dominant system. Normal LVEDP. 11/23/2024 Patient examined this morning at the bedside. Patient currently denies any chest pain or pressure. He denies any shortness of breath. Patient's blood pressure is significantly improved today. General surgery is following and patient is scheduled to undergo endoscopy tomorrow. PHYSICAL EXAM: VITAL SIGNS: Reviewed. GENERAL: Well-developed in no acute distress. HEENT: Head is normocephalic. Pupils are equal, round. Sclerae anicteric. Mucous membranes of the mouth are moist. Neck supple. No JVD or thyromegaly LUNGS: Respirations even and unlabored. Lungs essentially clear to auscultation bilaterally. HEART: Regular rate and rhythm. S1 and S2 heard. Systolic murmur noted. ABDOMEN: Soft. Distended. Nontender. EXTREMITIES: Normal range of motion. No clubbing or cyanosis. Peripheral pulses intact. No lower extremity edema NEUROLOGIC: Awake and alert. Oriented x 3. 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 Hypertensive urgency Minimally elevated troponins, possibility of chronically elevated troponins, no evidence of acute coronary syndrome, may be secondary to hypertensive urgency Mild nonobstructive CAD per cath 08/2023 Moderate left ventricular hypertrophy Moderate mitral regurgitation Hyperlipidemia Diabetes PLAN: An acute coronary event has been ruled out No need to repeat echocardiogram as this was performed in the office in October 2024 Continue current cardiac medications Continue to monitor blood pressure No plans for stress testing or cardiac catheterization from a cardiac standpoint Further recommendations pending patient course Nurse practitioner note has been reviewed by physician. Signing provider agrees with the documented findings, assessment, and plan of care documented by PACKAGING MANAGER as a scribe. Objective - Vital Signs Vital signs: Vital Signs Temp 97.8 F 11/23/24 11:30 Pulse 68 11/23/24 11:30 Resp 17 11/23/24 11:30 BP 137/82 11/23/24 11:30 Pulse Ox 94 L 11/23/24 11:30 FiO2 Intake & Output 11/22/24 11/23/24 11/23/24 18:59 06:59 18:59 Intake Total 826.213 20 190 Balance 826.213 20 190 Weight 102 kg Intake: IV 10 20 10 Invasive Line 1 10 20 10 Intake, IV Titration 136.213 Amount Heparin Sod,Pork in 0.45% 136.213 NaCl 25,000 unit In 0.45 % NaCl 1 250ml.bag @ 18 UNITS/KG/HR 17.962 mls/hr IV .[id number] [facility] Rx#: [id number] Oral 680 180 Other: Voiding Method Toilet Toilet Toilet Urinal Urinal Urinal # Voids 2 - Labs CBC & Chem 7: 11/22/24 05:27 11/21/24 20:13 Labs: Abnormal Lab Results - Last 24 Hours (Table) 11/22/24 11/23/24 Range/Units 16:12 11:59 POC Glucose (mg/dL) 183 H 124 H (70-110) mg/dL
[2024-11-23 16:53] LABS: Glucose,Whole Blood 127 mg/dL (70-110)
[2024-11-23 20:12] LABS: Glucose,Whole Blood 149 mg/dL (70-110)
[2024-11-23 21:17] VITALS: RESP 16
[2024-11-24 06:13] LABS: Glucose,Whole Blood 134 mg/dL (70-110)
[2024-11-24 06:41] LABS: Basophils % (A) 0 %; Eosinophils # (A) 0.2 k/uL (0-0.7); Eosinophils % (A) 3 %; HCT 46.4 % (39.0-53.0); HGB 14.8 gm/dL (13.0-17.5); Lymphocytes # (A) 1.4 k/uL (1.0-4.8); Lymphocytes % (A) 24 %; MCH 28.8 pg (25.0-35.0); MCHC 31.9 g/dL (31.0-37.0); MCV 90.1 fL (80.0-100.0); Mean Platelet Volume 9.4; Monocytes # (A) 0.4 k/uL (0-1.0); Monocytes % (A) 8 %; Neutrophils # (A) 3.6 k/uL (1.3-7.7); Neutrophils % (A) 62 %; Platelet Count 127 k/uL (150-450); RBC 5.14 m/uL (4.30-5.90); RDW 14.2 % (11.5-15.5); WBC 5.8 k/uL (3.8-10.6)
[2024-11-24 06:56] LABS: ALT 29 U/L (4-49); AST 26 U/L (17-59); African American GFR (CKD) 62 (>60 ml/min/1.73 sqM); Albumin 3.8 g/dL (3.5-5.0); Alkaline Phosphatase 62 U/L (38-126); Anion Gap 9 mmol/L; Blood Urea Nitrogen 25 mg/dL (9-20); Calcium 8.7 mg/dL (8.4-10.2); Carbon Dioxide 27 mmol/L (22-30); Chloride 102 mmol/L (98-107); Glucose 107 mg/dL (74-99); Non-African American GFR(CKD) 54 (>60 ml/min/1.73 sqM); Sodium 138 mmol/L (137-145); Total Bilirubin 0.6 mg/dL (0.2-1.3); Total Protein 6.3 g/dL (6.3-8.2)
[2024-11-24] MEDS ORDERED: PROPOFOL 10 MG/ML 20 ML VIAL IV ONE (10:55)
[2024-11-24] MEDS ORDERED: LIDOCAINE 1% INJ 10MG/ML (20 ML MDV) ONE (10:55)
[2024-11-24] MEDS: LACTATED RINGERS 1,000 ML IV ONE (10:59)
--- NOTE | 2024-11-24 11:28 | P.PCN ---
Date of Procedure: 11/24/24 Procedure(s) Performed: Preoperative Dx: Abdominal pain, bloating, abnormal CAT scan Postoperative Dx: Gastritis, hiatal hernia, Jimenez's esophagus with mild esophagitis, no duodenal lesion Procedure: EGD with Bx Anesthesia: Sedation Endoscopist: Dr. Pires Specimens: Antrum, esophagus Endoscopic Procedure: The patient was on the endoscopy table in the left decubitus position. The Olympus gastroscope was inserted into the oropharynx and passed under direct visualization to the region of the fourth portion of the duodenum. From that point the scope was slowly withdrawn inspecting all surfaces carefully. There were no neoplastic inflammatory or polypoid lesions throughout the duodenum. The area seen on CAT scan that appeared slightly suspicious in the third portion of the duodenum was normal-appearing. The pylorus was widely patent. The stomach was carefully inspected. There was mild gastritis present. A biopsy of the antrum took place to rule out H. pylori. Retroflexion revealed a moderate-sized hiatal hernia. 20% of the proximal stomach was above the diaphragm. There was no inflammation in the stomach above the diaphragm. Above the GE junction was a section of Jimenez's esophagus measuring 6 to 7 cm in length. There was mild inflammation. No ulcerations or nodularity. Numerous biopsies of the Jimenez's esophagus took place. The proximal and midesophagus appeared normal. The patient was then taken to the recovery room in stable condition per anesthesia guidelines. Recommendations: Continue antiacid therapy. Await biopsy results. Will recommend repeat upper endoscopy in 2 to 3 years based on pathology findings. Follow-up in the office to discuss the patient's complaints of abdominal bloating. Consider colonoscopy as outpatient. May discharge today from our standpoint.
[2024-11-24 11:39] LABS: Glucose,Whole Blood 117 mg/dL (70-110)
--- NOTE | 2024-11-24 12:22 | P.PN ---
Subjective Progress Note Date: 11/24/24 HISTORY OF PRESENT ILLNESS: This is a 74-year-old male with a past medical history significant for hype rtension, hyperlipidemia, and diabetes. Patient follows in the office with Dr. Martinez. We have been asked to see the patient in consultation for elevated troponins. Patient examined at the bedside. Patient states over the past couple weeks he has been having pain in his lower back more specifically on the side/flank region. He states he has a history of back pain and initially just contributed it to that. He states over the past few days he has been having lower abdominal pain as well. He reports increased abdominal distention and bloating and states he was unable to fit into his pants recently due to this. He reports nausea with no vomiting. He denies any shortness of breath. He gill es any chest pain or pressure. Patient's blood pressures were found to be elevated in the hospital with a systolic ranging between [id number]. The patient does state he has been taking his blood pressures at home and states the numbers vary but he is unable to give any specifics as to what blood pressure readings he is getting at home. DIAGNOSTICS: - EKG reveals sinus mechanism with right bundle branch block. No signs of acute ischemia. - Laboratory data: WBC 7.3. Hemoglobin 14.8. Platelet count 131. Sodium 140. Potassium nonreportable due to hemolyzed specimen. BUN 20. Creatinine 1.12. Troponin 0.036. 0.046. proBNP 542 - Current home cardiac medications include lisinopril 10 mg daily, hydrochlorothiazide 25 mg daily, metoprolol succinate 50 mg daily, Imdur 30 mg daily, Lipitor 40 mg daily, aspirin 81 mg daily - Most recent echocardiogram obtained in the office in October 2024 revealed ejection fraction 45 to 50%, moderate left ventricular hypertrophy, moderate MR, mild TR - Cardiac catheterization history: August 2023 revealing mild nonobstructive disease in the LAD and RCA with no progression compared to 2018 No obstructive disease in the circumflex. Right dominant system. Normal LVEDP. 11/23/2024 Patient examined this morning at the bedside. Patient currently denies any chest pain or pressure. He denies any shortness of breath. Patient's blood pressure is significantly improved today. General surgery is following and patient is scheduled to undergo endoscopy tomorrow. 11/24 Patient seen and examined. Patient denies chest pain, pressure, no shortness of breath. He is scheduled for endoscopy today. He denies abdominal pain. Blood pressure 121/67, heart rate 74, pulse ox 95% on room air. Hemoglobin stable at 14.8. BUN 25 creatinine 1.3 PHYSICAL EXAM: VITAL SIGNS: Reviewed. GENERAL: Well-developed in no acute distress. HEENT: Head is normocephalic. Pupils are equal, round. Sclerae anicteric. Mucous membranes of the mouth are moist. Neck supple. No JVD or thyromegaly LUNGS: Respirations even and unlabored. Lungs essentially clear to auscultation bilaterally. HEART: Regular rate and rhythm. S1 and S2 heard. Systolic murmur noted. ABDOMEN: Soft. Distended. Nontender. EXTREMITIES: Normal range of motion. No clubbing or cyanosis. Peripheral pulses intact. No lower extremity edema NEUROLOGIC: Awake and alert. Oriented x 3. 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 Hypertensive urgency Minimally elevated troponins, possibility of chronically elevated troponins, no evidence of acute coronary syndrome, may be secondary to hypertensive urgency Mild nonobstructive CAD per cath 08/2023 Moderate left ventricular hypertrophy Moderate mitral regurgitation Hyperlipidemia Diabetes PLAN: An acute coronary event has been ruled out No need to repeat echocardiogram as this was performed in the office in October 2024 Continue current cardiac medications No plans for stress testing or cardiac catheterization from a cardiac standpoint Patient is cleared for discharge from cardiology perspective. No further cardiac workup at this time. Cardiology will sign off this case and follow on an as-needed basis. Please reconsult for any new concerns. Patient may follow-up in the office in one to 2 weeks. Nurse practitioner note has been reviewed by physician. Signing provider agrees with the documented findings, assessment, and plan of care documented by RIGHT [employer] WAY APPRAISER as a scribe. Objective - Vital Signs Vital signs: Vital Signs Temp 97.7 F 11/24/24 04:00 Pulse 60 11/24/24 04:00 Resp 16 11/24/24 04:00 BP 124/62 11/24/24 04:00 Pulse Ox 93 L 11/24/24 04:00 FiO2 Intake & Output 11/23/24 11/24/24 11/24/24 18:59 06:59 18:59 Intake Total 200 138 Balance 200 138 Weight 100.5 kg Intake: IV 20 20 Invasive Line 1 20 20 Oral 180 118 Other: Voiding Method Toilet Toilet Urinal Urinal # Voids 2 1 - Labs CBC & Chem 7: 11/24/24 06:14 11/24/24 06:14 Labs: Abnormal Lab Results - Last 24 Hours (Table) 11/23/24 11/23/24 11/23/24 Range/Units 11:59 16:51 20:11 Plt Count (150-450) k/uL BUN (9-20) mg/dL Creatinine (0.66-1.25) mg/dL Glucose (74-99) mg/dL POC Glucose (mg/dL) 124 H 127 H 149 H (70-110) mg/dL 11/24/24 11/24/24 11/24/24 Range/Units 06:12 06:14 06:14 Plt Count 127 L (150-450) k/uL BUN 25 H (9-20) mg/dL Creatinine 1.30 H (0.66-1.25) mg/dL Glucose 107 H (74-99) mg/dL POC Glucose (mg/dL) 134 H (70-110) mg/dL
[2024-11-24 14:56] VITALS: BP 122/69; PULSE 62; TEMP 97.6
== END 2024-11-24 15:24 | disposition home or self-care (01) ==
LOC: EC 18:02 → INTOOBSV 11-22 02:31 → 3SCARD 11-22 02:31
PROVIDERS: ADMIT Internal Medicine; ATTEND Internal Medicine
DX: I71.43 Infrarenal abdominal aortic aneurysm, without rupture (principal); I51.3 Intracardiac thrombosis, not elsewhere classified; K21.00 Gastro-esophageal reflux disease with esophagitis, without bleeding; K22.70 Barrett's esophagus without dysplasia; K29.50 Unspecified chronic gastritis without bleeding; K44.9 Diaphragmatic hernia without obstruction or gangrene; I16.0 Hypertensive urgency; I10 Essential (primary) hypertension; E11.9 Type 2 diabetes mellitus without complications; E78.5 Hyperlipidemia, unspecified; G89.29 Other chronic pain; I25.10 Atherosclerotic heart disease of native coronary artery without angina pectoris; I25.2 Old myocardial infarction; I34.0 Nonrheumatic mitral (valve) insufficiency; J44.9 Chronic obstructive pulmonary disease, unspecified; M19.90 Unspecified osteoarthritis, unspecified site; N40.0 Benign prostatic hyperplasia without lower urinary tract symptoms; Z79.82 Long term (current) use of aspirin; Z79.84 Long term (current) use of oral hypoglycemic drugs; Z79.899 Other long term (current) drug therapy; Z87.891 Personal history of nicotine dependence
CPT/HCPCS: 96366 ×2; 96376; 96365; 96375; 99285; 36415; 93005; 88305; 83880; 80053 ×2; 82150; 83690; 84484; 85025 ×2; 85027; 85730; 81003; 72100; 74018; 74177; 43239; G0378 ×3; J0360; J2003; J1644 ×2; J1885; J2704; Q9967

== ENCOUNTER → 2024-12-10 | Outpatient (CLI) | payer MEDICARE ==
[2024-12-10 16:05] LABS: Blood Urea Nitrogen 20.7 mg/dL (9.0-27.0)
[2024-12-10 16:06] LABS: Carbon Dioxide 24.5 mmol/L (21.6-31.8); Chloride 108 mmol/L (96-109); Potassium 4.3 mmol/L (3.5-5.5); Sodium 142 mmol/L (135-145)
== END | disposition home or self-care (01) ==
LOC: LABWHC1 09:16
PROVIDERS: ATTEND Internal Medicine Interventional Cardiology
DX: I10 Essential (primary) hypertension (principal)
CPT/HCPCS: 36415; 80051; 82565; 84520

== ENCOUNTER 2025-04-01 11:24 | Observation (INO) | payer MEDICARE ==
[2025-04-01 11:54] LABS: Basophils # (A) 0.04 10*3/uL (0.00-0.10); Basophils % (A) 0.9 %; Eosinophils # (A) 0.15 10*3/uL (0.04-0.35); Eosinophils % (A) 3.2 %; HCT 42.0 % (39.6-50.0); HGB 14.5 g/dL (13.0-17.0); Immature Platelet Fraction 3.7 % (1.1-6.1); Lymphocytes # (A) 1.21 10*3/uL (0.90-5.00); Lymphocytes % (A) 26.1 %; MCH 30.7 pg (27.0-32.0); MCHC 34.5 g/dL (32.0-37.0); MCV 89.0 fL (80.0-97.0); Monocytes # (A) 0.43 10*3/uL (0.20-1.00); Monocytes % (A) 9.3 %; Neutrophils # (A) 2.79 10*3/uL (1.80-7.70); Neutrophils % (A) 60.1 %; Platelet Count 136 10*3/uL (140-440); RBC 4.72 10*6/uL (4.40-5.60); RDW 13.9 % (11.5-14.5); WBC 4.64 10*3/uL (4.50-10.00)
[2025-04-01 11:59] LABS: INR 1.0 (<1.2); Partial Thromboplastin Time 23.5 sec (22.0-30.0); Prothrombin Time 11.5 sec (10.0-12.5)
[2025-04-01 12:07] LABS: ALT 25 U/L (4-49); AST 34 U/L (17-59); African American GFR (CKD) 75 (>60 ml/min/1.73 sqM); Albumin 4.1 g/dL (3.5-5.0); Alkaline Phosphatase 59 U/L (38-126); Anion Gap 12 mmol/L; Blood Urea Nitrogen 14 mg/dL (9-20); Calcium 9.1 mg/dL (8.4-10.2); Carbon Dioxide 25 mmol/L (22-30); Chloride 105 mmol/L (98-107); Glucose 162 mg/dL (74-99); Magnesium 1.7 mg/dL (1.6-2.3); Non-African American GFR(CKD) 65 (>60 ml/min/1.73 sqM); Potassium 3.8 mmol/L (3.5-5.1); Sodium 142 mmol/L (137-145); Total Protein 6.8 g/dL (6.3-8.2)
--- NOTE | 2025-04-01 12:11 | XR ---
EXAMINATION TYPE: XR chest 2V DATE OF EXAM: 04/01/2025 12:06 PM COMPARISON: Chest radiographs from 09/06/2023 TECHNIQUE: XR chest 2V Frontal and lateral views of the chest. CLINICAL INDICATION:Male, 75 years old with history of Chest Pain; FINDINGS: Lungs/Pleura: There is no evidence of pleural effusion, focal consolidation, or pneumothorax. Pulmonary vascularity: Unremarkable. Heart/mediastinum: Cardiomediastinal silhouette is unremarkable. Musculoskeletal: No acute osseous pathology. IMPRESSION: No acute cardiopulmonary disease/process. [facility], , 04/01/2025 12:09 PM
[2025-04-01] MEDS ORDERED: NITROGLYCERIN SL TABS 0.4 MG TAB SUBLINGUAL PRN (13:01)
--- NOTE | 2025-04-01 13:01 | ED ---
General Adult HPI - General Chief complaint: Chest Pain Stated complaint: chest pain Time Seen by Provider: 04/01/25 11:35 Source: patient, RN notes reviewed, old records reviewed Mode of arrival: ambulatory Limitations: no limitations - History of Present Illness Initial comments: This is a 75-year-old male who presents to the emergency department complaining of chest pain. Patient states that started on Sunday or Sunday. Patient is assumed it was secondary to cleaning some windows however it persisted and got slowly worse so he decided come to the emergency department. Patient states the pain started in the center of his chest and now it spread to the left and a little bit to the right. Patient denied any difficulty breathing. Patient s tates he has had a heart attack in the past. Patient denies any diaphoretic episode. Patient denies any nausea vomiting. - Related Data Home Medications Medication Instructions Recorded Confirmed Atorvastatin Calcium [Lipitor] 40 mg PO DAILY 01/29/18 11/22/24 oxyBUTYnin chloride [Ditropan] 5 mg PO BID 01/29/18 11/22/24 glipiZIDE [Glucotrol] 5 mg PO BID 12/22/21 11/22/24 Tamsulosin HCl [Flomax] 0.8 mg PO HS 04/04/23 11/22/24 traMADol HCL 50 mg PO Q6H PRN 09/06/23 11/22/24 Metoprolol Succinate (ER) [Toprol 50 mg PO DAILY 11/22/24 11/22/24 XL] hydroCHLOROthiazide [Hydrodiuril] 25 mg PO DAILY 11/22/24 11/22/24 Previous Rx's Medication Instructions Recorded Aspirin 81 mg PO DAILY 30 Days #30 tab 09/08/23 Isosorbide Mononitrate ER [Imdur] 30 mg PO DAILY 30 Days #30 tab 09/08/23 Lactulose [Cephulac] 20 gm PO TID 30 Days #1800 ml 11/24/24 Pantoprazole [Protonix] 40 mg PO HS 90 Days #90 tab 11/24/24 lisinopriL [Zestril] 20 mg PO DAILY 90 Days #90 tab 11/24/24 Allergies Allergy/AdvReac Type Severity Reaction Status Date / Time No Known Allergies Allergy Verified 04/01/25 11:27 Review of Systems ROS Statement: Those systems with pertinent positive or pertinent negative responses have been documented in the HPI. ROS Other: All systems not noted in ROS Statement are negative. Past Medical History Past Medical History: Diabetes Mellitus, GERD/Reflux, Hyperlipidemia, Hypertension, Osteoarthritis (OA) Additional Past Medical History / Comment(s): Hx kidney stones. Chronic lower back and neck pain. Numbness in left arm X2-3 months. History of Any Multi-Drug Resistant Organisms: None Reported Past Surgical History: Adenoidectomy, Back Surgery, Orthopedic Surgery, Tonsill ectomy Additional Past Surgical History / Comment(s): Back Surgery X4, bilateral shoulder surgery, pain clinic procedure. Past Anesthesia/Blood Transfusion Reactions: No Reported Reaction, Motion Sickness Past Psychological History: No Psychological Hx Reported Smoking Status: Former smoker Past Alcohol Use History: Rare Past Drug Use History: None Reported - Past Family History Father Family Medical History: Cancer General Exam - General Exam Comments Initial Comments: GENERAL: Patient is well-developed and well-nourished. Patient is nontoxic and well- hydrated and is in mild distress. ENT: Neck is soft and supple. No significant lymphadenopathy is noted. Oropharynx is clear. Moist mucous membranes. Neck has full range of motion without eliciting any pain. EYES: The sclera were anicteric and conjunctiva were pink and moist. Extraocular movements were intact and pupils were equal round and reactive to light. Eyelids were unremarkable. PULMONARY: Unlabored respirations. Good breath sounds bilaterally. No audible rales rhonchi or wheezing was noted. CARDIOVASCULAR: There is a regular rate and rhythm without any murmurs gallops or rubs. ABDOMEN: Soft and nontender with normal bowel sounds. No palpable organomegaly was noted. There is no palpable pulsatile mass. SKIN: Skin is clear with no lesions or rashes and otherwise unremarkable. NEUROLOGIC: Patient is alert and oriented x3. Cranial nerves II through XII are grossly intact. Motor and sensory are also intact. Normal speech, volume and content. Symmetrical smile. MUSCULOSKELETAL: Normal extremities with adequate strength and full range of motion. No lower extremity swelling or edema. No calf tenderness. LYMPHATICS: No significant lymphadenopathy is noted PSYCHIATRIC: Normal psychiatric evaluation. Limitations: no limitations Course Vital Signs 04/01/25 04/01/25 11:25 12:39 Temperature 97.7 F Pulse Rate 78 74 Respiratory 20 18 Rate Blood Pressure 163/87 133/94 O2 Sat by Pulse 99 97 Oximetry Medical Decision Making - Medical Decision Making Was pt. sent in by a medical professional or institution ([facility], [employer], urgent care, hospital, or [facility]...) When possible be specific @ -No Did you speak to anyone other than the patient for history (EMS, parent, family, police, friend...)? What history was obtained from this source @ -No Did you review nursing and triage notes (agree or disagree)? Why? @ -I reviewed and agree with nursing and triage notes Were old charts reviewed (outside hosp., previous admission, EMS record, old EKG, old radiological studies, urgent care reports/EKG's, [facility] records)? Report findings @ -No old charts were reviewed Differential Diagnosis? @ -Differential Chest Pain: Stable Angina, Unstable Angina, STEMI, NSTEMI Aortic Dissection, Pneumothorax, Musculoskeletal, Esophageal Spasm GERD, Cholecystitis, Pancreatitis, Zoster, this is not meant to be an all-inclusive list. EKG interpreted by me (3pts min.). @ -As above X-rays interpreted by me (1pt min.). @ -Wrist x-ray shows no acute abnormality CT interpreted by me (1pt min.). @ -None done U/S interpreted by me (1pt. min.). @ -None done What testing was considered but not performed or refused? (CT, X-rays, U/S, labs)? Why? @ -None What meds were considered but not given or refused? Why? @ -None Did you discuss the management of the patient with other professionals (professionals i.e. [facility] Juarez, [employer]ER[employer] HELPER, lab, RT, psych nurse, social worker assistant, appeals coordinator, teacher, correction officer city or county jail, case fitter)? Give summary @ -I spoke with Dr. Alexandra he agreed to admit the patient I admitted the patient wrote a bitting arsenic consult cardiology Was smoking cessation discussed for >3mins.? @ -No Was critical care preformed (if so, how long)? @ -35 minutes Were there social determinants of health that impacted care today? How? (Homelessness, low income, unemployed, alcoholism, drug addiction, transportation, low edu. Level, literacy, decrease access to med. care, penitentiary, rehab)? @ -No Was there de-escalation of care discussed even if they declined (Discuss DNR or withdrawal of care, Hospice)? DNR status @ -No What co-morbidities impacted this encounter? (DM, HTN, Smoking, COPD, CAD, Cancer, CVA, ARF, Chemo, Hep., AIDS, mental health diagnosis, sleep apnea, morbid obesity)? @ -None Was patient admitted / discharged? Hospital course, mention meds given and route, prescriptions, significant lab abnormalities, going to OR and other pertinent info. @ -Patient continued to have chest pain troponin was elevated so I started the patient on heparin admitted the patient I wrote admitting orders and I consulted cardiology Undiagnosed new problem with uncertain prognosis? @ -No Drug Therapy requiring intensive monitoring for toxicity (Heparin, Nitro, Insulin, Cardizem)? @ -No Were any procedures done? @ -No Diagnosis/symptom? @ -Unstable angina Acute, or Chronic, or Acute on Chronic? @ -Acute Uncomplicated (without systemic symptoms) or Complicated (systemic symptoms)? @ -Complicated Side effects of treatment? @ -No Exacerbation, Progression, or Severe Exacerbation? @ -No Poses a threat to life or bodily function? How? (Chest pain, USA, MD, pneumonia, PE, COPD, DKA, ARF, appy, cholecystitis, CVA, Diverticulitis, Homicidal, Suicidal, threat to staff... and all critical care pts) @ -Yes this can lead to an MD and endorgan dysfunction - Lab Data Result diagrams: 04/01/25 11:37 04/01/25 11:37 Lab Results 04/01/25 04/01/25 04/01/25 Range/Units 11:37 11:37 11:37 WBC 4.64 (4.50-10.00) 10*3/uL RBC 4.72 (4.40-5.60) 10*6/uL Hgb 14.5 (13.0-17.0) g/dL Hct 42.0 (39.6-50.0) % MCV 89.0 (80.0-97.0) fL MCH 30.7 (27.0-32.0) pg MCHC 34.5 (32.0-37.0) g/dL Plt Count 136 L (140-440) 10*3/uL MPV 11.7 (9.5-12.2) fL Immature Gran % (Auto) 0.4 % Neutrophils % 60.1 % Lymphocytes % 26.1 % Monocytes % 9.3 % Eosinophils % 3.2 % Basophils % 0.9 % Immature Gran # 0.02 (0.00-0.04) 10*3/uL Neutrophils # 2.79 (1.80-7.70) 10*3/uL Lymphocytes # 1.21 (0.90-5.00) 10*3/uL Monocytes # 0.43 (0.20-1.00) 10*3/uL Eosinophils # 0.15 (0.04-0.35) 10*3/uL Basophils # 0.04 (0.00-0.10) 10*3/uL Immature Plt Fraction 3.7 (1.1-6.1) % PT 11.5 (10.0-12.5) sec INR 1.0 (<1.2) APTT 23.5 (22.0-30.0) sec Sodium 142 (137-145) mmol/L Potassium 3.8 (3.5-5.1) mmol/L Chloride 105 (98-107) mmol/L Carbon Dioxide 25 (22-30) mmol/L Anion Gap 12 mmol/L BUN 14 (9-20) mg/dL Creatinine 1.11 (0.66-1.25) mg/dL Est GFR (CKD-EPI)AfAm 75 (>60 ml/min/1.73 sqM) Est GFR (CKD-EPI)NonAf 65 (>60 ml/min/1.73 sqM) Glucose 162 H (74-99) mg/dL Calcium 9.1 (8.4-10.2) mg/dL Magnesium 1.7 (1.6-2.3) mg/dL Total Bilirubin 0.7 (0.2-1.3) mg/dL AST 34 (17-59) U/L ALT 25 (4-49) U/L Alkaline Phosphatase 59 (38-126) U/L Troponin I (0.000-0.034) ng/mL Total Protein 6.8 (6.3-8.2) g/dL Albumin 4.1 (3.5-5.0) g/dL 04/01/25 Range/Units 11:37 WBC (4.50-10.00) 10*3/uL RBC (4.40-5.60) 10*6/uL Hgb (13.0-17.0) g/dL Hct (39.6-50.0) % MCV (80.0-97.0) fL MCH (27.0-32.0) pg MCHC (32.0-37.0) g/dL Plt Count (140-440) 10*3/uL MPV (9.5-12.2) fL Immature Gran % (Auto) % Neutrophils % % Lymphocytes % % Monocytes % % Eosinophils % % Basophils % % Immature Gran # (0.00-0.04) 10*3/uL Neutrophils # (1.80-7.70) 10*3/uL Lymphocytes # (0.90-5.00) 10*3/uL Monocytes # (0.20-1.00) 10*3/uL Eosinophils # (0.04-0.35) 10*3/uL Basophils # (0.00-0.10) 10*3/uL Immature Plt Fraction (1.1-6.1) % PT (10.0-12.5) sec INR (<1.2) APTT (22.0-30.0) sec Sodium (137-145) mmol/L Potassium (3.5-5.1) mmol/L Chloride (98-107) mmol/L Carbon Dioxide (22-30) mmol/L Anion Gap mmol/L BUN (9-20) mg/dL Creatinine (0.66-1.25) mg/dL Est GFR (CKD-EPI)AfAm (>60 ml/min/1.73 sqM) Est GFR (CKD-EPI)NonAf (>60 ml/min/1.73 sqM) Glucose (74-99) mg/dL Calcium (8.4-10.2) mg/dL Magnesium (1.6-2.3) mg/dL Total Bilirubin (0.2-1.3) mg/dL AST (17-59) U/L ALT (4-49) U/L Alkaline Phosphatase (38-126) U/L Troponin I 0.055 H* (0.000-0.034) ng/mL Total Protein (6.3-8.2) g/dL Albumin (3.5-5.0) g/dL Disposition Clinical Impression: Unstable angina pectoris Disposition: ADMITTED IP TO THIS HOSP Referrals: Nohemi Dennis MD [Primary Care Provider] - 1-2 days Time of Disposition: 13:01
[2025-04-01] MEDS ORDERED: HEPARIN SODIUM 1,000 UN/ML (10ML VL) IV PRN (16:19)
[2025-04-01] MEDS: HEPARIN SODIUM 1,000 UN/ML (10ML VL) IV ONE (16:36)
[2025-04-01] MEDS: HEPARIN SOD,PORK IN 0.45% NACL 25,000 UNIT in 0.45% NACL 1 250ML.BAG IV SCH (16:40)
[2025-04-01] MEDS: glipiZIDE 5 MG TAB PO SCH (17:04)
[2025-04-01] MEDS: NITROGLYCERIN OINT 1 INCH/GM PACKET TOPICAL SCH (17:04)
[2025-04-01 18:05] LABS: Basophils # (A) 0.03 10*3/uL (0.00-0.10); Basophils % (A) 0.6 %; Eosinophils # (A) 0.21 10*3/uL (0.04-0.35); Eosinophils % (A) 4.1 %; HCT 42.3 % (39.6-50.0); HGB 14.0 g/dL (13.0-17.0); Lymphocytes # (A) 1.37 10*3/uL (0.90-5.00); Lymphocytes % (A) 27.0 %; MCH 30.1 pg (27.0-32.0); MCHC 33.1 g/dL (32.0-37.0); MCV 91.0 fL (80.0-97.0); Monocytes # (A) 0.53 10*3/uL (0.20-1.00); Monocytes % (A) 10.4 %; Neutrophils # (A) 2.92 10*3/uL (1.80-7.70); Neutrophils % (A) 57.5 %; Platelet Count 151 10*3/uL (140-440); RBC 4.65 10*6/uL (4.40-5.60); RDW 14.3 % (11.5-14.5); WBC 5.08 10*3/uL (4.50-10.00)
[2025-04-01 18:25] LABS: INR 1.1 (<1.2); Prothrombin Time 12.4 sec (10.0-12.5)
[2025-04-01 18:29] LABS: Partial Thromboplastin Time >200.0 sec (22.0-30.0)
[2025-04-01] MEDS: TAMSULOSIN 0.4 MG CAP.ER.24H PO SCH (22:04)
[2025-04-02 05:05] LABS: Glucose,Whole Blood 98 mg/dL (70-110)
[2025-04-02] MEDS ORDERED: ASPIRIN 325 MG TAB PO SCH (09:00)
[2025-04-02] MEDS: traMADol 50 MG TAB PO PRN (09:56)
[2025-04-02] MEDS: DAPAGLIFLOZIN PROPANEDIOL 5 MG TABLET PO SCH (09:56)
[2025-04-02] MEDS: PANTOPRAZOLE 40 MG TABLET PO SCH (09:56)
[2025-04-02] MEDS: ASPIRIN 81 MG PO SCH (09:56)
[2025-04-02] MEDS: METOPROLOL SUCCINATE (ER) 50 MG TAB.ER.24H PO SCH (09:56)
[2025-04-02] MEDS: ATORVASTATIN 40 MG TAB PO SCH (09:57)
[2025-04-02 11:59] LABS: Basophils # (A) 0.04 X 10*3/uL (0.00-0.10); Basophils % (A) 0.8 %; Eosinophils # (A) 0.26 X 10*3/uL (0.04-0.35); Eosinophils % (A) 5.0 %; HCT 43.1 % (39.6-50.0); HGB 14.0 g/dL (13.0-17.0); Immature Grans, Automated 0.40 %; Lymphocytes # (A) 1.35 X 10*3/uL (0.90-5.00); Lymphocytes % (A) 25.9 %; MCH 29.7 pg (27.0-32.0); MCHC 32.5 g/dL (32.0-37.0); MCV 91.3 FL (80.0-97.0); Monocytes # (A) 0.64 X 10*3/uL (0.20-1.00); Monocytes % (A) 12.3 %; NRBC Per 100 WBC 0 X 10*3/uL (0.00-0.01); Neutrophils # (A) 2.90 X 10*3/uL (1.80-7.70); Neutrophils % (A) 55.6 %; Platelet Count 134 X 10*3/uL (140-440); RBC 4.72 X 10*6/uL (4.40-5.60); RDW 14.2 % (11.5-14.5); WBC 5.21 X 10*3/uL (4.50-10.00)
[2025-04-02 12:04] LABS: Basophils # (A) 0.03 10*3/uL (0.00-0.10); Basophils % (A) 0.7 %; Eosinophils # (A) 0.15 10*3/uL (0.04-0.35); Eosinophils % (A) 3.3 %; HCT 43.9 % (39.6-50.0); HGB 14.7 g/dL (13.0-17.0); Lymphocytes # (A) 1.19 10*3/uL (0.90-5.00); Lymphocytes % (A) 25.9 %; MCH 30.3 pg (27.0-32.0); MCHC 33.5 g/dL (32.0-37.0); MCV 90.5 fL (80.0-97.0); Monocytes # (A) 0.45 10*3/uL (0.20-1.00); Monocytes % (A) 9.8 %; Neutrophils # (A) 2.77 10*3/uL (1.80-7.70); Neutrophils % (A) 60.1 %; Platelet Count 148 10*3/uL (140-440); RBC 4.85 10*6/uL (4.40-5.60); RDW 13.9 % (11.5-14.5); WBC 4.60 10*3/uL (4.50-10.00)
--- NOTE | 2025-04-02 12:06 | P.CRDCN ---
History of Present Illness History of present illness: HISTORY OF PRESENT ILLNESS: This is a 75-year-old male with a past medical history significant for minimal CAD, hypertension, hyperlipidemia, and diabetes. Patient follows in the office w jennifer Martinez. We have been asked to see the patient in consultation for chest pain. Patient examined at the bedside. Patient presented to the hospital for chief complaint of chest discomfort. He states that he had been cleaning windows and afterwards developed chest pain. He states the pain is across both sides of his chest. He describes it as a pressure type sensation. Patient was found to have elevated troponins and was started on IV heparin. Additionally patient's blood pressures have been elevated upon admission with a systolic greater than 160 and up to 202/103. DIAGNOSTICS: - EKG reveals sinus mechanism with no signs of acute ischemia - Chest xray negative for acute process. - Laboratory data: Troponin 0.055. 0.053. 0.056. - Current home cardiac medications include metoprolol succinate 50 mg daily, Imdur 30 mg daily, Jardiance 10 mg daily, lisinopril 20 mg twice a day, a torvastatin 40 mg daily, aspirin 81 mg daily. - Most recent echocardiogram obtained in October 2024 revealing EF 47%, mild AI, moderate MR, mild TR - Cardiac catheterization history: August 2023 revealing 20% mid LAD, 30% mid RCA, right dominant system REVIEW OF SYSTEMS: At the time of my exam: CONSTITUTIONAL: Denies fever or chills. HEENT: Denies blurred vision, vision changes, or eye pain. Denies hemoptysis CARDIOVASCULAR: Denies chest pain. Denies orthopnea. Denies PND. Denies palpitations RESPIRATORY: Denies shortness of breath. GASTROINTESTINAL: Denies abdominal pain. Denies nausea or vomiting. HEMATOLOGIC: Denies bleeding disorders. GENITOURINARY: Denies any blood in urine. SKIN: Denies pruitis. Denies rash. PHYSICAL EXAM: VITAL SIGNS: Reviewed. GENERAL: Well-developed in no acute distress. HEENT: Head is normocephalic. Pupils are equal, round. Sclerae anicteric. Mucous membranes of the mouth are moist. Neck supple. No JVD or thyromegaly LUNGS: Respirations even and unlabored. Lungs essentially clear to auscultation bilaterally. HEART: Regular rate and rhythm. S1 and S2 heard. ABDOMEN: Soft. Nondistended. Nontender. EXTREMITIES: Normal range of motion. No clubbing or cyanosis. Peripheral pulses intact. No lower extremity edema NEUROLOGIC: Awake and alert. Oriented x 3. ASSESSMENT: Chest pain Non-STEMI Hypertension, uncontrolled Minimal CAD per cath in August 2023 Hyperlipidemia Diabetes Obesity: BMI 30.5 PLAN: Obtain 2D echo to assess cardiac structure and function Resume home cardiac medications amlodipine 5 mg daily for optimal blood pressure control Continue IV heparin NPO at OR Patient to undergo cardiac cath tomorrow with Dr. Martinez Further recommendations pending patient course Nurse practitioner note has been reviewed by physician. Signing provider agrees with the documented findings, assessment, and plan of care documented by [employer] as a scribe. Past Medical History Past Medical History: Diabetes Mellitus, GERD/Reflux, Hyperlipidemia, Hypertension, Osteoarthritis (OA) Additional Past Medical History / Comment(s): Hx kidney stones. Chronic lower back and neck pain. Numbness in left arm X2-3 months. History of Any Multi-Drug Resistant Organisms: None Reported Past Surgical History: Adenoidectomy, Back Surgery, Orthopedic Surgery, Tonsillectomy Additional Past Surgical History / Comment(s): Back Surgery X4, bilateral shoulder surgery, pain clinic procedure. Past Anesthesia/Blood Transfusion Reactions: No Reported Reaction, Motion Sickness Past Psychological History: No Psychological Hx Reported Smoking Status: Former smoker Past Alcohol Use History: Rare Past Drug Use History: None Reported - Past Family History Father Family Medical History: Cancer Medications and Allergies Home Medications Medication Instructions Recorded Confirmed Type Atorvastatin Calcium [Lipitor] 40 mg PO DAILY 01/29/18 04/01/25 History oxyBUTYnin chloride [Ditropan] 5 mg PO BID 01/29/18 04/01/25 History glipiZIDE [Glucotrol] 5 mg PO BID 12/22/21 04/01/25 History Tamsulosin HCl [Flomax] 0.8 mg PO HS 04/04/23 04/01/25 History traMADol HCL 50 mg PO DAILY PRN 09/06/23 04/01/25 History Aspirin 81 mg PO DAILY 30 Days #30 tab 09/08/23 04/01/25 Rx Isosorbide Mononitrate ER [Imdur] 30 mg PO DAILY 30 Days #30 tab 09/08/23 04/01/25 Rx Metoprolol Succinate (ER) [Toprol 50 mg PO DAILY 11/22/24 04/01/25 History XL] Empagliflozin [Jardiance] 10 mg PO DAILY 04/01/25 04/01/25 History Pantoprazole [Protonix] 40 mg PO DAILY 04/01/25 04/01/25 History lisinopriL [Zestril] 20 mg PO BID 04/01/25 04/01/25 History Allergies Allergy/AdvReac Type Severity Reaction Status Date / Time No Known Allergies Allergy Verified 04/01/25 13:06 Physical Exam Vitals: Vital Signs Temp Pulse Pulse Resp BP BP BP 04/02/25 07:18 98.2 F 64 16 167/78 04/02/25 01:58 98.1 F 69 16 157/90 04/02/25 01:35 71 04/01/25 22:07 71 04/01/25 22:00 71 165/90 04/01/25 20:59 97.9 F 71 16 202/103 04/01/25 20:30 70 18 160/90 04/01/25 19:13 83 16 154/96 04/01/25 17:06 75 18 140/86 04/01/25 16:00 73 18 151/96 04/01/25 15:00 70 18 159/103 04/01/25 14:00 66 16 143/99 04/01/25 13:00 67 16 134/85 04/01/25 12:39 74 18 133/94 04/01/25 11:25 97.7 F 78 20 163/87 Pulse Ox 04/02/25 07:18 95 04/02/25 01:58 95 04/02/25 01:35 04/01/25 22:07 04/01/25 22:00 96 04/01/25 20:59 97 04/01/25 20:30 95 04/01/25 19:13 93 L 04/01/25 17:06 94 L 04/01/25 16:00 95 04/01/25 15:00 97 04/01/25 14:00 94 L 04/01/25 13:00 95 04/01/25 12:39 97 04/01/25 11:25 99 Intake and Output 04/01/25 04/02/25 04/02/25 22:59 06:59 14:59 Intake Total 33.985 Balance 33.985 Intake: Intake, IV Titration 33.985 Amount Heparin Sod,Pork in 0.45% 33.985 NaCl 25,000 unit In 0.45 % NaCl 1 250ml.bag @ 18 UNITS/KG/HR 18.37 mls/hr IV .[id number] [facility] Rx#: [id number] Other: Voiding Method Toilet # Voids 1 2 Weight 102.058 kg Results 04/02/25 11:43 04/01/25 11:37 Cardiac Enzymes 04/01/25 04/01/25 04/01/25 Range/Units 11:37 11:37 14:16 AST 34 (17-59) U/L Troponin I 0.055 H* 0.053 H* (0.000-0.034) ng/mL 04/01/25 Range/Units 17:13 AST (17-59) U/L Troponin I 0.056 H* (0.000-0.034) ng/mL Coagulation 04/01/25 04/01/25 04/01/25 Range/Units 11:37 17:13 18:50 PT 11.5 12.4 (10.0-12.5) sec APTT 23.5 >200.0 H* 160.8 H* (22.0-30.0) sec 04/01/25 Range/Units 23:07 PT (10.0-12.5) sec APTT 25.3 (22.0-30.0) sec CBC 04/01/25 04/01/25 Range/Units 11:37 17:13 WBC 4.64 5.08 (4.50-10.00) 10*3/uL RBC 4.72 4.65 (4.40-5.60) 10*6/uL Hgb 14.5 14.0 (13.0-17.0) g/dL Hct 42.0 42.3 (39.6-50.0) % Plt Count 136 L 151 (140-440) 10*3/uL Comprehensive Metabolic Panel 04/01/25 Range/Units 11:37 Sodium 142 (137-145) mmol/L Potassium 3.8 (3.5-5.1) mmol/L Chloride 105 (98-107) mmol/L Carbon Dioxide 25 (22-30) mmol/L BUN 14 (9-20) mg/dL Creatinine 1.11 (0.66-1.25) mg/dL Glucose 162 H (74-99) mg/dL Calcium 9.1 (8.4-10.2) mg/dL AST 34 (17-59) U/L ALT 25 (4-49) U/L Alkaline Phosphatase 59 (38-126) U/L Total Protein 6.8 (6.3-8.2) g/dL Albumin 4.1 (3.5-5.0) g/dL Current Medications Generic Name Dose Route Start Last Admin Trade Name Freq PRN Reason Stop Dose Admin Aspirin 81 mg 04/02/25 09:00 04/02/25 09:56 Aspirin 81 Mg PO 81 mg DAILY [facility] Administration Atorvastatin Calcium 40 mg 04/02/25 09:00 04/02/25 09:57 Atorvastatin 40 Mg Tab PO 40 mg DAILY [facility] Administration Dapagliflozin 5 mg 04/02/25 09:00 04/02/25 09:56 Dapagliflozin Propanediol 5 Mg Tablet PO 5 mg DAILY [facility] Administration Glipizide 5 mg 04/01/25 17:30 04/02/25 09:57 Glipizide 5 Mg Tab PO 5 mg AC-BID [facility] Administration Heparin Sodium (Porcine) 0 unit 04/01/25 16:19 Heparin Sodium 1,000 Un/Ml (10ml Vl) IV PER PROTOCOL PRN Low PTT Protocol Lisinopril 20 mg 04/01/25 21:00 04/02/25 09:57 Lisinopril 20 Mg Tab PO 20 mg BID [facility] Administration Metoprolol Succinate 50 mg 04/02/25 09:00 04/02/25 09:56 Metoprolol Succinate (Er) 50 Mg Tab.Er.24h PO 50 mg DAILY [facility] Administration Nitroglycerin 0.4 mg 04/01/25 13:01 Nitroglycerin Sl Tabs 0.4 Mg Tab SUBLINGUAL Q5M PRN Chest Pain Nitroglycerin 1 inch 04/01/25 18:00 04/02/25 06:11 Nitroglycerin Oint 1 Inch/Gm Packet TOPICAL Not Given Q6HR [facility] Oxybutynin Chloride 5 mg 04/01/25 21:00 04/02/25 09:56 Oxybutynin Chloride 5 Mg Tab PO 5 mg BID [facility] Administration Pantoprazole Sodium 40 mg 04/02/25 09:00 04/02/25 09:56 Pantoprazole 40 Mg Tablet PO 40 mg DAILY [facility] Administration Tamsulosin HCl 0.8 mg 04/01/25 21:00 04/01/25 22:04 Tamsulosin 0.4 Mg Cap.Er.24h PO 0.8 mg HS [facility] Administration Tramadol HCl 50 mg 04/01/25 14:55 04/02/25 09:56 Tramadol 50 Mg Tab PO 50 mg DAILY PRN Administration Pain Intake and Output 04/01/25 04/02/25 04/02/25 22:59 06:59 14:59 Intake Total 33.985 Balance 33.985 Intake: Intake, IV Titration 33.985 Amount Heparin Sod,Pork in 0.45% 33.985 NaCl 25,000 unit In 0.45 % NaCl 1 250ml.bag @ 18 UNITS/KG/HR 18.37 mls/hr IV .[id number] [facility] Rx#: [id number] Other: Voiding Method Toilet # Voids 1 2 Weight 102.058 kg 04/01/25 17:13 04/01/25 11:37
[2025-04-02] MEDS: amLODIPine 5 MG TAB PO SCH (12:16)
[2025-04-02 12:18] LABS: INR 1.0 (<1.2)
[2025-04-02 12:19] LABS: Partial Thromboplastin Time 23.7 sec (22.0-30.0); Prothrombin Time 11.2 sec (10.0-12.5)
--- NOTE | 2025-04-02 12:42 | P.HPIM ---
History of Present Illness H&P Date: 04/01/25 Jones Cherry, is a 75-year-old male who presented to [facility] emergency room with a chief complaint of chest pain. States that symptoms started about 5 days ago in the lower sternal area has been going on and off for 5 days, pain is now stronger and radiating to the left side of the chest. He stated that he had a heart attack 2 years ago but has no previous history of stent placement. He was evaluated in the emergency room vital examination on presentation revealed temp 98.2, heart 64, respiratory rate 16, blood pressure 167/78 with a pulse ox of 95% on room air Laboratory data reveals white blood cell 5.8, hemoglobin 14.0, troponin 0.053, 0.056 Testing in the emergency room revealed chest x-ray showing no acute cardiopulmonary process Patient was admitted to medical floor for further evaluation and treatment. Cardiology services have been consulted patient was started on heparin drip Past medical history is significant for diabetes mellitus, GERD, hyperlipidemia, hypertension, osteoarthritis and back surgery On review of systems patient is alert and oriented x 3. Patient reports some chest discomfort. Patient denies shortness of breath. Patient denies nausea vomiting or diarrhea patient denies any urinary burning or frequency Review of Systems Please refer to HPI otherwise unremarkable Past Medical History Past Medical History: Diabetes Mellitus, GERD/Reflux, Hyperlipidemia, Hypertension, Osteoarthritis (OA) Additional Past Medical History / Comment(s): Hx kidney stones. Chronic lower back and neck pain. Numbness in left arm X2-3 months. History of Any Multi-Drug Resistant Organisms: None Reported Past Surgical History: Adenoidectomy, Back Surgery, Orthopedic Surgery, Tonsillectomy Additional Past Surgical History / Comment(s): Back Surgery X4, bilateral shoulder surgery, pain clinic procedure. Past Anesthesia/Blood Transfusion Reactions: No Reported Reaction, Motion Sickness Past Psychological History: No Psychological Hx Reported Smoking Status: Former smoker Past Alcohol Use History: Rare Past Drug Use History: None Reported - Past Family History Father Family Medical History: Cancer Medications and Allergies Home Medications Medication Instructions Recorded Confirmed Type Atorvastatin Calcium [Lipitor] 40 mg PO DAILY 01/29/18 04/01/25 History oxyBUTYnin chloride [Ditropan] 5 mg PO BID 01/29/18 04/01/25 History glipiZIDE [Glucotrol] 5 mg PO BID 12/22/21 04/01/25 History Tamsulosin HCl [Flomax] 0.8 mg PO HS 04/04/23 04/01/25 History traMADol HCL 50 mg PO DAILY PRN 09/06/23 04/01/25 History Aspirin 81 mg PO DAILY 30 Days #30 tab 09/08/23 04/01/25 Rx Isosorbide Mononitrate ER [Imdur] 30 mg PO DAILY 30 Days #30 tab 09/08/23 04/01/25 Rx Metoprolol Succinate (ER) [Toprol 50 mg PO DAILY 11/22/24 04/01/25 History XL] Empagliflozin [Jardiance] 10 mg PO DAILY 04/01/25 04/01/25 History Pantoprazole [Protonix] 40 mg PO DAILY 04/01/25 04/01/25 History lisinopriL [Zestril] 20 mg PO BID 04/01/25 04/01/25 History Allergies Allergy/AdvReac Type Severity Reaction Status Date / Time No Known Allergies Allergy Verified 04/01/25 13:06 Physical Exam Vitals: Vital Signs Temp Pulse Resp BP Pulse Ox 04/01/25 15:00 70 18 159/103 97 04/01/25 14:00 66 16 143/99 94 L 04/01/25 13:00 67 16 134/85 95 04/01/25 12:39 74 18 133/94 97 04/01/25 11:25 97.7 F 78 20 163/87 99 Intake and Output 04/01/25 04/01/25 04/01/25 06:59 14:59 22:59 Other: Weight 102.058 kg In general patient is alert and oriented x 3 in no distress HEENT head normocephalic and atraumatic Neck is supple no JVD no goiter no lymphadenopathy no carotid bruit Chest examination is clear to auscultation no crackles no wheezing Cardiac exam reveals regular heart sounds S1 and S2 no gallops no murmurs Abdomen is soft nontender no organomegaly with normal bowel sounds Extremity exam reveals no edema no cyanosis or clubbing Neurological examination reveals no gross focal deficits Results CBC & Chem 7: 04/02/25 11:43 04/01/25 11:37 Labs: Abnormal Lab Results - Last 24 Hours (Table) 04/01/25 04/01/2504/01/25 Range/Units 11:37 11:37 11:37 Plt Count 136 L (140-440) 10*3/uL Glucose 162 H (74-99) mg/dL Troponin I 0.055 H* (0.000-0.034) ng/mL 04/01/25 Range/Units 14:16 Plt Count (140-440) 10*3/uL Glucose (74-99) mg/dL Troponin I 0.053 H* (0.000-0.034) ng/mL Assessment and Plan Assessment: Chest pain non-STEMI History of diabetes mellitus History of coronary artery disease History of hyperlipidemia Patient started on IV heparin per cardiology Repeat labs ordered 2D echo ordered Time with Patient: Greater than 30 (Greater than 60% of the total time spent in counseling and coordination of care)
--- NOTE | 2025-04-02 12:44 | P.PN ---
Subjective Progress Note Date: 04/02/25 This is a 75-year-old male with a past medical history significant for minimal CAD, hypertension, hyperlipidemia, and diabetes. Patient follows in the office with Dr. Martinez. We have been asked to see the patient in consultation for chest pain. Patient examined at the bedside. Patient presented to the hospital for chief complaint of chest discomfort. He states that he had been cleaning windows and afterwards developed chest pain. He states the pain is across both sides of his chest. He describes it as a pressure type sensation. Patient was found to have elevated troponins and was started on IV heparin. Additionally patient's blood pressures have been elevated upon admission with a systolic greater than 160 and up to 202/103. On 04/02/2025 patient is alert and oriented x 3. Plans for cardiac catheterization tomorrow per cardiology. Patient denies chest pain or shortness of breath. Patient denies nausea vomiting and diarrhea. Patient denies any urinary burning or frequency. Current vital signs temp 98.2, heart 64, respiratory rate 16, blood pressure 167/78 with pulse ox of 95% on room air Objective - Vital Signs Vital signs: Vital Signs Temp 98.2 F 04/02/25 07:18 Pulse 64 04/02/25 07:18 Resp 16 04/02/25 07:18 BP 167/78 04/02/25 07:18 Pulse Ox 95 04/02/25 07:18 FiO2 Intake & Output 04/01/25 04/02/25 04/02/25 18:59 06:59 18:59 Intake Total 33.985 Balance 33.985 Weight 102.058 kg 102.058 kg Intake: Intake, IV Titration 33.985 Amount Heparin Sod,Pork in 0.45% 33.985 NaCl 25,000 unit In 0.45 % NaCl 1 250ml.bag @ 18 UNITS/KG/HR 18.37 mls/hr IV .[id number] [facility] Rx#: [id number] Other: Voiding Method Toilet # Voids 2 - Exam Head normocephalic Neck supple Lungs clear to auscultation bilaterally no wheezing or crackles Heart regular rate and rhythm S1-S2, no rub or gallop Abdomen is soft nontender nondistended positive bowel sounds no hepatospleno megaly Extremities no edema Neuro alert and orientated to 3 - Labs CBC & Chem 7: 04/02/25 11:43 04/01/25 11:37 Labs: Abnormal Lab Results - Last 24 Hours (Table) 04/01/25 04/01/25 04/01/25 Range/Units 14:16 17:13 17:13 Plt Count (140-440) X 10*3/uL APTT >200.0 H* (22.0-30.0) sec Troponin I 0.053 H* 0.056 H* (0.000-0.034) ng/mL 04/01/25 04/02/25 Range/Units 18:50 06:10 Plt Count 134 L (140-440) X 10*3/uL APTT 160.8 H* (22.0-30.0) sec Troponin I (0.000-0.034) ng/mL Assessment and Plan Assessment: Chest pain non-STEMI Uncontrolled hypertension History of diabetes mellitus History of coronary artery disease History of hyperlipidemia Patient started on IV heparin per cardiology Repeat labs ordered 2D echo ordered For cardiac catheterization 04/03/2025
[2025-04-02] MEDS: HEPARIN SODIUM 1,000 UN/ML (10ML VL) IV ONE (12:52)
[2025-04-02] MEDS: HEPARIN SOD,PORK IN 0.45% NACL 25,000 UNIT in 0.45% NACL 1 250ML.BAG IV SCH (12:53)
[2025-04-02 13:00] LABS: ALT 27 U/L (10-49); AST 31 U/L (14-35); Albumin 4.1 g/dL (3.8-4.9); Albumin/Globulin Ratio 1.86 Ratio (1.60-3.17); Alkaline Phosphatase 61 U/L (41-126); Anion Gap 10.90 mmol/L (4.00-12.00); BUN/Creat Ratio 13.69 Ratio (12.00-20.00); Blood Urea Nitrogen 17.8 mg/dL (9.0-27.0); Calcium 8.8 mg/dL (8.7-10.3); Carbon Dioxide 24.1 mmol/L (21.6-31.8); Chloride 109 mmol/L (96-109); Cholesterol 129.00 mg/dL (0.00-200.00); Globulin 2.2 g/dL (1.6-3.3); Glucose 108 mg/dL (70-110); HDL Cholesterol 31.80 mg/dL (40.00-60.00); LDL Cholesterol,Calculated 61.0 mg/dL (0.0-131.0); Potassium 4.0 mmol/L (3.5-5.5); Sodium 144 mmol/L (135-145); Total Protein 6.3 g/dL (6.2-8.2); Triglycerides 181.00 mg/dL (0.00-149.00); VLDL Calculation 36.20 mg/dL (5.00-40.00)
[2025-04-02 13:06] LABS: Glucose,Whole Blood 112 mg/dL (70-110)
[2025-04-02 17:32] LABS: Glucose,Whole Blood 124 mg/dL (70-110)
--- NOTE | 2025-04-02 18:57 | CA ---
Transthoracic Echo Report Name: Jones Cherry Age: 75 Gender: M : 1950 Exam Date: 04/02/2025 15:01 Exam Location: [place] Echo Ht (in): 72 Wt (lb): 225 Ordering Physician: Abiola Singer Attending/Referring Phys: [id number], [employer] Engineer Katt Washington RDCS Procedure CPT: Indications: Non-STEMI, uncontrolled hypertension Cardiac Hx: Technical Quality: Good Contrast 1: Total Dose (mL): Contrast 2: Total Dose (mL): MEASUREMENTS (Male / Female) Normal Values 2D ECHO LV Diastolic Diameter PLAX 5.2 cm 4.2 - 5.9 / 3.9 - 5.3 cm LV Systolic Diameter PLAX 3.8 cm IVS Diastolic Thickness 1.6 cm 0.6 - 1.0 / 0.6 - 0.9 cm LVPW Diastolic Thickness 1.6 cm 0.6 - 1.0 / 0.6 - 0.9 cm LV Relative Wall Thickness 0.6 RV Internal Dim ED PLAX 3.8 cm LA Systolic Diameter LX 3.7 cm 3.0 - 4.0 / 2.7 - 3.8 cm LV Diastolic Volume MOD 4C 132.3 cm??? LV Systolic Volume MOD 4C 79.6 cm??? LV Ejection Fraction MOD 4C 39.8 % LV Cardiac Index MOD 4C 1349.8 cm???/min???m??? LV Diastolic Length 4C 9.1 cm LV Systolic Length 4C 7.6 cm LV Diastolic Volume MOD 2C 130.9 cm??? LV Systolic Volume MOD 2C 65.0 cm??? LV Ejection Fraction MOD 2C 50.4 % LV Cardiac Index MOD 2C 1689.4 cm???/min???m??? LV Diastolic Length 2C 9.0 cm LV Systolic Length 2C 7.8 cm LA Volume 97.4 cm??? 18 - 58 / 22 - 52 cm??? LA Volume Index 42.3 cm???/m??? 16 - 28 cm???/m??? M-MODE Aortic Root Diameter MM 4.0 cm AV Cusp Separation MM 2.5 cm DOPPLER AV Peak Velocity 136.6 cm/s AV Peak Gradient 7.5 mmHg MV Area PHT 2.8 cm??? MR Peak Velocity 510.8 cm/s MR Peak Gradient 104.4 mmHg Mitral E Point Velocity 75.2 cm/s Mitral A Point Velocity 63.3 cm/s Mitral E to A Ratio 1.2 MV Deceleration Time 275.3 ms TR Peak Velocity 220.7 cm/s TR Peak Gradient 19.5 mmHg Right Ventricular Systolic Press 24.0 mmHg FINDINGS Left Ventricle Left ventricular ejection fraction is estimated at 50-55 %. Left ventricular cavity size normal. Moderate concentric left ventricular hypertrophy. Right Ventricle Mild right ventricular dilatation. Right ventricular systolic pressure within normal limits. Right Atrium Normal right atrial size. No right atrial thrombus or mass seen. Left Atrium Severely increased left atrial volume. Mildly increased left atrial area. No left atrial thrombus or mass present. Mitral Valve Structurally normal mitral valve. Mild mitral regurgitation. Aortic Valve Trileaflet aortic valve. Aortic valve sclerosis. Tricuspid Valve Structurally normal tricuspid valve. Mild tricuspid regurgitation. Pulmonic Valve Structurally normal pulmonic valve. No pulmonic regurgitation. Pericardium No pericardial effusion. Aorta Mild aortic dilatation at the level of the sinuses of valsalva 40 mm CONCLUSIONS Concentric left ventricular hypertrophy with normal LV function Mild mitral and tricuspid regurgitation Previewed by: Dr. Peter Styles MD (Electronically Signed) Final Date: 02 April 2025 18:56
[2025-04-02 19:53] LABS: Glucose,Whole Blood 152 mg/dL (70-110)
[2025-04-02] MEDS: HEPARIN SODIUM 1,000 UN/ML (10ML VL) IV PRN (20:51)
[2025-04-03 03:23] LABS: INR 1.1 (<1.2); Prothrombin Time 11.7 sec (10.0-12.5)
[2025-04-03 03:24] LABS: Partial Thromboplastin Time 52.8 sec (22.0-30.0)
[2025-04-03 05:55] LABS: Glucose,Whole Blood 106 mg/dL (70-110)
--- NOTE | 2025-04-03 08:20 | P.PN ---
Subjective Progress Note Date: 04/03/25 This is a 75-year-old male with a past medical history significant for minimal CAD, hypertension, hyperlipidemia, and diabetes. Patient follows in the office with Dr. Mratinez. We have been asked to see the patient in consultation for chest pain. Patient examined at the bedside. Patient presented to the hospital for chief complaint of chest discomfort. He states that he had been cleaning windows and afterwards developed chest pain. He states the pain is across both sides of his chest. He describes it as a pressure type sensation. Patient was found to have elevated troponins and was started on IV heparin. Additionally patient's blood pressures have been elevated upon admission with a systolic greater than 160 and up to 202/103. On 04/02/2025 patient is alert and oriented x 3. Plans for cardiac catheterization tomorrow per cardiology. Patient denies chest pain or shortness of breath. Patient denies nausea vomiting and diarrhea. Patient denies any urinary burning or frequency. Current vital signs temp 98.2, heart 64, respiratory rate 16, blood pressure 167/78 with pulse ox of 95% on room air On 04/03/2025 patient is alert and oriented x 3 tentative plans for heart catheterization today per cardiology. 2D echo was completed showing an EF of 50 to 55%. Patient complains of mild chest discomfort with exertion. Patient denies shortness of breath. Patient denies nausea vomiting or diarrhea. Patient denies any urinary burning or frequency Objective - Vital Signs Vital signs: Vital Signs Temp 97.7 F 04/03/25 00:08 Pulse 53 L 04/03/25 00:08 Resp 18 04/03/25 00:08 BP 122/73 04/03/25 00:08 Pulse Ox 98 04/03/25 00:08 FiO2 Intake & Output 04/02/25 04/03/25 04/03/25 18:59 06:59 18:59 Intake Total 360 382.563 Balance 360 382.563 Intake: Intake, IV Titration 160.563 Amount Heparin Sod,Pork in 0.45% 160.563 NaCl 25,000 unit In 0.45 % NaCl 1 250ml.bag @ 9.8 UNITS/KG/HR 10.002 mls/hr IV .Q24H [facility] Rx#: [id number] Oral 360 222 Other: Voiding Method Toilet # Voids 3 2 - Exam Head normocephalic Neck supple Lungs clear to auscultation bilaterally no wheezing or crackles Heart regular rate and rhythm S1-S2, no rub or gallop Abdomen is soft nontender nondistended positive bowel sounds no hepatosplenomegaly Extremities no edema Neuro alert and orientated to 3 - Labs CBC & Chem 7: 04/02/25 11:43 04/02/25 06:10 Labs: Abnormal Lab Results - Last 24 Hours (Table) 04/02/25 04/02/25 04/02/25 Range/Units 06:10 06:10 13:04 Plt Count 134 L (140-440) X 10*3/uL APTT (22.0-30.0) sec Est GFR (CKD-EPI) 57 L (>=60) POC Glucose (mg/dL) 112 H (70-110) mg/dL Triglycerides 181.00 H (0.00-149.00) mg/dL HDL Cholesterol 31.80 L (40.00-60.00) mg/dL 04/02/25 04/02/25 04/02/25 Range/Units 17:31 19:48 19:56 Plt Count (140-440) X 10*3/uL APTT 38.8 H (22.0-30.0) sec Est GFR (CKD-EPI) (>=60) POC Glucose (mg/dL) 124 H 152 H (70-110) mg/dL Triglycerides (0.00-149.00) mg/dL HDL Cholesterol (40.00-60.00) mg/dL 04/03/25 Range/Units 02:50 Plt Count (140-440) X 10*3/uL APTT 52.8 H (22.0-30.0) sec Est GFR (CKD-EPI) (>=60) POC Glucose (mg/dL) (70-110) mg/dL Triglycerides (0.00-149.00) mg/dL HDL Cholesterol (40.00-60.00) mg/dL Assessment and Plan Assessment: Chest pain non-STEMI Uncontrolled hypertension History of diabetes mellitus History of coronary artery disease History of hyperlipidemia Patient started on IV heparin per cardiology Repeat labs ordered 2D echo ordered For cardiac catheterization 04/03/2025
[2025-04-03] MEDS ORDERED: NITROGLYCERIN SL TABS 0.4 MG TAB SUBLINGUAL PRN (08:57)
[2025-04-03] MEDS ORDERED: ALPRAZolam 0.25 MG TAB PO PRN (08:57)
[2025-04-03] MEDS ORDERED: ALPRAZolam 0.5 MG TAB PO PRN (08:57)
[2025-04-03] MEDS: DAPAGLIFLOZIN PROPANEDIOL 10 MG TABLET PO SCH (09:15)
[2025-04-03] MEDS: ATORVASTATIN 80 MG TAB PO STA (09:15)
[2025-04-03] MEDS: ASPIRIN 325 MG TAB PO STA (09:15)
[2025-04-03 09:29] LABS: Basophils # (A) 0.03 X 10*3/uL (0.00-0.10); Basophils % (A) 0.6 %; Eosinophils # (A) 0.29 X 10*3/uL (0.04-0.35); Eosinophils % (A) 6.1 %; HCT 41.0 % (39.6-50.0); HGB 13.4 g/dL (13.0-17.0); Immature Grans, Automated 0.40 %; Lymphocytes # (A) 1.89 X 10*3/uL (0.90-5.00); Lymphocytes % (A) 39.7 %; MCH 29.5 pg (27.0-32.0); MCHC 32.7 g/dL (32.0-37.0); MCV 90.1 FL (80.0-97.0); Monocytes # (A) 0.59 X 10*3/uL (0.20-1.00); Monocytes % (A) 12.4 %; NRBC Per 100 WBC 0 X 10*3/uL (0.00-0.01); Neutrophils # (A) 1.94 X 10*3/uL (1.80-7.70); Neutrophils % (A) 40.8 %; Platelet Count 132 X 10*3/uL (140-440); RBC 4.55 X 10*6/uL (4.40-5.60); RDW 14.0 % (11.5-14.5); WBC 4.76 X 10*3/uL (4.50-10.00)
[2025-04-03 09:34] LABS: ALT 26 U/L (10-49); AST 28 U/L (14-35); Albumin 3.8 g/dL (3.8-4.9); Albumin/Globulin Ratio 1.65 Ratio (1.60-3.17); Alkaline Phosphatase 59 U/L (41-126); Anion Gap 9.50 mmol/L (4.00-12.00); BUN/Creat Ratio 14.17 Ratio (12.00-20.00); Blood Urea Nitrogen 17.0 mg/dL (9.0-27.0); Calcium 8.3 mg/dL (8.7-10.3); Carbon Dioxide 22.5 mmol/L (21.6-31.8); Chloride 109 mmol/L (96-109); Globulin 2.3 g/dL (1.6-3.3); Glucose 114 mg/dL (70-110); Potassium 3.8 mmol/L (3.5-5.5); Sodium 141 mmol/L (135-145); Total Protein 6.1 g/dL (6.2-8.2)
[2025-04-03] MEDS: HEPARIN SODIUM,PORCINE (1 ML) 2,500 UNIT in SODIUM CHLORIDE 0.9% 250 ML IRRIGATION PRN (10:10)
[2025-04-03] MEDS: HEPARIN SODIUM,PORCINE 10,000 UNIT in SODIUM CHLORIDE 0.9% 1,000 ML IRRIGATION PRN (10:10)
[2025-04-03] MEDS: SODIUM CHLORIDE 0.9% 1,000 ML IV ONE (10:10)
[2025-04-03] MEDS: fentaNYL (PF) 50 MCG/1 ML VIAL IVP ONE (10:13)
[2025-04-03] MEDS: LIDOCAINE 1% INJ 10MG/ML (20 ML MDV) SQ ONE (10:15)
[2025-04-03] MEDS: VERAPAMIL SYRINGE (5 MG/10 ML) INTRAARTER ONE (10:19)
[2025-04-03] MEDS: HEPARIN SODIUM 1,000 UN/ML (10ML VL) IVP ONE (10:22)
[2025-04-03] MEDS: IOPAMIDOL-370 100ML BTL INJ ONE (10:25)
[2025-04-03] MEDS ORDERED: RX INFO: IV CONTRAST WAS GIVEN 1 EACH MISC MISCELLANE PRN (10:32)
--- NOTE | 2025-04-03 10:38 | P.CARDCATH ---
Date of Procedure: 04/03/25 Description of Procedure: Cardiac Catheterization: The patient is a 75-year-old male with known history of hypertension, hyperlipidemia and diabetes who presented with symptoms of chest discomfort and had minimal troponin elevation that was noted in the past. He was evaluated by Dr. Styles. Recommendations were made regarding cardiac catheterization, the risks and the complications were discussed with the patient who is in full understanding and agreement. 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 Using Xylocaine Anesthesia and modified Seldinger technique, a 6-Mont[place]grin sheath was introduced in the right radial artery . Subsequently, selective coronary angiography was performed using a 5-Montenegrin 3.5 bend Daniela catheter. Multiple views of the coronary artery including hemiaxial views were obtained. The right Daniela catheter was used to cross the aortic valve and LVEDP was calculated. Following that, catheter and sheath were removed. Hemostasis was obtained with deployment of vascular band . There was no immediate complication. Patient was returned to room in stable condition. Of note, the patient received a total of 5000 units of intravenous heparin as well as intra-arterial verapamil. Findings: Left main: This is a large size vessel, bifurcating into LAD and left circumflex, left main has no obstructive disease LAD: This is a large size vessel, reaching to the apex with a wraparound apex segment giving rise to a moderately sized diagonal branch proximally the proximal LAD has 20 to 30% plaque there is another 20% plaque at the takeoff of the diagonal branch, the rest of the vessel has no high-grade stenosis Left circumflex: This is a large nondominant vessel, giving rise to 2 large obtuse marginal branch. The left circumflex and its branches have no evidence of significant obstructive disease RCA: This is a large dominant vessel, bifurcating distally to PDA and PLV, the mid right coronary artery has 20 to 30% plaque there is another 20% plaque distally and mild disease in the PLV. The rest of the vessel has no high-grade stenosis. Left Ventriculogram: Not performed Hemodynamics: There was no gradient across the aortic valve, LVEDP was 8-12 mmHg Conclusion: 1. Mild triple-vessel disease 2. No progression compared to 2022 3. Right dominance 4. Normal LVEDP Recommendations: I see no evidence to suggest acute coronary syndrome, patient had mild elevation of troponin in the past and appears to be chronic, I will continue on medical therapy with the aggressive coronary risks modification that has been initiated. The findings and the recommendations were discussed with the patient and the family and they were in full understanding and agreement. Duration of sedation is 10 minutes.
[2025-04-03 12:20] LABS: Glucose,Whole Blood 95 mg/dL (70-110)
[2025-04-03 12:35] VITALS: RESP 18
[2025-04-03] MEDS: SODIUM CHLORIDE 0.9% 1,000 ML IV SCH (13:18)
[2025-04-03 13:22] VITALS: TEMP 97.7
--- NOTE | 2025-04-03 15:00 | P.PN ---
Subjective Progress Note Date: 04/03/25 HISTORY OF PRESENT ILLNESS: This is a 75-year-old male with a past medical history significant for minimal CAD, hypertension, hyperlipidemia, and diabetes. Patient follows in the office with Dr. Martinez. We have been asked to see the patient in consultation for chest pain. Patient examined at the bedside. Patient presented to the hospital for chief complaint of chest discomfort. He states that he had been cleaning windows and afterwards developed chest pain. He states the pain is across both sides of his chest. He describes it as a pressure type sensation. Patient was found to have elevated troponins and was started on IV heparin. Additionally patient's blood pressures have been elevated upon admission with a systolic greater than 160 and up to 202/103. DIAGNOSTICS: - EKG reveals sinus mechanism with no signs of acute ischemia - Chest xray negative for acute process. - Laboratory data: Troponin 0.055. 0.053. 0.056. - Current home cardiac medications include metoprolol succinate 50 mg daily, Imdur 30 mg daily, Jardiance 10 mg daily, lisinopril 20 mg twice a day, atorvastatin 40 mg daily, aspirin 81 mg daily. - Most recent echocardiogram obtained in October 2024 revealing EF 47%, mild AI, moderate MR, mild TR - Cardiac catheterization history: August 2023 revealing 20% mid LAD, 30% mid RCA, right dominant system 04/03/25 Left heart cath showed mild triple vessel disease, no progression compared to 2022. Medical management recommended. He is still having mild chest pains. ECHO with EF 50-55%. PHYSICAL EXAM: VITAL SIGNS: Reviewed. GENERAL: Well-developed in no acute distress. HEENT: Head is normocephalic. Pupils are equal, round. Sclerae anicteric. Mucous membranes of the mouth are moist. Neck supple. LUNGS: Respirations even and unlabored. Lungs essentially clear to auscultation bilaterally. HEART: Regular rate and rhythm. S1 and S2 heard. ABDOMEN: Soft. Nondistended. Nontender. EXTREMITIES: Normal range of motion. No clubbing or cyanosis. Peripheral puls es intact. No lower extremity edema. Right radial site with no swelling or drainage. NEUROLOGIC: Awake and alert. Oriented x 3. ASSESSMENT: Chest pain Non-STEMI Hypertension, uncontrolled Minimal CAD per cath in August 2023 Hyperlipidemia Diabetes Obesity: BMI 30.5 PLAN: Left heart cath showed stable mild CAD. ECHO with preserved EF. OK to discharge from cardiac standpoint. Follow up in office with Dr. Martinez in 1-2 weeks. Nurse practitioner note has been reviewed by Dr. Tran. Signing provider agrees with the documented findings, assessment, and plan of care documented by [employer]OW[employer] MACHINE ATTENDANT as a scribe. Objective - Vital Signs Vital signs: Vital Signs Temp 97.7 F 04/03/25 00:08 Pulse 53 L 04/03/25 00:08 Resp 18 04/03/25 00:08 BP 122/73 04/03/25 00:08 Pulse Ox 98 04/03/25 00:08 FiO2 Intake & Output 04/02/25 04/03/25 04/03/25 18:59 06:59 18:59 Intake Total 360 382.563 Balance 360 382.563 Intake: Intake, IV Titration 160.563 Amount Heparin Sod,Pork in 0.45% 160.563 NaCl 25,000 unit In 0.45 % NaCl 1 250ml.bag @ 9.8 UNITS/KG/HR 10.002 mls/hr IV .Q24H [id number] Rx#: [id number] Oral 360 222 Other: Voiding Method Toilet # Voids 3 2 - Labs CBC & Chem 7: 04/03/25 02:50 04/03/25 02:50 Labs: Abnormal Lab Results - Last 24 Hours (Table) 04/02/25 04/02/25 04/02/25 Range/Units 06:10 06:10 13:04 Plt Count 134 L (140-440) X 10*3/uL APTT (22.0-30.0) sec Est GFR (CKD-EPI) 57 L (>=60) POC Glucose (mg/dL) 112 H (70-110) mg/dL Triglycerides 181.00 H (0.00-149.00) mg/dL HDL Cholesterol 31.80 L (40.00-60.00) mg/dL 04/02/25 04/02/25 04/02/25 Range/Units 17:31 19:48 19:56 Plt Count (140-440) X 10*3/uL APTT 38.8 H (22.0-30.0) sec Est GFR (CKD-EPI) (>=60) POC Glucose (mg/dL) 124 H 152 H (70-110) mg/dL Triglycerides (0.00-149.00) mg/dL HDL Cholesterol (40.00-60.00) mg/dL 04/03/25 Range/Units 02:50 Plt Count (140-440) X 10*3/uL APTT 52.8 H (22.0-30.0) sec Est GFR (CKD-EPI) (>=60) POC Glucose (mg/dL) (70-110) mg/dL Triglycerides (0.00-149.00) mg/dL HDL Cholesterol (40.00-60.00) mg/dL
[2025-04-03 15:33] VITALS: BP 136/78; PULSE 60
--- NOTE | 2025-04-03 17:36 | P.DS ---
Providers Date of admission: 04/01/25 13:01 Expected date of discharge: 04/03/25 Attending physician: Laurel Alexandra Consults: 04/01/25 13:01 Consult Physician Urgent Consulting Provider: [facility] Consult Reason/Comments: Unstable angina Do you want consulting provider notified?: Yes Primary care physician: Nohemi Dennis Hospital Course: Diagnosis on discharge: Chest pain non-STEMI Uncontrolled hypertension History of diabetes mellitus History of coronary artery disease History of hyperlipidemia Hospital course: This is a 75-year-old male with a past medical history significant for minimal CAD, hypertension, hyperlipidemia, and diabetes. Patient follows in the office with Dr. Martinez. We have been asked to see the patient in consultation for chest pain. Patient examined at the bedside. Patient presented to the hospital for chief complaint of chest discomfort. He states that he had been cleaning windows and afterwards developed chest pain. He states the pain is across both sides of his chest. He describes it as a pressure type sensation. Patient was found to have elevated troponins and was started on IV heparin. Additionally patient's blood pressures have been elevated upon admission with a systolic greater than 160 and up to 202/103. On 04/02/2025 patient is alert and oriented x 3. Plans for cardiac catheterization tomorrow per cardiology. Patient denies chest pain or shortness of breath. Patient denies nausea vomiting and diarrhea. Patient denies any urinary burning or frequency. Current vital signs temp 98.2, heart 64, respiratory rate 16, blood pressure 167/78 with pulse ox of 95% on room air On 04/03/2025 patient is alert and oriented x 3 tentative plans for heart catheterization today per cardiology. 2D echo was completed showing an EF of 50 to 55%. Patient complains of mild chest discomfort with exertion. Patient denies shortness of breath. Patient denies nausea vomiting or diarrhea. Patient denies any urinary burning or frequency. Patient underwent cardiac cath on 04/03/2025. no angioplasty or stenet placement. he was stable. he was clearesd for discharge by cardiology. Plan - Discharge Summary Discharge Rx Participant: No New Discharge Prescriptions: New Nitroglycerin Sl Tabs [Nitrostat] 0.4 mg SUBLINGUAL Q5M PRN 30 Days #25 tab PRN Reason: Chest Pain amLODIPine [Norvasc] 5 mg PO DAILY 30 Days #30 tab Continue oxyBUTYnin chloride [Ditropan] 5 mg PO BID Atorvastatin Calcium [Lipitor] 40 mg PO DAILY Aspirin 81 mg PO DAILY 30 Days #30 tab Isosorbide Mononitrate ER [Imdur] 30 mg PO DAILY 30 Days #30 tab Pantoprazole [Protonix] 40 mg PO DAILY Empagliflozin [Jardiance] 10 mg PO DAILY glipiZIDE [Glucotrol] 5 mg PO BID Tamsulosin HCl [Flomax] 0.8 mg PO HS traMADol HCL 50 mg PO DAILY PRN PRN Reason: Pain Metoprolol Succinate (ER) [Toprol XL] 50 mg PO DAILY lisinopriL [Zestril] 20 mg PO BID Discharge Medication List Atorvastatin Calcium [Lipitor] 40 mg PO DAILY 01/29/18 [History] oxyBUTYnin chloride [Ditropan] 5 mg PO BID 01/29/18 [History] glipiZIDE [Glucotrol] 5 mg PO BID 12/22/21 [History] Tamsulosin HCl [Flomax] 0.8 mg PO HS 04/04/23 [History] traMADol HCL 50 mg PO DAILY PRN 09/06/23 [History] Aspirin 81 mg PO DAILY 30 Days #30 tab 09/08/23 [Rx] Isosorbide Mononitrate ER [Imdur] 30 mg PO DAILY 30 Days #30 tab 09/08/23 [Rx] Metoprolol Succinate (ER) [Toprol XL] 50 mg PO DAILY 11/22/24 [History] Empagliflozin [Jardiance] 10 mg PO DAILY 04/01/25 [History] Pantoprazole [Protonix] 40 mg PO DAILY 04/01/25 [History] lisinopriL [Zestril] 20 mg PO BID 04/01/25 [History] Nitroglycerin Sl Tabs [Nitrostat] 0.4 mg SUBLINGUAL Q5M PRN 30 Days #25 tab 04/03/25 [Rx] amLODIPine [Norvasc] 5 mg PO DAILY 30 Days #30 tab 04/03/25 [Rx] Follow up Appointment(s)/Referral(s): Jesse Martinez MD [STAFF PHYSICIAN] - 2 Weeks Nohemi Dennis MD [Primary Care Provider] - 1-2 days
[2025-04-03 17:46] LABS: Glucose,Whole Blood 103 mg/dL (70-110)
== END 2025-04-03 18:07 | disposition home or self-care (01) ==
LOC: EC 11:24 → 6NMEDSUR 13:01
PROVIDERS: ADMIT Internal Medicine; ATTEND Internal Medicine
DX: I21.4 Non-ST elevation (NSTEMI) myocardial infarction (principal); I25.10 Atherosclerotic heart disease of native coronary artery without angina pectoris; I10 Essential (primary) hypertension; I25.2 Old myocardial infarction; E11.9 Type 2 diabetes mellitus without complications; E66.9 Obesity, unspecified; E78.5 Hyperlipidemia, unspecified; K21.9 Gastro-esophageal reflux disease without esophagitis; M19.90 Unspecified osteoarthritis, unspecified site; Z68.30 Body mass index [BMI] 30.0-30.9, adult; Z79.82 Long term (current) use of aspirin; Z79.84 Long term (current) use of oral hypoglycemic drugs; Z79.899 Other long term (current) drug therapy; Z87.891 Personal history of nicotine dependence
CPT/HCPCS: 96366 ×3; 96365; 99291; 36415; 93005; 93306; 93458; 80061; 80053 ×3; 83735; 84484; 85025 ×3; 85610 ×3; 85730 ×3; 71046; G0378 ×3; C1769 ×2; C1894; J1644 ×7; J2003; Q9967; J3010